=== PATIENT | female | born 1955 | race Caucasian/White ===

== ENCOUNTER 2017-10-06 15:57 | Emergency (ER) | payer OTHER, MEDICAID, SELFPAY ==
[2017-10-06 16:32] VITALS: BP 146/72; PULSE 83; RESP 18; TEMP 37.4; O2SAT 98; BMI 18.7
[2017-10-06 17:26] LABS: Bacteria Urine Moderate (10-30); Culture Indicated Urine Specimen Cultured; RBC Urine 1-5/HPF (0-5/HPF); Squamous Epithelial Cell Urine 0-1 /HPF; WBC Urine 10-30/HPF (0-5/HPF)
[2017-10-06 17:57] VITALS: BP 132/69; PULSE 64; RESP 18; TEMP 37.2; O2SAT 96
[2017-10-06 18:03] LABS: Add Manual Diff / Slide Review NO; Basophils Percent Auto 1.2 % (0-2); Eosinophils Percent Auto 0.8 % (2-4); Hematocrit 36.9 % (36-46); Hemoglobin 12.9 g/dL (12.0-16.0); Lymphocytes Percent Auto 27.5 % (25-40); Mean Corpuscular HGB Conc 34.9 % (30-36); Mean Corpuscular Hemoglobin 42.4 PG (26-34); Mean Corpuscular Volume 121.7 fL (80-100); Monocytes Percent Auto 6.3 % (3-14); Neutrophils Absolute Auto 4500 /uL (3000-5900); Neutrophils Percent Auto 64.2 % (50-75); Platelet Count 211 X10^3/uL (150-400); Red Blood Cell Count 3.03 X10^6/uL (4.0-5.2); Red Cell Distribution Width 13.5 % (11.6-14.8); White Blood Cell Count 7.1 X10^3/uL (4.5-11.0)
--- NOTE | 2017-10-06 18:12 | ED.FEMALEGU ---
HPI - Female Genitourinary General Chief complaint: Urogenital-Female Stated complaint: POSSIBLE KIDNEY STONE Time Seen by Provider: 10/06/17 18:11 Source: patient Mode of arrival: ambulatory Limitations: no limitations History of Present Illness HPI Narrative: The patient complains of fever, chills and sweats for 1 week. She is lower abdominal pain and bilateral flank pain. She has associated dysuria. About 3 days ago she had a period of hematuria. She has no prior history of kidney stones. She also notes passing membranous tissue about 3 days ago. Her last episode of vomiting was 3 days ago. Her appetite is poor, her oral intake is poor. Related Data Home Medications Medication Instructions Recorded Confirmed ASPIRIN (#ASPIRIN EC) 325 mg PO Q DAY #0 10/21/10 NITROGLYCERIN (#NITROTAB) PRN #0 10/21/10 ASPIRIN/ACETAMINOPHEN/CAFFEINE 1 tab PO PRN #0 01/07/11 (Excedrin Migraine Geltab) Previous Rx's Medication Instructions Recorded alendronate [Fosamax] 70 mg PO Q7DAYS #14 tab 04/28/17 estradiol [Estrace] 1 mg PO Q DAY #90 tab 04/28/17 gabapentin [Neurontin] 300 mg PO BID #180 cap 04/28/17 lorazepam [Ativan] 0.5 mg PO BID #75 tab 04/28/17 lovastatin 20 mg PO QDAYPM #90 tab 04/28/17 pregabalin [Lyrica] 150 mg PO BID #120 cap 04/28/17 hydrocodone 7.5 mg-acetaminophen 1 - 2 tab PO Q6HP PRN #120 tab 09/25/17 325 mg tablet amoxicillin-pot clavulanate 1 tab PO BID #14 tab 10/06/17 [Augmentin] ondansetron [Zofran ODT] 4 mg PO Q4H PRN #10 tab 10/06/17 Allergies Allergy/AdvReac Type Severity Reaction Status Date / Time Sulfa (Sulfonamide Allergy Severe RESPIRATORY Unverified 10/06/17 16:37 Antibiotics) DIFFICULTY [SULFA (SULFONAMIDE ANTIBIOTICS)] adhesive Allergy Mild TEARS Unverified 10/06/17 16:37 SKIN,USE COBAN Review of Systems Review of Systems All systems reviewed & are unremarkable except as noted in HPI and below Constitutional Reports chills, Reports fatigue, Reports fever(s) and Denies frequent falls ENT Ears, Nose, Mouth, and Throat: Denies dizziness and Denies sore throat Cardiovascular Denies chest pain, Denies lightheadedness and Denies dyspnea Respiratory Denies cough and Denies dyspnea Gastrointestinal Gastrointestinal: Reports as per HPI, Reports abdominal pain, Denies change in bowel habits, Denies diarrhea, Denies nausea and Reports vomiting Genitourinary Denies hematuria, Reports urinary frequency, Reports dysuria and Denies flank pain Musculoskeletal Reports back pain (Bilateral lower thoracic pain) and Denies numbness Integumentary/Breasts Denies pruritus, Denies erythema, Denies rash and Denies wounds Neurologic Denies behavioral changes, Denies confusion, Denies dizziness, Denies frequent falls and Denies numbness Psychiatric Denies behavioral changes and Denies confusion Endocrine Reports fatigue [facility] Social History Smoking Status: Current every day smoker Exam Initial Vital Signs Initial Vital Signs: Vital Signs Temperature 99.3 F 10/06/17 16:32 Pulse Rate 83 10/06/17 16:32 Respiratory Rate 18 10/06/17 16:32 Blood Pressure 146/72 H 10/06/17 16:32 Pulse Oximetry 98 10/06/17 16:32 Const General: cooperative and well developed Nutritional Appearance: well nourished Orientation: alert, awake, oriented x3 and not confused [facility] Head: normal to inspection, normocephalic and atraumatic Face and sinus: dry mucous membranes Throat: posterior oropharynx normal and tonsils normal Resp Effort & Inspection: normal respiratory effort, able to speak in complete sentences, no respiratory distress and no use of accessory muscles Auscultation: clear to auscultation bilaterally, no rales, no rhonchi and no wheezes Cardio Rate: regular rate Rhythm: regular rhythm Heart Sounds: no click, no gallops, no murmurs and no rubs Pulses: normal peripheral pulses GI Inspection: non-distended Palpation: soft, no hepatosplenomegaly, No pulsatile mass and tender (Suprapubic tenderness without guarding or rebound.) Auscultation: normal bowel sounds Back/Spine/Pelvis Back: CVA tenderness (Bilateral) Cervical Spine: cervical ROM normal Thoracic/Lumbar Spine: thoracic and lumbar spine normal to inspection Skin General: no rashes or lesions noted Neuro General: alert, oriented x3, gait normal and no focal motor deficits Speech: speech normal Course Orders Ordered: ED Orders 10/06/17 15:02 Urine Culture Stat Urine Microscopic Stat 10/06/17 17:57 Basic Metabolic Panel Stat Complete Blood Count AUTO DIFF Stat Discontinued Medications Ceftriaxone Sodium/Dextrose (Rocephin) 1 gm in 50 mls @ 100 mls/hr IV NOW ONE Stop: 10/06/17 18:55 Last Infusion: 10/06/17 19:26 Dose: 0 mls/hr Admin: 10/06/17 18:53 Dose: 100 mls/hr Sodium Chloride (Normal Saline 0.9%) 1,000 mls @ 1,000 mls/hr IV BOLUS ONE Stop: 10/06/17 19:22 Last Admin: 10/06/17 18:53 Dose: 1,000 mls/hr Ketorolac Tromethamine (Toradol) 30 mg IV NOW ONE Stop: 10/06/17 18:24 Last Admin: 10/06/17 18:52 Dose: 30 mg Ondansetron HCl (Zofran) 4 mg IV NOW ONE Stop: 10/06/17 18:24 Last Admin: 10/06/17 18:53 Dose: 4 mg Vital Signs - 8 hr 10/06/17 16:32 10/06/17 17:57 10/06/17 19:29 Temperature 99.3 F 98.9 F 97.9 F Pulse Rate 83 64 64 Respiratory Rate 18 18 16 Blood Pressure 146/72 H Blood Pressure [Left Arm] 132/69 H 124/57 H Pulse Oximetry 98 96 98 MDM - Female Genitourinary Medical Records Attestation: I reviewed the patient's medical records. Lab Data Attestation: I reviewed the patient's lab results. Result diagrams: 10/06/17 17:57 10/06/17 17:57 Lab Results 10/06/17 10/06/17 10/06/17 Range/Units 15:02 17:57 17:57 WBC 7.1 (4.5-11.0) X10^3/uL RBC 3.03 L (4.0-5.2) X10^6/uL Hgb 12.9 (12.0-16.0) g/dL Hct 36.9 (36-46) % MCV 121.7 H (80-100) fL MCH 42.4 H (26-34) PG MCHC 34.9 (30-36) % RDW 13.5 (11.6-14.8) % Plt Count 211 (150-400) X10^3/uL Neut % (Auto) 64.2 (50-75) % Lymph % (Auto) 27.5 (25-40) % [place] % (Auto) 6.3 (3-14) % Eos % (Auto) 0.8 L (2-4) % Baso % (Auto) 1.2 (0-2) % Neut # (Auto) 4500 (5113-6684) /uL RBC Morphology Not Reportable Macrocytosis 2+ H Sodium 135 L (137-145) mmol/L Potassium 3.8 (3.4-5.1) mmol/L Chloride 104 (98-107) mmol/L Carbon Dioxide 21 L (22-32) mmol/L BUN 8 (7-17) mg/dL Creatinine 0.50 L (0.52-1.04) mg/dL Estimated GFR > 60.0 (>60) mL/min BUN/Creatinine Ratio 16.0 (6-22) Glucose 92 (80-110) mg/dL Calcium 8.9 (8.4-10.2) mg/dL Urine RBC 1-5/hpf (0-5/HPF) Urine WBC 10-30/hpf H (0-5/HPF) Ur Squamous Epith Cells 0-1 /hpf Urine Bacteria Moderate (10-30) H (None) Ur Culture Indicated? Specimen cultured Micro UA Comment Not Reportable MDM Narrative Medical decision making narrative: The patient was treated here with Rocephin for a UTI. She will be discharged on Augmentin. She will receive Zofran for nausea. Discharge Plan Departure Patient Disposition: Home, Self-Care Clinical Impression: Urinary tract infection Instructions: DI for Urinary Tract Infection (UTI) Activity Restrictions/Additional Instructions: Augmentin 2 times daily for 1 week. Zofran every 4 hr as needed for nausea. Be sure you are drinking plenty of fluids. Return here for worsening of symptoms, recheck with her doctor in about 10 days. Prescriptions: New ondansetron [Zofran ODT] 4 mg tablet,disintegrating 4 mg PO Q4H PRN (Reason: nausea and vomiting) Qty: 10 RF: 0 amoxicillin-pot clavulanate [Augmentin] 875-125 mg tablet 1 tab PO BID Qty: 14 RF: 0 No Action ASPIRIN (#ASPIRIN EC) 325 mg PO Q DAY Qty: 0 RF: 0 NITROGLYCERIN (#NITROTAB) PRN Qty: 0 RF: 0 ASPIRIN/ACETAMINOPHEN/CAFFEINE (Excedrin Migraine Geltab) 1 tab PO PRN Qty: 0 RF: 0 alendronate [Fosamax] 70 MG tablet 70 mg PO Q7DAYS Qty: 14 RF: 3 lorazepam [Ativan] 0.5 MG tablet 0.5 mg PO BID Qty: 75 RF: 5 estradiol [Estrace] 1 MG tablet 1 mg PO Q DAY Qty: 90 RF: 3 gabapentin [Neurontin] 300 MG capsule 300 mg PO BID Qty: 180 RF: 3 lovastatin 20 MG tablet 20 mg PO QDAYPM Qty: 90 RF: 3 pregabalin [Lyrica] 75 MG capsule 150 mg PO BID Qty: 120 RF: 5 hydrocodone-acetaminophen 7.5-325 mg tablet 1 - 2 tab PO Q6HP PRN (Reason: pain) Qty: 120 RF: 0
[2017-10-06 18:14] LABS: Blood Urea Nitrogen 8 mg/dL (7-17); Calcium 8.9 mg/dL (8.4-10.2); Carbon Dioxide 21 mmol/L (22-32); Chloride 104 mmol/L (98-107); Estimated Glomerular Filt Rate > 60.0 mL/min (>60); Glucose 92 mg/dL (80-110); HEMOLYSIS 24 (0-50); Potassium 3.8 mmol/L (3.4-5.1); Sodium 135 mmol/L (137-145)
[2017-10-06] MEDS: KETOROLAC 60 MG/2 ML VIAL 30 MG IV (18:52)
[2017-10-06] MEDS: ONDANSETRON 4 MG/2 ML INJ IV (18:53)
[2017-10-06] MEDS: SODIUM CHLORIDE 0.9% 1,000 ML 1000 ML IV (18:53)
[2017-10-06] MEDS: CEFTRIAXONE 1 GM/50 ML FROZ.PIGGY IV (18:53)
[2017-10-06 19:22] LABS: Macrocytosis 2+
[2017-10-06 19:29] VITALS: BP 124/57; PULSE 64; RESP 16; TEMP 36.6; O2SAT 98
== END 2017-10-06 20:20 | disposition home or self-care (01) ==
PROVIDERS: Emergency Medicine; Emergency Provider Emergency Medicine; Family Provider Family Medicine; PCP Family Medicine
DX: N39.0 Urinary tract infection, site not specified (principal)
CPT/HCPCS: 36591; 80048; 81003; 81015; 85025; 87077; 87086; 87186; 96361; 96365; 96375; 99283; J1885; J2405

== ENCOUNTER → 2017-10-12 15:19 | Outpatient (CLI) | payer OTHER, MEDICAID, SELFPAY | PROVIDERS: Family Provider Family Medicine; PCP Family Medicine; Visit Provider Family Medicine | DX: Z87.440 Personal history of urinary (tract) infections (principal) | CPT/HCPCS: 87086 ==

== ENCOUNTER → 2017-10-20 16:01 | Outpatient (CLI) | payer SELFPAY | PROVIDERS: Family Provider Family Medicine; PCP Family Medicine; Visit Provider Internal Medicine | DX: Z53.9 Procedure and treatment not carried out, unspecified reason (principal) ==

== ENCOUNTER → 2017-10-20 16:05 | Outpatient (CLI) | payer OTHER, MEDICAID, SELFPAY ==
[2017-10-20 16:30] LABS: Add Manual Diff / Slide Review NO; Basophils Percent Auto 1.6 % (0-2); Eosinophils Percent Auto 2.5 % (2-4); Hematocrit 37.2 % (36-46); Hemoglobin 12.8 g/dL (12.0-16.0); Lymphocytes Percent Auto 33.7 % (25-40); Mean Corpuscular HGB Conc 34.4 % (30-36); Mean Corpuscular Hemoglobin 41.4 PG (26-34); Mean Corpuscular Volume 120.4 fL (80-100); Neutrophils Absolute Auto 2200 /uL (3000-5900); Neutrophils Percent Auto 53.2 % (50-75); Platelet Count 253 X10^3/uL (150-400); Red Blood Cell Count 3.09 X10^6/uL (4.0-5.2); Red Cell Distribution Width 13.3 % (11.6-14.8); White Blood Cell Count 4.1 X10^3/uL (4.5-11.0)
[2017-10-20 16:54] LABS: Alanine Aminotransferase 50 IU/L (9-52); Albumin 3.6 g/dL (3.5-5.0); Albumin Globulin Ratio 1.4 (1.0-2.8); Alkaline Phosphatase 164 U/L (38-126); Aspartate Aminotransferase 75 IU/L (14-36); Bilirubin Total 0.8 mg/dL (0.2-1.3); Calcium 8.9 mg/dL (8.4-10.2); Carbon Dioxide 25 mmol/L (22-32); Chloride 103 mmol/L (98-107); Estimated Glomerular Filt Rate > 60.0 mL/min (>60); Globulin 2.6 g/dL (1.7-4.1); Glucose 109 mg/dL (80-110); HEMOLYSIS < 15 (0-50); Sodium 137 mmol/L (137-145); Total Protein 6.2 g/dL (6.3-8.2)
[2017-10-20 17:04] LABS: BUN Creatinine Ratio 3.3 (6-22); Blood Urea Nitrogen < 2 mg/dL (7-17)
[2017-10-20 17:24] LABS: Macrocytosis 3+; Stomatocytes 2+
[2017-10-20 17:39] LABS: Potassium 2.7 mmol/L (3.4-5.1)
[2017-10-20 18:00] LABS: Folate 3.5 ng/mL (2.76-20.0)
[2017-10-20 18:16] LABS: Vitamin B12 752 pg/mL (239-931)
== END ==
PROVIDERS: Family Provider Family Medicine; PCP Family Medicine; Visit Provider Internal Medicine
DX: R19.7 Diarrhea, unspecified (principal)
CPT/HCPCS: 36415; 80053; 82607; 82746; 85025

== ENCOUNTER → 2017-10-21 11:40 | Outpatient (CLI) | payer OTHER, MEDICAID, SELFPAY ==
[2017-10-24 16:59] LABS: Adenovirus F 40/41 Not Detected (Not Detect); Astrovirus Not Detected (Not Detect); Campylobacter Not Detected (Not Detect); Clostridium difficile toxin AB Not Detected (Not Detect); Cryptosporidium Not Detected (Not Detect); Cyclospora cayetanensis Not Detected (Not Detect); Entamoeba histolytica Not Detected (Not Detect); Enteroaggregative E.coli Not Detected (Not Detect); Enteropathogenic E.coli Not Detected (Not Detect); Enterotoxigenic E.coli It/st Not Detected (Not Detect); Giardia lamblia Not Detected (Not Detect); Norovirus GI/GII Not Detected (Not Detect); Plesiomonsa shigelloides Not Detected (Not Detect); Rotavirus A Not Detected (Not Detect); Salmonella Not Detected (Not Detect); Sapovirus Not Detected; Shiga-like toxin-prod E.coli Not Detected (Not Detect); Shigella/Enteroinvasive E.coli Not Detected (Not Detect); Vibrio Not Detected (Not Detect); Vibrio cholerae Not Detected (Not Detect); Yersinia enterocolitica Not Detected (Not Detect)
== END ==
PROVIDERS: Family Provider Family Medicine; PCP Family Medicine; Visit Provider Internal Medicine
DX: R19.7 Diarrhea, unspecified (principal)
CPT/HCPCS: 87507

== ENCOUNTER → 2017-10-22 07:33 | Outpatient (CLI) | payer OTHER, MEDICAID, SELFPAY ==
[2017-10-22 09:22] LABS: Campylobacter Not Detected (Not Detect); Clostridium difficile toxin AB Not Detected (Not Detect); Enteroaggregative E.coli Not Detected (Not Detect); Enteropathogenic E.coli Not Detected (Not Detect); Enterotoxigenic E.coli It/st Not Detected (Not Detect); Plesiomonsa shigelloides Not Detected (Not Detect); Salmonella Not Detected (Not Detect); Vibrio Not Detected (Not Detect); Vibrio cholerae Not Detected (Not Detect); Yersinia enterocolitica Not Detected (Not Detect)
[2017-10-22 09:23] LABS: Adenovirus F 40/41 Not Detected (Not Detect); Astrovirus Not Detected (Not Detect); Cryptosporidium Not Detected (Not Detect); Cyclospora cayetanensis Not Detected (Not Detect); Entamoeba histolytica Not Detected (Not Detect); Giardia lamblia Not Detected (Not Detect); Norovirus GI/GII Not Detected (Not Detect); Rotavirus A Not Detected (Not Detect); Shiga-like toxin-prod E.coli Not Detected (Not Detect); Shigella/Enteroinvasive E.coli Not Detected (Not Detect)
[2017-10-23 08:52] LABS: Sapovirus N
== END ==
PROVIDERS: PCP Family Medicine; Visit Provider Internal Medicine
DX: R19.7 Diarrhea, unspecified (principal)
CPT/HCPCS: 87507

== ENCOUNTER → 2017-10-24 08:20 | Outpatient (CLI) | payer OTHER, MEDICAID, SELFPAY ==
[2017-10-24 09:48] LABS: Blood Urea Nitrogen 3 mg/dL (7-17); Calcium 8.2 mg/dL (8.4-10.2); Carbon Dioxide 30 mmol/L (22-32); Chloride 97 mmol/L (98-107); Estimated Glomerular Filt Rate > 60.0 mL/min (>60); Glucose 87 mg/dL (80-110); HEMOLYSIS < 15 (0-50); Potassium 3.4 mmol/L (3.4-5.1); Sodium 134 mmol/L (137-145)
[2017-10-24 10:26] LABS: Clostridium Difficile Tox PCR Negative for C. diff
== END ==
PROVIDERS: PCP Family Medicine; Referring Provider Family Medicine; Visit Provider Internal Medicine
DX: R19.7 Diarrhea, unspecified (principal); E87.6 Hypokalemia
CPT/HCPCS: 36415; 80048; 87493

== ENCOUNTER → 2017-11-03 15:05 | Outpatient (CLI) | payer OTHER, MEDICAID, SELFPAY ==
--- NOTE | 2017-11-03 15:07 | DI.US.S_ITS ---
PROCEDURE: US ABDOMEN COMPLETE INDICATIONS: Abdominal pain. TECHNIQUE: Real-time scanning was performed of the abdominal and retroperitoneal organs, with image documentation. COMPARISON: None. FINDINGS: Liver: Liver is normal in size and homogeneous in echotexture. Gallbladder: No cholelithiasis, gallbladder wall thickening, or pericholecystic fluid. Biliary ducts: Intrahepatic bile ducts are non-dilated. Extrahepatic bile duct caliber measures 8 mm. Pancreas: Visualized portions of the pancreas are sonographically normal. Pancreatic body and tail are obscured by overlying bowel gas. Spleen: Spleen is normal in size and homogeneous in echotexture. Kidneys: Kidneys are normal in size and echotexture. Right kidney measures 10.6 cm long; left kidney measures 9.5 cm long. No hydronephrosis or nephrolithiasis. No solid masses. Aorta: Visualized portions of the abdominal aorta are normal in caliber at less than 3 cm. Iliacs: Not well seen on this exam due to overlying bowel gas. IVC: Intrahepatic inferior vena cava is patent. Miscellaneous: No free abdominal fluid. IMPRESSION: Mild dilatation of the common bile duct. Findings discussed with the ordering provider Dr. Santino Mackenzie at 4:15 PM on 11/03/2017 by telephone. Dictated by: Jose Piña M.D. on 11/03/2017 at 16:16 Approved by: Jose Piña M.D. on 11/03/2017 at 16:20
[2017-11-03 17:21] LABS: Blood Urea Nitrogen 3 mg/dL (7-17); Estimated Glomerular Filt Rate > 60.0 mL/min (>60)
== END ==
PROVIDERS: Family Provider Family Medicine; PCP Family Medicine; Visit Provider Family Medicine
DX: K83.8 Other specified diseases of biliary tract (principal); R10.9 Unspecified abdominal pain
CPT/HCPCS: 36415; 76700; 82565; 84520

== ENCOUNTER → 2017-11-05 12:30 | Outpatient (CLI) | payer OTHER, MEDICAID, SELFPAY ==
--- NOTE | 2017-11-05 12:56 | DI.CT.S_ITS ---
PROCEDURE: CT ABDOMEN PELVIS W CON INDICATIONS: abdominal pain and diarreha TECHNIQUE: After the administration of oral and intravenous contrast, 5 mm thick sections acquired from the diaphragms to the symphysis. 5 mm thick coronal and sagittal reformats were performed. For radiation dose reduction, the following was used: automated exposure control, adjustment of mA and/or kV according to patient size. COMPARISON: None. FINDINGS: Image quality: Excellent. ABDOMEN: Lung bases: Lung bases are clear. Heart size is normal. Solid organs: Liver is enlarged with homogeneous decreased attenuation. Gallbladder is elongated to 11.4 cm in length. No visible stones or wall thickening. No pericholecystic free fluid. The bile ducts aren't enlarged, measuring 12.3 mm in the distal portion with moderate dilatation of the intrahepatic radicles. There is no visible calcified intraductal stone or evidence of pancreatitis/pancreatic mass. The pancreatic duct however is mildly dilated at 4.2 mm and there may be pancreatic divisum. Spleen is normal in size and enhancement. No adrenal nodules. Kidneys are normal in size and enhancement, without hydronephrosis. Peritoneum and bowel: Stomach, small bowel, and colon loops are normal in caliber and wall thickness. The appendix is not seen. No free fluid or air. Nodes and vessels: No retroperitoneal or mesenteric adenopathy. Aorta and inferior vena cava are normal in caliber. Miscellaneous: No ventral hernias. PELVIS: Genitourinary: Bladder wall thickness is normal. Uterus is surgically absent. Ovaries are nonvisualized. Miscellaneous: No inguinal hernias or adenopathy. Bones: No suspicious bony lesions. No vertebral body compression fractures. IMPRESSION: 1. Gallbladder hydrops. Biliary and pancreatic ductal dilatation. Findings are suspect for ductal obstruction but no pancreatic mass or stones seen. Correlation with liver function tests and pancreatic enzymes suggested. MRCP may be useful. 2. Hepatomegaly with steatosis. Normal size spleen. 3. Status post hysterectomy. Ovaries and appendix not seen. Dictated by: Lalo Montaño M.D. on 11/05/2017 at 16:41 Approved by: Lalo Montaño M.D. on 11/05/2017 at 16:51
== END ==
PROVIDERS: Family Provider Family Medicine; PCP Family Medicine; Visit Provider Family Medicine
DX: K82.1 Hydrops of gallbladder (principal); K86.89 Other specified diseases of pancreas; K82.8 Other specified diseases of gallbladder; K76.0 Fatty (change of) liver, not elsewhere classified; R16.0 Hepatomegaly, not elsewhere classified; R10.9 Unspecified abdominal pain; R19.7 Diarrhea, unspecified
CPT/HCPCS: 74177; Q9967

== ENCOUNTER → 2017-11-16 06:39 | Outpatient (CLI) | payer OTHER, MEDICAID, SELFPAY ==
--- NOTE | 2017-11-16 06:41 | DI.MRI.S_ITS ---
PROCEDURE: MR ABDOMEN WO CON INDICATIONS: mass on ct of abdomen TECHNIQUE: Coronal HASTE through the abdomen, axial 2-D FLASH in- and [id number], and breath-hold T2 FSE with fat saturation through the biliary system and pancreas. Oblique coronal and axial thin-slice HASTE, radial thick-slab HASTE centered on the extrahepatic bile ducts. Intravenous secretin: Not requested. COMPARISON: [facility], US, US ABDOMEN COMPLETE, 11/03/2017, 15:55. [facility], CT, CT ABDOMEN PELVIS W CON, 11/05/2017, 13:37. FINDINGS: Image quality: Motion artifact limits evaluation. Pancreas and biliary system: The intra-hepatic biliary tree is nondilated. An ill-defined filling defect is present within the common hepatic duct (series 18, images 26-29). The common bile duct without filling defects, and is patent and measures up to 1 cm in diameter. There is conventional pancreatic ductal anatomy. The pancreatic duct is normal caliber where visualized throughout the head and body. The gallbladder is mildly hydropic. No gallbladder wall thickening. No pericholecystic fluid. A 4 mm diameter filling defect is present at the superior aspect of the gallbladder suspicious for a small gallstone (series 18, image 37).. Other solid organs: Liver is normal in size. Spleen is normal in size. No adrenal nodules. Both kidneys are normal in size, without hydronephrosis. Nodes and vessels: No retroperitoneal or mesenteric adenopathy by size criteria. Aorta and inferior vena cava are normal in size. Bowel and peritoneum: Unenhanced bowel loops are normal in caliber. No free fluid. Lung bases: No basal pleural effusions. Heart size is normal. Bones and soft tissues: No ventral hernias. Bone marrow is of normal overall signal. IMPRESSION: 1. Small probable small gallstone as described above. 2. Filling defect within the common hepatic duct as described above. Differential considerations include choledocholithiasis and a soft tissue mass. No intrahepatic biliary ductal dilatation. Given the probable gallstone, choledocholithiasis is favored. Dictated by: Nilda Hardy M.D. on 11/16/2017 at 9:32 Approved by: Nilda Hardy M.D. on 11/16/2017 at 9:46
== END ==
PROVIDERS: Family Provider Family Medicine; PCP Family Medicine; Visit Provider Family Medicine
DX: R19.00 Intra-abdominal and pelvic swelling, mass and lump, unspecified site (principal)
CPT/HCPCS: 74181

== ENCOUNTER 2017-12-09 17:14 | Emergency (ER) | payer OTHER, MEDICAID, SELFPAY ==
[2017-12-09 17:26] VITALS: BP 125/51; PULSE 119; RESP 20; TEMP 36.2; O2SAT 96; BMI 18.1
--- NOTE | 2017-12-09 18:35 | ED.ABDPAIN ---
HPI - Abdominal Pain <Sangeetha Marx PA-C - Last Filed: 12/09/17 22:35> General Chief Complaint: Abdominal Pain Stated Complaint: STATES DEHYDRATED Time Seen by Provider: 12/09/17 18:35 Source: patient Mode of arrival: ambulatory Limitations: no limitations History of Present Illness HPI narrative: This 61-year-old female with a history of chronic diarrhea for about a year, worsening over the past 3-4 months, comes in today saying she is sent by PCP due to dehydration. She states that she has diarrhea up to every hour, maybe 10 times today. She states that diarrhea tends to be worse in the morning and a little bit better at night. It has been intermittent but for the past few days more consistent. She describes this as watery stool. She had blood in the stool previously but has not had any this week. She states she vomited once this morning. She states she does have some nausea. She has chronic abdominal pain that has not changed. She states that this is mainly in the left upper quadrant. She states the pain can radiate to the back at times. She has had stool studies, CT scan, multiple other tests and is waiting for a consultation with the GI specialist. She states that she also has some headache and pain in the back of her neck related to her spinal stenosis. She states that she did not take her routine dose of Vicodin today and thinks that is the source. She does have a history of angina and esophageal spasm, she denies any chest pain or dyspnea currently. She denies any new pain or swelling in her legs. She has not had no fevers but states she has felt chilled often on including today. She states that she has also had left foot pain and intermittent swelling along with this diarrhea, denies today. She states that she was taking Imodium previously which was helpful but stopped this some time ago when she saw blood in the stool. She states that she took Pepto-Bismol last week which also helped. She denies any other acute symptoms on systems review Related Data Home Medications Medication Instructions Recorded Confirmed ASPIRIN (#ASPIRIN EC) 325 mg PO Q DAY #0 10/21/10 11/02/17 NITROGLYCERIN (#NITROTAB) PRN #0 10/21/10 11/02/17 ASPIRIN/ACETAMINOPHEN/CAFFEINE 1 tab PO PRN #0 01/07/11 11/02/17 (Excedrin Migraine Geltab) Previous Rx's Medication Instructions Recorded alendronate [Fosamax] 70 mg PO Q7DAYS #14 tab 04/28/17 estradiol [Estrace] 1 mg PO Q DAY #90 tab 04/28/17 gabapentin [Neurontin] 300 mg PO BID #180 cap 04/28/17 lovastatin 20 mg PO QDAYPM #90 tab 04/28/17 ondansetron 4 mg disintegrating 4 mg PO Q4H PRN #10 tab 10/23/17 tablet pregabalin 75 mg capsule 150 mg PO BID #120 cap 10/26/17 lorazepam 0.5 mg tablet 0.5 mg PO BID #75 tab 10/27/17 carisoprodol 250 mg tablet 250 mg PO QID PRN #30 tab 11/26/17 hydrocodone 7.5 mg-acetaminophen 1 - 2 tab PO Q6HP PRN #120 tab 11/26/17 325 mg tablet Allergies Allergy/AdvReac Type Severity Reaction Status Date / Time Sulfa (Sulfonamide Allergy Severe RESPIRATORY Verified 10/20/17 15:37 Antibiotics) DIFFICULTY [SULFA (SULFONAMIDE ANTIBIOTICS)] adhesive Allergy Mild TEARS Verified 10/20/17 15:37 SKIN,USE COBAN Review of Systems <Sangeetha Marx PA-C - Last Filed: 12/09/17 22:35> Review of Systems All systems reviewed & are unremarkable except as noted in HPI and below PFSH <Sangeetha Marx PA-C - Last Filed: 12/09/17 22:35> Comment: Previous EtOH user, none currently Exam <Sangeetha Marx PA-C - Last Filed: 12/09/17 22:35> Narrative Exam Narrative: GENERAL APPEARANCE: Patient resting comfortably, wearing sunglasses. Appears thin and frail HEENT: PERRL, EOMI, no scleral icterus NECK: Supple LUNGS: Clear to auscultation bilaterally. HEART: Rate and rhythm regular, normal S1 and S2, no S3 or S4. ABDOMEN: Soft, nondistended, bowel sounds present x 4 quadrants, no masses palpable, no hepatosplenomegaly. Left upper quadrant tenderness to palpation without guarding or rebound, less tender over the epigastrium, no CVAT EXTREMITIES: No edema, no calf tenderness DERMATOLOGIC: No jaundice or exanthem NEUROLOGIC: Alert and oriented with normal speech and coordination, ambulates on her own Initial Vital Signs Initial Vital Signs: Vital Signs Temperature 97.1 F L 12/09/17 17:26 Pulse Rate 119 H 12/09/17 17:26 Respiratory Rate 20 12/09/17 17:26 Blood Pressure 125/51 H 12/09/17 17:26 Pulse Oximetry 96 12/09/17 17:26 <John Burnette DO - Last Filed: 12/10/17 02:55> Initial Vital Signs Initial Vital Signs: Vital Signs Temperature 97.1 F L 12/09/17 17:26 Pulse Rate 119 H 12/09/17 17:26 Respiratory Rate 20 12/09/17 17:26 Blood Pressure 125/51 H 12/09/17 17:26 Pulse Oximetry 96 12/09/17 17:26 Course <Sangeetha Marx PA-C - Last Filed: 12/09/17 22:35> Additional Information: Patient reported improvement in her nausea and her headache. She did drink water while in the department. She did have some continued intermittent diarrhea though less than earlier in the day. We reviewed her test findings today. She did agree to restart her potassium that she already has at home for previous hypokalemia. She also agreed to use Zofran if needed, which she does have at home and was effective for her tonight. She will resume her usual pain medications (she skipped her [place] today probably contributing to rebound headache). She will also resume Imodium for now if she finds it helpful. We discussed importance of potassium replacement and that this should be rechecked with her PCP in the next couple of days. She agrees to call 1st thing tomorrow morning for appointment. She does have a GI consultation in 2 weeks. We discussed return if acutely worsening symptoms in the interim. Exam, lab, EKG findings reviewed with Dr. Burnette who agrees that the symptoms are not acute and reasonable for patient to discharge home since she is feeling better after treatment Orders Ordered: ED Orders 12/09/17 18:28 Complete Blood Count AUTO DIFF Stat Comprehensive Metabolic Panel Stat Lipase Stat Magnesium Stat 12/09/17 18:54 EKG-12 Lead Stat 12/09/17 20:44 EKG-12 Lead Stat Discontinued Medications Hydrocodone Bitart/Acetaminophen ([place] 5/325) 2 tab PO NOW ONE Stop: 12/09/17 18:51 Last Admin: 12/09/17 19:41 Dose: 2 tab Al Hydrox/Mg Hydrox/Simethicone (Maalox Plus) 30 ml PO NOW ONE Stop: 12/09/17 18:51 Last Admin: 12/09/17 19:42 Dose: 30 ml Sodium Chloride (Normal Saline 0.9%) 1,000 mls @ 150 mls/hr IV CONT DALILA Last Admin: 12/09/17 19:18 Dose: Not Given Sodium Chloride (Normal Saline 0.9%) 1,000 mls @ 1,000 mls/hr IV BOLUS ONE Stop: 12/09/17 19:51 Last Infusion: 12/09/17 21:03 Dose: 0 mls/hr Admin: 12/09/17 19:42 Dose: 1,000 mls/hr Loperamide HCl (Imodium) 4 mg PO NOW ONE Stop: 12/09/17 18:51 Last Admin: 12/09/17 19:42 Dose: 4 mg Ondansetron HCl (Zofran) 4 mg IV NOW ONE Stop: 12/09/17 18:51 Last Admin: 12/09/17 19:42 Dose: 4 mg Potassium Chloride (Klor-Con M20) 20 meq PO NOW ONE Stop: 12/09/17 18:55 Last Admin: 12/09/17 19:45 Dose: 20 meq Potassium Chloride (Potassium Chloride) 40 meq PO NOW ONE Stop: 12/09/17 19:01 Last Admin: 12/09/17 19:42 Dose: 40 meq Vital Signs - 8 hr 12/09/17 19:28 12/09/17 20:00 12/09/17 21:15 Temperature 97.1 F L Pulse Rate 101 H 73 76 Respiratory Rate 18 19 Blood Pressure 125/51 H Blood Pressure [Left Arm] 120/61 121/61 H 130/59 H Pulse Oximetry 98 99 99 12/09/17 21:39 Temperature Pulse Rate 69 Respiratory Rate Blood Pressure Blood Pressure [Left Arm] 127/51 H Pulse Oximetry 100 <John Burnette DO - Last Filed: 12/10/17 02:55> Orders Ordered: ED Orders 12/09/17 18:28 Complete Blood Count AUTO DIFF Stat Comprehensive Metabolic Panel Stat Lipase Stat Magnesium Stat 12/09/17 18:54 EKG-12 Lead Stat 12/09/17 20:44 EKG-12 Lead Stat Discontinued Medications Hydrocodone Bitart/Acetaminophen ([place] 5/325) 2 tab PO NOW ONE Stop: 12/09/17 18:51 Last Admin: 12/09/17 19:41 Dose: 2 tab Al Hydrox/Mg Hydrox/Simethicone (Maalox Plus) 30 ml PO NOW ONE Stop: 12/09/17 18:51 Last Admin: 12/09/17 19:42 Dose: 30 ml Sodium Chloride (Normal Saline 0.9%) 1,000 mls @ 150 mls/hr IV CONT DALILA Last Admin: 12/09/17 19:18 Dose: Not Given Sodium Chloride (Normal Saline 0.9%) 1,000 mls @ 1,000 mls/hr IV BOLUS ONE Stop: 12/09/17 19:51 Last Infusion: 12/09/17 21:03 Dose: 0 mls/hr Admin: 12/09/17 19:42 Dose: 1,000 mls/hr Loperamide HCl (Imodium) 4 mg PO NOW ONE Stop: 12/09/17 18:51 Last Admin: 12/09/17 19:42 Dose: 4 mg Ondansetron HCl (Zofran) 4 mg IV NOW ONE Stop: 12/09/17 18:51 Last Admin: 12/09/17 19:42 Dose: 4 mg Potassium Chloride (Klor-Con M20) 20 meq PO NOW ONE Stop: 12/09/17 18:55 Last Admin: 12/09/17 19:45 Dose: 20 meq Potassium Chloride (Potassium Chloride) 40 meq PO NOW ONE Stop: 12/09/17 19:01 Last Admin: 12/09/17 19:42 Dose: 40 meq Vital Signs - 8 hr 12/09/17 19:28 12/09/17 20:00 12/09/17 21:15 Temperature 97.1 F L Pulse Rate 101 H 73 76 Respiratory Rate 18 19 Blood Pressure 125/51 H Blood Pressure [Left Arm] 120/61 121/61 H 130/59 H Pulse Oximetry 98 99 99 12/09/17 21:39 Temperature Pulse Rate 69 Respiratory Rate Blood Pressure Blood Pressure [Left Arm] 127/51 H Pulse Oximetry 100 MDM - Abdominal Pain <Sangeetha Marx PA-C - Last Filed: 12/09/17 22:35> Lab Data Attestation: I reviewed the patient's lab results. Result diagrams: 12/09/17 18:28 12/09/17 18:28 Lab Results 12/09/17 12/09/17 Range/Units 18:28 18:28 WBC 7.5 (4.5-11.0) X10^3/uL RBC 3.45 L (4.0-5.2) X10^6/uL Hgb 14.0 (12.0-16.0) g/dL Hct 40.9 (36-46) % MCV 118.8 H (80-100) fL MCH 40.6 H (26-34) PG MCHC 34.2 (30-36) % RDW 12.3 (11.6-14.8) % Plt Count 313 (150-400) X10^3/uL Neut % (Auto) 72.6 (50-75) % Lymph % (Auto) 18.2 L (25-40) % [place] % (Auto) 7.7 (3-14) % Eos % (Auto) 0.6 L (2-4) % Baso % (Auto) 0.9 (0-2) % Neut # (Auto) 5400 (8980-9616) /uL RBC Morphology Not Reportable Macrocytosis 2+ H Sodium 143 (137-145) mmol/L Potassium 2.8 L (3.4-5.1) mmol/L Chloride 106 (98-107) mmol/L Carbon Dioxide 19 L (22-32) mmol/L BUN 3 L (7-17) mg/dL Creatinine 0.50 L (0.52-1.04) mg/dL Estimated GFR > 60.0 (>60) mL/min BUN/Creatinine Ratio 6.0 (6-22) Glucose 94 (80-110) mg/dL Calcium 9.7 (8.4-10.2) mg/dL Magnesium 2.0 (1.6-2.3) mg/dL Total Bilirubin 0.6 (0.2-1.3) mg/dL AST 48 H (14-36) IU/L ALT 28 (9-52) IU/L Alkaline Phosphatase 127 H (38-126) U/L Total Protein 7.0 (6.3-8.2) g/dL Albumin 4.4 (3.5-5.0) g/dL Globulin 2.6 (1.7-4.1) g/dL Albumin/Globulin Ratio 1.7 (1.0-2.8) Lipase 189 (23-300) U/L ECG Data Attestation: I personally reviewed and interpreted this ECG as follows: (EKG 1 sinus rhythm, rate 87, extensive artifact, EKG 2 normal sinus rhythm with rate 68, nonspecific ST changes also with artifact) <John Burnette, DO - Last Filed: 12/10/17 02:55> Lab Data Lab Results 12/09/17 12/09/17 Range/Units 18:28 18:28 WBC 7.5 (4.5-11.0) X10^3/uL RBC 3.45 L (4.0-5.2) X10^6/uL Hgb 14.0 (12.0-16.0) g/dL Hct 40.9 (36-46) % MCV 118.8 H (80-100) fL MCH 40.6 H (26-34) PG MCHC 34.2 (30-36) % RDW 12.3 (11.6-14.8) % Plt Count 313 (150-400) X10^3/uL Neut % (Auto) 72.6 (50-75) % Lymph % (Auto) 18.2 L (25-40) % [place] % (Auto) 7.7 (3-14) % Eos % (Auto) 0.6 L (2-4) % Baso % (Auto) 0.9 (0-2) % Neut # (Auto) 5400 (8584-0215) /uL RBC Morphology Not Reportable Macrocytosis 2+ H Sodium 143 (137-145) mmol/L Potassium 2.8 L (3.4-5.1) mmol/L Chloride 106 (98-107) mmol/L Carbon Dioxide 19 L (22-32) mmol/L BUN 3 L (7-17) mg/dL Creatinine 0.50 L (0.52-1.04) mg/dL Estimated GFR > 60.0 (>60) mL/min BUN/Creatinine Ratio 6.0 (6-22) Glucose 94 (80-110) mg/dL Calcium 9.7 (8.4-10.2) mg/dL Magnesium 2.0 (1.6-2.3) mg/dL Total Bilirubin 0.6 (0.2-1.3) mg/dL AST 48 H (14-36) IU/L ALT 28 (9-52) IU/L Alkaline Phosphatase 127 H (38-126) U/L Total Protein 7.0 (6.3-8.2) g/dL Albumin 4.4 (3.5-5.0) g/dL Globulin 2.6 (1.7-4.1) g/dL Albumin/Globulin Ratio 1.7 (1.0-2.8) Lipase 189 (23-300) U/L Discharge Plan Departure Patient Disposition: Home Clinical Impression: Chronic diarrhea, Low blood potassium, Dehydration Discharge Date/Time: 12/09/17 22:02 Interventions: ED Discharge Assessment Last Done: 12/09/17 22:01 Instructions: [place] Diet, DI for Diarrhea and Traveler's Diarrhea -- Adult, Loperamide Activity Restrictions/Additional Instructions: Please continue to drink plenty of clear fluids at home to help with hydration. You can restart your Imodium as we talked about since it seems to help you. You can also use the Odansetron that you already have at home as needed for nausea. You also need to restart your potassium that you have at home at the same dose you had before. This is very important as your potassium was low today, but we did give you supplement here tonight. Potassium has a narrow range of normal, and can cause serious problems if it gets too high or too low. You do need further testing for this and I know that you are waiting for a gastroenterology specialist appointment. In the meantime, please try eating a very bland diet with foods such as white rice, white bread, bananas, broth, applesauce, and you can slowly add more foods as you tolerate. You need to call your PCP 1st thing in the morning and arrange for follow-up in the next couple of days. Your potassium should be rechecked by Thursday with you back on the supplement. Prescriptions: No Action ASPIRIN (#ASPIRIN EC) 325 mg PO Q DAY Qty: 0 RF: 0 NITROGLYCERIN (#NITROTAB) PRN Qty: 0 RF: 0 ASPIRIN/ACETAMINOPHEN/CAFFEINE (Excedrin Migraine Geltab) 1 tab PO PRN Qty: 0 RF: 0 alendronate [Fosamax] 70 MG tablet 70 mg PO Q7DAYS Qty: 14 RF: 3 estradiol [Estrace] 1 MG tablet 1 mg PO Q DAY Qty: 90 RF: 3 gabapentin [Neurontin] 300 MG capsule 300 mg PO BID Qty: 180 RF: 3 lovastatin 20 MG tablet 20 mg PO QDAYPM Qty: 90 RF: 3 ondansetron [Zofran ODT] 4 mg tablet,disintegrating 4 mg PO Q4H PRN (Reason: nausea and vomiting) Qty: 10 RF: 0 pregabalin [Lyrica] 75 mg capsule 150 mg PO BID Qty: 120 RF: 0 lorazepam [Ativan] 0.5 mg tablet 0.5 mg PO BID Qty: 75 RF: 2 hydrocodone-acetaminophen 7.5-325 mg tablet 1 - 2 tab PO Q6HP PRN (Reason: pain) Qty: 120 RF: 0 carisoprodol 250 mg tablet 250 mg PO QID PRN (Reason: muscle pain) Qty: 30 RF: 1 Referrals: Santino Mackenzie MD [Primary Care Provider] - <John Burnette DO - Last Filed: 12/10/17 02:55> Cosign ED Attending Raymundoature Attestation: I was immediately available in the department for consultation. Documentation has been reviewed. I agree with assessment and plan.
[2017-12-09 18:42] LABS: Add Manual Diff / Slide Review NO; Basophils Percent Auto 0.9 % (0-2); Eosinophils Percent Auto 0.6 % (2-4); Hematocrit 40.9 % (36-46); Lymphocytes Percent Auto 18.2 % (25-40); Mean Corpuscular HGB Conc 34.2 % (30-36); Mean Corpuscular Hemoglobin 40.6 PG (26-34); Mean Corpuscular Volume 118.8 fL (80-100); Monocytes Percent Auto 7.7 % (3-14); Neutrophils Absolute Auto 5400 /uL (3000-5900); Neutrophils Percent Auto 72.6 % (50-75); Platelet Count 313 X10^3/uL (150-400); Red Blood Cell Count 3.45 X10^6/uL (4.0-5.2); Red Cell Distribution Width 12.3 % (11.6-14.8); White Blood Cell Count 7.5 X10^3/uL (4.5-11.0)
[2017-12-09 18:50] LABS: Alanine Aminotransferase 28 IU/L (9-52); Albumin 4.4 g/dL (3.5-5.0); Albumin Globulin Ratio 1.7 (1.0-2.8); Alkaline Phosphatase 127 U/L (38-126); Aspartate Aminotransferase 48 IU/L (14-36); Bilirubin Total 0.6 mg/dL (0.2-1.3); Blood Urea Nitrogen 3 mg/dL (7-17); Calcium 9.7 mg/dL (8.4-10.2); Carbon Dioxide 19 mmol/L (22-32); Chloride 106 mmol/L (98-107); Estimated Glomerular Filt Rate > 60.0 mL/min (>60); Globulin 2.6 g/dL (1.7-4.1); Glucose 94 mg/dL (80-110); HEMOLYSIS < 15 (0-50); Lipase 189 U/L (23-300); Potassium 2.8 mmol/L (3.4-5.1); Sodium 143 mmol/L (137-145)
[2017-12-09 19:11] LABS: Macrocytosis 2+
[2017-12-09 19:28] VITALS: BP 120/61; PULSE 101; O2SAT 98
[2017-12-09] MEDS: HYDROCODONE/ACET 5/325 TABLET 2 TAB PO (19:41)
[2017-12-09] MEDS: POTASSIUM CHLORIDE 20 MEQ/15 ML UDC 40 MEQ PO (19:42)
[2017-12-09] MEDS: MAG HYDROX/ALUM/SIMETH 30 ML UDC PO (19:42)
[2017-12-09] MEDS: SODIUM CHLORIDE 0.9% 1,000 ML 1000 ML IV (19:42)
[2017-12-09] MEDS: ONDANSETRON 4 MG/2 ML INJ IV (19:42)
[2017-12-09] MEDS: LOPERAMIDE 2 MG CAPSULE 4 MG PO (19:42)
[2017-12-09] MEDS: POTASSIUM CHLORIDE 20 MEQ TAB PO (19:45)
[2017-12-09 20:00] VITALS: BP 121/61; BP 125/51; PULSE 73; RESP 18; TEMP 36.2; O2SAT 99; BMI 18.1
[2017-12-09 21:15] VITALS: BP 130/59; PULSE 76; RESP 19; O2SAT 99
[2017-12-09 21:39] VITALS: BP 127/51; PULSE 69; O2SAT 100
== END 2017-12-09 22:02 | disposition home or self-care (01) ==
PROVIDERS: Emergency Medicine; Emergency Provider Internal Medicine; Family Provider Family Medicine; PCP Family Medicine
DX: R19.7 Diarrhea, unspecified (principal); E87.6 Hypokalemia; E86.0 Dehydration
CPT/HCPCS: 36415; 80053; 83690; 83735; 85025; 93005; 93010; 96361; 96374; 99283; 99284; J2405

== ENCOUNTER → 2018-05-10 16:21 | Outpatient (CLI) | payer OTHER, MEDICAID, SELFPAY ==
[2018-05-10 17:25] LABS: Add Manual Diff / Slide Review NO; Basophils Absolute Auto 0 /uL (0-100); Basophils Percent Auto 0.9 % (0-2); Eosinophils Absolute Auto 200 /uL (0-450); Hematocrit 37.3 % (36-46); Hemoglobin 12.3 g/dL (12.0-16.0); Lymphocytes Absolute Auto 1600 /uL (1100-4500); Lymphocytes Percent Auto 31.1 % (25-40); Mean Corpuscular HGB Conc 32.9 % (30-36); Mean Corpuscular Hemoglobin 36.5 PG (26-34); Mean Corpuscular Volume 110.7 fL (80-100); Monocytes Absolute Auto 500 /uL (0-900); Monocytes Percent Auto 10.4 % (3-14); Neutrophils Absolute Auto 2800 /uL (1500-7000); Neutrophils Percent Auto 54.6 % (50-75); Platelet Count 205 X10^3/uL (150-400); Red Blood Cell Count 3.37 X10^6/uL (4.0-5.2); Red Cell Distribution Width 12.5 % (11.6-14.8); White Blood Cell Count 5.2 X10^3/uL (4.5-11.0)
[2018-05-10 18:10] LABS: Anisocytosis 1+
[2018-05-10 18:11] LABS: Macrocytosis 1+
[2018-05-10 18:25] LABS: Alanine Aminotransferase 35 IU/L (9-52); Albumin 4.2 g/dL (3.5-5.0); Albumin Globulin Ratio 1.6 (1.0-2.8); Alkaline Phosphatase 104 U/L (38-126); Aspartate Aminotransferase 43 IU/L (14-36); BUN Creatinine Ratio 21.7 (6-22); Bilirubin Total 0.8 mg/dL (0.2-1.3); Blood Urea Nitrogen 13 mg/dL (7-17); Calcium 9.7 mg/dL (8.4-10.2); Carbon Dioxide 24 mmol/L (22-32); Chloride 107 mmol/L (98-107); Cholesterol 164 mg/dL (140-199); Estimated Glomerular Filt Rate > 60.0 mL/min (>60); Globulin 2.6 g/dL (1.7-4.1); Glucose 93 mg/dL (80-110); HDL Cholesterol 101 mg/dL (40-60); HEMOLYSIS < 15 (0-50); LDL Cholesterol Calculated 33 mg/dL (<100); Potassium 4.8 mmol/L (3.4-5.1); Sodium 139 mmol/L (137-145); Total Protein 6.8 g/dL (6.3-8.2); Triglycerides 152 mg/dL (35-150)
[2018-05-10 18:57] LABS: Thyroid Stimulating Hormone 2.21 uIU/mL (0.47-4.68)
== END ==
PROVIDERS: Family Provider Family Medicine; PCP Family Medicine; Visit Provider Family Medicine
DX: E78.2 Mixed hyperlipidemia (principal)
CPT/HCPCS: 36415; 80053; 80061; 84443; 85025

== ENCOUNTER → 2018-06-10 14:57 | Outpatient (CLI) | payer OTHER, MEDICAID, SELFPAY | PROVIDERS: Family Provider Family Medicine; PCP Family Medicine; Visit Provider Family Medicine | DX: M81.0 Age-related osteoporosis without current pathological fracture (principal); Z78.0 Asymptomatic menopausal state; F17.200 Nicotine dependence, unspecified, uncomplicated; Z90.722 Acquired absence of ovaries, bilateral | CPT/HCPCS: 77080 ==

== ENCOUNTER → 2018-08-17 09:09 | Outpatient (CLI) | payer OTHER, MEDICAID, SELFPAY ==
--- NOTE | 2018-08-17 09:11 | DI.US.S_ITS ---
PROCEDURE: US ABDOMEN COMPLETE INDICATIONS: ABDOMINAL PAIN, POSSIBLE GB DISEASE TECHNIQUE: Real-time scanning was performed of the abdominal and retroperitoneal organs, with image documentation. COMPARISON: None. FINDINGS: Liver: Liver demonstrates diffuse increased echogenicity without focal intrahepatic abnormalities Gallbladder: Gallbladder contains layering sludge with gallbladder wall measuring at the upper limits of normal (3 mm). No pericholecystic fluid noted. There is a positive sonographic Cohen's. No focal gallstones identified. Biliary ducts: Intrahepatic bile ducts are non-dilated. Extrahepatic bile duct caliber measures 3 mm. Normal is 6-7 mm or less in diameter, or 10 mm or less post-cholecystectomy. Nonspecific echogenic foci noted within the biliary ducts possibly representing air versus tiny calcifications. Pancreas: The pancreas is not well seen. Spleen: Spleen is normal in size and homogeneous in echotexture. Kidneys: Kidneys are normal in size and echotexture. Right kidney measures 10.4 cm long; left kidney measures 9.2 cm long. No hydronephrosis or nephrolithiasis. No solid masses. Aorta: Visualized aorta is normal in caliber at less than 3 cm. Moderate scattered atherosclerotic plaques throughout the visualized abdominal aorta. Iliacs: Proximal common iliac arteries are normal in caliber at less than 2.5 cm. IVC: Intrahepatic inferior vena cava is patent. Miscellaneous: No free abdominal fluid. IMPRESSION: 1. Gallbladder contains moderate amount of layering material consistent with sludge with gallbladder wall thickness at the upper limits of normal. There is a positive sonographic Cohen's sign. Findings may be related to acute acalculous cholecystitis as there were no focal gallstones identified. 2. A few nonspecific tiny echogenic foci identified in the hepatic biliary ducts which may represent air versus tiny calcifications. 3. The liver demonstrates diffusely increased echotexture without focal abnormalities consistent with chronic hepatocellular disease/hepatic steatosis. Consider correlation with LFTs. 4. Moderate atherosclerotic vascular disease of the abdominal aorta without aneurysmal dilatation. Dictated by: Jasvir Fields M.D. on 08/17/2018 at 12:20 Approved by: Jasvir Fields M.D. on 08/17/2018 at 12:27
== END ==
PROVIDERS: Family Provider Family Medicine; PCP Family Medicine; Visit Provider Specialist
DX: R10.9 Unspecified abdominal pain (principal); R19.7 Diarrhea, unspecified; I70.0 Atherosclerosis of aorta; G89.29 Other chronic pain
CPT/HCPCS: 76700

== ENCOUNTER → 2018-09-09 09:40 | Outpatient (CLI) | payer OTHER, MEDICAID, SELFPAY | PROVIDERS: Family Provider Family Medicine; PCP Family Medicine; Visit Provider Specialist | DX: R19.7 Diarrhea, unspecified (principal); R93.2 Abnormal findings on diagnostic imaging of liver and biliary tract; Z53.9 Procedure and treatment not carried out, unspecified reason ==

== ENCOUNTER → 2018-09-20 12:07 | Outpatient (CLI) | payer OTHER, MEDICAID, SELFPAY ==
--- NOTE | 2018-09-20 | DI.NM.S_ITS ---
PROCEDURE: NM HIDA WITH CCK PHARMACEUTICAL: 4.7 mCi Tc-99m mebrofenin IV; 1.7 mg morphine administered at 72 minutes after initiation of the study to assist in filling of the gallbladder lumen. INDICATIONS: Diarrhea, unspecified TECHNIQUE: Following intravenous administration of Tc-99m mebrofenin, sequential anterior abdominal images were obtained. To evaluate the contractile response of the gallbladder in response to Cholecystokinin (CCK), sincalide (0.02 ?g/kg) was administered by slow intravenous infusion approximately 60 minutes after the administration of the radiopharmaceutical. Sequential imaging was continued for 30 minutes after the start of CCK infusion. Gallbladder ejection fraction was calculated. COMPARISON: [facility], CT, CT ABDOMEN PELVIS W CON, 11/05/2017, 13:37. FINDINGS: Biliary scan: There is normal tracer uptake and excretion by the liver. There is normal visualization of the intrahepatic ducts, and common bile duct. The common duct traverses diagonally across the kecia hepatis area and then turns inferiorly in its normal course through the pancreatic head towards the duodenal lumen. The anatomy of the common duct and gallbladder is cross referrable to the CT scan from 11/05/17. On early isotope imaging there is a vertically oriented structure that is directed inferiorly below the diagonally oriented common hepatic duct, and this represents the gallbladder. Relatively low reflux of isotope into the gallbladder lumen was noted over the course of the study, with the large majority of the isotope traversing through the common bile duct into the small bowel lumen. Adequate filling of the gallbladder was not obtained and at 72 minutes after injection morphine was administered to contract the sphincter of Tre, which mildly improved the reflux of isotope into the gallbladder lumen. There is normal tracer transit into the duodenum. IMPRESSION: The radioisotope visualization of the liver parenchyma is normal. The bile ducts are patent and there is normal tracer transit into the duodenal lumen and thereafter through the small bowel. The radiotracer filling of the gallbladder was very limited through the examination and at 72 minutes after initiation of the study morphine was administered to contract the sphincter of bone which only mildly improved reflux of isotope into the gallbladder lumen. The gallbladder filling is insufficient for accurate calculation of gallbladder ejection fraction for this reason cholecystokinin was not administered. The cystic duct clearly is patent but filling of the gallbladder was limited. Dictated by: Kalia Diaz M.D. on 09/20/2018 at 14:54 Approved by: Kalia Diaz M.D. on 09/20/2018 at 15:03
[2018-09-20] MEDS: MORPHINE 4 MG/ML INJ IV (14:57)
== END ==
PROVIDERS: PCP Family Medicine; Visit Provider Specialist
DX: R19.7 Diarrhea, unspecified (principal)
CPT/HCPCS: 78226; A9537; J2270

== ENCOUNTER → 2018-10-15 15:33 | Outpatient (CLI) | payer OTHER, MEDICAID, SELFPAY ==
--- NOTE | 2018-10-15 | DI.RAD.S_ITS ---
PROCEDURE: XR THORACIC SPINE 3V INDICATIONS: OSTEOPOROSIS TECHNIQUE: 3 views of the thoracic spine were acquired. COMPARISON: None. FINDINGS: Bones: Diffuse osteopenia. No acute compression fractures or dislocations. Mild multilevel thoracic spondylitic changes. No suspicious bony lesions. 12 pairs of ribs are noted, and appear intact where visualized. Soft tissues: No paravertebral stripe thickening. IMPRESSION: 1. Diffuse osteopenia. No acute compression fractures of the thoracic spine. 2. Mild multilevel thoracic spondylosis. Dictated by: Jasvir Fields M.D. on 10/15/2018 at 17:04 Approved by: Jasvir Fields M.D. on 10/15/2018 at 17:06
== END ==
PROVIDERS: PCP Family Medicine; Visit Provider Nurse Practitioner
DX: M85.88 Other specified disorders of bone density and structure, other site (principal); M47.814 Spondylosis without myelopathy or radiculopathy, thoracic region
CPT/HCPCS: 72072

== ENCOUNTER → 2018-10-25 17:04 | Outpatient (CLI) | payer OTHER, MEDICAID, SELFPAY | PROVIDERS: PCP Family Medicine; Visit Provider Nurse Practitioner | DX: E55.9 Vitamin D deficiency, unspecified (principal) | CPT/HCPCS: 36415; 82306 ==

== ENCOUNTER → 2019-05-11 13:25 | Outpatient (CLI) | payer OTHER, MEDICAID, SELFPAY ==
[2019-05-11 13:45] LABS: Add Manual Diff / Slide Review NO; Basophils Absolute Auto 0 /uL (0-100); Basophils Percent Auto 0.7 % (0-2); Eosinophils Absolute Auto 0 /uL (0-450); Eosinophils Percent Auto 0.9 % (2-4); Hematocrit 39.2 % (36-46); Hemoglobin 13.3 g/dL (12.0-16.0); Lymphocytes Absolute Auto 1000 /uL (1100-4500); Lymphocytes Percent Auto 24.7 % (25-40); Mean Corpuscular Hemoglobin 37.4 PG (26-34); Monocytes Absolute Auto 400 /uL (0-900); Monocytes Percent Auto 10.3 % (3-14); Neutrophils Absolute Auto 2600 /uL (1500-7000); Neutrophils Percent Auto 63.4 % (50-75); Platelet Count 329 X10^3/uL (150-400); Red Blood Cell Count 3.56 X10^6/uL (4.0-5.2); White Blood Cell Count 4.1 X10^3/uL (4.5-11.0)
[2019-05-11 13:58] LABS: Alanine Aminotransferase 44 IU/L (<35); Albumin 3.8 g/dL (3.5-5.0); Albumin Globulin Ratio 1.2 (1.0-2.8); Alkaline Phosphatase 171 U/L (38-126); Amylase 74 U/L (30-110); Aspartate Aminotransferase 114 IU/L (14-36); BUN Creatinine Ratio 6.7 (6-22); Bilirubin Total 0.8 mg/dL (0.2-1.3); Blood Urea Nitrogen 4 mg/dL (7-17); Calcium 9.5 mg/dL (8.4-10.2); Carbon Dioxide 20 mmol/L (22-32); Chloride 106 mmol/L (98-107); Estimated Glomerular Filt Rate > 60.0 mL/min (>60); Globulin 3.3 g/dL (1.7-4.1); Glucose 110 mg/dL (80-110); HEMOLYSIS < 15 (0-50); Lipase 62 U/L (23-300); Potassium 3.6 mmol/L (3.4-5.1); Sodium 138 mmol/L (137-145); Total Protein 7.1 g/dL (6.3-8.2)
[2019-05-11 14:00] LABS: C-Reactive Protein Quant < 0.5 mg/dL (<1.0)
[2019-05-11 14:12] LABS: Erythrocyte Sedimentation Rate 4 MM/HR (0-20)
== END ==
PROVIDERS: PCP Family Medicine; Visit Provider Family Medicine
DX: R10.9 Unspecified abdominal pain (principal)
CPT/HCPCS: 36415; 80053; 82150; 83690; 85025; 85651; 86140

== ENCOUNTER → 2019-05-12 13:47 | Outpatient (CLI) | payer OTHER, MEDICAID, SELFPAY ==
[2019-05-12 15:47] LABS: Campylobacter Not Detected (Not Detect); Clostridium difficile toxin AB Detected (Not Detect); Plesiomonsa shigelloides Not Detected (Not Detect); Salmonella Not Detected (Not Detect); Vibrio Not Detected (Not Detect); Vibrio cholerae Not Detected (Not Detect); Yersinia enterocolitica Not Detected (Not Detect)
[2019-05-12 15:48] LABS: Adenovirus F 40/41 Not Detected (Not Detect); Astrovirus Not Detected (Not Detect); Cryptosporidium Not Detected (Not Detect); Cyclospora cayetanensis Not Detected (Not Detect); Entamoeba histolytica Not Detected (Not Detect); Enteroaggregative E.coli Not Detected (Not Detect); Enteropathogenic E.coli Not Detected (Not Detect); Enterotoxigenic E.coli It/st Not Detected (Not Detect); Giardia lamblia Not Detected (Not Detect); Norovirus GI/GII Not Detected (Not Detect); Rotavirus A Not Detected (Not Detect); Sapovirus Not Detected (Not Detect); Shiga-like toxin-prod E.coli Not Detected (Not Detect); Shigella/Enteroinvasive E.coli Not Detected (Not Detect)
== END ==
PROVIDERS: PCP Family Medicine; Visit Provider Family Medicine
DX: R10.9 Unspecified abdominal pain (principal)
CPT/HCPCS: 87507

== ENCOUNTER → 2019-05-13 14:36 | Outpatient (CLI) | payer OTHER, MEDICAID, SELFPAY ==
--- NOTE | 2019-05-13 14:38 | DI.CT.S_ITS ---
PROCEDURE: CT ABDOMEN PELVIS W CON INDICATIONS: Abdominal pain TECHNIQUE: After the administration of oral and intravenous contrast, 5 mm thick sections acquired from the diaphragms to the symphysis. 5 mm thick coronal and sagittal reformats were performed. For radiation dose reduction, the following was used: automated exposure control, adjustment of mA and/or kV according to patient size. COMPARISON: [facility], CT, CT ABDOMEN PELVIS W CON, 11/05/2017, 13:37. FINDINGS: Image quality: Excellent. ABDOMEN: Lung bases: Lung bases are clear. Heart size is normal. Solid organs: Liver is normal in size and enhancement. Gallbladder is not seen. Biliary system is non-dilated. There is mild pneumobilia. Pancreas enhances normally. Spleen is normal in size and enhancement. No adrenal nodules. Kidneys are normal in size and enhancement, without hydronephrosis. Peritoneum and bowel: Stomach, small bowel, and colon loops are normal in caliber and wall thickness. No free fluid or air. Nodes and vessels: No retroperitoneal or mesenteric adenopathy. Aorta and inferior vena cava are normal in caliber. Miscellaneous: No ventral hernias. PELVIS: Genitourinary: Bladder wall thickness is normal. Miscellaneous: No inguinal hernias or adenopathy. Bones: No suspicious bony lesions. No vertebral body compression fractures. IMPRESSION: Source of pain is not known. Apparent interval cholecystectomy. Mild pneumobilia noted at the central liver parenchyma. Large lung volumes, COPD is suspected. Dictated by: Kalia Diaz M.D. on 05/13/2019 at 17:03 Approved by: Kalia Diaz M.D. on 05/13/2019 at 17:05
== END ==
PROVIDERS: PCP Family Medicine; Visit Provider Family Medicine
DX: R10.9 Unspecified abdominal pain (principal); K83.1 Obstruction of bile duct
CPT/HCPCS: 74177; Q9967

== ENCOUNTER 2019-05-22 13:42 | Emergency (ER) | payer OTHER, MEDICAID, SELFPAY ==
[2019-05-22 13:50] VITALS: BP 134/66; PULSE 112; RESP 24; TEMP 36.6; O2SAT 99
--- NOTE | 2019-05-22 14:05 | PC.NURSE ---
pt reports diarrhea for three years. Does not know if she has ever been diagnosed with CDIFF but reports recent start of abx for bowel issues.
--- NOTE | 2019-05-22 14:07 | ED_ITS ---
HPI - Weakness General Chief complaint: Weakness Stated complaint: legs collapsed fell/can't stand Time Seen by Provider: 05/22/19 13:44 Source: patient Mode of arrival: Ambulatory History of Present Illness HPI Narrative: 63-year-old female daily smoker with chronic medical problems including pain, osteoporosis, depression, and recent diagnosis of C diff. Patient presents due to weakness in her lower extremities which caused her to collapse last night. She denies any dizziness or lightheadedness but states she has had a terrible appetite has not been eating or drinking. She is having upwards of 3 episodes of loose stools daily. She denies any chest pain or shortness of breath nor any fever or shaking chills. She complains of ongoing back and abdominal pain which is apparently chronic for her. Her significant other is at the bedside and apparently has had to carry her to the bathroom and from the bed. MD Complaint: generalized weakness and difficulty walking Onset (ago): hour(s) Duration: constant Location: LLE and RLE Migration: none Severity: moderate Relieving factors: none Exacerbating factors: none Associated symptoms: loss of appetite Related Data Home Medications Medication Instructions Recorded Confirmed ASPIRIN/ACETAMINOPHEN/CAFFEINE 1 tab PO PRN #0 01/07/11 05/11/19 (Excedrin Migraine Geltab) Previous Rx's Medication Instructions Recorded estradiol 1 mg tablet 1 mg PO Q DAY #90 tab 05/10/18 gabapentin 300 mg capsule 600 mg PO BID #120 cap 10/13/[address] #1 ea 11/11/18 carisoprodol 250 mg tablet 250 mg PO QID PRN #56 tab 05/11/19 diphenoxylate-atropine 2.5 2 tab PO Q6-8H PRN #100 tab MDD 6 05/11/19 mg-0.025 mg tablet lorazepam 0.5 mg tablet 0.5 mg PO BID #60 tab 05/11/19 lovastatin 20 mg tablet 20 mg PO QDAYPM #90 tab 05/11/19 ondansetron 4 mg disintegrating 4 mg PO Q4H PRN #60 tab 05/11/19 tablet oxycodone 10 mg tablet 15 mg PO Q6H PRN #84 tab 05/11/19 escitalopram oxalate 10 mg tablet 10 mg PO DAILY #30 tab 05/12/19 metronidazole 500 mg tablet 500 mg PO TID #30 tab 05/12/19 Allergies Allergy/AdvReac Type Severity Reaction Status Date / Time Sulfa (Sulfonamide Allergy Severe RESPIRATORY Verified 05/11/19 12:18 Antibiotics) DIFFICULTY [SULFA (SULFONAMIDE ANTIBIOTICS)] adhesive Allergy Mild TEARS Verified 05/11/19 12:18 SKIN,USE COBAN Review of Systems Constitutional Constitutional: Denies chills, Denies fatigue, Denies fever(s), Denies frequent falls, Denies lethargy and Denies weakness Eyes Eyes: Denies change in vision, Denies eye discharge, Denies irritation and Denies loss of vision ENT Ears, Nose, Mouth, and Throat: Denies change in voice, Denies dizziness, Denies neck pain, Denies sore throat and Denies throat swelling Cardiovascular Cardiovascular: Denies chest pain, Denies irregular heart rhythm, Denies lightheadedness, Denies palpitations, Denies dyspnea, Denies dyspnea on exertion and Denies orthopnea Respiratory Respiratory: Denies cough, Denies dyspnea, Denies dyspnea on exertion and Denies wheezing Gastrointestinal Gastrointestinal: Denies abdominal pain, Denies change in bowel habits, Reports diarrhea, Denies nausea and Denies vomiting Genitourinary Genitourinary: Denies hematuria, Denies flank pain, Denies urinary incontinence and Denies urinary urgency Musculoskeletal Musculoskeletal: Reports back pain, Reports muscle weakness, Denies neck pain, Denies numbness and Denies tingling Integumentary/Breasts Skin/Breast: Denies pruritus, Denies erythema, Denies rash and Denies wounds Neurologic Neurologic: Denies behavioral changes, Denies confusion, Denies dizziness, Denies frequent falls, Denies loss of vision, Denies numbness, Denies tingling and Denies weakness Psychiatric Psychiatric: Denies anxiety, Denies behavioral changes, Denies confusion, Denies depression, Denies homicidal ideation and Denies suicidal ideation Endocrine Endocrine: Denies fatigue, Denies flushing and Denies palpitations Hematologic/Lymphatic Hematologic/Lymphatic: Denies easy bruising Allergic/Immunologic Allergic/Immunologic: Denies urticaria, Denies throat swelling and Denies wheezing Patient History Medical History Abdominal pain (Chronic) Anxiety (Chronic 04/28/17) Chronic pain (Chronic) Diarrhea (Chronic) Low back pain without sciatica (Chronic 08/05/16) Mixed hyperlipidemia (Chronic 04/28/17) Osteoarthritis (Chronic 12/15/13) Osteoporosis (Chronic 12/15/13) Social History marital status: household members: spouse Smoking Status: Current every day smoker alcohol intake: never substance use type: does not use Smoking Status: Current every day smoker alcohol intake frequency: a few times a week Substance Use Type: does not use Exam Narrative Exam Narrative: GENERAL: [63] year old patient appears stated age. Quite thin, obviously uncomfortable and anxious HEAD: Atraumatic. Normocephalic. EYES: Pupils equal round and reactive. Extraocular motions intact. No scleral icterus. No injection or drainage. ENT: Dry mucous member Nose without bleeding, purulent drainage. Throat without erythema, tonsillar hypertrophy or exudate. Airway patent. NECK: Trachea midline. Non tender CARDIOVASCULAR: Regular rate and rhythm without murmurs, gallops, or rubs. RESPIRATORY: Clear to auscultation. Breath sounds equal bilaterally. No wheezes, rales, or rhonchi. GASTROINTESTINAL: Abdomen soft, generalized tenderness EXTREMITIES: Mild bruising to anterior knees, no obvious deformity or crepitance BACK: Tenderness in thoracic and lumbar spine NEURO: AOx3. SKIN: Dry mucous membranes No rash or erythema of visible areas Initial Vital Signs Initial Vital Signs: Vital Signs Temperature 97.9 F 05/22/19 13:50 Pulse Rate 112 H 05/22/19 13:50 Respiratory Rate 24 05/22/19 13:50 Blood Pressure 134/66 05/22/19 13:50 Pulse Oximetry 99 05/22/19 13:50 Course Course Course Narrative: patient with elevated troponin, rising after 2 hours presents with chief complaint of weakness, diarrhea, and chronic back pain. She denies any injury. She has no numbness, tingling, lost of bowel or bladder. She denies chest pain, SOB, dizziness, N/V. Patient has no classic cardiac findings and only cardiac equivalents are weakness. Her EKG is nonischemic. Hospitalist at [facility] is happy to accept. Orders Ordered: ED Orders 05/22/19 14:22 Basic Metabolic Panel Stat Complete Blood Count AUTO DIFF Stat Lactate (Lactic Acid) Stat Partial Thromboplastin Time Stat Procalcitonin Stat Troponin I Stat 05/22/19 15:17 XR lumbar spine 2-3V Stat XR thoracic spine 3V Stat 05/22/19 15:34 EKG-12 Lead Stat 05/22/19 16:30 Lactate (Lactic Acid) Stat Troponin I Stat 05/23/19 05:00 Hemoglobin and Hematocrit DAILY Heparin Sodium/Dextrose (Heparin Drip) 25,000 unit in 500 mls @ 9.798 mls/hr IV CONT DALILA; Protocol Last Admin: 05/22/19 18:04 Dose: 12 units/kg/hr, 9.798 mls/hr Documented by: DIANDRA Discontinued Medications Aspirin (Aspirin Chew) 324 mg PO NOW ONE Stop: 05/22/19 16:47 Last Admin: 05/22/19 16:51 Dose: 324 mg Documented by: MISHA Heparin Sodium (Porcine) (Heparin) 4,000 unit IV NOW ONE Stop: 05/22/19 17:34 Last Admin: 05/22/19 18:06 Dose: 4,000 unit Documented by: DIANDRA Sodium Chloride (Normal Saline 0.9%) 1,000 mls @ 1,000 mls/hr IV BOLUS ONE Stop: 05/22/19 15:06 Last Infusion: 05/22/19 15:34 Dose: 0 mls/hr Documented by: Admin: 05/22/19 14:30 Dose: 1,000 mls/hr Documented by: DIANDRA Sodium Chloride (Normal Saline 0.9%) 500 mls @ 1,000 mls/hr IV BOLUS ONE Stop: 05/22/19 15:55 Last Infusion: 05/22/19 16:50 Dose: 0 mls/hr Documented by: Admin: 05/22/19 15:38 Dose: 1,000 mls/hr Documented by: DIANDRA Oxycodone HCl (Percolone) 15 mg PO NOW ONE Stop: 05/22/19 16:45 Last Admin: 05/22/19 16:51 Dose: 15 mg Documented by: MISHA Vital Signs Vital signs: Vital Signs - 8 hr 05/22/19 13:50 05/22/19 18:12 05/22/19 19:37 Temperature 97.9 F Pulse Rate 112 H 100 H 92 H Respiratory Rate 24 12 12 Blood Pressure 134/66 Blood Pressure [Left Arm] 95/50 L 107/59 L Pulse Oximetry 99 98 99 MDM - Weakness Lab Data Result diagrams: 05/22/19 14:22 05/22/19 14:22 Labs: Lab Results 05/22/19 05/22/19 05/22/19 Range/Units 14:22 14:22 14:22 WBC 10.8 (4.5-11.0) X10^3/uL RBC 3.24 L (4.0-5.2) X10^6/uL Hgb 12.2 (12.0-16.0) g/dL Hct 35.0 L (36-46) % MCV 108.1 H (80-100) fL MCH 37.8 H (26-34) PG MCHC 35.0 (30-36) % RDW 12.9 (11.6-14.8) % Plt Count 274 (150-400) X10^3/uL Neut % (Auto) 77.0 H (50-75) % Lymph % (Auto) 12.0 L (25-40) % [place] % (Auto) 10.0 (3-14) % Eos % (Auto) 0.3 L (2-4) % Baso % (Auto) 0.7 (0-2) % Neut # (Auto) 8300 H (9299-0146) /uL Lymph # (Auto) 1300 (9206-1883) /uL [place] # (Auto) 1100 H (0-900) /uL Eos # (Auto) 0 (0-450) /uL Baso # (Auto) 100 (0-100) /uL APTT (26.4-36.2) SECONDS Sodium 138 (137-145) mmol/L Potassium 2.9 L (3.4-5.1) mmol/L Chloride 105 (98-107) mmol/L Carbon Dioxide 26 (22-32) mmol/L BUN 3 L (7-17) mg/dL Creatinine 0.50 L (0.52-1.04) mg/dL Estimated GFR > 60.0 (>60) mL/min BUN/Creatinine Ratio 6.0 (6-22) Glucose 93 (80-110) mg/dL Lactate (0.7-2.1) mmol/L Calcium 8.2 L (8.4-10.2) mg/dL Troponin I 2.420 H* (0.01-0.034) ng/mL Procalcitonin < 0.05 (<0.5) ng/mL 05/22/19 05/22/19 05/22/19 Range/Units 14:22 14:22 16:30 WBC (4.5-11.0) X10^3/uL RBC (4.0-5.2) X10^6/uL Hgb (12.0-16.0) g/dL Hct (36-46) % MCV (80-100) fL MCH (26-34) PG MCHC (30-36) % RDW (11.6-14.8) % Plt Count (150-400) X10^3/uL Neut % (Auto) (50-75) % Lymph % (Auto) (25-40) % [place] % (Auto) (3-14) % Eos % (Auto) (2-4) % Baso % (Auto) (0-2) % Neut # (Auto) (9129-6387) /uL Lymph # (Auto) (5648-4499) /uL [place] # (Auto) (0-900) /uL Eos # (Auto) (0-450) /uL Baso # (Auto) (0-100) /uL APTT 27 (26.4-36.2) SECONDS Sodium (137-145) mmol/L Potassium (3.4-5.1) mmol/L Chloride (98-107) mmol/L Carbon Dioxide (22-32) mmol/L BUN (7-17) mg/dL Creatinine (0.52-1.04) mg/dL Estimated GFR (>60) mL/min BUN/Creatinine Ratio (6-22) Glucose (80-110) mg/dL Lactate 3.7 H (0.7-2.1) mmol/L Calcium (8.4-10.2) mg/dL Troponin I 2.590 H* (0.01-0.034) ng/mL Procalcitonin (<0.5) ng/mL 05/22/19 Range/Units 16:30 WBC (4.5-11.0) X10^3/uL RBC (4.0-5.2) X10^6/uL Hgb (12.0-16.0) g/dL Hct (36-46) % MCV (80-100) fL MCH (26-34) PG MCHC (30-36) % RDW (11.6-14.8) % Plt Count (150-400) X10^3/uL Neut % (Auto) (50-75) % Lymph % (Auto) (25-40) % [place] % (Auto) (3-14) % Eos % (Auto) (2-4) % Baso % (Auto) (0-2) % Neut # (Auto) (5398-7761) /uL Lymph # (Auto) (9151-7635) /uL [place] # (Auto) (0-900) /uL Eos # (Auto) (0-450) /uL Baso # (Auto) (0-100) /uL APTT (26.4-36.2) SECONDS Sodium (137-145) mmol/L Potassium (3.4-5.1) mmol/L Chloride (98-107) mmol/L Carbon Dioxide (22-32) mmol/L BUN (7-17) mg/dL Creatinine (0.52-1.04) mg/dL Estimated GFR (>60) mL/min BUN/Creatinine Ratio (6-22) Glucose (80-110) mg/dL Lactate 2.1 (0.7-2.1) mmol/L Calcium (8.4-10.2) mg/dL Troponin I (0.01-0.034) ng/mL Procalcitonin (<0.5) ng/mL Critical Care Time Critical Care Time Critical Care Time: Yes Total Critical Care Time: 30 Attestation: The high probability of a clinically significant, sudden or life threatening deterioration of the [CV] system(s) required my full and direct attention, intervention and personal management. The aggregate critical care time was [30] minutes. This time is in addition to time spent performing reported procedures but includes the following: [x] Data Review and interpretation [x] Patient assessment and monitoring of vital signs [x] Documentation [x] Medication orders and management Discharge Plan [facility] Impression: Acute non-ST elevation myocardial infarction (NSTEMI), Acute hypokalemia Prescriptions: No Action ASPIRIN/ACETAMINOPHEN/CAFFEINE (Excedrin Migraine Geltab) 1 tab PO PRN Qty: 0 RF: 0 gabapentin [Neurontin] 300 mg capsule 600 mg PO BID Qty: 120 RF: 3 (DME) permanent disabled parking permit Qty: 1 RF: 0 escitalopram oxalate 10 mg tablet 10 mg PO DAILY Qty: 30 RF: 0 metronidazole [Flagyl] 500 mg tablet 500 mg PO TID Qty: 30 RF: 0 estradiol [Estrace] 1 mg tablet 1 mg PO Q DAY Qty: 90 RF: 3 carisoprodol 250 mg tablet 250 mg PO QID PRN (Reason: muscle pain) Qty: 56 RF: 5 diphenoxylate-atropine [Lomotil] 2.5-0.025 mg tablet 2 tab PO Q6-8H MDD 6 PRN (Reason: diarrhea) Qty: 100 RF: 3 lorazepam [Ativan] 0.5 mg tablet 0.5 mg PO BID Qty: 60 RF: 5 lovastatin 20 mg tablet 20 mg PO QDAYPM Qty: 90 RF: 3 ondansetron 4 mg tablet,disintegrating 4 mg PO Q4H PRN (Reason: nausea and vomiting) Qty: 60 RF: 5 oxycodone 10 mg tablet 15 mg PO Q6H PRN (Reason: pain) Qty: 84 RF: 0 Referrals: Santino Mackenzie MD [Primary Care Provider] -
[2019-05-22] MEDS: SODIUM CHLORIDE 0.9% 1,000 ML 1000 ML IV (14:30)
[2019-05-22 14:34] LABS: Add Manual Diff / Slide Review NO; Basophils Absolute Auto 100 /uL (0-100); Basophils Percent Auto 0.7 % (0-2); Eosinophils Absolute Auto 0 /uL (0-450); Eosinophils Percent Auto 0.3 % (2-4); Hemoglobin 12.2 g/dL (12.0-16.0); Lymphocytes Absolute Auto 1300 /uL (1100-4500); Mean Corpuscular Hemoglobin 37.8 PG (26-34); Mean Corpuscular Volume 108.1 fL (80-100); Monocytes Absolute Auto 1100 /uL (0-900); Neutrophils Absolute Auto 8300 /uL (1500-7000); Platelet Count 274 X10^3/uL (150-400); Red Blood Cell Count 3.24 X10^6/uL (4.0-5.2); Red Cell Distribution Width 12.9 % (11.6-14.8); White Blood Cell Count 10.8 X10^3/uL (4.5-11.0)
[2019-05-22 14:47] LABS: Blood Urea Nitrogen 3 mg/dL (7-17); Calcium 8.2 mg/dL (8.4-10.2); Carbon Dioxide 26 mmol/L (22-32); Chloride 105 mmol/L (98-107); Estimated Glomerular Filt Rate > 60.0 mL/min (>60); Glucose 93 mg/dL (80-110); HEMOLYSIS < 15 (0-50); Potassium 2.9 mmol/L (3.4-5.1); Sodium 138 mmol/L (137-145)
[2019-05-22 14:51] LABS: Lactate (Lactic Acid) 3.7 mmol/L (0.7-2.1)
[2019-05-22 15:07] LABS: Procalcitonin < 0.05 ng/mL (<0.5)
--- NOTE | 2019-05-22 15:17 | DI.RAD.S_ITS ---
PROCEDURE: XR THORACIC SPINE 3V INDICATIONS: pain TECHNIQUE: 3 views of the thoracic spine were acquired. COMPARISON: [facility], CR, XR THORACIC SPINE 3V, 10/15/2018, 15:52. FINDINGS: Bones: On the lateral views, the cervicothoracic junction is adequately visualized and the alignment through this region is within normal limits. The vertebral body heights are within normal limits throughout the thoracic spine without evidence to suggest acute compression fracture. The bone mineralization is within normal limits. Mild degenerative changes of the thoracic spine are evident. Soft tissues: Aortic atherosclerosis is present. The imaged overlying soft tissues of the chest are within normal limits. IMPRESSION: Mild degenerative changes of the thoracic spine without an acute compression fracture evident. Dictated by: Jamie Lovett M.D. on 05/22/2019 at 15:42 Approved by: Jamie Lovett M.D. on 05/22/2019 at 15:43
--- NOTE | 2019-05-22 15:17 | DI.RAD.S_ITS ---
PROCEDURE: XR LUMBAR SPINE 2-3V INDICATIONS: severe pain TECHNIQUE: 2 views of the lumbar spine were acquired. COMPARISON: None. FINDINGS: Bones: There are 5 lumbar-type vertebral bodies. The lowest intervertebral disk space is designated as L5-S1. The vertebral body heights are well-maintained without evidence to suggest an acute compression fracture. The bone mineralization is within normal limits. Mild to moderate degenerative changes of the lumbar spine are identified. Soft tissues: There is aortic atherosclerosis. Clips within the right upper quadrant are suggestive of a previous cholecystectomy. Otherwise, the soft tissues of the imaged abdomen and pelvis are within normal limits. IMPRESSION: Mild to moderate degenerative changes of the lumbar spine. No compression fractures. Dictated by: Jamie Lovett M.D. on 05/22/2019 at 15:41 Approved by: Jamie Lovett M.D. on 05/22/2019 at 15:42
[2019-05-22] MEDS: SODIUM CHLORIDE 0.9% 500 ML 1000 ML IV (15:38)
[2019-05-22 16:28] LABS: Reflexed Lactate in 2 Hours Y
[2019-05-22 16:47] LABS: Lactate (Lactic Acid) 2.1 mmol/L (0.7-2.1)
[2019-05-22] MEDS: ASPIRIN 81 MG CHEW TAB 324 MG PO (16:51)
[2019-05-22] MEDS: OXYCODONE IR 5 MG TABLET 15 MG PO (16:51)
[2019-05-22 17:45] LABS: PTT Partial Thromboplastin Tim 27 SECONDS (26.4-36.2)
[2019-05-22] MEDS: HEPARIN DRIP 25,000 UNIT/500 ML IV.SOLN 9.798 UNIT IV (18:04)
[2019-05-22] MEDS: HEPARIN 5,000 UNIT/ML VIAL 4000 UNIT IV (18:06)
[2019-05-22 18:12] VITALS: BP 95/50; PULSE 100; RESP 12; O2SAT 98
[2019-05-22 19:37] VITALS: BP 107/59; PULSE 92; RESP 12; O2SAT 99
--- NOTE | 2019-05-22 20:23 | PC.NURSE ---
report to leno BEDOLLA for [facility]
--- NOTE | 2019-06-04 17:42 | PC.NURSE ---
IV stop time for Heparin Drip 2048.
== END 2019-05-22 20:49 | disposition short-term general hospital (02) ==
PROVIDERS: Emergency Provider Emergency Medicine; PCP Family Medicine
DX: I21.4 Non-ST elevation (NSTEMI) myocardial infarction (principal); E87.6 Hypokalemia; F32.9 Major depressive disorder, single episode, unspecified; M54.5 Low back pain; M54.6 Pain in thoracic spine
CPT/HCPCS: 36415; 72072; 72100; 80048; 83605; 84145; 84484; 85025; 85730; 93005; 96361; 96365; 96366; 96375; 99285; 99291; J1644

== ENCOUNTER → 2020-01-24 11:58 | Outpatient (CLI) | payer OTHER, MEDICAID, SELFPAY ==
[2020-01-24 12:59] LABS: Add Manual Diff / Slide Review NO; Basophils Absolute Auto 0 /uL (0-100); Basophils Percent Auto 0.8 % (0-2); Eosinophils Absolute Auto 100 /uL (0-450); Eosinophils Percent Auto 2.1 % (2-4); Hematocrit 36.2 % (36-46); Hemoglobin 12.3 g/dL (12.0-16.0); Lymphocytes Absolute Auto 1600 /uL (1100-4500); Lymphocytes Percent Auto 31.4 % (25-40); Mean Corpuscular HGB Conc 34.1 % (30-36); Mean Corpuscular Hemoglobin 38.5 PG (26-34); Mean Corpuscular Volume 113.1 fL (80-100); Monocytes Absolute Auto 500 /uL (0-900); Monocytes Percent Auto 9.1 % (3-14); Neutrophils Absolute Auto 2800 /uL (1500-7000); Neutrophils Percent Auto 56.6 % (50-75); Platelet Count 214 X10^3/uL (150-400); Red Cell Distribution Width 12.5 % (11.6-14.8)
[2020-01-24 13:13] LABS: Alanine Aminotransferase 65 IU/L (<35); Albumin 3.2 g/dL (3.5-5.0); Albumin Globulin Ratio 1.2 (1.0-2.8); Alkaline Phosphatase 158 U/L (38-126); Aspartate Aminotransferase 193 IU/L (14-36); Bilirubin Total 0.4 mg/dL (0.2-1.3); Blood Urea Nitrogen 6 mg/dL (7-17); Calcium 8.6 mg/dL (8.4-10.2); Carbon Dioxide 27 mmol/L (22-32); Chloride 108 mmol/L (98-107); Estimated Glomerular Filt Rate > 60.0 mL/min (>60); Globulin 2.7 g/dL (1.7-4.1); Glucose 98 mg/dL (80-110); HEMOLYSIS 15 (0-50); Sodium 137 mmol/L (137-145); Total Protein 5.9 g/dL (6.3-8.2)
[2020-01-24 13:30] LABS: Macrocytosis 2+
[2020-01-24 13:33] LABS: Stomatocytes 1+
[2020-01-24 13:53] LABS: Thyroid Stimulating Hormone 2.92 uIU/mL (0.47-4.68)
== END ==
PROVIDERS: PCP Family Medicine; Referring Provider Family Medicine; Visit Provider Family Medicine
DX: I21.A1 Myocardial infarction type 2 (principal); R19.7 Diarrhea, unspecified
CPT/HCPCS: 36415; 80053; 84443; 85025

== ENCOUNTER → 2020-02-01 12:33 | Outpatient (CLI) | payer OTHER, MEDICAID, SELFPAY ==
[2020-02-01 12:51] LABS: Bacteria Urine None Seen; RBC Urine None Seen (0-5/HPF)
[2020-02-01 14:41] LABS: Appearance Urine UA CLEAR; Bilirubin Urine UA NEGATIVE (NEGATIVE); Color Urine UA YELLOW; Glucose Urine UA NEGATIVE (Negative); Ketones Urine UA NEGATIVE (NEGATIVE); Leukocyte Esterase Urine UA 2+ (NEGATIVE); Nitrite Urine UA NEGATIVE (Negative); Occult Blood Urine UA TRACE-INTACT (Negative); Protein Urine UA NEGATIVE (Negative); Urobilinogen Urine UA 0.2 E.U./dL (0.2)
[2020-02-01 14:43] LABS: pH Urine UA 5.5 (4.5-8.0)
[2020-02-01 14:45] LABS: Culture Indicated Urine Specimen Cultured; Squamous Epithelial Cell Urine 0-1 /HPF (0-5/HPF); WBC Urine 10-30/HPF (0-5/HPF)
== END ==
PROVIDERS: PCP Family Medicine; Referring Provider Family Medicine; Visit Provider Family Medicine
DX: R10.9 Unspecified abdominal pain (principal)
CPT/HCPCS: 81001; 87077; 87086; 87186

== ENCOUNTER → 2020-02-07 10:32 | Outpatient (CLI) | payer OTHER, MEDICAID, SELFPAY ==
[2020-02-07 12:44] LABS: Clostridium Difficile Tox PCR Positive for C. diff
[2020-02-09 13:32] LABS: C difficie Toxins A and B, EIA Negative (Negative)
== END ==
PROVIDERS: PCP Family Medicine; Referring Provider Family Medicine; Visit Provider Family Medicine
DX: R19.7 Diarrhea, unspecified (principal); Z86.19 Personal history of other infectious and parasitic diseases
CPT/HCPCS: 87493

== ENCOUNTER → 2020-03-03 12:38 | Outpatient (CLI) | payer OTHER, MEDICAID, SELFPAY ==
[2020-03-03 12:44] LABS: RBC Urine None Seen (0-5/HPF)
[2020-03-03 13:09] LABS: Appearance Urine UA CLOUDY; Bilirubin Urine UA NEGATIVE (NEGATIVE); Color Urine UA YELLOW; Glucose Urine UA NEGATIVE (Negative); Ketones Urine UA NEGATIVE (NEGATIVE); Leukocyte Esterase Urine UA 2+ (NEGATIVE); Nitrite Urine UA POSITIVE (Negative); Occult Blood Urine UA TRACE-LYSED (Negative); Protein Urine UA TRACE (Negative); Specific Gravity Urine UA 1.015 (1.000-1.035); Urobilinogen Urine UA 0.2 E.U./dL (0.2)
[2020-03-03 13:17] LABS: Bacteria Urine Many (>30); Culture Indicated Urine Specimen Cultured; Squamous Epithelial Cell Urine 0-1 /HPF (0-5/HPF); Transitional Epi Cells Urine 5-10/HPF (0-5/HPF); WBC Urine 30-100/HPF (0-5/HPF)
== END ==
PROVIDERS: PCP Family Medicine; Referring Provider Family Medicine; Visit Provider Family Medicine
DX: R30.0 Dysuria (principal)
CPT/HCPCS: 81001; 87077; 87086; 87186

== ENCOUNTER → 2020-04-03 12:56 | Outpatient (CLI) | payer OTHER, MEDICAID, SELFPAY | PROVIDERS: PCP Family Medicine; Referring Provider Family Medicine; Visit Provider Family Medicine | DX: R10.9 Unspecified abdominal pain (principal); Z87.440 Personal history of urinary (tract) infections | CPT/HCPCS: 87077; 87086; 87186 ==

== ENCOUNTER → 2020-05-09 17:19 | Outpatient (CLI) | payer OTHER, MEDICAID, SELFPAY ==
--- NOTE | 2020-05-09 17:32 | DI.RAD.S_ITS ---
PROCEDURE: XR HIP W PEL IF DONE RT 2V INDICATIONS: PAIN right hip TECHNIQUE: AP pelvis with lateral view(s) of the right hip(s). COMPARISON: None. FINDINGS: Bones: No fracture. Mild bilateral hip joint degeneration. Soft tissues: Scattered vascular calcifications are noted. IMPRESSION: Mild bilateral hip joint degeneration. If the patient's pain or other symptoms persist, consider further evaluation with MRI Dictated by: Abdifatah Pan M.D. on 05/10/2020 at 9:41 Approved by: Abdifatah Pan M.D. on 05/10/2020 at 9:44
--- NOTE | 2020-05-09 17:32 | DI.RAD.S_ITS ---
PROCEDURE: XR LUMBAR SPINE 2-3V INDICATIONS: lumbar pain TECHNIQUE: 3 views of the lumbar spine were acquired. COMPARISON: [facility], CR, XR LUMBAR SPINE 2-3V, 05/22/2019, 15:55. FINDINGS: Bones: No fracture. Mild dextrocurvature. Multilevel degenerative endplate sclerosis and spurring. Diffuse facet arthropathy. No definite disc space narrowing. Soft tissues: Scattered vascular calcifications in the aorta IMPRESSION: Mild lumbar spondylosis and facet arthropathy. No interval change. Mild levocurvature Dictated by: Abdifatah Pan M.D. on 05/10/2020 at 9:44 Approved by: Abdifatah Pan M.D. on 05/10/2020 at 9:48
[2020-05-14 19:09] LABS: H.pylori IgG 0.37 (0.00-0.79)
== END ==
PROVIDERS: PCP Family Medicine; Referring Provider Family Medicine; Visit Provider Family Medicine
DX: R10.9 Unspecified abdominal pain (principal); R19.7 Diarrhea, unspecified
CPT/HCPCS: 36415; 72100; 73502; 86677

== ENCOUNTER 2020-07-09 14:06 | Observation (INO) | payer OTHER, MEDICAID, SELFPAY ==
[2020-07-09] VITALS (19 sets, daily range): BP systolic 111–138; BP diastolic 54–76; PULSE 82–117; RESP 14–38; TEMP 36.1–37; O2SAT 93–98; BMI 20.7
--- NOTE | 2020-07-09 14:11 | DI.RAD.S_ITS ---
PROCEDURE: XR HIP W PEL IF DONE RT 2V INDICATIONS: fall w/ pain, unable to bear weight. *pt on trauma stretcher TECHNIQUE: AP pelvis with lateral view(s) of the right hip(s). COMPARISON: [facility], , XR HIP W PEL IF DONE RT 2V, 05/09/2020, 17:40. FINDINGS: Bones: No dislocations. Pelvic ring appears intact. No suspicious bony lesions. There is a lateral right-sided superior obturator ring fracture, possibly subacute. There is a vague lucency along the inter trochanteric line, but a definite fracture in that area is not seen. Soft tissues: The visualized bowel gas pattern is normal. No suspicious soft tissue calcifications. IMPRESSION: Superior obturator ring fracture located laterally, mildly displaced. Vague lucency along the inter trochanteric line at the right hip, but this does not necessarily represent fracture plane. Depending on the clinical symptoms follow-up by dedicated CT or, preferably, MR scanning for screening for hidden fracture may be warranted. Dictated by: Kalia Diaz M.D. on 07/09/2020 at 15:28 Approved by: Kalia Diaz M.D. on 07/09/2020 at 15:32
--- NOTE | 2020-07-09 14:11 | DI.RAD.S_ITS ---
PROCEDURE: XR CHEST 1V INDICATIONS: chest pain TECHNIQUE: One view of the chest was acquired. COMPARISON: [facility], CR, XR CHEST 1 VIEW, 05/24/2019, 11:08. [facility], CR, CHEST 2 VIEW, 04/02/2010, 16:19. FINDINGS: Surgical changes and devices: None. Lungs and pleura: Increased pulmonary vascularity is present, asymmetric within the right lung. Mediastinum: Mediastinal contours appear normal. Heart size is normal. Bones and chest wall: No suspicious bony lesions. Overlying soft tissues appear unremarkable. IMPRESSION: Asymmetric appearance of hazy opacity within the right lung. This could represent asymmetric pulmonary vascularity or developing airspace disease. Dictated by: Ofelia Chan M.D. on 07/09/2020 at 15:25 Approved by: Ofelia Chan M.D. on 07/09/2020 at 15:27
--- NOTE | 2020-07-09 14:36 | DI.RAD.S_ITS ---
PROCEDURE: XR FEMUR RT MIN 2V INDICATIONS: pain in R>L bila hip/pelvis, femur, s/p fall 1 wk ago, hx of TECHNIQUE: 2 views of the femur were acquired. COMPARISON: [facility], CR, XR HIP W PEL IF DONE RT 2V, 07/09/2020, 14:39. FINDINGS: Bones: There is a mildly displaced superior lateral right pubic ramus fracture. No suspicious bony lesions. Soft tissues: No suspicious soft tissue calcifications or masses. IMPRESSION: Mildly displaced right, superior lateral pubic ramus fracture. Dictated by: Ofelia Chan M.D. on 07/09/2020 at 15:27 Approved by: Ofelia Chan M.D. on 07/09/2020 at 15:40
--- NOTE | 2020-07-09 14:37 | DI.CT.S_ITS ---
PROCEDURE: CT CERVICAL SPINE WO CON INDICATIONS: midcervical tenderness, s/p fall TECHNIQUE: Noncontrast 3 mm thick sections acquired from the skull base to the T4 level. Sagittal and coronal reformats were then constructed. For radiation dose reduction, the following was used: automated exposure control, adjustment of mA and/or kV according to patient size. COMPARISON: None. FINDINGS: Image quality: Excellent. Bones: No fractures or dislocations. Mild degenerative endplate changes and bilateral facet hypertrophic changes are noted throughout cervical spine more prominent at C5-6 and C6-7 levels. No significant central canal stenosis or neural foraminal narrowing is seen. Visualized superior ribs are intact. Soft tissues: Prevertebral soft tissues are normal in thickness. No paravertebral hematomas. No apical pneumothoraces. Emphysematous changes are noted in bilateral lung apices. IMPRESSION: 1. No acute cervical spine fracture or dislocation. 2. Mild degenerative disc disease throughout cervical spine as above. Dictated by: Cuauhtemoc Tamez M.D. on 07/09/2020 at 15:14 Approved by: Cuauhtemoc Tamez M.D. on 07/09/2020 at 15:20
[2020-07-09] MEDS: SODIUM CHLORIDE 0.9% 1,000 ML 125 ML IV (14:52)
[2020-07-09] MEDS: HYDROMORPHONE 0.5 MG INJ IV ×2 (14:52→17:23)
[2020-07-09] MEDS: ONDANSETRON 4 MG/2 ML INJ IV (14:53)
[2020-07-09 14:54] LABS: Add Manual Diff / Slide Review NO; Basophils Absolute Auto 100 /uL (0-100); Basophils Percent Auto 0.7 % (0-2); Eosinophils Absolute Auto 0 /uL (0-450); Eosinophils Percent Auto 0.4 % (2-4); Hematocrit 34.4 % (36-46); Hemoglobin 11.4 g/dL (12.0-16.0); Lymphocytes Absolute Auto 1700 /uL (1100-4500); Lymphocytes Percent Auto 14.8 % (25-40); Mean Corpuscular HGB Conc 33.2 % (30-36); Mean Corpuscular Hemoglobin 38.8 PG (26-34); Mean Corpuscular Volume 116.9 fL (80-100); Monocytes Absolute Auto 1800 /uL (0-900); Monocytes Percent Auto 15.2 % (3-14); Neutrophils Absolute Auto 7900 /uL (1500-7000); Neutrophils Percent Auto 68.9 % (50-75); Platelet Count 297 X10^3/uL (150-400); Red Blood Cell Count 2.94 X10^6/uL (4.0-5.2); Red Cell Distribution Width 13.9 % (11.6-14.8); White Blood Cell Count 11.5 X10^3/uL (4.5-11.0)
[2020-07-09 14:56] LABS: INR 1.1 (0.9-1.3); Prothrombin Time 12.1 SECONDS (10.1-12.7)
[2020-07-09 14:59] LABS: PTT Partial Thromboplastin Tim 28 SECONDS (26.4-36.2)
[2020-07-09 15:00] LABS: Lactate (Lactic Acid) 2.6 mmol/L (0.7-2.1)
[2020-07-09 15:01] LABS: Alanine Aminotransferase 22 IU/L (<35); Albumin 3.3 g/dL (3.5-5.0); Alkaline Phosphatase 189 U/L (38-126); Aspartate Aminotransferase 45 IU/L (14-36); BUN Creatinine Ratio 10.3 (6-22); Bilirubin Total 0.8 mg/dL (0.2-1.3); Blood Urea Nitrogen 3 mg/dL (7-17); Carbon Dioxide 33 mmol/L (22-32); Chloride 97 mmol/L (98-107); Creatine Kinase 45 U/L (30-135); Estimated Glomerular Filt Rate > 60.0 mL/min (>60); Globulin 3.4 g/dL (1.7-4.1); Glucose 88 mg/dL (80-110); HEMOLYSIS 45 (0-50); Lipase 294 U/L (23-300); Sodium 134 mmol/L (137-145); Total Protein 6.7 g/dL (6.3-8.2)
[2020-07-09 15:03] LABS: Potassium 2.7 mmol/L (3.4-5.1)
[2020-07-09 15:13] LABS: Troponin I < 0.012 ng/mL (0.01-0.034)
[2020-07-09 15:18] LABS: Procalcitonin 6.51 ng/mL (<0.5)
--- NOTE | 2020-07-09 15:19 | ED_ITS ---
HPI - Extremity Injury (Lower) <KATLIN Gutierrez - Last Filed: 07/09/20 19:36> General Chief Complaint: Extremity Injury, Lower Stated Complaint: suspects broken right hip after fall last week Time Seen by Provider: 07/09/20 14:09 Source: patient and family Mode of arrival: Wheelchair Limitations: no limitations History of Present Illness HPI Narrative: This is a 64-year-old female, smoker, who has past medical history significant for osteoporosis, multi degenerative joint disease and chronic pain, depression, osteoarthritis, hyperlipidemia, anxiety presents to ED with significant and reports she had fall 1 week ago. Patient was eating in her bed using a TV tray and when she stood up and pushed on the tray, it accidentally collapsed on fell on right side of body including her face. She reports severe bilateral hip and pelvis pain which is worse in right-sided, right side facial pain, swelling and bruise, mid cervical tenderness, abdominal pain with nausea but no vomiting, new onset of urinary incontinence, constipation, difficulty catching my breath and contributes to pain and skin injury to right elbow/arm. She denies chest pain, dyspnea, dizziness prior to the fall. Patient denies loss of consciousness. She denies currently on blood thinners. Patient denies fever, chills, nausea or vomiting but has hot flashes. Patient has been taking Percocet 2 tabs Q 6 hours without good pain management. Patient reports she is not able to walk and has been in bed most of the time due to discomfort. Related Data Home Medications Medication Instructions Recorded Confirmed ASPIRIN/ACETAMINOPHEN/CAFFEINE 1 tab PO PRN #0 01/07/11 07/09/20 (Excedrin Migraine Geltab) aspirin 81 mg tablet,delayed 81 mg PO DAILY 06/09/19 07/09/20 release gabapentin [Neurontin] 300 mg PO BID 07/09/20 07/09/20 lorazepam [Ativan] 0.5 mg PO BID PRN 07/09/20 07/09/20 Previous Rx's Medication Instructions Recorded permanent disabled parking permit #1 ea 11/11/18 atorvastatin 40 mg tablet 40 mg PO BEDTIME #90 tab 01/24/20 duloxetine 20 mg capsule,delayed 20 mg PO BID #180 cap 01/24/20 release escitalopram oxalate 10 mg tablet 10 mg PO DAILY #90 tab 01/24/20 estradiol 1 mg tablet 1 mg PO Q DAY #90 tab 01/24/20 metoprolol succinate 25 mg 25 mg PO BID #180 tab 01/24/20 tablet,extended release 24 hr ondansetron 4 mg disintegrating 4 mg PO Q4H PRN #60 tab 01/24/20 tablet oxycodone-acetaminophen 5 mg-325 2 tab PO Q6H PRN #112 tab 07/04/20 mg tablet diphenoxylate-atropine 2.5 2 tab PO Q6-8H PRN #100 tab MDD 6 07/05/20 mg-0.025 mg tablet Allergies Allergy/AdvReac Type Severity Reaction Status Date / Time adhesive Allergy Mild TEARS Verified 07/09/20 14:20 SKIN,USE COBAN Sulfa (Sulfonamide Allergy Verified 07/09/20 14:20 Antibiotics) Review of Systems <Roverto Lees [facility] Last Filed: 07/09/20 19:36> Review of Systems Narrative: General: See HPI HEENT: Denies sinus pain, ear pain, sore throat, difficulty swallowing, dizziness. Respiratory: See HPI Cardiovascular: Denies chest pain, palpitations, orthopnea, edema. Gastrointestinal: See HPI : See HPI Musculoskeletal: See HPI Skin: The atria Neurologic: Denies weakness, headache, numbness, change in speech, confusion, seizures, incoordination. Psychiatric: No concerning psychosocial issues. 12-point review of systems is negative except for those stated above. Patient History <Roverto Lees [facility] - Last Filed: 07/09/20 19:36> Medical History Abdominal pain Anxiety (04/28/17) C. difficile colitis Chronic diarrhea Chronic pain Diarrhea Low back pain without sciatica (08/05/16) Mixed hyperlipidemia (04/28/17) Osteoarthritis (12/15/13) Osteoporosis (12/15/13) Surgical History (Updated 07/10/20 @ 01:46 by HESHAM Guzmán) History of arthroplasty of right shoulder History of cholecystectomy Family History Father No problems noted. Mother PE (pulmonary thromboembolism) Social History marital status: household members: spouse Smoking Status: Current every day smoker Tobacco: How many years used: 25 alcohol intake: never substance use type: does not use Smoking Status: Current every day smoker alcohol intake frequency: a few times a week Substance Use Type: does not use Exam <KATLIN Gutierrez - Last Filed: 07/09/20 19:36> Narrative Exam Narrative: GEN: Alert, oriented x 3, frail and thin appearing, and in moderate distress from pain. Head: Normal cephalic, atraumatic. No scalp or temporal tenderness, palpable mass or rash. EYES: Pupils are equal, round, and reactive to light and accommodation. Extraocular muscles are intact bilaterally. There is no subconjunctival hemorrhage, exudate and sclera non-icteric. ENT: Hearing grossly intact. Nose without bleeding, purulent discharge or deviation. Facial right side tenderness to palpate, edema and ecchymosis. Mucous membrane moist, no mucosal lesion. Throat without erythema, tonsillar hypertrophy or exudate. Uvula in midline, airway patent. Neck: Trachea in midline. No JVD, non-tender without lymphadenopathy. No ma sses or thyroid megaly. Supple, non-tender and no meningeal signs. CARDIAC: Normal regular rate and rhythm without murmurs, gallops, or rubs. No chest wall tenderness. No peripheral edema, cyanosis or pallor. Capillary refill is less than 2 seconds. RESPIRATORY: Lungs are clear to auscultate bilaterally. No cough, wheezes, rales, or rhonchi. No stridor, respiratory distress, increase work of breathing, or accessary muscle used. ABD: Abdomen soft, tender to palpate in generalized abdomen and non-distended. No guarding or rebound tenderness to palpate. Bowel sounds are normal in all 4 quadrants. There is no palpable masses or organomegaly. EXT: Exquisite tenderness to palpate in right pelvis and groin. Tenderness to palpate in right upper extremity. Limited passive ROM of in right lower extremity without loss of sensation, strength, effusion or edema. SKIN: Multiple ecchymosis in extremities. Right elbow with dried scab without signs of infection. Warm, dry, pale color for patient. BACK: Nontender without deformity or crepitance. No flank tenderness. NEUROLOGICAL: Alert and oriented to place, time and person. Sensation and motor function intact bilaterally. No facial droops, dysphasia. PSYCHIATRIC: Good judgement and reason, without hallucinations, abnormal affect or abnormal behaviors during the examination. Patient is not suicidal. Initial Vital Signs Initial Vital Signs: Vital Signs Blood Pressure 138/63 07/09/20 14:17 <Little Rodriguez DO - Last Filed: 07/10/20 07:54> Initial Vital Signs Initial Vital Signs: Vital Signs Blood Pressure 138/63 07/09/20 14:17 Scores <Roverto LangfordRimma [facility] - Last Filed: 07/09/20 19:36> GCS [place] coma scale eye opening: Spontaneous Adam coma scale verbal response: Orientated Adam coma scale motor response: Obey commands Adam coma scale total score: 15 PERC Score Age greater than or equal to 50 years: Yes Heart rate greater than or equal to 100 bpm: Yes Room Air O2 Sat less than 95%: No Unilateral leg swelling: No Recent trauma or surgery: No Hemoptysis: No Prior PE or DVT: No Hormone Use: Yes Total PERC Score: 3 qSOFA Altered Mental Status (GCS <15): No Respiratory rate greater than/equal to 22: Yes Systolic blood pressure less than or equal to 100: No qSOFA Total: 1 0-1 Not High Risk 1-3 High risk Wells' Criteria for PE Clinical signs and symptoms of DVT: No PE is #1 Dx or equally likely: No Heart rate > 100: Yes Immobilization at least 3 days or surg in previous 4 weeks: Yes History of PE or DVT: No Hemoptysis: No Malignancy w/Treatment within 6 months or palliative: No Wells' PE Score total: 3.0 Course <Rovetro Lees [facility] - Last Filed: 07/09/20 19:36> Orders Ordered: Atorvastatin Calcium (Atorvastatin 20 Mg Tablet) 40 mg PO BEDTIME [facility] Last Admin: 07/09/20 22:21 Dose: 40 mg Documented by: JAVIER Docusate Sodium (Docusate 100 Mg Capsule) 100 mg PO BID [facility] Last Admin: 07/09/20 21:00 Dose: 100 mg Documented by: JAVIER Duloxetine HCl (Duloxetine 20 Mg Capsule) 20 mg PO BID [facility] Last Admin: 07/09/20 22:21 Dose: 20 mg Documented by: JAVIER Escitalopram Oxalate (Escitalopram 10 Mg Tablet) 10 mg PO DAILY [facility] Gabapentin (Gabapentin 300 Mg Capsule) 300 mg PO BID [facility] Last Admin: 07/09/20 22:22 Dose: 300 mg Documented by: JAVIER Hydromorphone HCl (Hydromorphone 1 Mg Inj) 1 mg IV Q4H PRN PRN Reason: Pain, Moderate (4-6) Last Admin: 07/10/20 06:20 Dose: 1 mg Documented by: Admin: 07/10/20 02:43 Dose: 1 mg Documented by: QUINCY Lactated Ringer's (Lactated Ringers) 1,000 mls @ 60 mls/hr IV CONT [facility] Last Admin: 07/09/20 20:29 Dose: 60 mls/hr Documented by: JAVIER Lorazepam (Lorazepam 0.5 Mg Tablet) 0.5 mg PO BID PRN PRN Reason: Anxiety Last Admin: 07/09/20 22:22 Dose: 0.5 mg Documented by: JAVIER Metoprolol Succinate (Metoprolol Er 25 Mg Tablet) 25 mg PO BID [facility] Last Admin: 07/09/20 22:21 Dose: 25 mg Documented by: JAVIER Naloxone HCl (Naloxone 0.4 Mg/Ml Vial) 0.2 mg IV Q2MIN PRN PRN Reason: Opiate Reversal Ondansetron HCl (Ondansetron 4 Mg/2 Ml Inj) 4 mg IV Q8HR PRN PRN Reason: Nausea And Vomiting Pantoprazole Sodium (Pantoprazole 20 Mg Tablet) 20 mg PO 0600 [facility] Last Admin: 07/10/20 06:21 Dose: 20 mg Documented by: QUINCY Sennosides (Sennosides 8.6 Mg Tablet) 17.2 mg PO BEDTIME [facility] Last Admin: 07/09/20 21:00 Dose: 17.2 mg Documented by: JAVIER Discontinued Medications Hydromorphone HCl (Hydromorphone 0.5 Mg Inj) 0.5 mg IV NOW ONE Stop: 07/09/20 14:38 Last Admin: 07/09/20 14:52 Dose: 0.5 mg Documented by: DIAMOND Hydromorphone HCl (Hydromorphone 0.5 Mg Inj) 0.5 mg IV NOW ONE Stop: 07/09/20 17:15 Last Admin: 07/09/20 17:23 Dose: 0.5 mg Documented by: CLAUDIO Hydromorphone HCl (Hydromorphone 1 Mg Inj) 1 mg IV NOW ONE Stop: 07/09/20 20:51 Last Admin: 07/09/20 20:56 Dose: 1 mg Documented by: JAVIER Sodium Chloride (Normal Saline 0.9%) 1,000 mls @ 125 mls/hr IV CONT [facility] Last Admin: 07/09/20 14:52 Dose: 125 mls/hr Documented by: DIAMOND Potassium Chloride 40 meq/ (Sodium Chloride) 520 mls @ 130 mls/hr IV NOW ONE Stop: 07/09/20 19:06 Last Admin: 07/09/20 15:27 Dose: 130 mls/hr Documented by: CLAUDIO Cosigned by: ADWOA Sodium Chloride (Normal Saline 0.9%) 500 mls @ 1,000 mls/hr IV BOLUS ONE Stop: 07/09/20 16:29 Last Infusion: 07/09/20 17:05 Dose: 0 mls/hr Documented by: Admin: 07/09/20 16:35 Dose: 1,000 mls/hr Documented by: CLAUDIO Sodium Chloride (Normal Saline 0.9%) 500 mls @ 1,000 mls/hr IV BOLUS ONE Stop: 07/09/20 16:29 Last Admin: 07/09/20 16:42 Dose: Not Given Documented by: CLAUDIO Influenza Virus Vaccine (Influenza Vaccine 0.5 Ml Syringe) 0.5 ml IM .ONCE ONE Stop: 07/09/20 18:52 Last Admin: 07/09/20 22:22 Dose: Not Given Documented by: JAVIER Ondansetron HCl (Ondansetron 4 Mg/2 Ml Inj) 4 mg IV NOW ONE Stop: 07/09/20 14:38 Last Admin: 07/09/20 14:53 Dose: 4 mg Documented by: DIAMOND Oxycodone/Acetaminophen (Oxycodone/Acetaminophen 5/325 Tablet) 2 tab PO Q4HR PRN PRN Reason: Pain, Severe (7-10) Last Admin: 07/10/20 00:14 Dose: 2 tab Documented by: Admin: 03/29/21 20:17 Dose: 2 tab Documented by: JOSELUIS Potassium Chloride (Potassium Chloride 20 Meq Tab) 40 meq PO NOW ONE Stop: 07/09/20 16:53 Last Admin: 07/09/20 17:05 Dose: 40 meq Documented by: CLAUDIO Reevaluation(s) Reevaluation #1: C spine removed after CT Cspine with negative findings. Patient is able to flex and rotate her neck without acute discomfort. Patient does not have neurological deficit in upper extremities. Blood culture added with elevated lactate and procalcitonin. Potassium drip ordered due to hypokalemia of 2.4. Rodriguez catheter insertion ordered and waiting for urine test to rule out UTI. Time: 15:30 Reevaluation #2: Elevated D dimer with some dyspnea hard to catch breath, abdominal pain, positive pelvis fracture, CT of abdoen/pelvis and CT chest PE test ordered. According to nursing staff, patient had very little urine out in rodriguez catheter, added NS bolus 500 mL. Patient informed of pending admission for pain management, physical therapy evaluation, hypokalemia, further evaluation and testing for elevated lactate and procal. Time: 16:02 Consultations Consultation #1: Dr. Alfaro consulted with RAD and CT findings and physical findings. He recommended MRI test for stress/nondisplaced fracture. I had ordered this as requested. Time: 17:10 Consultation #2: Dr. Jefferson consulted for admission and she kindly accepted the patient's care for pain management, PT evaluation, treatment for hypokalemia, abdominal pain with pancreatic cyst to follow up with MRI test to rule out neoplasm. Time: 17:15 Vital Signs Vital signs: Vital Signs - 8 hr 07/09/20 14:17 07/09/20 14:18 07/09/20 14:30 Temperature 97.0 F L Pulse Rate 110 H 103 H Respiratory Rate 16 Blood Pressure 138/63 138/63 136/64 Pulse Oximetry 98 96 07/09/20 14:45 07/09/20 15:00 07/09/20 15:48 Temperature Pulse Rate 101 H 101 H 107 H Respiratory Rate 24 28 H Blood Pressure Pulse Oximetry 97 97 07/09/20 16:00 07/09/20 16:20 07/09/20 16:21 Temperature Pulse Rate 109 H 114 H 113 H Respiratory Rate 31 H 35 H 33 H Blood Pressure 123/58 L Pulse Oximetry 97 97 07/09/20 16:30 07/09/20 16:45 07/09/20 17:00 Temperature Pulse Rate 113 H 109 H 114 H Respiratory Rate 22 14 38 H Blood Pressure 117/57 L 113/56 L Pulse Oximetry 96 98 96 07/09/20 17:15 Temperature Pulse Rate 112 H Respiratory Rate 27 H Blood Pressure Pulse Oximetry 98 <Little Rodriguez, DO - Last Filed: 07/10/20 07:54> Orders Ordered: Atorvastatin Calcium (Atorvastatin 20 Mg Tablet) 40 mg PO BEDTIME [facility] Last Admin: 07/09/20 22:21 Dose: 40 mg Documented by: JAVIER Docusate Sodium (Docusate 100 Mg Capsule) 100 mg PO BID [facility] Last Admin: 07/09/20 21:00 Dose: 100 mg Documented by: JAVIER Duloxetine HCl (Duloxetine 20 Mg Capsule) 20 mg PO BID [facility] Last Admin: 07/09/20 22:21 Dose: 20 mg Documented by: JAVIER Escitalopram Oxalate (Escitalopram 10 Mg Tablet) 10 mg PO DAILY [facility] Gabapentin (Gabapentin 300 Mg Capsule) 300 mg PO BID [facility] Last Admin: 07/09/20 22:22 Dose: 300 mg Documented by: JAVIER Hydromorphone HCl (Hydromorphone 1 Mg Inj) 1 mg IV Q4H PRN PRN Reason: Pain, Moderate (4-6) Last Admin: 07/10/20 06:20 Dose: 1 mg Documented by: Admin: 07/10/20 02:43 Dose: 1 mg Documented by: QUINCY Lactated Ringer's (Lactated Ringers) 1,000 mls @ 60 mls/hr IV CONT [facility] Last Admin: 07/09/20 20:29 Dose: 60 mls/hr Documented by: JAVIER Lorazepam (Lorazepam 0.5 Mg Tablet) 0.5 mg PO BID PRN PRN Reason: Anxiety Last Admin: 07/09/20 22:22 Dose: 0.5 mg Documented by: JAVIER Metoprolol Succinate (Metoprolol Er 25 Mg Tablet) 25 mg PO BID [facility] Last Admin: 07/09/20 22:21 Dose: 25 mg Documented by: JAVIER Naloxone HCl (Naloxone 0.4 Mg/Ml Vial) 0.2 mg IV Q2MIN PRN PRN Reason: Opiate Reversal Ondansetron HCl (Ondansetron 4 Mg/2 Ml Inj) 4 mg IV Q8HR PRN PRN Reason: Nausea And Vomiting Pantoprazole Sodium (Pantoprazole 20 Mg Tablet) 20 mg PO 0600 [facility] Last Admin: 07/10/20 06:21 Dose: 20 mg Documented by: QUINCY Sennosides (Sennosides 8.6 Mg Tablet) 17.2 mg PO BEDTIME [facility] Last Admin: 07/09/20 21:00 Dose: 17.2 mg Documented by: JAVIER Discontinued Medications Hydromorphone HCl (Hydromorphone 0.5 Mg Inj) 0.5 mg IV NOW ONE Stop: 07/09/20 14:38 Last Admin: 07/09/20 14:52 Dose: 0.5 mg Documented by: DIAMOND Hydromorphone HCl (Hydromorphone 0.5 Mg Inj) 0.5 mg IV NOW ONE Stop: 07/09/20 17:15 Last Admin: 07/09/20 17:23 Dose: 0.5 mg Documented by: CLAUDIO Hydromorphone HCl (Hydromorphone 1 Mg Inj) 1 mg IV NOW ONE Stop: 07/09/20 20:51 Last Admin: 07/09/20 20:56 Dose: 1 mg Documented by: JAVIER Sodium Chloride (Normal Saline 0.9%) 1,000 mls @ 125 mls/hr IV CONT [facility] Last Admin: 07/09/20 14:52 Dose: 125 mls/hr Documented by: DIAMOND Potassium Chloride 40 meq/ (Sodium Chloride) 520 mls @ 130 mls/hr IV NOW ONE Stop: 07/09/20 19:06 Last Admin: 07/09/20 15:27 Dose: 130 mls/hr Documented by: CLAUDIO Cosigned by: ADWOA Sodium Chloride (Normal Saline 0.9%) 500 mls @ 1,000 mls/hr IV BOLUS ONE Stop: 07/09/20 16:29 Last Infusion: 07/09/20 17:05 Dose: 0 mls/hr Documented by: Admin: 07/09/20 16:35 Dose: 1,000 mls/hr Documented by: CLAUDIO Sodium Chloride (Normal Saline 0.9%) 500 mls @ 1,000 mls/hr IV BOLUS ONE Stop: 07/09/20 16:29 Last Admin: 07/09/20 16:42 Dose: Not Given Documented by: CLAUDIO Influenza Virus Vaccine (Influenza Vaccine 0.5 Ml Syringe) 0.5 ml IM .ONCE ONE Stop: 07/09/20 18:52 Last Admin: 07/09/20 22:22 Dose: Not Given Documented by: JAVIER Ondansetron HCl (Ondansetron 4 Mg/2 Ml Inj) 4 mg IV NOW ONE Stop: 07/09/20 14:38 Last Admin: 07/09/20 14:53 Dose: 4 mg Documented by: DIAMOND Oxycodone/Acetaminophen (Oxycodone/Acetaminophen 5/325 Tablet) 2 tab PO Q4HR PRN PRN Reason: Pain, Severe (7-10) Last Admin: 07/10/20 00:14 Dose: 2 tab Documented by: Admin: 07/09/20 20:17 Dose: 2 tab Documented by: JOSELUIS Potassium Chloride (Potassium Chloride 20 Meq Tab) 40 meq PO NOW ONE Stop: 07/09/20 16:53 Last Admin: 07/09/20 17:05 Dose: 40 meq Documented by: CLAUDIO Vital Signs Vital signs: Vital Signs - 8 hr 07/09/20 14:17 07/09/20 14:18 07/09/20 14:30 Temperature 97.0 F L Pulse Rate 110 H 103 H Respiratory Rate 16 Blood Pressure 138/63 138/63 136/64 Pulse Oximetry 98 96 07/09/20 14:45 07/09/20 15:00 07/09/20 15:48 Temperature Pulse Rate 101 H 101 H 107 H Respiratory Rate 24 28 H Blood Pressure Pulse Oximetry 97 97 07/09/20 16:00 07/09/20 16:20 07/09/20 16:21 Temperature Pulse Rate 109 H 114 H 113 H Respiratory Rate 31 H 35 H 33 H Blood Pressure 123/58 L Pulse Oximetry 97 97 07/09/20 16:30 07/09/20 16:45 07/09/20 17:00 Temperature Pulse Rate 113 H 109 H 114 H Respiratory Rate 22 14 38 H Blood Pressure 117/57 L 113/56 L Pulse Oximetry 96 98 96 07/09/20 17:15 Temperature Pulse Rate 112 H Respiratory Rate 27 H Blood Pressure Pulse Oximetry 98 MDM - Extremity Injury (Lower) <KATLIN Gutierrez - Last Filed: 07/09/20 19:36> Differential Diagnosis Differential diagnosis: Likely other (hip/pelvis fracture, femur fracture, PE, dehydration, anemia, UTI, electolyte imbalance, ) Medical Records Attestation: I reviewed the patient's medical records. Lab Data Attestation: I reviewed the patient's lab results. Result diagrams: 07/10/20 05:10 07/10/20 05:10 Labs: Lab Results 07/09/20 07/09/20 07/09/20 Range/Units 14:43 14:43 14:43 WBC 11.5 H (4.5-11.0) X10^3/uL RBC 2.94 L (4.0-5.2) X10^6/uL Hgb 11.4 L (12.0-16.0) g/dL Hct 34.4 L (36-46) % MCV 116.9 H (80-100) fL MCH 38.8 H (26-34) PG MCHC 33.2 (30-36) % RDW 13.9 (11.6-14.8) % Plt Count 297 (150-400) X10^3/uL Neut % (Auto) 68.9 (50-75) % Lymph % (Auto) 14.8 L (25-40) % [place] % (Auto) 15.2 H (3-14) % Eos % (Auto) 0.4 L (2-4) % Baso % (Auto) 0.7 (0-2) % Neut # (Auto) 7900 H (2772-5382) /uL Lymph # (Auto) 1700 (1563-3175) /uL [place] # (Auto) 1800 H (0-900) /uL Eos # (Auto) 0 (0-450) /uL Baso # (Auto) 100 (0-100) /uL Platelet Estimate Adequate on smear RBC Morphology See below Macrocytosis 3+ H PT 12.1 (10.1-12.7) SECONDS INR 1.1 (0.9-1.3) APTT 28 (26.4-36.2) SECONDS D-Dimer (<230) ng/mL Sodium 134 L (137-145) mmol/L Potassium 2.7 L* (3.4-5.1) mmol/L Chloride 97 L (98-107) mmol/L Carbon Dioxide 33 H (22-32) mmol/L BUN 3 L (7-17) mg/dL Creatinine 0.29 L (0.52-1.04) mg/dL Estimated GFR > 60.0 (>60) mL/min BUN/Creatinine Ratio 10.3 (6-22) Glucose 88 (80-110) mg/dL Lactate (0.7-2.1) mmol/L Calcium 9.0 (8.4-10.2) mg/dL Magnesium 2.0 (1.6-2.3) mg/dL Total Bilirubin 0.8 (0.2-1.3) mg/dL AST 45 H (14-36) IU/L ALT 22 (<35) IU/L Alkaline Phosphatase 189 H (38-126) U/L Total Creatine Kinase 45 (30-135) U/L CK-MB (CK-2) TNP CK-MB (CK-2) Rel Index TNP Troponin I < 0.012 (0.01-0.034) ng/mL Total Protein 6.7 (6.3-8.2) g/dL Albumin 3.3 L (3.5-5.0) g/dL Globulin 3.4 (1.7-4.1) g/dL Albumin/Globulin Ratio 1.0 (1.0-2.8) Lipase 294 (23-300) U/L Procalcitonin (<0.5) ng/mL Urine Color Urine Appearance Urine pH (4.5-8.0) Ur Specific [place] (1.000-1.035) Urine Protein (Negative) Urine Glucose (UA) (Negative) g/dL Urine Ketones (NEGATIVE) Urine Occult Blood (Negative) Urine Nitrate (Negative) Urine Bilirubin (NEGATIVE) Urine Urobilinogen (0.2) E.U./dL Ur Leukocyte Esterase (NEGATIVE) Urine RBC (0-5/HPF) Urine WBC (0-5/HPF) Ur Squamous Epith Cells (0-5/HPF) Urine Bacteria (None) Ur Culture Indicated? SARS-CoV-2 (PCR) (Negative) 07/09/20 07/09/20 07/09/20 Range/Units 14:43 14:43 14:43 WBC (4.5-11.0) X10^3/uL RBC (4.0-5.2) X10^6/uL Hgb (12.0-16.0) g/dL Hct (36-46) % MCV (80-100) fL MCH (26-34) PG MCHC (30-36) % RDW (11.6-14.8) % Plt Count (150-400) X10^3/uL Neut % (Auto) (50-75) % Lymph % (Auto) (25-40) % [place] % (Auto) (3-14) % Eos % (Auto) (2-4) % Baso % (Auto) (0-2) % Neut # (Auto) (3270-1688) /uL Lymph # (Auto) (2793-1778) /uL [place] # (Auto) (0-900) /uL Eos # (Auto) (0-450) /uL Baso # (Auto) (0-100) /uL Platelet Estimate RBC Morphology Macrocytosis PT (10.1-12.7) SECONDS INR (0.9-1.3) APTT (26.4-36.2) SECONDS D-Dimer 927 H (<230) ng/mL Sodium (137-145) mmol/L Potassium (3.4-5.1) mmol/L Chloride (98-107) mmol/L Carbon Dioxide (22-32) mmol/L BUN (7-17) mg/dL Creatinine (0.52-1.04) mg/dL Estimated GFR (>60) mL/min BUN/Creatinine Ratio (6-22) Glucose (80-110) mg/dL Lactate 2.6 H (0.7-2.1) mmol/L Calcium (8.4-10.2) mg/dL Magnesium (1.6-2.3) mg/dL Total Bilirubin (0.2-1.3) mg/dL AST (14-36) IU/L ALT (<35) IU/L Alkaline Phosphatase (38-126) U/L Total Creatine Kinase (30-135) U/L CK-MB (CK-2) CK-MB (CK-2) Rel Index Troponin I (0.01-0.034) ng/mL Total Protein (6.3-8.2) g/dL Albumin (3.5-5.0) g/dL Globulin (1.7-4.1) g/dL Albumin/Globulin Ratio (1.0-2.8) Lipase (23-300) U/L Procalcitonin 6.51 H (<0.5) ng/mL Urine Color Urine Appearance Urine pH (4.5-8.0) Ur Specific [place] (1.000-1.035) Urine Protein (Negative) Urine Glucose (UA) (Negative) g/dL Urine Ketones (NEGATIVE) Urine Occult Blood (Negative) Urine Nitrate (Negative) Urine Bilirubin (NEGATIVE) Urine Urobilinogen (0.2) E.U./dL Ur Leukocyte Esterase (NEGATIVE) Urine RBC (0-5/HPF) Urine WBC (0-5/HPF) Ur Squamous Epith Cells (0-5/HPF) Urine Bacteria (None) Ur Culture Indicated? SARS-CoV-2 (PCR) (Negative) 07/09/20 07/09/20 07/09/20 Range/Units 15:40 16:30 17:19 WBC (4.5-11.0) X10^3/uL RBC (4.0-5.2) X10^6/uL Hgb (12.0-16.0) g/dL Hct (36-46) % MCV (80-100) fL MCH (26-34) PG MCHC (30-36) % RDW (11.6-14.8) % Plt Count (150-400) X10^3/uL Neut % (Auto) (50-75) % Lymph % (Auto) (25-40) % [place] % (Auto) (3-14) % Eos % (Auto) (2-4) % Baso % (Auto) (0-2) % Neut # (Auto) (4311-9044) /uL Lymph # (Auto) (7589-2043) /uL [place] # (Auto) (0-900) /uL Eos # (Auto) (0-450) /uL Baso # (Auto) (0-100) /uL Platelet Estimate RBC Morphology Macrocytosis PT (10.1-12.7) SECONDS INR (0.9-1.3) APTT (26.4-36.2) SECONDS D-Dimer (<230) ng/mL Sodium (137-145) mmol/L Potassium (3.4-5.1) mmol/L Chloride (98-107) mmol/L Carbon Dioxide (22-32) mmol/L BUN (7-17) mg/dL Creatinine (0.52-1.04) mg/dL Estimated GFR (>60) mL/min BUN/Creatinine Ratio (6-22) Glucose (80-110) mg/dL Lactate 0.8 (0.7-2.1) mmol/L Calcium (8.4-10.2) mg/dL Magnesium (1.6-2.3) mg/dL Total Bilirubin (0.2-1.3) mg/dL AST (14-36) IU/L ALT (<35) IU/L Alkaline Phosphatase (38-126) U/L Total Creatine Kinase (30-135) U/L CK-MB (CK-2) CK-MB (CK-2) Rel Index Troponin I (0.01-0.034) ng/mL Total Protein (6.3-8.2) g/dL Albumin (3.5-5.0) g/dL Globulin (1.7-4.1) g/dL Albumin/Globulin Ratio (1.0-2.8) Lipase (23-300) U/L Procalcitonin (<0.5) ng/mL Urine Color Yellow Urine Appearance Clear Urine pH 6.0 (4.5-8.0) Ur Specific [place] <=1.005 (1.000-1.035) Urine Protein Negative (Negative) Urine Glucose (UA) Negative (Negative) g/dL Urine Ketones Negative (NEGATIVE) Urine Occult Blood Negative (Negative) Urine Nitrate Negative (Negative) Urine Bilirubin Negative (NEGATIVE) Urine Urobilinogen 0.2 (0.2) E.U./dL Ur Leukocyte Esterase Negative (NEGATIVE) Urine RBC None seen (0-5/HPF) Urine WBC 0-1/hpf (0-5/HPF) Ur Squamous Epith Cells 0-1 /hpf (0-5/HPF) Urine Bacteria None seen (None) Ur Culture Indicated? Cult not indicated SARS-CoV-2 (PCR) Negative (Negative) Imaging Data CT- C spine: Radiologist's Impression: [place] [id number] Scan ReportSigned Patient: Elvia Toscano [facility]#: [id number]: 1955cct:[id number]/Sex: 64 / FDate of Service: 07/09/20Loc: EDAccession Number: [id number] Procedure: CT cervical spine wo con Ordering Provider: Roverto Lees PROCEDURE: CT CERVICAL SPINE WO CON INDICATIONS: midcervical tenderness, s/p fall TECHNIQUE: Noncontrast 3 mm thick sections acquired from the skull base to the T4 level. Sagittal and coronal reformats were then constructed. For radiation dose reduction, the following was used: automated exposure control, adjustment of mA and/or kV according to patient size. COMPARISON: None. FINDINGS: Image quality: Excellent. Bones: No fractures or dislocations. Mild degenerative endplate changes and bilateral facet hypertrophic changes are noted throughout cervical spine more prominent at C5-6 and C6-7 levels. No significant central canal stenosis or neural foraminal narrowing is seen. Visualized superior ribs are intact. Soft tissues: Prevertebral soft tissues are normal in thickness. No paravertebral hematomas. No apical pneumothoraces. Emphysematous changes are noted in bilateral lung apices. IMPRESSION: 1. No acute cervical spine fracture or dislocation. 2. Mild degenerative disc disease throughout cervical spine as above. Dictated by: Cuauhtemoc Tamez M.D. on 07/09/2020 at 15:14 Approved by: Cuauhtemoc Tamez M.D. on 07/09/2020 at 15:20 CT-Facial bones: Radiologist's Impression: [address] [id number] Scan ReportSigned Patient: Elvia Toscano [facility]#: [id number]: 1955cct:[id number]/Sex: 64 / FDate of Service: 07/09/20Loc: EDAccession Number: [id number] Procedure: CT facial bones wo con Ordering Provider: Roverto Lees PROCEDURE: CT FACIAL BONES WO CON INDICATIONS: s/p fall 1 week ago, R side face pain, swelling, bruise TECHNIQUE: Noncontrast 2.5 mm thick axial images acquired from the mandible through the frontal sinuses, with coronal and sagittal reformatting. For radiation dose reduction, the following was used: automated exposure control, adjustment of mA and/or kV according to patient size. COMPARISON: [facility], CT, HEAD WITHOUT CONTRAST, 08/23/2007, 15:50. [facility], CT, CT CERVICAL SPINE WO CON, 07/09/2020, 14:50. FINDINGS: Image quality: Excellent. Bones and teeth: Orbital lopez are intact. Sinus lopez show no fracture or deformity. Nasal bones and septum are intact. Visualized portions of the mandible demonstrate no fractures or subluxation. Zygomatic arches are intact. Pterygoid plates are intact. Visualized portions of the skull base and auditory canals are intact. Sinuses: A dense mucocele can be seen within the inferior right maxillary sin us. The right maxillary sinus is improved in aeration compared to 2007. The paranasal sinuses otherwise appear clear. S shaped nasal septal deviation is incidentally noted. Mastoid air cells are aerated. Soft tissues: No edema, masses, or fluid collections. No enlarged lymph nodes. No soft tissue lacerations or debris. Vascular: Visualized vascular structures appear normal in the absence of contrast. Bony vascular foramina and canals are intact. IMPRESSION: No displaced fractures are seen. Improved aeration of the right maxillary sinus compared to 2007. Dictated by: Boogie Cash M.D. on 07/09/2020 at 14:33 Approved by: Boogie Cash M.D. on 07/09/2020 at 14:36 XR-Hip/pelvis: Radiologist's Impression: [address] [id number] ReportSigned Patient: Elvia Toscano [facility]#: [id number]: 1955cct:[id number]/Sex: 64 / FDate of Service: 07/09/20Loc: EDAccession Number: [id number] Procedure: XR hip w pel if done RT 2V Ordering Provider: Roverto Lees PROCEDURE: XR HIP W PEL IF DONE RT 2V INDICATIONS: fall w/ pain, unable to bear weight. *pt on trauma stretcher TECHNIQUE: AP pelvis with lateral view(s) of the right hip(s). COMPARISON: [facility], CR, XR HIP W PEL IF DONE RT 2V, 05/09/2020, 17:40. FINDINGS: Bones: No dislocations. Pelvic ring appears intact. No suspicious bony lesions. There is a lateral right-sided superior obturator ring fracture, possibly subacute. There is a vague lucency along the inter trochanteric line, but a definite fracture in that area is not seen. Soft tissues: The visualized bowel gas pattern is normal. No suspicious soft tissue calcifications. IMPRESSION: Superior obturator ring fracture located laterally, mildly displaced. Vague lucency along the inter trochanteric line at the right hip, but this does not necessarily represent fracture plane. Depending on the clinical symptoms follow-up by dedicated CT or, preferably, MR scanning for screening for hidden fracture may be warranted. XR-Femur RT: Radiologist's Impression: [address] [id number] ReportSigned Patient: Elvia Toscano [facility]#: [id number]: 1955cct:[id number]/Sex: 64 / FDate of Service: 07/09/20Loc: EDAccession Number: [id number] Procedure: XR femur RT min 2V Ordering Provider: Roverto Lees PROCEDURE: XR FEMUR RT MIN 2V INDICATIONS: pain in R>L bila hip/pelvis, femur, s/p fall 1 wk ago, hx of TECHNIQUE: 2 views of the femur were acquired. [facility] 2V, 07/09/2020, 14:39. FINDINGS: Bones: There is a mildly displaced superior lateral right pubic ramus fracture. No suspicious bony lesions. Soft tissues: No suspicious soft tissue calcifications or masses. IMPRESSION: Mildly displaced right, superior lateral pubic ramus fracture. Dictated by: Ofelia Chan M.D. on 07/09/2020 at 15:27 Approved by: Ofelia Chan M.D. on 07/09/2020 at 15:40 Chest x-ray: Radiologist's Impression: [address] [id number] ReportSigned Patient: Elvia Toscano [facility]#: [id number]: 1955cct:[id number]/Sex: 64 / FDate of Service: 07/09/20Loc: EDAccession Number: [id number] Procedure: XR chest 1V Ordering Provider: Roverto Lees [facility] PROCEDURE: XR CHEST 1V INDICATIONS: chest pain TECHNIQUE: One view of the chest was acquired. COMPARISON: [facility], CR, XR CHEST 1 VIEW, 05/24/2019, 11:08. [facility], CR, CHEST 2 VIEW, 04/02/2010, 16:19. FINDINGS: Surgical changes and devices: None. Lungs and pleura: Increased pulmonary vascularity is present, asymmetric within the right lung. Mediastinum: Mediastinal contours appear normal. Heart size is normal. Bones and chest wall: No suspicious bony lesions. Overlying soft tissues appear unremarkable. IMPRESSION: Asymmetric appearance of hazy opacity within the right lung. This could represent asymmetric pulmonary vascularity or developing airspace disease. Dictated by: Ofelia Chan M.D. on 07/09/2020 at 15:25 Approved by: Ofelia Chan M.D. on 07/09/2020 at 15:27 CT-Chest PE : Radiologist's Impression: [address] Scan ReportSigned Patient: Elvia Toscano DMR#: [id number]: 7Acct:[id number]/Sex: 64 / FDate of Service: 07/09/20Loc: EDAccession Number: [id number] Procedure: CT angio chest PE protocol Ordering Provider: Roverto Lees [facility] PROCEDURE: CT ANGIO CHEST PE PROTOCOL INDICATIONS: dyspnea, elevated d dimer, fall 1 wk ago fx of pelvis TECHNIQUE: After the administration of intravenous contrast, 2 mm thick sections acquired from the pulmonary apices to the posterior costophrenic angles. 3-dimensional maximum intensity projection (MIP) coronal and sagittal reformats were then acquired through the thorax. For radiation dose reduction, the following was used: automated exposure control, adjustment of mA and/or kV according to patient size. COMPARISON: None. FINDINGS: Image quality: Excellent. Lungs and pleura: The lungs have centrilobular emphysematous changes. No acute air space opacities. No pleural effusions or pneumothorax. Central and peripheral airways are patent and normal in caliber. Mediastinum: Heart size is normal. No pericardial effusion. No mediastinal adenopathy by size criteria. Thoracic aorta and central pulmonary arteries are normal in size. Esophagus is normal in caliber. No hiatal hernia. Bones and chest wall: No suspicious bony lesions. No vertebral body compression fractures. No axillary or supraclavicular adenopathy by size criteria. Thyroid gland is normal . Abdomen: See separately dictated CT of the abdomen. IMPRESSION: 1. No acute abnormality of the chest. 2. No pulmonary embolism. 3. No acute traumatic abnormality of the chest. Dictated by: Ifeanyi Fu M.D. on 07/09/2020 at 16:27 Approved by: Ifeanyi Fu M.D. on 07/09/2020 at 16:34 CT scan - abdomen/pelvis: Radiologist's Impression: [address] [id number] Scan ReportSigned Patient: Elvia Toscano [facility]#: [id number]: 7Acct:[id number]/Sex: 64 / FDate of Service: 07/09/20Loc: EDAccession Number: [id number] Procedure: CT abdomen pelvis w con Ordering Provider: Roverto Lees PROCEDURE: CT ABDOMEN PELVIS W CON INDICATIONS: abd pain, elevated lactate/procalcitonin, pelvis fx on xray TECHNIQUE: After the administration of intravenous contrast, 5 mm thick sections acquired from the diaphragm to the symphysis. 5 mm coronal and sagittal reformats were acquired. For radiation dose reduction, the following was used: automated exposure control, adjustment of mA and/or kV according to patient size. COMPARISON: [facility], CT, CT ABDOMEN PELVIS W CON, 05/13/2019, 15:24. FINDINGS: Image quality: Excellent. Lung bases: Lung bases are clear. Heart size is normal. Solid organs: Liver: The liver has no mass or intrahepatic biliary ductal dilatation. The portal vein and hepatic veins are patent. The pneumobilia is seen, unchanged compared to the remote CT and consistent with prior cholecystectomy. Biliary: The gallbladder has no gallstones, pericholecystic fluid, gallbladder wall thickening, or surrounding inflammatory change. Status post cholecystectomy. Pancreas: Pancreatic tail cysts, the largest measuring 3.8 x 6.3 x 5.1 cm are noted. The wall of the cysts is not significantly thickened. This cysts is contiguous with a smaller cyst measuring approximately 1.5 cm. There is no surrounding inflammation. Spleen: Normal size. There are no masses. Adrenals: No hypertrophy or nodules. Kidneys: No obstructive calculus or hydronephrosis. No solid mass. No cystic mass. Peritoneum and bowel: The distal esophagus is normal. The stomach abuts the pancreatic tail mass. The small bowel has a normal caliber and appearance. The terminal ileum is normal. The large bowel has a normal caliber and appearance. The appendix is normal. No free fluid or air. Nodes and vessels: No retroperitoneal or mesenteric adenopathy by size criteria. The IVC is patent. The aorta has atherosclerotic calcifications with no aneurysmal dilatation. Miscellaneous: No abdominal wall mass or hernia. PELVIS: Genitourinary: The bladder has no wall thickening or mass. The bladder contains a Rodriguez. Miscellaneous: No inguinal hernias or adenopathy. Bones: There is a nondisplaced superior and inferior ramus fracture. There is a fracture of the right sacral with a surrounding lytic sclerotic appearance consistent with a remote compression fracture. IMPRESSION: 1. Pancreatic tail cysts. Differential diagnosis includes cystic neoplasm or pseudocyst from pancreatitis. Recommend MRI pancreas protocol with contrast. Findings were discussed with Roverto DALAL. 2. Right superior and inferior ramus fractures. 3. Right sacral ala fracture likely chronic. Dictated by: Ifeanyi Fu M.D. on 07/09/2020 at 16:34 Approved by: Ifeanyi Fu M.D. on 07/09/2020 at 16:50 MDM Narrative Medical decision making narrative: This is a 64-year-old female with history of C diff colitis, osteoporosis, severe osteoarthritis with degenerative joint disease who is on chronic narcotic medication use presents to ED with chief complain of severe right hip/pelvis pain and inability to ambulate since the fall about one week ago. Patient denies cardiac related symptoms prior to the fall. She was leaning on a bed tray which gave out and she had landed on right side of body and face. Patient also complain of mid cervical tenderness in cervical spine, abdominal pain, new onset of urinary incontinence and constipa tion. Patient had exquisite pain in right hip and pelvis and adequate evaluation was difficult to obtain. Initially xray tests on bilateral pelvis/hip, femur, chest, CT of facial bones and c spine study ordered and obtained. Xray test shows midly displaced superior and lateral right pubis ramus fracture. Femur x-ray was negative. Chest x-ray was negative for acute findings a symmetric appearance of hazy opacity within the right lung. C spine CT was negative and rigid c collar removed that was applied during initial assessment. She was able to flex and rotate her neck without difficulty with intact sensation and bilateral equal strength. Findings noted in facial CT. D dimer ordered due to she reports sob/dyspnea with prolonged bedrest and pubis ramus fracture which was elevated as 927. Wells Criteria for PE and PERC score 3. CT of chest for PE and abdominal/pelvis CT ordered for chronic abdominal pain and study further pelvis fracture. Dr. Fu (RAD) called to inform a bout non-displaced superior and inferior ramus fracture and also of the right sacral ala fracture which is likely chronic compression fracture. Also, pancreatic tail cysts the largest measuring 3.8 x 6.3 x 5.1 cm and concerns for neoplams vs. Pseudocyst without surrounding inflammation and recommended further evaluation with MRI test with contrast. Dr. Alfaro consulted and he recommended MRI test to study further on nondisplaced/compression fracture of right pelvis ramus. MRI of non contrast pelvis result shows acute compression fracture at the left pubic symphysis in addition and post traumatic changes to the adjacent msculature with possible partial tendon avulsion of abductor musculature. Labs shows mild anemia with H/H of 11.4/34.4. WBC us 11.5 with mild elevation of neutrophils of 7900. Normal coag. Chemistry test came back with acute hypokalemia with potassium level 2.7 with mildly decreased sodium of 134, chloride of 97, BUN of 3, creatinine of 0.29. Co2 mildly elevated to 33. Initial lactate 2.6 with procal of 6.51. Cardiac enzymes were negative. Patient had mildly elevated liver function test with alk phosphatase 189, AST of 45, normal ALT of 22. Urine is negative for infection via rodriguez catheter. It is not clear the etiology of elevation of procal and lactate. Patient treated with 500 ml of NS bolus, infusion at 125 ml/hr, K rider 40 meQ total followed by PO 40 meQ of KCL. Patient was medicated with 2 doses of 0.5mg Dilaudid for pain magement which she found to be helpful. Repeat lactate drawn with normal finding as 0.8. Patient was admitted to hospitalist Dr. Jefferson with Dr. Alfaro's consult for further evaluation for possible infection, to treat hypokalemia, pain mamagement, PT evaluation unless the patient require surgical repair for the pelvis fracture and possible further work up for abdominal pain and pancreatic cyst and Dr. Jefferson kindly accepted patient's care. <Little Michael, DO - Last Filed: 07/10/20 07:54> Lab Data Labs: Lab Results 07/09/20 07/09/20 07/09/20 Range/Units 14:43 14:43 14:43 WBC 11.5 H (4.5-11.0) X10^3/uL RBC 2.94 L (4.0-5.2) X10^6/uL Hgb 11.4 L (12.0-16.0) g/dL Hct 34.4 L (36-46) % MCV 116.9 H (80-100) fL MCH 38.8 H (26-34) PG MCHC 33.2 (30-36) % RDW 13.9 (11.6-14.8) % Plt Count 297 (150-400) X10^3/uL Neut % (Auto) 68.9 (50-75) % Lymph % (Auto) 14.8 L (25-40) % [place] % (Auto) 15.2 H (3-14) % Eos % (Auto) 0.4 L (2-4) % Baso % (Auto) 0.7 (0-2) % Neut # (Auto) 7900 H (0123-3069) /uL Lymph # (Auto) 1700 (4022-0230) /uL [place] # (Auto) 1800 H (0-900) /uL Eos # (Auto) 0 (0-450) /uL Baso # (Auto) 100 (0-100) /uL Platelet Estimate Adequate on smear RBC Morphology See below Macrocytosis 3+ H PT 12.1 (10.1-12.7) SECONDS INR 1.1 (0.9-1.3) APTT 28 (26.4-36.2) SECONDS D-Dimer (<230) ng/mL Sodium 134 L (137-145) mmol/L Potassium 2.7 L* (3.4-5.1) mmol/L Chloride 97 L (98-107) mmol/L Carbon Dioxide 33 H (22-32) mmol/L BUN 3 L (7-17) mg/dL Creatinine 0.29 L (0.52-1.04) mg/dL Estimated GFR > 60.0 (>60) mL/min BUN/Creatinine Ratio 10.3 (6-22) Glucose 88 (80-110) mg/dL Lactate (0.7-2.1) mmol/L Calcium 9.0 (8.4-10.2) mg/dL Magnesium 2.0 (1.6-2.3) mg/dL Total Bilirubin 0.8 (0.2-1.3) mg/dL AST 45 H (14-36) IU/L ALT 22 (<35) IU/L Alkaline Phosphatase 189 H (38-126) U/L Total Creatine Kinase 45 (30-135) U/L CK-MB (CK-2) TNP CK-MB (CK-2) Rel Index TNP Troponin I < 0.012 (0.01-0.034) ng/mL Total Protein 6.7 (6.3-8.2) g/dL Albumin 3.3 L (3.5-5.0) g/dL Globulin 3.4 (1.7-4.1) g/dL Albumin/Globulin Ratio 1.0 (1.0-2.8) Lipase 294 (23-300) U/L Procalcitonin (<0.5) ng/mL Urine Color Urine Appearance Urine pH (4.5-8.0) Ur Specific [place] (1.000-1.035) Urine Protein (Negative) Urine Glucose (UA) (Negative) g/dL Urine Ketones (NEGATIVE) Urine Occult Blood (Negative) Urine Nitrate (Negative) Urine Bilirubin (NEGATIVE) Urine Urobilinogen (0.2) E.U./dL Ur Leukocyte Esterase (NEGATIVE) Urine RBC (0-5/HPF) Urine WBC (0-5/HPF) Ur Squamous Epith Cells (0-5/HPF) Urine Bacteria (None) Ur Culture Indicated? SARS-CoV-2 (PCR) (Negative) 07/09/20 07/09/20 07/09/20 Range/Units 14:43 14:43 14:43 WBC (4.5-11.0) X10^3/uL RBC (4.0-5.2) X10^6/uL Hgb (12.0-16.0) g/dL Hct (36-46) % MCV (80-100) fL MCH (26-34) PG MCHC (30-36) % RDW (11.6-14.8) % Plt Count (150-400) X10^3/uL Neut % (Auto) (50-75) % Lymph % (Auto) (25-40) % [place] % (Auto) (3-14) % Eos % (Auto) (2-4) % Baso % (Auto) (0-2) % Neut # (Auto) (0888-0618) /uL Lymph # (Auto) (3660-3094) /uL [place] # (Auto) (0-900) /uL Eos # (Auto) (0-450) /uL Baso # (Auto) (0-100) /uL Platelet Estimate RBC Morphology Macrocytosis PT (10.1-12.7) SECONDS INR (0.9-1.3) APTT (26.4-36.2) SECONDS D-Dimer 927 H (<230) ng/mL Sodium (137-145) mmol/L Potassium (3.4-5.1) mmol/L Chloride (98-107) mmol/L Carbon Dioxide (22-32) mmol/L BUN (7-17) mg/dL Creatinine (0.52-1.04) mg/dL Estimated GFR (>60) mL/min BUN/Creatinine Ratio (6-22) Glucose (80-110) mg/dL Lactate 2.6 H (0.7-2.1) mmol/L Calcium (8.4-10.2) mg/dL Magnesium (1.6-2.3) mg/dL Total Bilirubin (0.2-1.3) mg/dL AST (14-36) IU/L ALT (<35) IU/L Alkaline Phosphatase (38-126) U/L Total Creatine Kinase (30-135) U/L CK-MB (CK-2) CK-MB (CK-2) Rel Index Troponin I (0.01-0.034) ng/mL Total Protein (6.3-8.2) g/dL Albumin (3.5-5.0) g/dL Globulin (1.7-4.1) g/dL Albumin/Globulin Ratio (1.0-2.8) Lipase (23-300) U/L Procalcitonin 6.51 H (<0.5) ng/mL Urine Color Urine Appearance Urine pH (4.5-8.0) Ur Specific [place] (1.000-1.035) Urine Protein (Negative) Urine Glucose (UA) (Negative) g/dL Urine Ketones (NEGATIVE) Urine Occult Blood (Negative) Urine Nitrate (Negative) Urine Bilirubin (NEGATIVE) Urine Urobilinogen (0.2) E.U./dL Ur Leukocyte Esterase (NEGATIVE) Urine RBC (0-5/HPF) Urine WBC (0-5/HPF) Ur Squamous Epith Cells (0-5/HPF) Urine Bacteria (None) Ur Culture Indicated? SARS-CoV-2 (PCR) (Negative) 07/09/20 07/09/20 07/09/20 Range/Units 15:40 16:30 17:19 WBC (4.5-11.0) X10^3/uL RBC (4.0-5.2) X10^6/uL Hgb (12.0-16.0) g/dL Hct (36-46) % MCV (80-100) fL MCH (26-34) PG MCHC (30-36) % RDW (11.6-14.8) % Plt Count (150-400) X10^3/uL Neut % (Auto) (50-75) % Lymph % (Auto) (25-40) % [place] % (Auto) (3-14) % Eos % (Auto) (2-4) % Baso % (Auto) (0-2) % Neut # (Auto) (8224-9701) /uL Lymph # (Auto) (8270-1938) /uL [place] # (Auto) (0-900) /uL Eos # (Auto) (0-450) /uL Baso # (Auto) (0-100) /uL Platelet Estimate RBC Morphology Macrocytosis PT (10.1-12.7) SECONDS INR (0.9-1.3) APTT (26.4-36.2) SECONDS D-Dimer (<230) ng/mL Sodium (137-145) mmol/L Potassium (3.4-5.1) mmol/L Chloride (98-107) mmol/L Carbon Dioxide (22-32) mmol/L BUN (7-17) mg/dL Creatinine (0.52-1.04) mg/dL Estimated GFR (>60) mL/min BUN/Creatinine Ratio (6-22) Glucose (80-110) mg/dL Lactate 0.8 (0.7-2.1) mmol/L Calcium (8.4-10.2) mg/dL Magnesium (1.6-2.3) mg/dL Total Bilirubin (0.2-1.3) mg/dL AST (14-36) IU/L ALT (<35) IU/L Alkaline Phosphatase (38-126) U/L Total Creatine Kinase (30-135) U/L CK-MB (CK-2) CK-MB (CK-2) Rel Index Troponin I (0.01-0.034) ng/mL Total Protein (6.3-8.2) g/dL Albumin (3.5-5.0) g/dL Globulin (1.7-4.1) g/dL Albumin/Globulin Ratio (1.0-2.8) Lipase (23-300) U/L Procalcitonin (<0.5) ng/mL Urine Color Yellow Urine Appearance Clear Urine pH 6.0 (4.5-8.0) Ur Specific [place] <=1.005 (1.000-1.035) Urine Protein Negative (Negative) Urine Glucose (UA) Negative (Negative) g/dL Urine Ketones Negative (NEGATIVE) Urine Occult Blood Negative (Negative) Urine Nitrate Negative (Negative) Urine Bilirubin Negative (NEGATIVE) Urine Urobilinogen 0.2 (0.2) E.U./dL Ur Leukocyte Esterase Negative (NEGATIVE) Urine RBC None seen (0-5/HPF) Urine WBC 0-1/hpf (0-5/HPF) Ur Squamous Epith Cells 0-1 /hpf (0-5/HPF) Urine Bacteria None seen (None) Ur Culture Indicated? Cult not indicated SARS-CoV-2 (PCR) Negative (Negative) Discharge Plan Departure Patient Disposition: Admitted As Inpatient Clinical Impression: Acute hypokalemia, Cyst of pancreas, Elevated procalcitonin Fracture, pelvis closed Qualifiers: Encounter type: initial encounter Pelvic bone location: other part of pelvis Qualified Code(s): S32.89XA - Fracture of other parts of pelvis, initial encounter for closed fracture Fall Qualifiers: Encounter type: initial encounter Qualified Code(s): W19.XXXA - Unspecified fall, initial encounter Admit Date/Time: 07/09/20 18:03 Admit Provider: Yas Arthur <Little Rodriguez DO - Last Filed: 07/10/20 07:54> Cosign ED Attending Cosignature Attestation: I was immediately available in the depa rtment for consultation. Documentation has been reviewed. I agree with assessment and plan.
[2020-07-09] MEDS: POTASSIUM CHLORIDE 40 MEQ in SODIUM CHLORIDE 0.9% 500 ML 130 ML IV (15:27)
[2020-07-09 15:33] LABS: D Dimer 927 ng/mL (<230)
--- NOTE | 2020-07-09 15:55 | DI.CT.S_ITS ---
PROCEDURE: CT ANGIO CHEST PE PROTOCOL INDICATIONS: dyspnea, elevated d dimer, fall 1 wk ago fx of pelvis TECHNIQUE: After the administration of intravenous contrast, 2 mm thick sections acquired from the pulmonary apices to the posterior costophrenic angles. 3-dimensional maximum intensity projection (MIP) coronal and sagittal reformats were then acquired through the thorax. For radiation dose reduction, the following was used: automated exposure control, adjustment of mA and/or kV according to patient size. COMPARISON: None. FINDINGS: Image quality: Excellent. Lungs and pleura: The lungs have centrilobular emphysematous changes. No acute air space opacities. No pleural effusions or pneumothorax. Central and peripheral airways are patent and normal in caliber. Mediastinum: Heart size is normal. No pericardial effusion. No mediastinal adenopathy by size criteria. Thoracic aorta and central pulmonary arteries are normal in size. Esophagus is normal in caliber. No hiatal hernia. Bones and chest wall: No suspicious bony lesions. No vertebral body compression fractures. No axillary or supraclavicular adenopathy by size criteria. Thyroid gland is normal . Abdomen: See separately dictated CT of the abdomen. IMPRESSION: 1. No acute abnormality of the chest. 2. No pulmonary embolism. 3. No acute traumatic abnormality of the chest. Dictated by: Ifeanyi Fu M.D. on 07/09/2020 at 16:27 Approved by: Ifeanyi Fu M.D. on 07/09/2020 at 16:34
--- NOTE | 2020-07-09 15:55 | DI.CT.S_ITS ---
PROCEDURE: CT ABDOMEN PELVIS W CON INDICATIONS: abd pain, elevated lactate/procalcitonin, pelvis fx on xray TECHNIQUE: After the administration of intravenous contrast, 5 mm thick sections acquired from the diaphragm to the symphysis. 5 mm coronal and sagittal reformats were acquired. For radiation dose reduction, the following was used: automated exposure control, adjustment of mA and/or kV according to patient size. COMPARISON: [facility], CT, CT ABDOMEN PELVIS W CON, 05/13/2019, 15:24. FINDINGS: Image quality: Excellent. Lung bases: Lung bases are clear. Heart size is normal. Solid organs: Liver: The liver has no mass or intrahepatic biliary ductal dilatation. The portal vein and hepatic veins are patent. The pneumobilia is seen, unchanged compared to the remote CT and consistent with prior cholecystectomy. Biliary: The gallbladder has no gallstones, pericholecystic fluid, gallbladder wall thickening, or surrounding inflammatory change. Status post cholecystectomy. Pancreas: Pancreatic tail cysts, the largest measuring 3.8 x 6.3 x 5.1 cm are noted. The wall of the cysts is not significantly thickened. This cysts is contiguous with a smaller cyst measuring approximately 1.5 cm. There is no surrounding inflammation. Spleen: Normal size. There are no masses. Adrenals: No hypertrophy or nodules. Kidneys: No obstructive calculus or hydronephrosis. No solid mass. No cystic mass. Peritoneum and bowel: The distal esophagus is normal. The stomach abuts the pancreatic tail mass. The small bowel has a normal caliber and appearance. The terminal ileum is normal. The large bowel has a normal caliber and appearance. The appendix is normal. No free fluid or air. Nodes and vessels: No retroperitoneal or mesenteric adenopathy by size criteria. The IVC is patent. The aorta has atherosclerotic calcifications with no aneurysmal dilatation. Miscellaneous: No abdominal wall mass or hernia. PELVIS: Genitourinary: The bladder has no wall thickening or mass. The bladder contains a Head. Miscellaneous: No inguinal hernias or adenopathy. Bones: There is a nondisplaced superior and inferior ramus fracture. There is a fracture of the right sacral with a surrounding lytic sclerotic appearance consistent with a remote compression fracture. IMPRESSION: 1. Pancreatic tail cysts. Differential diagnosis includes cystic neoplasm or pseudocyst from pancreatitis. Recommend MRI pancreas protocol with contrast. Findings were discussed with Roverto DALAL. 2. Right superior and inferior ramus fractures. 3. Right sacral ala fracture likely chronic. Dictated by: Ifeanyi Fu M.D. on 07/09/2020 at 16:34 Approved by: Ifeanyi Fu M.D. on 07/09/2020 at 16:50
[2020-07-09 16:27] LABS: Macrocytosis 3+; Platelet Estimate Adequate on smear
[2020-07-09] MEDS: SODIUM CHLORIDE 0.9% 500 ML 1000 ML IV (16:35)
[2020-07-09 16:37] LABS: Bacteria Urine None Seen; RBC Urine None Seen (0-5/HPF)
[2020-07-09 16:38] LABS: Appearance Urine UA CLEAR; Bilirubin Urine UA NEGATIVE (NEGATIVE); Color Urine UA YELLOW; Glucose Urine UA NEGATIVE (Negative); Ketones Urine UA NEGATIVE (NEGATIVE); Leukocyte Esterase Urine UA NEGATIVE (NEGATIVE); Nitrite Urine UA NEGATIVE (Negative); Occult Blood Urine UA NEGATIVE (Negative); Protein Urine UA NEGATIVE (Negative); Specific Gravity Urine UA <=1.005 (1.000-1.035); Urobilinogen Urine UA 0.2 E.U./dL (0.2)
[2020-07-09 16:42] LABS: COVID19 - ADMIT (NP swab/PCR) Negative (Negative)
[2020-07-09 16:44] LABS: Culture Indicated Urine Cult Not Indicated; Squamous Epithelial Cell Urine 0-1 /HPF (0-5/HPF); WBC Urine 0-1/HPF (0-5/HPF)
[2020-07-09 16:48] LABS: Reflexed Lactate in 2 Hours Y
--- NOTE | 2020-07-09 17:00 | DI.MRI.S_ITS ---
PROCEDURE: MR HIP RT WO CON INDICATIONS: r/o R hip stress/non displace fracture per Dr. Alfaro TECHNIQUE: Noncontrast coronal T1 spin echo and STIR through the bony pelvis. Coronal and axial T2 fast spin echo with fat saturation, sagittal T1 spin echo, and oblique axial T2 fast spin echo with fat saturation through the hip. COMPARISON: [facility], CT, CT ABDOMEN PELVIS W CON, 07/09/2020, 16:05. FINDINGS: Image quality: Excellent. Bones and joints: Diffuse nonlinear amorphous high T2 signal throughout the right sacral ala is present with corresponding diffuse low T1 signal. A discrete fracture line is not well seen, however this corresponds to compressive sclerotic change in the right sacral ala seen on CT scan. There is edema throughout the right superior pubic ramus and morphology of an impaction fracture along the more proximal aspect. There is edema of of the inferior pubic ramus and a minimally displaced and mildly impacted fracture of the mid inferior pubic ramus. Proximal femur demonstrates normal marrow signal and normal position within the intact acetabulum. There is a nondisplaced impacted fracture along the left superior pubic ramus at the pubic symphysis corresponding to an area of sclerosis seen on CT scan. Soft tissues: Thickening and heterogeneous increased T2 signal within the adductor musculature is present. There are small areas of hypointensity within the obturator adductor muscles to suggest possible partial tendon retraction or hemorrhage. Within the pelvis, a Head catheter is decompressing the urinary bladder. Trace amount of free pelvic fluid is seen dependently. Neurovascular bundles posteriorly and anteriorly appear grossly intact. IMPRESSION: 1. Acute right sacral ala compression fracture. 2. Acute right inferior and superior pubic rami fractures. 3. Acute compression fracture at the left pubic symphysis. 4. No evidence of hip fracture. 5. Posttraumatic changes to the adjacent musculature with possible partial tendon avulsions of abductor musculature Dictated by: Bruna Woody M.D. on 07/09/2020 at 18:31 Approved by: Bruna Woody M.D. on 07/09/2020 at 18:43
[2020-07-09] MEDS: POTASSIUM CHLORIDE 20 MEQ TAB 40 MEQ PO (17:05)
[2020-07-09 17:43] LABS: Lactate 2HR (Lactic Acid Rflx) 0.8 mmol/L (0.7-2.1)
--- NOTE | 2020-07-09 18:46 | PM.CN ---
History of Present Illness Consult details Date Patient Seen: 07/09/20 Time Patient Seen: 18:46 Chief complaint: suspects broken right hip after fall last week Reason for consult: sacrum fracture, right superior rami fracture Narrative: Patient is a 64-year-old female who had a ground level fall this past Thursday. Since that time she has been unable to ambulate due to pain. She has been wheelchair-bound since that time. Her family is helping to take care of her. Patient has a history of repeated falls. She had a fall about a month ago at which time she says she has had low back pain and sacral pain since that time. Upon questioning patient states that she has been told that she has very poor bone quality but she has not followed up with her primary care physician to start any bisphosphonates. Prior to her fall she was a household ambulator outside the house she has poor balance and was not independently ambulating. Patient denies any previous history of groin pain. Patient states that currently she does have right groin and right thigh pain. She also states she has low back pain. Pain with range of motion of the hip. Meds Home Medications and Allergies Home Medications Medication Instructions Recorded Confirmed Type ASPIRIN/ACETAMINOPHEN/CAFFEINE 1 tab PO PRN #0 01/07/11 05/09/20 History (Excedrin Migraine Geltab) permanent disabled parking permit #1 ea 11/11/18 05/09/20 Rx aspirin 81 mg tablet,delayed 81 mg PO DAILY 06/09/19 05/09/20 History release atorvastatin 40 mg tablet 40 mg PO BEDTIME #90 tab 01/24/20 05/09/20 Rx duloxetine 20 mg capsule,delayed 20 mg PO BID #180 cap 01/24/20 05/09/20 Rx release escitalopram oxalate 10 mg tablet 10 mg PO DAILY #90 tab 01/24/20 05/09/20 Rx estradiol 1 mg tablet 1 mg PO Q DAY #90 tab 01/24/20 05/09/20 Rx gabapentin 300 mg capsule 300 mg PO DAILY #90 cap 01/24/20 05/09/20 Rx lorazepam 0.5 mg tablet 0.5 mg PO BID #60 tab 01/24/20 05/09/20 Rx metoprolol succinate 25 mg 25 mg PO BID #180 tab 01/24/20 05/09/20 Rx tablet,extended release 24 hr ondansetron 4 mg disintegrating 4 mg PO Q4H PRN #60 tab 01/24/20 05/09/20 Rx tablet oxycodone-acetaminophen 5 mg-325 2 tab PO Q6H PRN #112 tab 07/04/20 Rx mg tablet diphenoxylate-atropine 2.5 2 tab PO Q6-8H PRN #100 tab MDD 6 07/05/20 Rx mg-0.025 mg tablet Allergies Allergy/AdvReac Type Severity Reaction Status Date / Time adhesive Allergy Mild TEARS Verified 07/09/20 14:20 SKIN,USE COBAN Sulfa (Sulfonamide Allergy Verified 07/09/20 14:20 Antibiotics) Exam Vital Signs (past 8 hours): - 07/09/20 14:17 07/09/20 14:18 07/09/20 14:30 Temperature 97.0 F L Pulse Rate 110 H 103 H Respiratory Rate 16 Blood Pressure 138/63 138/63 136/64 Pulse Oximetry 98 96 07/09/20 14:45 07/09/20 15:00 07/09/20 15:48 Temperature Pulse Rate 101 H 101 H 107 H Respiratory Rate 24 28 H Blood Pressure Pulse Oximetry 97 97 07/09/20 16:00 07/09/20 16:20 07/09/20 16:21 Temperature Pulse Rate 109 H 114 H 113 H Respiratory Rate 31 H 35 H 33 H Blood Pressure 123/58 L Pulse Oximetry 97 97 07/09/20 16:30 07/09/20 16:45 07/09/20 17:00 Temperature Pulse Rate 113 H 109 H 114 H Respiratory Rate 22 14 38 H Blood Pressure 117/57 L 113/56 L Pulse Oximetry 96 98 96 07/09/20 17:15 07/09/20 18:41 Temperature 97.9 F Pulse Rate 112 H 117 H Respiratory Rate 27 H 19 Blood Pressure 115/76 Pulse Oximetry 98 93 Oxygen Delivery Method Room Air Oxygen Flow Rate 0 Narrative Exam Narrative: Neurovascular intact in the right lower extremity. No skin breaks about the hip. Pain with log roll of the leg. Pain with any flexion extension of the hip. Pain with pelvic compression. Objective Labs Result Diagrams: 07/09/20 14:43 07/09/20 14:43 Labs: Laboratory Results - last 24 hr 07/09/20 07/09/20 07/09/20 14:43 14:43 14:43 WBC 11.5 H RBC 2.94 L Hgb 11.4 L Hct 34.4 L MCV 116.9 H MCH 38.8 H MCHC 33.2 RDW 13.9 Plt Count 297 Neut % (Auto) 68.9 Lymph % (Auto) 14.8 L [place] % (Auto) 15.2 H Eos % (Auto) 0.4 L Baso % (Auto) 0.7 Neut # (Auto) 7900 H Lymph # (Auto) 1700 [place] # (Auto) 1800 H Eos # (Auto) 0 Baso # (Auto) 100 Platelet Estimate Adequate on smear RBC Morphology See below Macrocytosis 3+ H PT 12.1 INR 1.1 APTT 28 D-Dimer Sodium 134 L Potassium 2.7 L* Chloride 97 L Carbon Dioxide 33 H BUN 3 L Creatinine 0.29 L Estimated GFR > 60.0 BUN/Creatinine Ratio 10.3 Glucose 88 Lactate Calcium 9.0 Magnesium 2.0 Total Bilirubin 0.8 AST 45 H ALT 22 Alkaline Phosphatase 189 H Total Creatine Kinase 45 CK-MB (CK-2) TNP CK-MB (CK-2) Rel Index TNP Troponin I < 0.012 Total Protein 6.7 Albumin 3.3 L Globulin 3.4 Albumin/Globulin Ratio 1.0 Lipase 294 Procalcitonin Urine Color Urine Appearance Urine pH Ur Specific [place] Urine Protein Urine Glucose (UA) Urine Ketones Urine Occult Blood Urine Nitrate Urine Bilirubin Urine Urobilinogen Ur Leukocyte Esterase Urine RBC Urine WBC Ur Squamous Epith Cells Urine Bacteria Ur Culture Indicated? SARS-CoV-2 (PCR) 07/09/20 07/09/20 07/09/20 14:43 14:43 14:43 WBC RBC Hgb Hct MCV MCH MCHC RDW Plt Count Neut % (Auto) Lymph % (Auto) [place] % (Auto) Eos % (Auto) Baso % (Auto) Neut # (Auto) Lymph # (Auto) [place] # (Auto) Eos # (Auto) Baso # (Auto) Platelet Estimate RBC Morphology Macrocytosis PT INR APTT D-Dimer 927 H Sodium Potassium Chloride Carbon Dioxide BUN Creatinine Estimated GFR BUN/Creatinine Ratio Glucose Lactate 2.6 H Calcium Magnesium Total Bilirubin AST ALT Alkaline Phosphatase Total Creatine Kinase CK-MB (CK-2) CK-MB (CK-2) Rel Index Troponin I Total Protein Albumin Globulin Albumin/Globulin Ratio Lipase Procalcitonin 6.51 H Urine Color Urine Appearance Urine pH Ur Specific [place] Urine Protein Urine Glucose (UA) Urine Ketones Urine Occult Blood Urine Nitrate Urine Bilirubin Urine Urobilinogen Ur Leukocyte Esterase Urine RBC Urine WBC Ur Squamous Epith Cells Urine Bacteria Ur Culture Indicated? SARS-CoV-2 (PCR) 07/09/20 07/09/20 07/09/20 15:40 16:30 17:19 WBC RBC Hgb Hct MCV MCH MCHC RDW Plt Count Neut % (Auto) Lymph % (Auto) [place] % (Auto) Eos % (Auto) Baso % (Auto) Neut # (Auto) Lymph # (Auto) [place] # (Auto) Eos # (Auto) Baso # (Auto) Platelet Estimate RBC Morphology Macrocytosis PT INR APTT D-Dimer Sodium Potassium Chloride Carbon Dioxide BUN Creatinine Estimated GFR BUN/Creatinine Ratio Glucose Lactate 0.8 Calcium Magnesium Total Bilirubin AST ALT Alkaline Phosphatase Total Creatine Kinase CK-MB (CK-2) CK-MB (CK-2) Rel Index Troponin I Total Protein Albumin Globulin Albumin/Globulin Ratio Lipase Procalcitonin Urine Color Yellow Urine Appearance Clear Urine pH 6.0 Ur Specific [place] <=1.005 Urine Protein Negative Urine Glucose (UA) Negative Urine Ketones Negative Urine Occult Blood Negative Urine Nitrate Negative Urine Bilirubin Negative Urine Urobilinogen 0.2 Ur Leukocyte Esterase Negative Urine RBC None seen Urine WBC 0-1/hpf Ur Squamous Epith Cells 0-1 /hpf Urine Bacteria None seen Ur Culture Indicated? Cult not indicated SARS-CoV-2 (PCR) Negative Assessment & Plan Assessment & Plan narrative: Patient is a 64-year-old female with history of multiple falls. She had a fall about a month ago and has had low back pain and sacral pain since that time. She also had a repeat fall this past Thursday. she has been unable to ambulate since then. Patient presents to the ER with significant pelvis groin and right thigh pain. Imaging was obtained which demonstrated a sacral ala fracture as well as a superior rami fracture on the right side. Plain films obtained in the ER were concerning for possible nondisplaced intertrochanteric femur fracture. An MRI was obtained which does not demonstrate any bony edema within the right hip. Regarding the sacral ala fracture appears like a acute on chronic fracture. There is some bony healing on the CT scan however also still lights up on the MRI today. The rami fracture is age indeterminate. No acute fractures of the right hip. -weightbearing as tolerated -mobilize with physical therapy -follow-up with Dr. Alfaro 2 weeks after discharge Time Spent With Patient Time with patient: 15-24 minutes
[2020-07-09] MEDS: OXYCODONE/ACETAMINOPHEN 5/325 TABLET 2 TAB PO (20:17)
[2020-07-09] MEDS: LACTATED RINGERS 1,000 ML 60 ML IV (20:29)
[2020-07-09] MEDS: HYDROMORPHONE 1 MG INJ IV (20:56)
[2020-07-09] MEDS: SENNOSIDES 8.6 MG TABLET 17.2 MG PO (21:00)
[2020-07-09] MEDS: DOCUSATE 100 MG CAPSULE PO (21:00)
[2020-07-09] MEDS: METOPROLOL ER 25 MG TABLET PO (22:21)
[2020-07-09] MEDS: DULOXETINE 20 MG CAPSULE PO (22:21)
[2020-07-09] MEDS: ATORVASTATIN 20 MG TABLET 40 MG PO (22:21)
[2020-07-09] MEDS: LORazepam 0.5 MG TABLET PO (22:22)
[2020-07-09] MEDS: GABAPENTIN 300 MG CAPSULE PO (22:22)
--- NOTE | 2020-07-09 23:03 | PC.NURSE ---
Evening Shift Note- Patient arrived to room via stretcher from ER. Patient alert and oriented and able to make needs known to staff. Patient reports pain at 9-10/10. Admit questions done, medications reviewed, and physical assessment/sklin check done. Oriented patient to bed and bed controls, room, lights, phone, menu, bathroom, and call taylor/tv remote. Safety measures in place. bed alarm activated. Call taylor and phone within reach. will continue to monitor.
[2020-07-10] VITALS (10 sets, daily range): BP systolic 91–127; BP diastolic 34–62; PULSE 75–82; RESP 14–18; TEMP 36.3–37.1; O2SAT 95–97
[2020-07-10] MEDS: OXYCODONE/ACETAMINOPHEN 5/325 TABLET 2 TAB PO (00:14)
--- NOTE | 2020-07-10 01:18 | P.HP_ITS ---
History of Present Illness History of Present Illness Date Patient Seen: 07/09/20 Time Patient Seen: 20:10 Chief complaint: suspects broken right hip after fall last week Narrative: Patient is a 64-year-old female Elvia Toscano presented to the ED for a fall 1 week ago., Patient was eating in her bed using a TV tray and when she stood up and pushed on the tray, it accidentally collapsed on fell on right side of body including her face. She reports severe bilateral hip and pelvis pain which is worse in right-sided, right side facial pain, swelling and bruise, mid cervical tenderness, abdominal pain with nausea but no vomiting, new onset of urinary incontinence, constipation, difficulty catching my breath and contributes to pain and skin injury to right elbow/arm. Patient has past medical history of significant osteoporosis, multi degenerative joint disease, tobacco abuse, mixed hyperlipidemia, depression, anxiety and chronic pain, and osteoarthritis. Patient denies chest pain, dyspnea, dizziness prior to the fall. Patient denies loss of consciousness. She denies currently on blood thinners. Patient denies fever, chills, nausea or vomiting but has hot flashes. Patient has been taking Percocet 2 tabs Q 6 hours without good pain management. Patient reports she is not able to walk and has been in bed most of the time due to discomfort. Patient notes that she has a history of back injury and decreased mobility but did ambulate independently prior to this fall 1 week ago. During admit interview patient states that she was treated here at [facility] and then was transferred to [facility] for her heart I am unable to locate any records to that affect. Patient notes she had her last bone density 3 years ago and has not been on any medications for osteoporosis. Her PCP is Dr. Mackenzie but she has been seeing Dr. Doty. Patient states that her pain is 5 to 6/10 following a dosage of Dilaudid, patient's pain is diffuse thro ughout pelvic and lower extremities, she notes that she has been constipated for the past 3 days but has a history of chronic diarrhea for the past 2 years. Patient denies chest pain, shortness breath, fever, body aches, chills, changes in vision, weakness to 1 side or the other, or difficulty with swallowing. Patient's vitals upon admit temp 97.9?, BP 115/76, HR 117, RR 19, O2 saturation 93% on room air. Patient's labs WBC 11.5, HGB 11.4, HCT 34.4, Na 134, Cl 97, BUN 3, K 2.7, HC03 33, CR 0.29, D-dimer 927, lactate normal, magnesium normal, albumin 3.3, lipase normal, procalcitonin 6.5, AST 45, alk-phos 189, urinalysis negative. CTA:No acute abnormality of the chest. No pulmonary embolism. No acute traumatic abnormality of the chest. Facial CT:No displaced fractures are seen. C-Spine:No acute cervical spine fracture or dislocation. Mild degenerative disc disease throughout cervical spine as above. Xray Right Femur: Mildly displaced right, superior lateral pubic ramus fracture. Right Hip Xray:Superior obturator ring fracture located laterally, mildly displaced. Vague lucency along the inter trochanteric line at the right hip, but this does not necessarily represent fracture plane. CXR:Asymmetric appearance of hazy opacity within the right lung. This could represent asymmetric pulmonary vascularity or developing airspace disease. Right HIP MR:Acute right sacral ala compression fracture. 2. Acute right inferior and superior pubic rami fractures. 3. Acute compression fracture at the left pubic symphysis. 4. No evidence of hip fracture. 5. Posttraumatic changes to the adjacent musculature with possible partial tendon avulsions of abductor musculature ABD/Pelvic CT :Pancreatic tail cysts. Differential diagnosis includes cystic neoplasm or pseudocyst from pancreatitis. Recommend MRI pancreas protocol with contrast. Findings were discussed with Roverto DALAL. 2. Right superior and inferior ramus fractures. 3. Right sacral ala fracture likely chronic. ED consult Dr. Alfaro: Patient is a 64-year-old female with history of multiple falls. She had a fall about a month ago and has had low back pain and sacral pain since that time. She also had a repeat fall this past Thursday. she has been unable to ambulate since then. Patient presents to the ER with significant pelvis groin and right thigh pain. Imaging was obtained which demonstrated a sacral ala fracture as well as a superior rami fracture on the right side. Plain films obtained in the ER were concerning for possible nondisplaced intertrochanteric femur fracture. An MRI was obtained which does not demonstrate any bony edema within the right hip. Regarding the sacral ala fracture appears like a acute on chronic fracture. There is some bony healing on the CT scan however also still lights up on the MRI today. The rami fracture is age indeterminate. No acute fractures of the right hip. Patient History Medical History Abdominal pain Anxiety (04/28/17) C. difficile colitis Chronic diarrhea Chronic pain Diarrhea Low back pain without sciatica (08/05/16) Mixed hyperlipidemia (04/28/17) Osteoarthritis (12/15/13) Osteoporosis (12/15/13) Surgical History (Updated 07/10/20 @ 01:46 by HESHAM Guzmán) History of arthroplasty of right shoulder History of cholecystectomy Family & Social History Family History Father No problems noted. Mother PE (pulmonary thromboembolism) Social History: household members spouse, home, permanently disabled as of 1999 Safety & Behavioral: Feels Safe in Current Yes Environment Been Physically Hurt or No Threatened By a Person Suicidal Ideation Description None Suicide Plan Description No Plan Tobacco & Substance use: Smoking Status Current every day smoker alcohol intake occasional alcohol intake frequency a few times a week Substance Use Type history of smoking marijuana Meds Home Medications and Allergies Home Medications Medication Instructions Recorded Confirmed Type ASPIRIN/ACETAMINOPHEN/CAFFEINE 1 tab PO PRN #0 01/07/11 07/09/20 History (Excedrin Migraine Geltab) permanent disabled parking permit #1 ea 11/11/18 07/10/20 Rx aspirin 81 mg tablet,delayed 81 mg PO DAILY 06/09/19 07/09/20 History release atorvastatin 40 mg tablet 40 mg PO BEDTIME #90 tab 01/24/20 07/09/20 Rx duloxetine 20 mg capsule,delayed 20 mg PO BID #180 cap 01/24/20 07/09/20 Rx release escitalopram oxalate 10 mg tablet 10 mg PO DAILY #90 tab 01/24/20 07/09/20 Rx estradiol 1 mg tablet 1 mg PO Q DAY #90 tab 01/24/20 07/09/20 Rx metoprolol succinate 25 mg 25 mg PO BID #180 tab 01/24/20 07/09/20 Rx tablet,extended release 24 hr ondansetron 4 mg disintegrating 4 mg PO Q4H PRN #60 tab 01/24/20 07/09/20 Rx tablet oxycodone-acetaminophen 5 mg-325 2 tab PO Q6H PRN #112 tab 07/04/20 07/09/20 Rx mg tablet diphenoxylate-atropine 2.5 2 tab PO Q6-8H PRN #100 tab MDD 6 07/05/20 07/09/20 Rx mg-0.025 mg tablet gabapentin [Neurontin] 300 mg PO BID 07/09/20 07/09/20 History lorazepam [Ativan] 0.5 mg PO BID PRN 07/09/20 07/09/20 History Allergies Allergy/AdvReac Type Severity Reaction Status Date / Time adhesive Allergy Mild TEARS Verified 07/09/20 14:20 SKIN,USE COBAN Sulfa (Sulfonamide Allergy Verified 07/09/20 14:20 Antibiotics) Review of Systems Review of Systems ROS: Yes All systems reviewed with the patient and are negative except as otherwise documented ENT Ears, Nose, Mouth, and Throat: Yes neck pain Musculoskeletal Musculoskeletal: Reports abnormal gait, Reports back pain, Reports myalgias, Reports arthralgias, Reports joint swelling, Reports limited range of motion, Reports neck pain and Reports stiffness Neurologic Neurologic: Reports abnormal gait Exam Vital Signs (past 8 hours): - 07/09/20 18:41 07/09/20 19:57 07/09/20 21:50 Temperature 97.9 F 98.3 F Pulse Rate 117 H 100 H Respiratory Rate 19 17 Blood Pressure 115/76 125/63 Pulse Oximetry 93 93 93 07/09/20 22:21 07/09/20 23:40 07/09/20 23:57 Temperature 98.6 F Pulse Rate 100 H 82 Respiratory Rate 18 Blood Pressure 125/63 111/54 L Pulse Oximetry 96 96 07/10/20 00:29 Temperature Pulse Rate 82 Respiratory Rate Blood Pressure 111/54 L Pulse Oximetry Oxygen Delivery Method Room Air Oxygen Flow Rate 0 Narrative Exam Narrative: General: Patient is a well-developed, well-nourished female in mild distress at this time due to pelvic pain. HEENT: Normocephalic, patient has healing abrasions to face, extraocular muscles intact, oral pharynx is clear and mucous membranes are moist. Neck is supple and symmetric, trachea is midline, no adenopathy, no thyroid enlargement, nontender, no masses palpated. Negative for JVD Chest: Normal AP diameter and contour without kyphoscoliosis, no nasal flaring, retractions, or tachypneic labored Lungs: Auscultation of all lung becker are clear without adventitious sounds, wheezes, rhonchi, or rales. Cardio: S1 & S2 with regular rate and rhythm without murmur, rubs, or gallops, no carotid bruit, no cardiac pulsations present. Abdomen: Soft distended diffuse tenderness, negative for organomegaly, or masses. Bowel sounds are hyperactive present in all 4 quadrants with mild guarding, no rebound, no CVA tenderness. Musculoskeletal: Pt has diffuse significant pelvic and lower extremity pain, decreased range of motion, unable to assess strength and range of motion, intact radial and pedal pulses are normal. Skin: Warm dry and intact, patient has a large bruise on the inside of the right thigh, facial healing abrasions and also multiple healing abrasions to the left upper arm all without signs of infection. Neuro: Alert and orientated x3, sensation to touch intact, no gross deficits noted of cranial nerves. Psych: Patient has a well-kept appearance, appropriate affect, mental status attitude thought context and judgment are appropriate for age. Objective Labs Result Diagrams: 07/09/20 14:43 07/09/20 14:43 Labs: Laboratory Results - last 24 hr 07/09/20 07/09/20 07/09/20 14:43 14:43 14:43 WBC 11.5 H RBC 2.94 L Hgb 11.4 L Hct 34.4 L MCV 116.9 H MCH 38.8 H MCHC 33.2 RDW 13.9 Plt Count 297 Neut % (Auto) 68.9 Lymph % (Auto) 14.8 L [place] % (Auto) 15.2 H Eos % (Auto) 0.4 L Baso % (Auto) 0.7 Neut # (Auto) 7900 H Lymph # (Auto) 1700 [place] # (Auto) 1800 H Eos # (Auto) 0 Baso # (Auto) 100 Platelet Estimate Adequate on smear RBC Morphology See below Macrocytosis 3+ H PT 12.1 INR 1.1 APTT 28 D-Dimer Sodium 134 L Potassium 2.7 L* Chloride 97 L Carbon Dioxide 33 H BUN 3 L Creatinine 0.29 L Estimated GFR > 60.0 BUN/Creatinine Ratio 10.3 Glucose 88 Lactate Calcium 9.0 Magnesium 2.0 Total Bilirubin 0.8 AST 45 H ALT 22 Alkaline Phosphatase 189 H Total Creatine Kinase 45 CK-MB (CK-2) TNP CK-MB (CK-2) Rel Index TNP Troponin I < 0.012 Total Protein 6.7 Albumin 3.3 L Globulin 3.4 Albumin/Globulin Ratio 1.0 Lipase 294 Procalcitonin Urine Color Urine Appearance Urine pH Ur Specific [place] Urine Protein Urine Glucose (UA) Urine Ketones Urine Occult Blood Urine Nitrate Urine Bilirubin Urine Urobilinogen Ur Leukocyte Esterase Urine RBC Urine WBC Ur Squamous Epith Cells Urine Bacteria Ur Culture Indicated? SARS-CoV-2 (PCR) 07/09/20 07/09/20 07/09/20 14:43 14:43 14:43 WBC RBC Hgb Hct MCV MCH MCHC RDW Plt Count Neut % (Auto) Lymph % (Auto) [place] % (Auto) Eos % (Auto) Baso % (Auto) Neut # (Auto) Lymph # (Auto) [place] # (Auto) Eos # (Auto) Baso # (Auto) Platelet Estimate RBC Morphology Macrocytosis PT INR APTT D-Dimer 927 H Sodium Potassium Chloride Carbon Dioxide BUN Creatinine Estimated GFR BUN/Creatinine Ratio Glucose Lactate 2.6 H Calcium Magnesium Total Bilirubin AST ALT Alkaline Phosphatase Total Creatine Kinase CK-MB (CK-2) CK-MB (CK-2) Rel Index Troponin I Total Protein Albumin Globulin Albumin/Globulin Ratio Lipase Procalcitonin 6.51 H Urine Color Urine Appearance Urine pH Ur Specific [place] Urine Protein Urine Glucose (UA) Urine Ketones Urine Occult Blood Urine Nitrate Urine Bilirubin Urine Urobilinogen Ur Leukocyte Esterase Urine RBC Urine WBC Ur Squamous Epith Cells Urine Bacteria Ur Culture Indicated? SARS-CoV-2 (PCR) 07/09/20 07/09/20 07/09/20 15:40 16:30 17:19 WBC RBC Hgb Hct MCV MCH MCHC RDW Plt Count Neut % (Auto) Lymph % (Auto) [place] % (Auto) Eos % (Auto) Baso % (Auto) Neut # (Auto) Lymph # (Auto) [place] # (Auto) Eos # (Auto) Baso # (Auto) Platelet Estimate RBC Morphology Macrocytosis PT INR APTT D-Dimer Sodium Potassium Chloride Carbon Dioxide BUN Creatinine Estimated GFR BUN/Creatinine Ratio Glucose Lactate 0.8 Calcium Magnesium Total Bilirubin AST ALT Alkaline Phosphatase Total Creatine Kinase CK-MB (CK-2) CK-MB (CK-2) Rel Index Troponin I Total Protein Albumin Globulin Albumin/Globulin Ratio Lipase Procalcitonin Urine Color Yellow Urine Appearance Clear Urine pH 6.0 Ur Specific [place] <=1.005 Urine Protein Negative Urine Glucose (UA) Negative Urine Ketones Negative Urine Occult Blood Negative Urine Nitrate Negative Urine Bilirubin Negative Urine Urobilinogen 0.2 Ur Leukocyte Esterase Negative Urine RBC None seen Urine WBC 0-1/hpf Ur Squamous Epith Cells 0-1 /hpf Urine Bacteria None seen Ur Culture Indicated? Cult not indicated SARS-CoV-2 (PCR) Negative Assessment & Plan Assessment & Plan narrative: This patient requires acute care inpatient hospital management for multiple pelvic fractures, after failing outpatient management. The patient is at much higher risk for medical and surgical complications because of her medical history of significant osteoporosis, multi degenerative joint disease, tobacco abuse, mixed hyperlipidemia, depression, anxiety, chronic pain, and osteoarthritis. These factors increase the difficulty and complexity of medical and surgical interventions and increases the chances of poor outcomes such as morbidity and mortality, as well as complications such as patient's presenting hypokalemia. The patient's tobacco abuse and chronic pain medication will impact her oxygenation, which will likely contribute to impaired wound healing and recovery. 1. Multiple pelvic fractures: Mildly displaced right, superior lateral pubic ramus fracture. Superior obturator ring fracture located laterally, mildly displaced.Acute right sacral ala compression fracture, Acute right inferior and superior pubic rami fractures, Acute compression fracture at the left pubic symphysis. Right superior and inferior ramus fractures, Right sacral ala fracture likely chronic, acute on chronic, present on admission contributing factor patient's chronic pain and secondary to osteoporosis and osteoarthritis. -patient to be monitored on tele medicine, vital signs q.4 hours, intake and output monitored Q shift, weight measure daily, diet: Heart healthy, keep patient comfortable and manage pain. -continue patient's gabapentin, holding patient's Percocet and providing dilaudid, after 24 hours will begin to stephan down pain medication. -recommend patient be referred to pain management. And physical therapy following discharge Right HIP MR:Acute right sacral ala compression fracture. 2. Acute right inferior and superior pubic rami fractures. 3. Acute compression fracture at the left pubic symphysis. 4. No evidence of hip fracture. 5. Posttraumatic changes to the adjacent musculature with possible partial tendo n avulsions of abductor musculature ABD/Pelvic CT :Pancreatic tail cysts. Differential diagnosis includes cystic neoplasm or pseudocyst from pancreatitis. Recommend MRI pancreas protocol with contrast. 2. Right superior and inferior ramus fractures. 3. Right sacral ala fracture likely chronic. ED consult Dr. Alfaro: Patient is a 64-year-old female with history of multiple falls. She had a fall about a month ago and has had low back pain and sacral pain since that time. She also had a repeat fall this past Thursday. she has been unable to ambulate since then. Patient presents to the ER with significant pelvis groin and right thigh pain. Imaging was obtained which demonstrated a sacral ala fracture as well as a superior rami fracture on the right side. Plain films obtained in the ER were concerning for possible nondisplaced intertrochanteric femur fracture. An MRI was obtained which does not demonstrate any bony edema within the right hip. Regarding the sacral ala fracture appears like a acute on chronic fracture. There is some bony healing on the CT scan however also still lights up on the MRI today. The rami fracture is age indeterminate. No acute fractures of the right hip. -weightbearing as tolerated -mobilize with physical therapy -follow-up with Dr. Alfaro 2 weeks after discharge 2. Hypokalemia, acute, present on admission vitals upon admit temp 97.9?, BP 115/76, HR 117, RR 19, O2 saturation 93% on room air. Patient's labs WBC 11.5, HGB 11.4, HCT 34.4, Na 134, Cl 97, BUN 3, K 2.7, HC03 33, CR 0.29, D-dimer 927, lactate normal, magnesium normal, albumin 3.3, lipase normal, procalcitonin 6.5, AST 45, alk-phos 189, urinalysis negative. CTA:No acute abnormality of the chest. No pulmonary embolism. No acute traumatic abnormality of the chest. Facial CT:No displaced fractures are seen. C-Spine:No acute cervical spine fracture or dislocation. -patient was given 80 mEq of potassium in the ED, will monitor daily Chem panel, CBC, blood cultures pending. IV Fluids:LR 60cc/hr 3. Hypertension, essential, chronic, well controlled, not present on admission -continue patient's metoprolol 4. Mixed hyperlipidemia, chronic, not present on admission, control unknown -continue patient's atorvastatin 5. Anxiety, acute on chronic, present on admission -continue patient's Lexapro, duloxetine, and lorazepam 6. Constipation, acute, present on admission -patient provided with docusate sodium and senna Code: Full Surrogate decisionmaker: Spouse Hi STEWART PCR: Negative VTE/DVT prophylaxis enoxaparin 30 and SCD Scores GCS [place] coma scale eye opening: Spontaneous Adam coma scale verbal response: Orientated Adam coma scale motor response: Obey commands [place] coma scale total score: 15 Wells' Criteria for PE Clinical signs and symptoms of DVT: No PE is #1 Dx or equally likely: No Heart rate > 100: Yes Immobilization at least 3 days or surg in previous 4 weeks: Yes History of PE or DVT: No Hemoptysis: No Malignancy w/Treatment within 6 months or palliative: No Wells' PE Score total: 3.0 Quality VTE Deep Vein Thrombosis/Pulmonary Embolism Present on Admission: No
[2020-07-10] MEDS: HYDROMORPHONE 1 MG INJ IV ×4 (02:43→14:18)
[2020-07-10 06:00] LABS: Hematocrit 29.9 % (36-46); Hemoglobin 10.1 g/dL (12.0-16.0); Mean Corpuscular HGB Conc 33.7 % (30-36); Mean Corpuscular Hemoglobin 39.7 PG (26-34); Mean Corpuscular Volume 118.1 fL (80-100); Platelet Count 253 X10^3/uL (150-400); Red Blood Cell Count 2.53 X10^6/uL (4.0-5.2); Red Cell Distribution Width 14.2 % (11.6-14.8); White Blood Cell Count 9.8 X10^3/uL (4.5-11.0)
[2020-07-10 06:03] LABS: Add Manual Diff / Slide Review YES
[2020-07-10 06:09] LABS: Alanine Aminotransferase 15 IU/L (<35); Albumin 2.3 g/dL (3.5-5.0); Albumin Globulin Ratio 0.9 (1.0-2.8); Alkaline Phosphatase 153 U/L (38-126); Aspartate Aminotransferase 28 IU/L (14-36); BUN Creatinine Ratio 11.4 (6-22); Bilirubin Total 0.7 mg/dL (0.2-1.3); Blood Urea Nitrogen 4 mg/dL (7-17); Calcium 8.3 mg/dL (8.4-10.2); Carbon Dioxide 31 mmol/L (22-32); Chloride 103 mmol/L (98-107); Estimated Glomerular Filt Rate > 60.0 mL/min (>60); Globulin 2.6 g/dL (1.7-4.1); Glucose 89 mg/dL (80-110); HEMOLYSIS < 15 (0-50); Potassium 4.3 mmol/L (3.4-5.1); Sodium 134 mmol/L (137-145); Total Protein 4.9 g/dL (6.3-8.2)
[2020-07-10] MEDS: PANTOPRAZOLE 20 MG TABLET PO (06:21)
[2020-07-10 06:57] LABS: Neutrophils Absolute Manual 7546 /uL (3000-5900); Total Cells Counted 100
[2020-07-10 06:58] LABS: Anisocytosis 1+; Macrocytosis 3+
[2020-07-10] MEDS: DULOXETINE 20 MG CAPSULE PO (09:00)
[2020-07-10] MEDS: ESCITALOPRAM 10 MG TABLET PO (09:00)
[2020-07-10] MEDS: METOPROLOL ER 25 MG TABLET PO (09:01)
--- NOTE | 2020-07-10 12:28 | OT.IP.TRT ---
Occupational Therapy Treatment Note M2 OT-IP Current Condition Start: 07/10/20 12:37 Freq: Status: Active Protocol: Document 07/10/20 12:38 [facility] (Rec: 07/10/20 12:45 [facility] [id number]) Occupational Therapy Current Condition Current Condition Evaluation Date 07/10/20 Treatment Diagnosis Multiple pelvic fx, decreased mobility Diagnosis Onset Date 07/09/20 M3 OT- IP Subjective and Pain Start: 07/10/20 12:37 Freq: Status: Active Protocol: Document 07/10/20 12:38 [facility] (Rec: 07/10/20 12:45 [facility] [id number]) OT- Subjective Occupational Therapy Visit Type Type Treatment Note Visit Start Time 12:20 Visit Stop Time 12:28 Total Visit Minutes 8 Occupational Therapy Visit Comments Patient Comments Pt's in the room during attempt for OT eval. PT also present as pt limited in movements due to her pain level. Patient/Caregiver Goals To go home. OT Pain Assessment Pain Present Pain Present Pain Reported M4 OT- IP ADL's Start: 07/10/20 12:37 Freq: Status: Active Protocol: Document 07/10/20 12:38 [facility] (Rec: 07/10/20 12:45 [facility] [id number]) OT ADL-Dressing Comments OT Dressing Comments Pt's assist her with LB dressing needs. OT ADL-Toileting Comments OT Toileting Comments At this time pt transfers to a wc and then to the toilet. Suggested would be easier to get a BSC to place next to the bed so that she can do her toileting needs with increased independence and safety. OT ADL-Bathing Comments OT Bathing Comments At this time pt just does sponge bath. Suggested when pt doing better would benefit from possible a tub bench for showering needs. Pt able to get up from the bed with heavy use of her arms and with HOB up to assist. Pt mainly just shuffles her left foot to move when up on her feet. Pt able to get back in bed with increased time. M9 OT- IP Assessment and Plan Start: 07/10/20 12:37 Freq: Status: Active Protocol: Document 07/10/20 12:38 [facility] (Rec: 07/10/20 12:45 [facility] [id number]) OT Summary Assessment and Plan Potential Rehabilitation Potential Fair Analytic Complexity at Evaluation Low Summary Assessment Summary Pt just seen for OT treatment as just able to see pt get up from the bed and able to make suggestions for OT needs of BSC and tub bench. Pt in lots of pain and not wanting to do anymore OT and feels that they can handle things at home . Therefore discharge pt for OT services. Discharge Recommendations OT Discharge Recommendations Home with / Assist Available Transportation Needs at Discharge Private Vehicle
--- NOTE | 2020-07-10 12:30 | PT.IIE ---
Surgical History (Last Updated 07/10/20 @ 01:46 by HESHAM Guzmán) History of arthroplasty of right shoulder History of cholecystectomy Medical History (Last Reviewed 07/10/20 @ 01:45 by HESHAM Guzmán) Abdominal pain Anxiety (04/28/17) C. difficile colitis Chronic diarrhea Chronic pain Diarrhea Low back pain without sciatica (08/05/16) Mixed hyperlipidemia (04/28/17) Osteoarthritis (12/15/13) Osteoporosis (12/15/13) Physical Therapy Inpatient Evaluation/Re-Eval M1 PT/OT-IP Prior Functional Status Start: 07/10/20 08:32 Freq: NEEDED Status: Active Protocol: Document 07/10/20 12:30 AW (Rec: 07/10/20 12:50 AW [id number]) Medical Review Prior Functional Status Medical History Reviewed Yes Communication Pt is able to make needs known . Mobility and Gait Pt has osteoporosis with history of falls and limited mobility due to chronic back pain. Prior to latest fall and pelvic fractures, pt was able to ambulate at home without AD but stayed close to lopez and furniture for support. She states she is unable to use an assistive device due to pain and weakness in her upper extremities. She uses a wheelchair for all community mobility. Activities of Daily Living and IADL's Pt requires assist for lower body dressing. She has limited her showers due to inability to access her bathtub; she relies on sponge baths with her providing assist. Pt states she is typically independent with toileting tasks. Pt's provides assist with ADL's, meals, driving to appointments. Social History Household Members spouse Living Arrangements Apartment/Condo Number of Floors (Floors) 3 or More Floors Number of Stairs To Enter/Railing? Pt has a ramped entry and stays on the main level. Home Environment Standard Height Toilet,Tub/ Shower,Ramp Home Equipment Front Wheel Walker,Manual Wheelchair,Hand Held Shower, Computer Systems Technician,Grab Bars Near Toilet, Grab Bars In Shower Additional Social History Comment Pt lives with her spouse, Hi , who works softlines supervisor as a gasoline finisher. Pt states he comes home every few hours while working to check on her and assist as needed. In addition, two grown children ( 33 and 38) live on the same block and check in on her regularly. M1 PT/OT-IP Prior Functional Status Start: 07/10/20 12:37 Freq: NEEDED Status: Active Protocol: Document 07/10/20 12:38 [facility] (Rec: 07/10/20 12:45 [facility] [id number]) Medical Review Prior Functional Status Medical History Reviewed Yes Communication Pt is able to make needs known . Mobility and Gait Pt has osteoporosis with history of falls and limited mobility due to chronic back pain. Prior to latest fall and pelvic fractures, pt was able to ambulate at home without AD but stayed close to lopez and furniture for support. She states she is unable to use an assistive device due to pain and weakness in her upper extremities. She uses a wheelchair for all community mobility. Activities of Daily Living and IADL's Pt requires assist for lower body dressing. She has limited her showers due to inability to access her bathtub; she relies on sponge baths with her providing assist. Pt states she is typically independent with toileting tasks. Pt's provides assist with ADL's, meals, driving to appointments. Social History Household Members spouse Living Arrangements Apartment/Condo Number of Floors (Floors) 3 or More Floors Number of Stairs To Enter/Railing? Pt has a ramped entry and stays on the main level. Home Environment Standard Height Toilet,Tub/ Shower,Ramp Home Equipment Manual Wheelchair,Hand Held Shower,Computer Systems Technician,Grab Bars Near Toilet,Grab Bars In Shower Additional Social History Comment Pt lives with her spouse, Hi , who works softlines supervisor as a gasoline finisher. Pt states he comes home every few hours while working to check on her and assist as needed. In addition, two grown children ( 33 and 38) live on the same block and check in on her regularly. M2 PT-IP Current Condition Start: 07/10/20 08:32 Freq: NEEDED Status: Active Protocol: Document 07/10/20 12:30 AW (Rec: 07/10/20 12:50 AW [id number]) Physical Therapy Current Condition Current Condition Evaluation Date 07/10/20 Treatment Diagnosis multiple pelvic fractures s/p GLF; difficulty in walking Onset Date 07/02/20 Weight Bearing Status Weight Bearing Status Weight Bear as Tolerated M3 PT-IP Subjective Start: 07/10/20 08:32 Freq: NEEDED Status: Active Protocol: Document 07/10/20 12:30 AW (Rec: 07/10/20 12:50 AW [id number]) Subjective Physical Therapy Visit Type Type Initial Evaluation Visit Start Time 09:52 Visit Stop Time 12:30 Total Visit Minutes 21 Notes Split visits due to pt refusal on first attempt. Returned with OT for mobility assessment. Number of CHIEF LOCK TENDER OPERATOR Visits 0 Physical Therapy Visit Comments Patient Comments I'm in too much pain. What do you want me to do? Patient Goals Return home Therapy Pain Assessment Pain When Pain Assessed During Mobility Pain Present Pain Present Pain Reported Location right hip Scale Used not quantified Pain Management Techniques Modification of Treatment,Re- positioning,Timing of Activity with Medications M4 PT-IP Mobility and Gait Start: 07/10/20 08:32 Freq: NEEDED Status: Active Protocol: Document 07/10/20 12:30 AW (Rec: 07/10/20 12:50 AW [id number]) PT-Bed Mobility Assessment Supine to Sit Supine to Sit Standby Assistance Sit to Supine Sit to Supine Standby Assistance Scooting Scooting to Edge of Bed Standby Assistance PT-Transfer Assessment Sit to and From Stand Sit to and from Stand Contact Guard Assistance Equipment Transfer Assistive Device None Orthotic/Prosthetic Devices or Brace: No Comments Mobility Comments Pt was lying in bed, refusing mobility initially. PT and OT offered to assist pt with repositioning. She then sat up on left side EOB SBA with extra time and increased pain. She stood and pivoted on her left foot 90 degrees to her left and then back to the bed. She was able to complete sit to SL SBA and to reposition herself, refusing assist. Pt was left with her in the room, call light at hand, and bed alarm armed for safety . Gait Assessment Comments Gait Comments Not assessed. Stair Climbing Assessment Comments Stair Climbing Comments Pt has ramped entry PT-Balance Assessment Sitting Balance and Reactions Static Sitting Balance Ability Good Dynamic Sitting Balance Ability Good Standing Balance and Reactions Static Standing Balance Ability Poor Dynamic Standing Balance Ability Poor Device Used no AD Balance Tests Single Limb Standing able to stand and pivot on LLE ; unable RLE M5 PT-IP Objective Assessments Start: 07/10/20 08:32 Freq: NEEDED Status: Active Protocol: Document 07/10/20 12:30 AW (Rec: 07/10/20 12:50 AW [id number]) Orientation Orientation/Cognition Level of Alertness Lethargic Orientation Name,Month,Place,Situation Language Function Ability No Deficits Noted Safety Awareness Decreased Safety Awareness Memory Description No Deficits Noted Strength Comments Strength Comments Pt refused assessment but was able to demonstrate anti- gravity strength in all extremities functionally. Sensation Assessment Comments Sensation Comments Pt refused assessment. M6 PT-IP Treatment Start: 07/10/20 08:32 Freq: NEEDED Status: Active Protocol: Document 07/10/20 12:30 AW (Rec: 07/10/20 12:50 AW [id number]) Physical Therapy Treatment Education Education Provided Weight Bearing Status,Safety Other Treatments Other Treatment Performed Provided education on current level of assist required and suggested BSC for home to improve pt's independence. M7 PT-IP Assessment and Plan Start: 07/10/20 08:32 Freq: NEEDED Status: Active Protocol: Document 07/10/20 12:30 AW (Rec: 07/10/20 12:50 AW [id number]) PT Summary Assessment and Plan Potential Rehabilitation Potential Fair Status of Condition at Evaluation Evolving Summary Impairments Pain,ROM,Strength,Balance,Bed Mobility,Transfers,Gait, Activity Tolerance Assessment Summary Elvia is a 64 yo woman with history of osteoporosis and multiple falls, fractures. She has chronic low back pain limiting her mobility. She fell a week ago and has multiple acute vs subacute pelvic fractures. Orthopedic doctor cleared her for WBAT and nonoperative treatment due to poor bone quality. Pt has assist of her at home and grown children nearby. Pt is denying physical therapy needs and states she will be able to transfer with her assisting at home. She demonstrated bed mobility and pivoting on LLE during evaluation with SBA to CGA. PT will discharge orders as pt is denying needs at this time but will remain available for re-consult if needed. PT recommends BSC for home and discharge home with family assist. Frequency of Treatment Frequency Of Treatment Discharge Precautions Other Precautions osteoporosis, falls Recommendations To Nursing Amount of Assist Needed 1 Person Assist Discharge Recommendations PT Discharge Recommendations Home with 24/ Assist Available Equipment Needed for Home Before BSC Discharge Transportation Needs at Discharge Private Vehicle
--- NOTE | 2020-07-10 14:16 | CM.DANOTE ---
DCP Brief Assessment Note Patient is a 64 year old female who was admitted on 07/09/20 for Hip Fx. Pt has [facility] and [facility] for insurance and her PCP is Dr. Tyler Doty. EMR was reviewed. Per MD, Ortho Consult determined multiple pubis fxs but all non-operable. Pt medically stable for discharge home today as per MD pt declining any further medical intervention and stating she just needed pain management as her home pain meds had not been refilled. Pt requesting home and stating she does not need any additional services or resources and declines HH or SNF. Per PT/OT, pt was refusing therapy but finally was willing to attempt transfers and pt was able to safely manage bed mobility and transfer and basically back to baseline and declining any outpt services. Pt states she lives at home with her spouse and has local adult children who check in with her regularly and neighbor checks on her daily and denies any PAYAL caregivers or other supportive services in place. works but pt states he has the ability and does come home every 2 hours to check on her. Due to triage needs, no bedside assessment for dcp as pt back to baseline and declining any offered services. Plan: Patient to d/c home later today with pain management better controlled and back to almost baseline of mostly remaining in bed and transferring to commode with assist from family and neighbor and refusing any other services at this time. TESHA Miller
--- NOTE | 2020-07-10 14:46 | PM.DS.1 ---
History of Present Illness History of Present Illness Date Patient Seen: 07/10/20 Chief complaint: suspects broken right hip after fall last week Narrative: Patient is a 64-year-old female Elvia Toscano presented to the ED for a fall 1 week ago., Patient was eating in her bed using a TV tray and when she stood up and pushed on the tray, it accidentally collapsed on fell on right side of body including her face. She reports severe bilateral hip and pelvis pain which is worse in right-sided, right side facial pain, swelling and bruise, mid cervical tenderness, abdominal pain with nausea but no vomiting, new onset of urinary incontinence, constipation, difficulty catching my breath and contributes to pain and skin injury to right elbow/arm. Patient has past medical history of significant osteoporosis, multi degenerative joint disease, tobacco abuse, mixed hyperlipidemia, depression, anxiety and chronic pain, and osteoarthritis. Patient denies chest pain, dyspnea, dizziness prior to the fall. Patient denies loss of consciousness. She denies currently on blood thinners. Patient denies fever, chills, nausea or vomiting but has hot flashes. Patient has been taking Percocet 2 tabs Q 6 hours without good pain management. Patient reports she is not able to walk and has been in bed most of the time due to discomfort. Patient notes that she has a history of back injury and decreased mobility but did ambulate independently prior to this fall 1 week ago. During admit interview patient states that she was treated here at [facility] and then was transferred to [facility] for her heart I am unable to locate any records to that affect. Patient notes she had her last bone density 3 years ago and has not been on any medications for osteoporosis. Her PCP is Dr. Mackenzie but she has been seeing Dr. Doty. Patient states that her pain is 5 to 6/10 following a dosage of Dilaudid, patient's pain is diffuse throughout pelvic and lower extremities, she notes that she has been constipated for the past 3 days but has a history of chronic diarrhea for the past 2 years. Patient denies chest pain, shortness breath, fever, body aches, chills, changes in vision, weakness to 1 side or the other, or difficulty with swallowing. Patient's vitals upon admit temp 97.9?, BP 115/76, HR 117, RR 19, O2 saturation 93% on room air. Patient's labs WBC 11.5, HGB 11.4, HCT 34.4, Na 134, Cl 97, BUN 3, K 2.7, HC03 33, CR 0.29, D-dimer 927, lactate normal, magnesium normal, albumin 3.3, lipase normal, procalcitonin 6.5, AST 45, alk-phos 189, urinalysis negative. CTA:No acute abnormality of the chest. No pulmonary embolism. No acute traumatic abnormality of the chest. Facial CT:No displaced fractures are seen. C-Spine:No acute cervical spine fracture or dislocation. Mild degenerative disc disease throughout cervical spine as above. Xray Right Femur: Mildly displaced right, superior lateral pubic ramus fracture. Right Hip Xray:Superior obturator ring fracture located laterally, mildly displaced. Vague lucency along the inter trochanteric line at the right hip, but this does not necessarily represent fracture plane. CXR:Asymmetric appearance of hazy opacity within the right lung. This could represent asymmetric pulmonary vascularity or developing airspace disease. Discharge Providers Provider Date of admission: 07/09/20 18:03 Discharge Date: 07/10/20 Primary care physician: Tyler Doty DO Consults: 07/09/20 20:08 Consult to Occupational Therapy Evaluate & Treat Comment: Pelvic fractures Physician Instructions: Evaluate and treat Consult to Physical Therapy Evaluate & Treat Comment: Pelvic fractures Physician Instructions: Evaluate and Treat 07/09/20 20:09 Consult to Discharge Planning Routine Comment: Discharge provider: Amina Jefferson MD Summary Hospital Course Discharge Diagnosis: 1. Acute right sacral ala a compression fracture 2. Acute right inferior and superior pubic ramus fracture 3. Acute compression fracture of the left pubic symphysis 4. No hip fracture 5. Osteoporosis 6. Hyperlipidemia 7. Depression 8. Pancreatic cyst in the tail of the pancreas, question cystic neoplasm or pseudocyst from the pancreas 9. Hyponatremia 10. Anemia Hospital Course: Patient was admitted to the hospital for severe pelvic pain. She had fallen about a week ago. Patient has a pain contract with her primary care provider Dr. Doty. Unfortunately she was unable to get additional pain medications following her fall. The patient states she was in agony at home and presented to the emergency room for evaluation. After admission to the hospital her pain was better controlled. The patient did have Head catheter placed. She was seen by physical therapy and occupational therapy. The patient initially was reluctant and unwilling to work with physical therapy. But after several episodes of encouragement she was able to demonstrate her ability to give up out of the bed pivot and get to the bedside commode. Patient does continue to have significant pain. However she is able to ambulate somewhat and get to a bedside commode. I discussed with the patient further options at discharge. She was unwilling to consider retirement. Patient was adamant that she wanted to return home. She will consider home health to assist with physical therapy at home. While she continues to have pain she is back to her baseline. Patient is deemed appropriate for discharge and will be discharged with home health and plans to follow-up with her primary care physician in 1-2 weeks. Of note pancreatic cyst was found at the tail of the pancreas. She will need to follow-up with Dr. Doty for a dedicated MRI of the pancreas protocol to rule out the possibility of a cystic neoplasm versus a pseudocyst. Status at Discharge Cognitive/behavioral status at discharge: oriented Functional status at discharge: uses cane/walker Overall status at discharge: patient is not back to baseline Time Spent with Patient Time spent: Less than 30 minutes Exam Vital Signs (past 8 hours): - 07/10/20 08:00 07/10/20 08:30 07/10/20 09:01 Temperature 97.4 F L Pulse Rate 75 75 Respiratory Rate 14 Blood Pressure 112/62 112/62 Pulse Oximetry 95 95 07/10/20 12:00 07/10/20 12:24 Temperature 97.4 F L Pulse Rate 76 Respiratory Rate 14 Blood Pressure 108/60 Pulse Oximetry 97 97 Oxygen Delivery Method Room Air Oxygen Flow Rate 0 Narrative Exam Narrative: Pleasant female lying in bed somewhat uncomfortable with pain HEENT: Bruising on the right face that appears to be old Lungs: Clear to auscultation Cardiac exam: Regular rate and rhythm normal S1-S2 Abdomen: Soft and nontender : Head in Extremities: Right inner thigh with bruising Lower extremities: No edema Objective Labs Result Diagrams: 07/10/20 05:10 07/10/20 05:10 Labs: Laboratory Results - last 24 hr 07/09/20 07/09/20 07/09/20 14:43 14:43 14:43 WBC 11.5 H RBC 2.94 L Hgb 11.4 L Hct 34.4 L MCV 116.9 H MCH 38.8 H MCHC 33.2 RDW 13.9 Plt Count 297 Neut % (Auto) 68.9 Lymph % (Auto) 14.8 L [place] % (Auto) 15.2 H Eos % (Auto) 0.4 L Baso % (Auto) 0.7 Neut # (Auto) 7900 H Lymph # (Auto) 1700 [place] # (Auto) 1800 H Eos # (Auto) 0 Baso # (Auto) 100 Total Counted Seg Neutrophils % Band Neutrophils % Lymphocytes % (Manual) Monocytes % (Manual) Eosinophils % (Manual) Neutrophils # (Manual) Platelet Estimate Adequate on smear RBC Morphology See below Anisocytosis Macrocytosis 3+ H PT 12.1 INR 1.1 APTT 28 D-Dimer Sodium 134 L Potassium 2.7 L* Chloride 97 L Carbon Dioxide 33 H BUN 3 L Creatinine 0.29 L Estimated GFR > 60.0 BUN/Creatinine Ratio 10.3 Glucose 88 Lactate Calcium 9.0 Magnesium 2.0 Total Bilirubin 0.8 AST 45 H ALT 22 Alkaline Phosphatase 189 H Total Creatine Kinase 45 CK-MB (CK-2) TNP CK-MB (CK-2) Rel Index TNP Troponin I < 0.012 Total Protein 6.7 Albumin 3.3 L Globulin 3.4 Albumin/Globulin Ratio 1.0 Lipase 294 Procalcitonin Urine Color Urine Appearance Urine pH Ur Specific [place] Urine Protein Urine Glucose (UA) Urine Ketones Urine Occult Blood Urine Nitrate Urine Bilirubin Urine Urobilinogen Ur Leukocyte Esterase Urine RBC Urine WBC Ur Squamous Epith Cells Urine Bacteria Ur Culture Indicated? SARS-CoV-2 (PCR) 07/09/20 07/09/20 07/09/20 14:43 14:43 14:43 WBC RBC Hgb Hct MCV MCH MCHC RDW Plt Count Neut % (Auto) Lymph % (Auto) [place] % (Auto) Eos % (Auto) Baso % (Auto) Neut # (Auto) Lymph # (Auto) [place] # (Auto) Eos # (Auto) Baso # (Auto) Total Counted Seg Neutrophils % Band Neutrophils % Lymphocytes % (Manual) Monocytes % (Manual) Eosinophils % (Manual) Neutrophils # (Manual) Platelet Estimate RBC Morphology Anisocytosis Macrocytosis PT INR APTT D-Dimer 927 H Sodium Potassium Chloride Carbon Dioxide BUN Creatinine Estimated GFR BUN/Creatinine Ratio Glucose Lactate 2.6 H Calcium Magnesium Total Bilirubin AST ALT Alkaline Phosphatase Total Creatine Kinase CK-MB (CK-2) CK-MB (CK-2) Rel Index Troponin I Total Protein Albumin Globulin Albumin/Globulin Ratio Lipase Procalcitonin 6.51 H Urine Color Urine Appearance Urine pH Ur Specific [place] Urine Protein Urine Glucose (UA) Urine Ketones Urine Occult Blood Urine Nitrate Urine Bilirubin Urine Urobilinogen Ur Leukocyte Esterase Urine RBC Urine WBC Ur Squamous Epith Cells Urine Bacteria Ur Culture Indicated? SARS-CoV-2 (PCR) 07/09/20 07/09/20 07/09/20 15:40 16:30 17:19 WBC RBC Hgb Hct MCV MCH MCHC RDW Plt Count Neut % (Auto) Lymph % (Auto) [place] % (Auto) Eos % (Auto) Baso % (Auto) Neut # (Auto) Lymph # (Auto) [place] # (Auto) Eos # (Auto) Baso # (Auto) Total Counted Seg Neutrophils % Band Neutrophils % Lymphocytes % (Manual) Monocytes % (Manual) Eosinophils % (Manual) Neutrophils # (Manual) Platelet Estimate RBC Morphology Anisocytosis Macrocytosis PT INR APTT D-Dimer Sodium Potassium Chloride Carbon Dioxide BUN Creatinine Estimated GFR BUN/Creatinine Ratio Glucose Lactate 0.8 Calcium Magnesium Total Bilirubin AST ALT Alkaline Phosphatase Total Creatine Kinase CK-MB (CK-2) CK-MB (CK-2) Rel Index Troponin I Total Protein Albumin Globulin Albumin/Globulin Ratio Lipase Procalcitonin Urine Color Yellow Urine Appearance Clear Urine pH 6.0 Ur Specific [place] <=1.005 Urine Protein Negative Urine Glucose (UA) Negative Urine Ketones Negative Urine Occult Blood Negative Urine Nitrate Negative Urine Bilirubin Negative Urine Urobilinogen 0.2 Ur Leukocyte Esterase Negative Urine RBC None seen Urine WBC 0-1/hpf Ur Squamous Epith Cells 0-1 /hpf Urine Bacteria None seen Ur Culture Indicated? Cult not indicated SARS-CoV-2 (PCR) Negative 07/10/20 07/10/20 05:10 05:10 WBC 9.8 RBC 2.53 L Hgb 10.1 L Hct 29.9 L MCV 118.1 H MCH 39.7 H MCHC 33.7 RDW 14.2 Plt Count 253 Neut % (Auto) Not Reportable Lymph % (Auto) Not Reportable [place] % (Auto) Not Reportable Eos % (Auto) Not Reportable Baso % (Auto) Not Reportable Neut # (Auto) Lymph # (Auto) Not Reportable [place] # (Auto) Not Reportable Eos # (Auto) Baso # (Auto) Not Reportable Total Counted 100 Seg Neutrophils % 74.0 H Band Neutrophils % 3.0 Lymphocytes % (Manual) 8.0 L Monocytes % (Manual) 14.0 H Eosinophils % (Manual) 1.0 L Neutrophils # (Manual) 7546 H Platelet Estimate RBC Morphology See below Anisocytosis 1+ H Macrocytosis 3+ H PT INR APTT D-Dimer Sodium 134 L Potassium 4.3 D Chloride 103 Carbon Dioxide 31 BUN 4 L Creatinine 0.35 L Estimated GFR > 60.0 BUN/Creatinine Ratio 11.4 Glucose 89 Lactate Calcium 8.3 L Magnesium Total Bilirubin 0.7 AST 28 ALT 15 Alkaline Phosphatase 153 H Total Creatine Kinase CK-MB (CK-2) CK-MB (CK-2) Rel Index Troponin I Total Protein 4.9 L Albumin 2.3 L Globulin 2.6 Albumin/Globulin Ratio 0.9 L Lipase Procalcitonin Urine Color Urine Appearance Urine pH Ur Specific [place] Urine Protein Urine Glucose (UA) Urine Ketones Urine Occult Blood Urine Nitrate Urine Bilirubin Urine Urobilinogen Ur Leukocyte Esterase Urine RBC Urine WBC Ur Squamous Epith Cells Urine Bacteria Ur Culture Indicated? SARS-CoV-2 (PCR) [facility] Medical History Abdominal pain Anxiety (04/28/17) C. difficile colitis Chronic diarrhea Chronic pain Diarrhea Low back pain without sciatica (08/05/16) Mixed hyperlipidemia (04/28/17) Osteoarthritis (12/15/13) Osteoporosis (12/15/13) Surgical History (Updated 07/10/20 @ 01:46 by HESHAM Guzmán) History of arthroplasty of right shoulder History of cholecystectomy Family History Father No problems noted. Mother PE (pulmonary thromboembolism) Social History marital status: household members: spouse Smoking Status: Current every day smoker Tobacco: How many years used: 25 alcohol intake: never substance use type: does not use Discharge Assessment & Plan Assessment and Plan Assessment: 1. Acute Right Ala sacral fracture 2. right superior and inferior pubic ramus fractures 3. Pancreatic tail cysts 4. Chronic opioid use 5. hypertension 6. hyperlipidemia 7. osteoporosis 8. depression Plan of Treatment: discharge home Home Health PT/OT if the patient will consider Pain medications as prescribed follow up with PCP in 1-2 weeks, patient will need follow up of pancreatic tail cysts Discharge Plan Discharge Plan Patient Disposition: Home Discharge orders & Medications Prescriptions: New oxycodone 10 mg tablet 10 mg PO Q6H PRN (Reason: pain) Qty: 30 RF: 0 alendronate [Fosamax] 70 mg tablet 70 mg PO QWEEK Qty: 14 RF: 0 calcium carbonate [Calcium 500] 500 mg calcium (1,250 mg) tablet 1,000 mg PO DAILY Qty: 60 RF: 0 cholecalciferol (vitamin D3) [Vitamin D3] 50 mcg (2,000 unit) tablet 50 mcg PO DAILY Qty: 30 RF: 0 Continued ASPIRIN/ACETAMINOPHEN/CAFFEINE (Excedrin Migraine Geltab) 1 tab PO PRN Qty: 0 RF: 0 oxycodone-acetaminophen 5-325 mg tablet 2 tab PO Q6H PRN (Reason: pain) Qty: 112 RF: 0 diphenoxylate-atropine [Lomotil] 2.5-0.025 mg tablet 2 tab PO Q6-8H MDD 6 PRN (Reason: diarrhea) Qty: 100 RF: 3 aspirin 81 mg tablet,delayed release (DR/EC) 81 mg PO DAILY RF: 0 atorvastatin 40 mg tablet 40 mg PO BEDTIME Qty: 90 RF: 3 duloxetine 20 mg capsule,delayed release(DR/EC) 20 mg PO BID Qty: 180 RF: 3 escitalopram oxalate 10 mg tablet 10 mg PO DAILY Qty: 90 RF: 3 estradiol [Estrace] 1 mg tablet 1 mg PO Q DAY Qty: 90 RF: 3 metoprolol succinate 25 mg tablet extended release 24 hr 25 mg PO BID Qty: 180 RF: 3 ondansetron 4 mg tablet,disintegrating 4 mg PO Q4H PRN (Reason: nausea and vomiting) Qty: 60 RF: 5 lorazepam [Ativan] 0.5 mg tablet 0.5 mg PO BID PRN (Reason: Anxiety) RF: 0 gabapentin [Neurontin] 300 mg capsule 300 mg PO BID RF: 0 No Action (DME) permanent disabled parking permit Qty: 1 RF: 0 Follow up/Referrals: Tyler Doty, DO [Primary Care Provider] - Discharge Health Status Multidrug resistant organism: No MDRO Diet/Activity/Treatments Diet: Diet as Tolerated Discharge Data Primary Care Provider: Tyler Doty Attending Provider: Yas Arthur VTE Deep Vein Thrombosis/Pulmonary Embolism Present on Admission: No
--- NOTE | 2020-07-10 14:54 | P.PN_ITS ---
Subjective Subjective Date Patient Seen: 07/10/20 Time Patient Seen: 14:55 Interval history: 64-year-old female seen resting comfortably in bed denying any distal right lower extremity pain, weakness, numbness and/or tingling. She verbalized understanding that surgery is not recommended for her non acute right pelvic fractures I would like to go home as soon as possible. Exam Vital Signs (past 8 hours): - 07/10/20 08:00 07/10/20 08:30 07/10/20 09:01 Temperature 97.4 F L Pulse Rate 75 75 Respiratory Rate 14 Blood Pressure 112/62 112/62 Pulse Oximetry 95 95 07/10/20 12:00 07/10/20 12:24 Temperature 97.4 F L Pulse Rate 76 Respiratory Rate 14 Blood Pressure 108/60 Pulse Oximetry 97 97 Oxygen Delivery Method Room Air Oxygen Flow Rate 0 Narrative Exam Narrative: Female 64 years-old seen resting comfortably in no apparent distress, alert and oriented x3. Regular heart rate and inspiratory effort. Her right hip and gluteal region is tender to palpation. Distal affected extremities are neurovascularly intact with no signs or symptoms of DVT. Objective Labs Result Diagrams: 07/10/20 05:10 07/10/20 05:10 Labs: Laboratory Results - last 24 hr 07/09/20 07/09/20 07/09/20 14:43 14:43 14:43 WBC 11.5 H RBC 2.94 L Hgb 11.4 L Hct 34.4 L MCV 116.9 H MCH 38.8 H MCHC 33.2 RDW 13.9 Plt Count 297 Neut % (Auto) 68.9 Lymph % (Auto) 14.8 L [place] % (Auto) 15.2 H Eos % (Auto) 0.4 L Baso % (Auto) 0.7 Neut # (Auto) 7900 H Lymph # (Auto) 1700 [place] # (Auto) 1800 H Eos # (Auto) 0 Baso # (Auto) 100 Total Counted Seg Neutrophils % Band Neutrophils % Lymphocytes % (Manual) Monocytes % (Manual) Eosinophils % (Manual) Neutrophils # (Manual) Platelet Estimate Adequate on smear RBC Morphology See below Anisocytosis Macrocytosis 3+ H PT 12.1 INR 1.1 APTT 28 D-Dimer Sodium 134 L Potassium 2.7 L* Chloride 97 L Carbon Dioxide 33 H BUN 3 L Creatinine 0.29 L Estimated GFR > 60.0 BUN/Creatinine Ratio 10.3 Glucose 88 Lactate Calcium 9.0 Magnesium 2.0 Total Bilirubin 0.8 AST 45 H ALT 22 Alkaline Phosphatase 189 H Total Creatine Kinase 45 CK-MB (CK-2) TNP CK-MB (CK-2) Rel Index TNP Troponin I < 0.012 Total Protein 6.7 Albumin 3.3 L Globulin 3.4 Albumin/Globulin Ratio 1.0 Lipase 294 Procalcitonin Urine Color Urine Appearance Urine pH Ur Specific [place] Urine Protein Urine Glucose (UA) Urine Ketones Urine Occult Blood Urine Nitrate Urine Bilirubin Urine Urobilinogen Ur Leukocyte Esterase Urine RBC Urine WBC Ur Squamous Epith Cells Urine Bacteria Ur Culture Indicated? SARS-CoV-2 (PCR) 07/09/20 07/09/20 07/09/20 14:43 14:43 14:43 WBC RBC Hgb Hct MCV MCH MCHC RDW Plt Count Neut % (Auto) Lymph % (Auto) [place] % (Auto) Eos % (Auto) Baso % (Auto) Neut # (Auto) Lymph # (Auto) [place] # (Auto) Eos # (Auto) Baso # (Auto) Total Counted Seg Neutrophils % Band Neutrophils % Lymphocytes % (Manual) Monocytes % (Manual) Eosinophils % (Manual) Neutrophils # (Manual) Platelet Estimate RBC Morphology Anisocytosis Macrocytosis PT INR APTT D-Dimer 927 H Sodium Potassium Chloride Carbon Dioxide BUN Creatinine Estimated GFR BUN/Creatinine Ratio Glucose Lactate 2.6 H Calcium Magnesium Total Bilirubin AST ALT Alkaline Phosphatase Total Creatine Kinase CK-MB (CK-2) CK-MB (CK-2) Rel Index Troponin I Total Protein Albumin Globulin Albumin/Globulin Ratio Lipase Procalcitonin 6.51 H Urine Color Urine Appearance Urine pH Ur Specific [place] Urine Protein Urine Glucose (UA) Urine Ketones Urine Occult Blood Urine Nitrate Urine Bilirubin Urine Urobilinogen Ur Leukocyte Esterase Urine RBC Urine WBC Ur Squamous Epith Cells Urine Bacteria Ur Culture Indicated? SARS-CoV-2 (PCR) 07/09/20 07/09/20 07/09/20 15:40 16:30 17:19 WBC RBC Hgb Hct MCV MCH MCHC RDW Plt Count Neut % (Auto) Lymph % (Auto) [place] % (Auto) Eos % (Auto) Baso % (Auto) Neut # (Auto) Lymph # (Auto) [place] # (Auto) Eos # (Auto) Baso # (Auto) Total Counted Seg Neutrophils % Band Neutrophils % Lymphocytes % (Manual) Monocytes % (Manual) Eosinophils % (Manual) Neutrophils # (Manual) Platelet Estimate RBC Morphology Anisocytosis Macrocytosis PT INR APTT D-Dimer Sodium Potassium Chloride Carbon Dioxide BUN Creatinine Estimated GFR BUN/Creatinine Ratio Glucose Lactate 0.8 Calcium Magnesium Total Bilirubin AST ALT Alkaline Phosphatase Total Creatine Kinase CK-MB (CK-2) CK-MB (CK-2) Rel Index Troponin I Total Protein Albumin Globulin Albumin/Globulin Ratio Lipase Procalcitonin Urine Color Yellow Urine Appearance Clear Urine pH 6.0 Ur Specific [place] <=1.005 Urine Protein Negative Urine Glucose (UA) Negative Urine Ketones Negative Urine Occult Blood Negative Urine Nitrate Negative Urine Bilirubin Negative Urine Urobilinogen 0.2 Ur Leukocyte Esterase Negative Urine RBC None seen Urine WBC 0-1/hpf Ur Squamous Epith Cells 0-1 /hpf Urine Bacteria None seen Ur Culture Indicated? Cult not indicated SARS-CoV-2 (PCR) Negative 07/10/20 07/10/20 05:10 05:10 WBC 9.8 RBC 2.53 L Hgb 10.1 L Hct 29.9 L MCV 118.1 H MCH 39.7 H MCHC 33.7 RDW 14.2 Plt Count 253 Neut % (Auto) Not Reportable Lymph % (Auto) Not Reportable [place] % (Auto) Not Reportable Eos % (Auto) Not Reportable Baso % (Auto) Not Reportable Neut # (Auto) Lymph # (Auto) Not Reportable [place] # (Auto) Not Reportable Eos # (Auto) Baso # (Auto) Not Reportable Total Counted 100 Seg Neutrophils % 74.0 H Band Neutrophils % 3.0 Lymphocytes % (Manual) 8.0 L Monocytes % (Manual) 14.0 H Eosinophils % (Manual) 1.0 L Neutrophils # (Manual) 7546 H Platelet Estimate RBC Morphology See below Anisocytosis 1+ H Macrocytosis 3+ H PT INR APTT D-Dimer Sodium 134 L Potassium 4.3 D Chloride 103 Carbon Dioxide 31 BUN 4 L Creatinine 0.35 L Estimated GFR > 60.0 BUN/Creatinine Ratio 11.4 Glucose 89 Lactate Calcium 8.3 L Magnesium Total Bilirubin 0.7 AST 28 ALT 15 Alkaline Phosphatase 153 H Total Creatine Kinase CK-MB (CK-2) CK-MB (CK-2) Rel Index Troponin I Total Protein 4.9 L Albumin 2.3 L Globulin 2.6 Albumin/Globulin Ratio 0.9 L Lipase Procalcitonin Urine Color Urine Appearance Urine pH Ur Specific [place] Urine Protein Urine Glucose (UA) Urine Ketones Urine Occult Blood Urine Nitrate Urine Bilirubin Urine Urobilinogen Ur Leukocyte Esterase Urine RBC Urine WBC Ur Squamous Epith Cells Urine Bacteria Ur Culture Indicated? SARS-CoV-2 (PCR) [facility] Medical History Abdominal pain Anxiety (04/28/17) C. difficile colitis Chronic diarrhea Chronic pain Diarrhea Low back pain without sciatica (08/05/16) Mixed hyperlipidemia (04/28/17) Osteoarthritis (12/15/13) Osteoporosis (12/15/13) Surgical History (Updated 07/10/20 @ 01:46 by HESHAM Guzmán) History of arthroplasty of right shoulder History of cholecystectomy Family History Father No problems noted. Mother PE (pulmonary thromboembolism) Social History marital status: household members: spouse Smoking Status: Current every day smoker Tobacco: How many years used: 25 alcohol intake: never substance use type: does not use Assessment & Plan Assessment & Plan narrative: Non-acute sacrum fracture & right superior rami fracture -recommending conservative nonsurgical management -weightbearing as tolerated -mobilize with physical therapy -follow-up with Dr. Alfaro 2 weeks after discharge -Orthopedics will sign off at this time. Quality VTE Deep Vein Thrombosis/Pulmonary Embolism Present on Admission: No
--- NOTE | 2020-07-10 16:04 | PC.NURSE ---
Pt recieved discharge orders. HL discontinued intact. D/C instructions given w/ apparent understanding Pt escorted by staff via W/C to waiting vehicle. .
--- NOTE | 2020-07-13 14:51 | PC.NURSE ---
Late Entry; LR infusion initiated 07/09 at 20:29, complete at 1310, pending discharge.
== END 2020-07-10 16:05 | disposition home or self-care (01) ==
LOC: ED 17:18 → AC 19:50
PROVIDERS: Admitting Provider Nurse Practitioner Family; Emergency Provider Nurse Practitioner Family; PCP Family Medicine; Visit Provider Nurse Practitioner Family
DX: S32.10XA Unspecified fracture of sacrum, initial encounter for closed fracture (principal); F17.210 Nicotine dependence, cigarettes, uncomplicated; E78.5 Hyperlipidemia, unspecified; F41.9 Anxiety disorder, unspecified; F32.9 Major depressive disorder, single episode, unspecified; I10 Essential (primary) hypertension; W06.XXXA Fall from bed, initial encounter; S32.511A Fracture of superior rim of right pubis, initial encounter for closed fracture; S32.592A Other specified fracture of left pubis, initial encounter for closed fracture; M81.0 Age-related osteoporosis without current pathological fracture; K86.2 Cyst of pancreas; E87.1 Hypo-osmolality and hyponatremia; D64.9 Anemia, unspecified; Z20.822 Contact with and (suspected) exposure to COVID-19
CPT/HCPCS: 36415; 51701; 70486; 71045; 71275; 72125; 73502; 73552; 73721; 74177; 80053; 81001; 82550; 83605; 83690; 83735; 84145; 84484; 85007; 85025; 85379; 85610; 85730; 87040; 87635; 93005; 96361; 96375; 96376; 97161; 97530; 99285; G0378; J1170; J2405; J3480; Q9967

== ENCOUNTER → 2020-11-06 13:51 | Outpatient (CLI) | payer OTHER, MEDICAID, SELFPAY ==
[2020-07-09 18:34] VITALS: BMI 20.7
--- NOTE | 2020-11-06 13:53 | DI.RAD.S_ITS ---
PROCEDURE: XR LUMBAR SPINE 2-3V INDICATIONS: back pain/hip pain from fall TECHNIQUE: 3 views of the lumbar spine were acquired. COMPARISON: [facility], [place], XR LUMBAR SPINE 2-3V, 05/09/2020, 17:40. FINDINGS: Bones: 5 [id number] vertebrae are present. There is mild rightward curvature of lumbar spine centered at L3 level. Mild degenerative endplate changes are noted at L3-4 through L5-S1 levels.. No vertebral body compression fractures. No suspicious bony lesions. Soft tissues: Overlying bowel gas pattern is normal. No suspicious soft tissue calcifications. IMPRESSION: No acute lumbar spine compression fracture or spondylolisthesis. Mild degenerative disc disease in mid to lower lumbar spine as above. Dictated by: Cuauhtemoc Tamez M.D. on 11/06/2020 at 16:24 Approved by: Cuauhtemoc Tamez M.D. on 11/06/2020 at 16:24
--- NOTE | 2020-11-06 13:53 | DI.RAD.S_ITS ---
PROCEDURE: XR HIP W PEL IF DONE RT 2V INDICATIONS: back pain/hip pain from fall TECHNIQUE: AP pelvis with lateral view(s) of the right hip(s). COMPARISON: Merged With [facility], MR, MR HIP RT WO CON, 07/09/2020, 17:57. Merged With [facility], CR, XR HIP W PEL IF DONE RT 2V, 07/09/2020, 14:39. FINDINGS: Bones: Right superior and inferior pubic rami fractures are stable compared to prior exams. Known right sacral fracture is not identified by plain film radiograph. Soft tissues: The visualized bowel gas pattern is normal. No suspicious soft tissue calcifications. IMPRESSION: Displaced right superior and inferior pubic rami fracture unchanged compared to prior exams. Dictated by: Darlene Campbell MD, PhD on 11/06/2020 at 16:08 Approved by: Darlene Campbell MD, PhD on 11/06/2020 at 16:11
[2020-11-06 14:58] LABS: Add Manual Diff / Slide Review NO; Basophils Absolute Auto 0 /uL (0-100); Basophils Percent Auto 0.6 % (0-2); Eosinophils Absolute Auto 0 /uL (0-450); Eosinophils Percent Auto 0.6 % (2-4); Hematocrit 39.8 % (36-46); Hemoglobin 13.1 g/dL (12.0-16.0); Lymphocytes Absolute Auto 2000 /uL (1100-4500); Lymphocytes Percent Auto 27.1 % (25-40); Mean Corpuscular HGB Conc 32.9 % (30-36); Mean Corpuscular Hemoglobin 38.7 PG (26-34); Mean Corpuscular Volume 117.8 fL (80-100); Monocytes Absolute Auto 600 /uL (0-900); Monocytes Percent Auto 8.8 % (3-14); Neutrophils Absolute Auto 4600 /uL (1500-7000); Neutrophils Percent Auto 62.9 % (50-75); Platelet Count 245 X10^3/uL (150-400); Red Blood Cell Count 3.38 X10^6/uL (4.0-5.2); Red Cell Distribution Width 14.6 % (11.6-14.8); White Blood Cell Count 7.3 X10^3/uL (4.5-11.0)
[2020-11-06 15:24] LABS: Macrocytosis 2+; Stomatocytes 1+
[2020-11-06 15:39] LABS: Alanine Aminotransferase 33 IU/L (<35); Albumin 3.4 g/dL (3.5-5.0); Albumin Globulin Ratio 1.1 (1.0-2.8); Alkaline Phosphatase 182 U/L (38-126); Aspartate Aminotransferase 72 IU/L (14-36); Bilirubin Total 0.4 mg/dL (0.2-1.3); Blood Urea Nitrogen 3 mg/dL (7-17); Calcium 9.5 mg/dL (8.4-10.2); Carbon Dioxide 21 mmol/L (22-32); Chloride 108 mmol/L (98-107); Cholesterol 166 mg/dL (140-199); Estimated Glomerular Filt Rate > 60.0 mL/min (>60); Glucose 96 mg/dL (80-110); HDL Cholesterol 77 mg/dL (40-60); HEMOLYSIS < 15 (0-50); LDL Cholesterol Calculated 51 mg/dL (<100); Potassium 3.4 mmol/L (3.4-5.1); Sodium 138 mmol/L (137-145); Total Protein 6.4 g/dL (6.3-8.2); Triglycerides 188 mg/dL (35-150)
[2020-11-06 16:08] LABS: TSH w/ Reflex to FT4 1.38 uIU/mL (0.47-4.68)
== END ==
PROVIDERS: PCP Family Medicine; Referring Provider Family Medicine; Visit Provider Family Medicine
DX: S32.511A Fracture of superior rim of right pubis, initial encounter for closed fracture (principal); S32.591A Other specified fracture of right pubis, initial encounter for closed fracture; M25.551 Pain in right hip; M51.36 Other intervertebral disc degeneration, lumbar region; M54.9 Dorsalgia, unspecified; E78.2 Mixed hyperlipidemia; I25.10 Atherosclerotic heart disease of native coronary artery without angina pectoris; R19.7 Diarrhea, unspecified; W19.XXXA Unspecified fall, initial encounter; Z13.29 Encounter for screening for other suspected endocrine disorder
CPT/HCPCS: 36415; 72100; 73502; 80053; 80061; 84443; 85025

== ENCOUNTER → 2020-11-07 08:26 | Outpatient (CLI) | payer OTHER, MEDICAID, SELFPAY ==
[2020-07-09 18:34] VITALS: BMI 20.7
== END ==
PROVIDERS: PCP Family Medicine; Referring Provider Family Medicine; Visit Provider Family Medicine
DX: K52.9 Noninfective gastroenteritis and colitis, unspecified (principal)
CPT/HCPCS: 87045; 87046; 87899

== ENCOUNTER 2020-11-20 06:24 | Emergency (ER) | payer OTHER, MEDICAID, SELFPAY ==
[2020-11-09 16:34] VITALS: BMI 20.7
[2020-11-20 06:35] VITALS: BP 162/82; PULSE 133; RESP 21; TEMP 37.2; O2SAT 96; BMI 18.1
--- NOTE | 2020-11-20 06:36 | ED_ITS ---
HPI - Nausea/Vomiting/Diarrhea <John Stonean, DO - Last Filed: 11/21/20 01:54> General Chief complaint: Nausea/Vomiting/Diarrhea Stated complaint: diarrhea stomach issues cyst on pancreas Time Seen by Provider: 11/20/20 06:26 History of Present Illness HPI Narrative: 64-year-old female daily smoker with history of chronic diarrhea, coronary artery disease, pancreatic cyst presents with family in the chief complaint of ongoing diarrhea for the past 3 years. She states she frequently has up to 10 loose stools daily which are been green in color and foul smelling. She denies recent travel or obvious exposure to bad food. She is fatigued, nauseated and lightheaded. She has generalized abdominal discomfort. She had recently been seen by her primary care provider and reports that she had a stool sample obtained which noted some kind of bacterial infection. She was placed on and a Zithromax and prescription and this made little change. She denies chest pain or shortness of breath. She has had no fever or chills Related Data Home Medications Medication Instructions Recorded Confirmed ASPIRIN/ACETAMINOPHEN/CAFFEINE 1 tab PO PRN #0 01/07/11 09/11/20 (Excedrin Migraine Geltab) aspirin 81 mg tablet,delayed 81 mg PO DAILY 06/09/19 09/11/20 release Previous Rx's Medication Instructions Recorded permanent disabled parking permit #1 ea 11/11/18 atorvastatin 40 mg tablet 40 mg PO BEDTIME #90 tab 01/24/20 duloxetine 20 mg capsule,delayed 20 mg PO BID #180 cap 01/24/20 release escitalopram oxalate 10 mg tablet 10 mg PO DAILY #90 tab 01/24/20 estradiol 1 mg tablet (Estrace) 1 mg PO Q DAY #90 tab 01/24/20 metoprolol succinate 25 mg 25 mg PO BID #180 tab 01/24/20 tablet,extended release 24 hr ondansetron 4 mg disintegrating 4 mg PO Q4H PRN #60 tab 01/24/20 tablet diphenoxylate-atropine 2.5 2 tab PO Q6-8H PRN #100 tab MDD 6 07/05/20 mg-0.025 mg tablet (Lomotil) alendronate 70 mg tablet (Fosamax) 70 mg PO QWEEK #14 tab 07/10/20 calcium carbonate 500 mg calcium 1,000 mg PO DAILY #60 tab 07/10/20 (1,250 mg) tablet (Calcium 500) cholecalciferol (vitamin D3) 50 50 mcg PO DAILY #30 tab 07/10/20 mcg (2,000 unit) tablet (Vitamin D3) gabapentin 300 mg capsule 300 mg PO BID #180 cap 09/27/20 (Neurontin) azithromycin 500 mg tablet See Rx Instructions PO .COMPLEX #3 11/07/20 tab lorazepam 0.5 mg tablet See Rx Instructions .ROUTE 11/08/20 .COMPLEX #60 tab oxycodone-acetaminophen 5 mg-325 2 tab PO Q6H PRN #56 tab 11/20/20 mg tablet Allergies Allergy/AdvReac Type Severity Reaction Status Date / Time adhesive Allergy Mild TEARS Verified 07/31/20 12:03 SKIN,USE COBAN Sulfa (Sulfonamide Allergy Verified 07/31/20 12:03 Antibiotics) Review of Systems <John Burnette DO - Last Filed: 11/21/20 01:54> Review of Systems Narrative: GENERAL: See HPI HEENT: Denies sinus pain, ear pain, sore throat, difficulty swallowing, dizziness. RESPIRATORY: Denies dyspnea, cough, wheezing, hemoptysis, sputum. CARDIOVASCULAR: Denies chest pain, palpitations, orthopnea, edema, GASTROINTESTINAL: See HPI : Denies dysuria, frequency, incontinence, hematuria, urinary retention. MUSCULOSKELETAL: denies weakness, joint pain, or bony pain SKIN: Denies rash, skin lesions, or other NEUROLOGIC: Denies weakness, headache, numbness, change in speech, confusion, seizures, incoordination. PSYCHIATRIC: No concerning psychosocial issues. 12 point review of systems is negative except for those stated above Patient History <John Burnette DO - Last Filed: 11/21/20 01:54> Medical History Abdominal pain Anxiety (04/28/17) C. difficile colitis Chronic diarrhea Chronic pain Diarrhea Left breast lump Low back pain without sciatica (08/05/16) Mixed hyperlipidemia (04/28/17) Osteoarthritis (12/15/13) Osteoporosis (12/15/13) Pain of both breasts Pancreatic cyst Surgical History History of arthroplasty of right shoulder History of cholecystectomy Family History Father No problems noted. Mother PE (pulmonary thromboembolism) Social History marital status: household members: spouse Smoking Status: Current every day smoker Tobacco: How many years used: 25 alcohol intake: never substance use type: does not use Smoking Status: Current every day smoker alcohol intake frequency: a few times a week Substance Use Type: does not use Exam <John Burnette DO - Last Filed: 11/21/20 01:54> Narrative Exam Narrative: GENERAL: [64] year old patient appears stated age. Well- developed patient, in mild distress. Anxious, in wheelchair HEAD: Atraumatic. Normocephalic. EYES: Pupils equal round and reactive. Extraocular motions intact. No scleral icterus. No injection or drainage. ENT: Dry mucous membranes Nose without bleeding, purulent drainage. Throat without erythema, tonsillar hypertrophy or exudate. Airway patent. NECK: Trachea midline. Non tender CARDIOVASCULAR: Tachycardic and regular rhythm without murmurs, gallops, or rubs. RESPIRATORY: Clear to auscultation. Breath sounds equal bilaterally. No wheezes, rales, or rhonchi. GASTROINTESTINAL: Abdomen soft, non-tender, nondistended. EXTREMITIES: No edema or joint tenderness. BACK: Nontender without deformity or crepitance. No flank tenderness. NEURO: AOx3. SKIN: No rash or erythema of visible areas Initial Vital Signs Initial Vital Signs: Vital Signs Temperature 98.9 F 11/20/20 06:35 Pulse Rate 133 H 11/20/20 06:35 Respiratory Rate 11/20/20 06:35 Blood Pressure 162/82 H 11/20/20 06:35 Pulse Oximetry 96 11/20/20 06:35 <Vladimir Valverde DO - Last Filed: 11/20/20 09:20> Initial Vital Signs Initial Vital Signs: Vital Signs Temperature 98.9 F 11/20/20 06:35 Pulse Rate 133 H 11/20/20 06:35 Respiratory Rate 11/20/20 06:35 Blood Pressure 162/82 H 11/20/20 06:35 Pulse Oximetry 96 11/20/20 06:35 Course <John Burnette DO - Last Filed: 11/21/20 01:54> Course Course Narrative: signout to Dr. Valverde at 0700 for final disposition. Orders Ordered: Discontinued Medications Sodium Chloride (Normal Saline 0.9%) 1,000 mls @ 1,000 mls/hr IV BOLUS ONE Stop: 11/20/20 07:33 Last Infusion: 11/20/20 09:25 Dose: 0 mls/hr Documented by: Admin: 11/20/20 07:14 Dose: 1,000 mls/hr Documented by: LISA Ondansetron HCl (Ondansetron 4 Mg/2 Ml Inj) 4 mg IV NOW ONE Stop: 11/20/20 06:35 Last Admin: 11/20/20 07:14 Dose: 4 mg Documented by: LISA Vital Signs Vital signs: Vital Signs - 8 hr 11/20/20 06:35 11/20/20 07:28 Temperature 98.9 F Pulse Rate 133 H 107 H Respiratory Rate 21 20 Blood Pressure 162/82 H 162/82 H Pulse Oximetry 96 95 <Vladimir Valverde DO - Last Filed: 11/20/20 09:20> Orders Ordered: Discontinued Medications Sodium Chloride (Normal Saline 0.9%) 1,000 mls @ 1,000 mls/hr IV BOLUS ONE Stop: 11/20/20 07:33 Last Infusion: 11/20/20 09:25 Dose: 0 mls/hr Documented by: Admin: 11/20/20 07:14 Dose: 1,000 mls/hr Documented by: LISA Ondansetron HCl (Ondansetron 4 Mg/2 Ml Inj) 4 mg IV NOW ONE Stop: 11/20/20 06:35 Last Admin: 11/20/20 07:14 Dose: 4 mg Documented by: LISA Vital Signs Vital signs: Vital Signs - 8 hr 11/20/20 06:35 11/20/20 07:28 Temperature 98.9 F Pulse Rate 133 H 107 H Respiratory Rate 21 20 Blood Pressure 162/82 H 162/82 H Pulse Oximetry 96 95 MDM - Nausea/Vomiting/Diarrhea <DO Aquiles Laureano Last Filed: 11/21/20 01:54> Lab Data Result diagrams: 11/20/20 06:40 11/20/20 06:40 Labs: Lab Results 11/20/20 11/20/20 11/20/20 Range/Units 06:40 06:40 07:40 WBC 10.3 (4.5-11.0) X10^3/uL RBC 3.35 L (4.0-5.2) X10^6/uL Hgb 13.3 (12.0-16.0) g/dL Hct 39.3 (36-46) % MCV 117.4 H (80-100) fL MCH 39.9 H (26-34) PG MCHC 34.0 (30-36) % RDW 14.9 H (11.6-14.8) % Plt Count 214 (150-400) X10^3/uL Neut % (Auto) 72.8 (50-75) % Lymph % (Auto) 17.7 L (25-40) % [place] % (Auto) 8.1 (3-14) % Eos % (Auto) 0.9 L (2-4) % Baso % (Auto) 0.5 (0-2) % Neut # (Auto) 7500 H (8138-9012) /uL Lymph # (Auto) 1800 (0445-1694) /uL [place] # (Auto) 800 (0-900) /uL Eos # (Auto) 100 (0-450) /uL Baso # (Auto) 100 (0-100) /uL RBC Morphology Not Reportable Anisocytosis 2+ H Sodium 138 (137-145) mmol/L Potassium 3.1 L (3.4-5.1) mmol/L Chloride 103 (98-107) mmol/L Carbon Dioxide 26 (22-32) mmol/L BUN < 2 L (7-17) mg/dL Creatinine 0.47 L (0.52-1.04) mg/dL Estimated GFR > 60.0 (>60) mL/min BUN/Creatinine Ratio 4.3 L (6-22) Glucose 111 H (80-110) mg/dL Calcium 9.3 (8.4-10.2) mg/dL Total Bilirubin 1.2 (0.2-1.3) mg/dL AST 169 H (14-36) IU/L ALT 47 H (<35) IU/L Alkaline Phosphatase 209 H (38-126) U/L Total Protein 6.8 (6.3-8.2) g/dL Albumin 3.5 (3.5-5.0) g/dL Globulin 3.3 (1.7-4.1) g/dL Albumin/Globulin Ratio 1.1 (1.0-2.8) Stl C. cayetanensis PCR Not detected (Not Detect) Stool Rotavirus (PCR) Not detected (Not Detect) Stool Adenovirus (PCR) Not detected (Not Detect) Stool Astrovirus (PCR) Not detected (Not Detect) Stool Cryptosporidium PCR Not detected (Not Detect) Stl E.coli Shiga Tox PCR Not detected (Not Detect) St Sh/Enteroin Ecoli PCR Not detected (Not Detect) Stool E coli O157 PCR Not Reportable Stl Enterotoxigenic E PCR Not detected (Not Detect) Stool EPEC (PCR) Not detected (Not Detect) Stl E. histolytica PCR Not detected (Not Detect) Stool Giardia Lamblia PCR Not detected (Not Detect) Stool Sapovirus (PCR) Not detected (Not Detect) Stl P. shigelloides PCR Not detected (Not Detect) St Y.enterocolitica PCR Not detected (Not Detect) Stool Vibrio (PCR) Not detected (Not Detect) Stl Vibrio cholerae PCR Not detected (Not Detect) Stl Enteroaggr Ecoli PCR Not detected (Not Detect) Stl Norovirus GI/GII PCR Not detected (Not Detect) Campylobacter (PCR) Not detected (Not Detect) C. difficile Tox (PCR) Not detected (Not Detect) Salmonella (PCR) Not detected (Not Detect) Point of Care Testing Glucose POC 104 <Vladimir Valverde, DO - Last Filed: 11/20/20 09:20> Lab Data Labs: Lab Results 11/20/20 11/20/20 11/20/20 Range/Units 06:40 06:40 07:40 WBC 10.3 (4.5-11.0) X10^3/uL RBC 3.35 L (4.0-5.2) X10^6/uL Hgb 13.3 (12.0-16.0) g/dL Hct 39.3 (36-46) % MCV 117.4 H (80-100) fL MCH 39.9 H (26-34) PG MCHC 34.0 (30-36) % RDW 14.9 H (11.6-14.8) % Plt Count 214 (150-400) X10^3/uL Neut % (Auto) 72.8 (50-75) % Lymph % (Auto) 17.7 L (25-40) % [place] % (Auto) 8.1 (3-14) % Eos % (Auto) 0.9 L (2-4) % Baso % (Auto) 0.5 (0-2) % Neut # (Auto) 7500 H (0154-0895) /uL Lymph # (Auto) 1800 (5292-2097) /uL [place] # (Auto) 800 (0-900) /uL Eos # (Auto) 100 (0-450) /uL Baso # (Auto) 100 (0-100) /uL RBC Morphology Not Reportable Anisocytosis 2+ H Sodium 138 (137-145) mmol/L Potassium 3.1 L (3.4-5.1) mmol/L Chloride 103 (98-107) mmol/L Carbon Dioxide 26 (22-32) mmol/L BUN < 2 L (7-17) mg/dL Creatinine 0.47 L (0.52-1.04) mg/dL Estimated GFR > 60.0 (>60) mL/min BUN/Creatinine Ratio 4.3 L (6-22) Glucose 111 H (80-110) mg/dL Calcium 9.3 (8.4-10.2) mg/dL Total Bilirubin 1.2 (0.2-1.3) mg/dL AST 169 H (14-36) IU/L ALT 47 H (<35) IU/L Alkaline Phosphatase 209 H (38-126) U/L Total Protein 6.8 (6.3-8.2) g/dL Albumin 3.5 (3.5-5.0) g/dL Globulin 3.3 (1.7-4.1) g/dL Albumin/Globulin Ratio 1.1 (1.0-2.8) Stl C. cayetanensis PCR Not detected (Not Detect) Stool Rotavirus (PCR) Not detected (Not Detect) Stool Adenovirus (PCR) Not detected (Not Detect) Stool Astrovirus (PCR) Not detected (Not Detect) Stool Cryptosporidium PCR Not detected (Not Detect) Stl E.coli Shiga Tox PCR Not detected (Not Detect) St Sh/Enteroin Ecoli PCR Not detected (Not Detect) Stool E coli O157 PCR Not Reportable Stl Enterotoxigenic E PCR Not detected (Not Detect) Stool EPEC (PCR) Not detected (Not Detect) Stl E. histolytica PCR Not detected (Not Detect) Stool Giardia Lamblia PCR Not detected (Not Detect) Stool Sapovirus (PCR) Not detected (Not Detect) Stl P. shigelloides PCR Not detected (Not Detect) St Y.enterocolitica PCR Not detected (Not Detect) Stool Vibrio (PCR) Not detected (Not Detect) Stl Vibrio cholerae PCR Not detected (Not Detect) Stl Enteroaggr Ecoli PCR Not detected (Not Detect) Stl Norovirus GI/GII PCR Not detected (Not Detect) Campylobacter (PCR) Not detected (Not Detect) C. difficile Tox (PCR) Not detected (Not Detect) Salmonella (PCR) Not detected (Not Detect) Point of Care Testing Glucose POC 104 ECG Data Interpretation: Sinus tachycardia Ventricular rate 120 Normal axis Normal QRS Normal QTC Nonspecific ST T wave changes MDM Narrative Medical decision making narrative: Dr valverde: Received turned over. Reviewed patient's history and physical exam. Performed my own independent evaluation. Stool samples today shows no signs of infection or C diff. She was previously diagnosed with Campylobacter and completed a course of azithromycin. No further workup needed in the emergency department. Informed her that she should talk with her primary doctor about following through with the referral to see Gastroenterology. Patient was given return precautions. She expressed understanding Discharge Plan Departure Patient Disposition: Home Clinical Impression: Diarrhea Instructions: Diarrhea Activity Restrictions/Additional Instructions: According to your primary doctor's last note there was discussion about sending you back to see Gastroenterology. I recommend that you may contact with her primary doctor to see the status of this referral. Continue all of your medications as directed. Prescriptions: No Action ASPIRIN/ACETAMINOPHEN/CAFFEINE (Excedrin Migraine Geltab) 1 tab PO PRN Qty: 0 RF: 0 (DME) permanent disabled parking permit Qty: 1 RF: 0 diphenoxylate-atropine [Lomotil] 2.5-0.025 mg tablet 2 tab PO Q6-8H MDD 6 PRN (Reason: diarrhea) Qty: 100 RF: 3 gabapentin [Neurontin] 300 mg capsule 300 mg PO BID Qty: 180 RF: 1 azithromycin 500 mg tablet See Rx Instructions PO .COMPLEX Qty: 3 RF: 0 lorazepam 0.5 mg tablet See Rx Instructions .ROUTE .COMPLEX Qty: 60 RF: 0 oxycodone-acetaminophen 5-325 mg tablet 2 tab PO Q6H PRN (Reason: pain) Qty: 56 RF: 0 aspirin 81 mg tablet,delayed release (DR/EC) 81 mg PO DAILY RF: 0 atorvastatin 40 mg tablet 40 mg PO BEDTIME Qty: 90 RF: 3 duloxetine 20 mg capsule,delayed release(DR/EC) 20 mg PO BID Qty: 180 RF: 3 escitalopram oxalate 10 mg tablet 10 mg PO DAILY Qty: 90 RF: 3 estradiol [Estrace] 1 mg tablet 1 mg PO Q DAY Qty: 90 RF: 3 metoprolol succinate 25 mg tablet extended release 24 hr 25 mg PO BID Qty: 180 RF: 3 ondansetron 4 mg tablet,disintegrating 4 mg PO Q4H PRN (Reason: nausea and vomiting) Qty: 60 RF: 5 calcium carbonate [Calcium 500] 500 mg calcium (1,250 mg) tablet 1,000 mg PO DAILY Qty: 60 RF: 0 cholecalciferol (vitamin D3) [Vitamin D3] 50 mcg (2,000 unit) tablet 50 mcg PO DAILY Qty: 30 RF: 0 alendronate [Fosamax] 70 mg tablet 70 mg PO QWEEK Qty: 14 RF: 0 Referrals: Tyler Doty DO [Primary Care Provider] -
[2020-11-20 06:51] LABS: Add Manual Diff / Slide Review NO; Basophils Absolute Auto 100 /uL (0-100); Basophils Percent Auto 0.5 % (0-2); Eosinophils Absolute Auto 100 /uL (0-450); Eosinophils Percent Auto 0.9 % (2-4); Hematocrit 39.3 % (36-46); Hemoglobin 13.3 g/dL (12.0-16.0); Lymphocytes Absolute Auto 1800 /uL (1100-4500); Lymphocytes Percent Auto 17.7 % (25-40); Mean Corpuscular Hemoglobin 39.9 PG (26-34); Mean Corpuscular Volume 117.4 fL (80-100); Monocytes Absolute Auto 800 /uL (0-900); Monocytes Percent Auto 8.1 % (3-14); Neutrophils Absolute Auto 7500 /uL (1500-7000); Neutrophils Percent Auto 72.8 % (50-75); Platelet Count 214 X10^3/uL (150-400); Red Blood Cell Count 3.35 X10^6/uL (4.0-5.2); Red Cell Distribution Width 14.9 % (11.6-14.8); White Blood Cell Count 10.3 X10^3/uL (4.5-11.0)
[2020-11-20 07:03] LABS: Alanine Aminotransferase 47 IU/L (<35); Albumin 3.5 g/dL (3.5-5.0); Albumin Globulin Ratio 1.1 (1.0-2.8); Alkaline Phosphatase 209 U/L (38-126); Aspartate Aminotransferase 169 IU/L (14-36); BUN Creatinine Ratio 4.3 (6-22); Bilirubin Total 1.2 mg/dL (0.2-1.3); Blood Urea Nitrogen < 2 mg/dL (7-17); Calcium 9.3 mg/dL (8.4-10.2); Carbon Dioxide 26 mmol/L (22-32); Chloride 103 mmol/L (98-107); Estimated Glomerular Filt Rate > 60.0 mL/min (>60); Globulin 3.3 g/dL (1.7-4.1); Glucose 111 mg/dL (80-110); HEMOLYSIS < 15 (0-50); Potassium 3.1 mmol/L (3.4-5.1); Sodium 138 mmol/L (137-145); Total Protein 6.8 g/dL (6.3-8.2)
[2020-11-20 07:12] LABS: Anisocytosis 2+
[2020-11-20] MEDS: SODIUM CHLORIDE 0.9% 1,000 ML 1000 ML IV (07:14)
[2020-11-20] MEDS: ONDANSETRON 4 MG/2 ML INJ IV (07:14)
[2020-11-20 07:28] VITALS: BP 162/82; PULSE 107; RESP 20; O2SAT 95
[2020-11-20 07:32] VITALS: BP 174/79; PULSE 120; RESP 20; O2SAT 96
[2020-11-20 08:00] VITALS: BP 172/78; PULSE 105; RESP 23; O2SAT 98
--- NOTE | 2020-11-20 08:16 | PC.NURSE ---
Pt refused tylenol and ibuprofen offered by . States that she has opioid medication at home and she wishes she could just go home and lay down and take her own meds. Informed we are just waiting on her stool cx to come back
[2020-11-20 08:30] VITALS: BP 144/67; PULSE 98; O2SAT 98
[2020-11-20 09:00] VITALS: BP 153/71; PULSE 96; RESP 22; O2SAT 98
[2020-11-20 09:00] LABS: Adenovirus F 40/41 Not Detected (Not Detect); Astrovirus Not Detected (Not Detect); Campylobacter Not Detected (Not Detect); Clostridium difficile toxin AB Not Detected (Not Detect); Cryptosporidium Not Detected (Not Detect); Cyclospora cayetanensis Not Detected (Not Detect); Entamoeba histolytica Not Detected (Not Detect); Enteroaggregative E.coli Not Detected (Not Detect); Enteropathogenic E.coli Not Detected (Not Detect); Enterotoxigenic E.coli It/st Not Detected (Not Detect); Giardia lamblia Not Detected (Not Detect); Norovirus GI/GII Not Detected (Not Detect); Plesiomonsa shigelloides Not Detected (Not Detect); Rotavirus A Not Detected (Not Detect); Salmonella Not Detected (Not Detect); Sapovirus Not Detected (Not Detect); Shiga-like toxin-prod E.coli Not Detected (Not Detect); Shigella/Enteroinvasive E.coli Not Detected (Not Detect); Vibrio Not Detected (Not Detect); Vibrio cholerae Not Detected (Not Detect); Yersinia enterocolitica Not Detected (Not Detect)
== END 2020-11-20 09:27 | disposition home or self-care (01) ==
PROVIDERS: Emergency Provider Emergency Medicine; PCP Family Medicine
DX: R19.7 Diarrhea, unspecified (principal); R42 Dizziness and giddiness; R11.0 Nausea; R10.84 Generalized abdominal pain
CPT/HCPCS: 36415; 80053; 82962; 85025; 87507; 93005; 96361; 96374; 99284; J2405

== ENCOUNTER → 2020-12-07 12:21 | Outpatient (CLI) | payer OTHER, MEDICAID, SELFPAY ==
[2020-11-09 16:34] VITALS: BMI 20.7
--- NOTE | 2020-12-07 12:24 | DI.CT.S_ITS ---
PROCEDURE: CT ABDOMEN PELVIS W CON INDICATIONS: Chronic diarrhea and history of pancreatic cyst TECHNIQUE: After the administration of oral and IV contrast, axial sections were acquired from the lung bases to the pubic symphysis. Coronal and sagittal reformats were performed. For radiation dose reduction, the following was used: automated exposure control, adjustment of mA and/or kV according to patient size. COMPARISON: [facility], CT, CT ABDOMEN PELVIS W CON, 07/09/2020, 16:05. [facility], CT, CT ABDOMEN PELVIS W CON, 05/13/2019, 15:24. FINDINGS: Image quality: Excellent. Lung bases: Unremarkable. Heart: No significant findings. ABDOMEN: Liver: Unremarkable. Gallbladder: Status post cholecystectomy. Biliary ducts: Pneumobilia again noted in the anterior liver. Pancreas: The previously seen cysts in the tail the pancreas have significantly decreased in size. For example, a 1.2 x 0.8 cm cyst previously measured 6.3 x 3.8 cm. A more anterior cyst in the pancreatic tail measures 1.1 x 1.1 cm, not definitely seen on the prior exam. The pancreatic duct is stable in size. Spleen: Unremarkable. Adrenal Glands: Unremarkable. Kidneys and Ureters: Unremarkable. Stomach and Bowel: Mild bowel wall thickening in the distal descending and sigmoid colon may be related to underdistention or a mild colitis. A few diverticula are seen without signs of acute diverticulitis. Peritoneum: No abnormal intraperitoneal fluid. No free air. Ventral Wall: No hernia. Abdominal Nodes: No retroperitoneal or mesenteric adenopathy by size criteria. Vessels: Aorta and inferior vena cava are normal in size. PELVIS: Pelvic Organs: Status post hysterectomy. Bladder: Unremarkable. Pelvic Nodes: No enlarged lymph nodes. Miscellaneous: No inguinal hernias are seen. Bones: The previously seen fractures of the right superior and inferior pubic ramus do not demonstrate significant osseous bridging. The right sacral fracture appears nearly completely healed. IMPRESSION: 1. Mild bowel wall thickening in the distal descending and sigmoid colon may be due to underdistension or a nonspecific colitis. 2. Significant interval decrease in size of the previously seen large pancreatic tail cysts. A new pancreatic tail cyst measures 1.1 cm in diameter. Given the waxing and waning nature of these collections, pseudocysts are favored. 3. 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 4. Healed right sacral alar fracture. Dictated by: Sarbjit Vallecillo M.D. on 12/07/2020 at 14:46 Approved by: Sarbjit Vallecillo M.D. on 12/07/2020 at 15:05
== END ==
PROVIDERS: PCP Family Medicine; Referring Provider Family Medicine; Visit Provider Family Medicine
DX: K86.2 Cyst of pancreas (principal); K52.9 Noninfective gastroenteritis and colitis, unspecified; S32.511 Fracture of superior rim of right pubis; S32.591K Other specified fracture of right pubis, subsequent encounter for fracture with nonunion; S32.19XD Other fracture of sacrum, subsequent encounter for fracture with routine healing
CPT/HCPCS: 74177; Q9967

== ENCOUNTER → 2021-03-11 16:27 | Outpatient (CLI) | payer OTHER, MEDICAID, SELFPAY ==
[2020-11-09 16:34] VITALS: BMI 20.7
[2021-03-11 17:49] LABS: Alanine Aminotransferase 31 IU/L (<35); Albumin 3.8 g/dL (3.5-5.0); Albumin Globulin Ratio 1.2 (1.0-2.8); Alkaline Phosphatase 114 U/L (38-126); Aspartate Aminotransferase 75 IU/L (14-36); BUN Creatinine Ratio 9.5 (6-22); Bilirubin Total 0.6 mg/dL (0.2-1.3); Blood Urea Nitrogen 4 mg/dL (7-17); Calcium 9.3 mg/dL (8.4-10.2); Carbon Dioxide 20 mmol/L (22-32); Chloride 103 mmol/L (98-107); Estimated Glomerular Filt Rate > 60.0 mL/min (>60); Globulin 3.1 g/dL (1.7-4.1); Glucose 94 mg/dL (80-110); Sodium 135 mmol/L (137-145); Total Protein 6.9 g/dL (6.3-8.2)
[2021-03-11 18:06] LABS: HEMOLYSIS 90 (0-50); Potassium 4.6 mmol/L (3.4-5.1)
[2021-03-11 18:12] LABS: Add Manual Diff / Slide Review NO; Basophils Absolute Auto 0 /uL (0-100); Basophils Percent Auto 0.6 % (0-2); Eosinophils Absolute Auto 0 /uL (0-450); Eosinophils Percent Auto 0.4 % (2-4); Hematocrit 38.2 % (36-46); Hemoglobin 13.1 g/dL (12.0-16.0); Lymphocytes Absolute Auto 1600 /uL (1100-4500); Lymphocytes Percent Auto 31.2 % (25-40); Mean Corpuscular HGB Conc 34.2 % (30-36); Mean Corpuscular Hemoglobin 42.7 PG (26-34); Mean Corpuscular Volume 124.9 fL (80-100); Monocytes Absolute Auto 500 /uL (0-900); Monocytes Percent Auto 9.7 % (3-14); Neutrophils Absolute Auto 3100 /uL (1500-7000); Neutrophils Percent Auto 58.1 % (50-75); Platelet Count 201 X10^3/uL (150-400); Red Blood Cell Count 3.06 X10^6/uL (4.0-5.2); Red Cell Distribution Width 14.7 % (11.6-14.8); White Blood Cell Count 5.3 X10^3/uL (4.5-11.0)
[2021-03-11 18:15] LABS: Anisocytosis 1+; Macrocytosis 2+
== END ==
PROVIDERS: PCP Family Medicine; Referring Provider Family Medicine; Visit Provider Family Medicine
DX: K86.2 Cyst of pancreas (principal); E87.6 Hypokalemia; E78.2 Mixed hyperlipidemia
CPT/HCPCS: 36415; 80053; 80305; 80307; 85025

== ENCOUNTER → 2021-04-03 10:45 | Outpatient (CLI) | payer OTHER, MEDICAID, SELFPAY ==
[2020-11-09 16:34] VITALS: BMI 20.7
--- NOTE | 2021-04-03 10:46 | DI.RAD.S_ITS ---
PROCEDURE: XR DEXA AXIAL SKELETON INDICATIONS: osteoporosis COMPARISON: [facility], CR, XR DEXA AXIAL SKELETON, 06/10/2018, 15:22. FINDINGS: This blank DEXA report has been sent in error by the PACS system. The correct and complete report will be forthcoming in 1-2 days. Thank you for your patience and understanding. Dictated by: Darlene Campbell MD, PhD on 04/03/2021 at 14:33 Approved by: Darlene Campbell MD, PhD on 04/03/2021 at 14:33
== END ==
PROVIDERS: PCP Family Medicine; Referring Provider Family Medicine; Visit Provider Family Medicine
DX: M81.0 Age-related osteoporosis without current pathological fracture (principal); Z78.0 Asymptomatic menopausal state; M19.90 Unspecified osteoarthritis, unspecified site; S32.89XA Fracture of other parts of pelvis, initial encounter for closed fracture; Z90.722 Acquired absence of ovaries, bilateral; Z72.0 Tobacco use
CPT/HCPCS: 77080

== ENCOUNTER → 2021-05-10 13:48 | Outpatient (CLI) | payer OTHER, MEDICAID, SELFPAY ==
[2021-04-18 10:53] VITALS: BMI 20.7
[2021-05-10 16:00] LABS: COVID19 -Nasal RAPID Negative (Negative)
== END ==
PROVIDERS: PCP Family Medicine; Visit Provider Family Medicine Sleep Medicine
DX: Z20.822 Contact with and (suspected) exposure to COVID-19 (principal)
CPT/HCPCS: 87635; C9803

== ENCOUNTER 2021-05-13 11:44 | Day surgery (SDC) | payer OTHER, MEDICAID, SELFPAY ==
[2021-04-18 10:53] VITALS: BMI 20.7
--- NOTE | 2021-05-13 | PATH_ITS ---
[facility] Accession Number: [id number] . 01 Material submitted: . colon - RANDOM COLON BIOPSY . 02 Diagnosis: Random Colon, Biopsies: Colonic mucosa with no diagnostic abnormality. Negative for active, chronic, and microscopic colitis. Negative for dysplasia and malignancy. . MRV 05/16/2021 1146 Local . 02 Electronically signed: . Maureen Graves MD, Pathologist NPI- [id number] . 01 Gross description: . RANDOM COLON BIOPSY: Received in formalin are 2 fragment(s) of hernandez, soft tissue measuring 0.1 x 0.1 x 0.1 cm to 0.3 x 0.2 x 0.2 cm submitted entirely in 1 cassette(s) /ESTEBAN 05/14/2021 1950 Local . 02 Pathologist provided ICD-10: R19.7, R10.84 . 02 CPT . 156463 Performed at: 01 [facility] [address] [facility], [place], [place] [id number] MD Martir Gibson MD Phone: [phone] Performed at: 02 [facility] [address] [place], [place] [id number] MD Maureen Graves MD Phone: [phone]
[2021-05-13 12:08] VITALS: BP 138/70; PULSE 115; RESP 24; TEMP 36.9; O2SAT 97; BMI 18.5
--- NOTE | 2021-05-13 12:21 | PM.HP.1 ---
History of Present Illness History of Present Illness Date Patient Seen: 05/13/21 Time Patient Seen: 12:21 Chief complaint: DX COLONOSCOPY W/POSS BX Narrative: I reviewed Dr. Martinez's note. The patient indicates that she has had 2 prior perforations. She had a perforation at ERCP required surgical intervention. She reports that after her last colonoscopy which was done about 6 months after the ERCP she also had a perforation and spent 4 days in the hospital but does not recall any surgical intervention for that. Patient History Medical History Abdominal pain Anxiety (04/28/17) C. difficile colitis Chronic diarrhea Chronic pain Diarrhea Left breast lump Low back pain without sciatica (08/05/16) Mixed hyperlipidemia (04/28/17) Osteoarthritis (12/15/13) Osteoporosis (12/15/13) Pain of both breasts Pancreatic cyst Surgical History History of arthroplasty of right shoulder History of cholecystectomy Family & Social History Family History Father No problems noted. Mother PE (pulmonary thromboembolism) Social History: household members spouse Tobacco & Substance use: Smoking Status Current every day smoker alcohol intake never alcohol intake frequency a few times a week Substance Use Type does not use Meds Home Medications and Allergies Home Medications Medication Instructions Recorded Confirmed Type ASPIRIN/ACETAMINOPHEN/CAFFEINE 1 tab PO PRN #0 01/07/11 09/11/20 History (Excedrin Migraine Geltab) permanent disabled parking permit #1 ea 11/11/18 09/11/20 Rx cholecalciferol (vitamin D3) 50 50 mcg PO DAILY #30 tab 07/10/20 09/11/20 Rx mcg (2,000 unit) tablet (Vitamin D3) gabapentin 300 mg capsule 300 mg PO Q8H #180 cap 03/11/21 03/11/21 Rx (Neurontin) ondansetron 4 mg disintegrating 4 mg PO Q4H PRN #60 tab 03/22/21 Rx tablet atorvastatin 40 mg tablet 40 mg PO BEDTIME #90 tab 04/16/21 Rx duloxetine 20 mg capsule,delayed 20 mg PO BID #180 cap 04/16/21 Rx release lorazepam 0.5 mg tablet See Rx Instructions .ROUTE 04/18/21 Rx .COMPLEX #60 tab oxycodone-acetaminophen 5 mg-325 2 tab PO Q6H PRN #112 tab 05/09/21 Rx mg tablet Allergies Allergy/AdvReac Type Severity Reaction Status Date / Time adhesive Allergy Mild TEARS Verified 05/13/21 12:03 SKIN,USE COBAN Review of Systems Review of Systems ROS: Yes All systems reviewed with the patient and are negative except as otherwise documented Psychiatric Psychiatric: Reports anxiety Exam Const General: cooperative and comfortable Orientation: alert HENMT Head: normocephalic Ears: external ears normal Nose: external nose normal Face and sinus: normal facial exam Mouth: oral mucosae normal Eyes General: appearance normal, both eyes and all related structures Neck Neck: normal visual inspection Chest Chest: normal inspection of the chest Resp Effort & Inspection: normal respiratory effort Auscultation: clear to auscultation bilaterally Cardio Rate: regular rate GI Inspection: normal to inspection Skin General: no rashes or lesions noted, No jaundice and other Other: Thin skin Neuro General: patient alert and moves all extremities Cognition: normal cognition Speech: speech normal Extrem General: no pedal edema Psych Appearance: grossly normal Assessment & Plan Assessment & Plan narrative: 65-year-old female with a personal history of colon polyps, chronic diarrhea x4 years, and abnormal imaging with possible thickening involving the left colon. She has a history of prior colon perforation at colonoscopy. Gentle colonoscopy is therefore pursued today. I explained to Elvia that she remains at risk for perforation but in light of her history if there is any significant impediment to our navigation today, I would be inclined to abort with an incomplete exam rather than risk another perforation. Time Spent With Patient Critical Care time: I spent a total of [] minutes of critical care time on this patient's care today; this time is exclusive of procedural time.
--- NOTE | 2021-05-13 12:26 | PM.PREOP ---
Pre-operative Note COVID-19 COVID-19 status: Negative Result date/Date tested (Pos, Neg/Pending): 05/10/21 Criteria for continued procedure: Possibility delay results in more complex future surgery or treatment Interval Note History & Physical reviewed/Exam performed by Physician: Yes Changes to H&P: Yes ASA Class (for procedural sedation): III
[2021-05-13] MEDS: SODIUM CHLORIDE 0.9% 1,000 ML 84 ML IV (12:44)
--- NOTE | 2021-05-13 13:18 | PM.OP.COLON ---
Operative Date/Time/Diagnoses Date of procedure: 05/13/21 Time of procedure: 13:18 Pre-op diagnosis: Diarrhea abnormal CT imaging history of polyps Post-op diagnosis: same Procedure & Clinicians Study performed: Colonoscopy with biopsies Same procedure as scheduled: Yes Indications: Diarrhea abnormal CT imaging history of unknown histology polyps Surgeon: Lino Heck Procedure Notes SCOAP/Timeout: Done Procedure in detail: After the risks and benefits were explained, written and verbal informed consent was obtained. The patient was brought into the procedure room and placed into the left lateral decubitus position. Conscious sedation medication was applied as per nursing documentation. Digital rectal examination was accomplished. The scope was introduced into the patient and advanced under direct visualization to the cecum as identified by the appendiceal orifice and ileocecal valve. The scope was slowly withdrawn to carefully examine the mucosa for any defects or lesions. Comprehensive imaging was accomplished throughout the rectum including the dentate line. The colon was decompressed, the scope was then removed from the patient who tolerated the procedure well. Pediatric colonoscope Bowel prep adequate Scope withdrawal time: 12 minutes Sedation minutes: 22 Complications: none Impression: There was some mild diverticulosis noted in the sigmoid. This was moderately tortuous. To navigate this area of her colon I performed essentially a water emersion colonoscopy with minimal to no CO2 insufflation. There was no evidence of colitis throughout. Random colon biopsies were taken for exclusion of microscopic disease. At the level of the ileocecal valve I had a glimpse into the very terminal aspect of TI which appeared normal but in order to fully navigate the tip of the scope up into the TI considerable torquing would not been required to do so and with her history of intolerance to colonoscopy I did not pursue this aggressively. I did not see any mucosal abnormality in the region described at CT imaging. Grade 1 hemorrhoids were noted on direct views. Endoscopic diagnosis 1. Diverticulosis 2. Tortuous sigmoid 3. Grade 1 hemorrhoids Post-procedure Plan for aftercare: 1. Await histopathology 2. Consider repeat colonoscopy 5 years 3. Follow-up with Dr. Martinez. Disposition: PACU
[2021-05-13 13:25] VITALS: BP 117/56; PULSE 87; RESP 20; TEMP 36.3; O2SAT 99
[2021-05-13 13:32] VITALS: BP 117/58; PULSE 74; RESP 16; O2SAT 98
[2021-05-13 13:38] VITALS: BP 137/55; PULSE 74; PULSE 75; RESP 16; RESP 18; TEMP 36.7; O2SAT 95; O2SAT 98
[2021-05-13 14:04] VITALS: BP 143/72; PULSE 70; RESP 16; O2SAT 99
--- NOTE | 2021-05-13 14:28 | SUR.PHASEII ---
Pt. insisted upon putting back on own damp depend panty. offered pad and disp. dry panty but pt. refused.
== END 2021-05-13 13:50 | disposition home or self-care (01) ==
PROVIDERS: PCP Family Medicine; Referring Provider Internal Medicine Gastroenterology; Visit Provider Internal Medicine Gastroenterology
PROC: 0DJD8ZZ Inspection of Lower Intestinal Tract, Via Natural or Artificial Opening Endoscopic (ICD-10-PCS; CPT 45378; principal; 2021-05-13 13:00)
DX: R19.7 Diarrhea, unspecified (principal); Z86.010 Personal history of colon polyps; F17.210 Nicotine dependence, cigarettes, uncomplicated; F41.9 Anxiety disorder, unspecified; K64.0 First degree hemorrhoids; K57.30 Diverticulosis of large intestine without perforation or abscess without bleeding
CPT/HCPCS: 45380; J2704

== ENCOUNTER → 2021-06-05 13:34 | Outpatient (CLI) | payer OTHER, MEDICAID, SELFPAY ==
[2021-05-31 13:07] VITALS: BMI 20.7
[2021-06-05 14:47] LABS: COVID-19 CEPHEID PCR (VTM/NP) Negative (Negative)
== END ==
PROVIDERS: PCP Family Medicine; Visit Provider Family Medicine Sleep Medicine
DX: Z20.822 Contact with and (suspected) exposure to COVID-19 (principal)
CPT/HCPCS: C9803; U0003; U0005

== ENCOUNTER → 2021-07-31 11:51 | Outpatient (CLI) | payer OTHER, MEDICAID, SELFPAY ==
[2021-05-31 13:07] VITALS: BMI 20.7
[2021-07-31 12:44] LABS: Appearance Urine UA SL CLOUDY; Bilirubin Urine UA 1+ (NEGATIVE); Color Urine UA YELLOW; Glucose Urine UA NEGATIVE (Negative); Ketones Urine UA TRACE (NEGATIVE); Leukocyte Esterase Urine UA TRACE (NEGATIVE); Nitrite Urine UA NEGATIVE (Negative); Occult Blood Urine UA NEGATIVE (Negative); Protein Urine UA 1+ (Negative); Specific Gravity Urine UA 1.025 (1.000-1.035); Urobilinogen Urine UA 0.2 E.U./dL (0.2)
[2021-07-31 12:48] LABS: Add Manual Diff / Slide Review NO; Basophils Absolute Auto 0 /uL (0-100); Basophils Percent Auto 0.6 % (0-2); Eosinophils Absolute Auto 0 /uL (0-450); Eosinophils Percent Auto 0.8 % (2-4); Hematocrit 36.6 % (36-46); Hemoglobin 12.9 g/dL (12.0-16.0); Lymphocytes Absolute Auto 1200 /uL (1100-4500); Mean Corpuscular HGB Conc 35.3 % (30-36); Mean Corpuscular Hemoglobin 41.3 PG (26-34); Mean Corpuscular Volume 117.1 fL (80-100); Monocytes Absolute Auto 400 /uL (0-900); Monocytes Percent Auto 9.2 % (3-14); Neutrophils Absolute Auto 3100 /uL (1500-7000); Neutrophils Percent Auto 64.4 % (50-75); Platelet Count 264 X10^3/uL (150-400); Red Blood Cell Count 3.12 X10^6/uL (4.0-5.2); Red Cell Distribution Width 15.3 % (11.6-14.8); White Blood Cell Count 4.7 X10^3/uL (4.5-11.0)
[2021-07-31 12:59] LABS: Ictotest Urine Negative (Negative)
[2021-07-31 13:00] LABS: Amorphous Sediment Urine 1+; Bacteria Urine Moderate (10-30); Culture Indicated Urine Specimen Cultured; Mucus Urine 1+ (Negative); RBC Urine None Seen (0-5/HPF); Squamous Epithelial Cell Urine 1-5 /HPF (0-5/HPF); WBC Urine 10-30/HPF (0-5/HPF)
[2021-07-31 13:02] LABS: UR Morphine/Opiate cutoff 300 Positive (Negative); Ur Creatinine Normal (Normal); Ur Specific Gravity Normal (Normal); Urine Amphetamines Negative (Negative); Urine Barbiturates Negative (Negative); Urine Benzodiazepines Positive (Negative); Urine Cocaine Negative (Negative); Urine MDMA Negative (Negative); Urine Methadone Negative (Negative); Urine Methamphetamines Negative (Negative); Urine Oxycodone Positive (Negative); Urine Phencyclidine Negative (Negative); Urine Tetrahydrocannabinol Negative (Negative); Urine Tricyclic Antidepressant Negative (Negative); Urine pH Normal (Normal)
[2021-07-31 13:17] LABS: Alanine Aminotransferase 26 IU/L (<35); Albumin 3.4 g/dL (3.5-5.0); Albumin Globulin Ratio 1.3 (1.0-2.8); Alkaline Phosphatase 139 U/L (38-126); Anisocytosis 1+; Aspartate Aminotransferase 54 IU/L (14-36); BUN Creatinine Ratio 11.6 (6-22); Bilirubin Total 0.5 mg/dL (0.2-1.3); Blood Urea Nitrogen 5 mg/dL (7-17); Calcium 8.7 mg/dL (8.4-10.2); Carbon Dioxide 27 mmol/L (22-32); Chloride 102 mmol/L (98-107); Estimated Glomerular Filt Rate > 60 mL/min (>60); Globulin 2.6 g/dL (1.7-4.1); Glucose 107 mg/dL (80-110); HEMOLYSIS 19 (0-50); Macrocytosis 1+; Sodium 135 mmol/L (137-145)
[2021-07-31 13:47] LABS: TSH w/ Reflex to FT4 5.16 uIU/mL (0.47-4.68)
[2021-07-31 14:05] LABS: Vitamin B12 948 pg/mL (239-931)
[2021-07-31 14:11] LABS: Free T4, Direct Thyroxine 1.19 ng/dL (0.78-2.19)
== END ==
PROVIDERS: PCP Family Medicine; Referring Provider Family Medicine; Visit Provider Family Medicine
DX: K52.9 Noninfective gastroenteritis and colitis, unspecified (principal); M54.50 Low back pain, unspecified
CPT/HCPCS: 36415; 80053; 80305; 81001; 82607; 84439; 84443; 85025; 87077; 87086; 87186

== ENCOUNTER → 2022-02-14 16:56 | Outpatient (CLI) | payer MEDICARE, MEDICAID, SELFPAY ==
[2021-05-31 13:07] VITALS: BMI 20.7
[2022-02-14 18:07] LABS: Add Manual Diff / Slide Review NO; Basophils Absolute Auto 0 /uL (0-100); Basophils Percent Auto 0.4 % (0-2); Eosinophils Absolute Auto 0 /uL (0-450); Eosinophils Percent Auto 0.5 % (2-4); Hematocrit 37.4 % (36-46); Hemoglobin 12.9 g/dL (12.0-16.0); Lymphocytes Absolute Auto 1700 /uL (1100-4500); Lymphocytes Percent Auto 27.8 % (25-40); Mean Corpuscular HGB Conc 34.5 % (30-36); Mean Corpuscular Hemoglobin 42.3 PG (26-34); Monocytes Absolute Auto 500 /uL (0-900); Monocytes Percent Auto 7.7 % (3-14); Neutrophils Absolute Auto 3900 /uL (1500-7000); Neutrophils Percent Auto 63.6 % (50-75); Platelet Count 237 X10^3/uL (150-400); Red Blood Cell Count 3.05 X10^6/uL (4.0-5.2); Red Cell Distribution Width 15.9 % (11.6-14.8); White Blood Cell Count 6.2 X10^3/uL (4.5-11.0)
[2022-02-14 18:09] LABS: Mean Corpuscular Volume 122.8 fL (80-100)
[2022-02-14 18:27] LABS: Alanine Aminotransferase 41 IU/L (<35); Albumin 3.2 g/dL (3.5-5.0); Albumin Globulin Ratio 1.2 (1.0-2.8); Alkaline Phosphatase 155 U/L (38-126); Aspartate Aminotransferase 126 IU/L (14-36); Bilirubin Total 0.4 mg/dL (0.2-1.3); Calcium 8.2 mg/dL (8.4-10.2); Carbon Dioxide 25 mmol/L (22-32); Chloride 100 mmol/L (98-107); Cholesterol 159 mg/dL (140-199); Estimated Glomerular Filt Rate > 60 mL/min (>60); Globulin 2.7 g/dL (1.7-4.1); Glucose 91 mg/dL (80-110); HDL Cholesterol 82 mg/dL (40-60); HEMOLYSIS < 15 (0-50); LDL Cholesterol Calculated 56 mg/dL (<100); Potassium 2.9 mmol/L (3.4-5.1); Sodium 137 mmol/L (137-145); Total Protein 5.9 g/dL (6.3-8.2); Triglycerides 105 mg/dL (35-150)
[2022-02-14 18:35] LABS: BUN Creatinine Ratio 5.1 (6-22); Blood Urea Nitrogen < 2 mg/dL (7-17)
[2022-02-14 18:40] LABS: Free T4, Direct Thyroxine 0.81 ng/dL (0.78-2.19)
[2022-02-14 18:54] LABS: Thyroid Stimulating Hormone 1.77 uIU/mL (0.47-4.68)
[2022-02-15 17:22] LABS: UR Morphine/Opiate cutoff 300 Negative (Negative); Ur Creatinine Normal (Normal); Ur Specific Gravity Normal (Normal); Urine Amphetamines Negative (Negative); Urine Barbiturates Negative (Negative); Urine Benzodiazepines Positive (Negative); Urine Cocaine Negative (Negative); Urine MDMA Negative (Negative); Urine Methamphetamines Negative (Negative); Urine Phencyclidine Negative (Negative); Urine Tetrahydrocannabinol Negative (Negative); Urine pH Normal (Normal)
[2022-02-15 17:23] LABS: Urine Methadone Negative (Negative); Urine Oxycodone Positive (Negative); Urine Tricyclic Antidepressant Negative (Negative)
== END ==
PROVIDERS: PCP Family Medicine; Referring Provider Family Medicine; Visit Provider Family Medicine
DX: E78.2 Mixed hyperlipidemia (principal); E87.6 Hypokalemia; F41.9 Anxiety disorder, unspecified; M80.00XG Age-related osteoporosis with current pathological fracture, unspecified site, subsequent encounter for fracture with delayed healing; S32.89XA Fracture of other parts of pelvis, initial encounter for closed fracture; F11.90 Opioid use, unspecified, uncomplicated; G89.29 Other chronic pain
CPT/HCPCS: 36415; 80053; 80061; 80305; 84439; 84443; 85025

== ENCOUNTER 2022-03-08 15:33 | Emergency (ER) | payer MEDICARE, MEDICAID, SELFPAY ==
[2021-05-31 13:07] VITALS: BMI 20.7
[2022-03-08 15:45] VITALS: BP 130/58; PULSE 117; RESP 18; TEMP 36.3; O2SAT 98; BMI 18.8
[2022-03-08] MEDS: ONDANSETRON 4 MG/2 ML INJ IV (16:07)
[2022-03-08 16:15] LABS: Add Manual Diff / Slide Review SLIDE REVIEW; Basophils Absolute Auto 0 /uL (0-100); Basophils Percent Auto 0.6 % (0-2); Eosinophils Absolute Auto 0 /uL (0-450); Eosinophils Percent Auto 0.2 % (2-4); Hematocrit 40.8 % (36-46); Hemoglobin 14.1 g/dL (12.0-16.0); Lymphocytes Absolute Auto 1100 /uL (1100-4500); Lymphocytes Percent Auto 16.4 % (25-40); Mean Corpuscular HGB Conc 34.7 % (30-36); Mean Corpuscular Hemoglobin 43.2 PG (26-34); Mean Corpuscular Volume 124.6 fL (80-100); Monocytes Absolute Auto 500 /uL (0-900); Monocytes Percent Auto 7.8 % (3-14); Neutrophils Absolute Auto 5000 /uL (1500-7000); Platelet Count 241 X10^3/uL (150-400); Red Blood Cell Count 3.27 X10^6/uL (4.0-5.2); Red Cell Distribution Width 15.9 % (11.6-14.8); White Blood Cell Count 6.6 X10^3/uL (4.5-11.0)
[2022-03-08 16:25] LABS: Alanine Aminotransferase 62 IU/L (<35); Albumin 3.3 g/dL (3.5-5.0); Alkaline Phosphatase 194 U/L (38-126); Aspartate Aminotransferase 162 IU/L (14-36); BUN Creatinine Ratio 7.9 (6-22); Bilirubin Total 0.9 mg/dL (0.2-1.3); Blood Urea Nitrogen 3 mg/dL (7-17); Calcium 8.5 mg/dL (8.4-10.2); Carbon Dioxide 23 mmol/L (22-32); Chloride 100 mmol/L (98-107); Estimated Glomerular Filt Rate > 60 mL/min (>60); Globulin 3.2 g/dL (1.7-4.1); Glucose 106 mg/dL (80-110); HEMOLYSIS 32 (0-50); Lipase 55 U/L (23-300); Sodium 136 mmol/L (137-145); Total Protein 6.5 g/dL (6.3-8.2)
[2022-03-08 16:34] LABS: Macrocytosis 3+
--- NOTE | 2022-03-08 16:37 | DI.CT.S_ITS ---
PROCEDURE: CT ABDOMEN PELVIS W CON INDICATIONS: IV contrast only/abdominal pain TECHNIQUE: After the administration of intravenous contrast, axial sections acquired from the lung bases to the pubic symphysis. Coronal and sagittal reformats were performed. For radiation dose reduction, the following was used: automated exposure control, adjustment of mA and/or kV according to patient size. COMPARISON: [facility], CT, CT ABDOMEN PELVIS W CON, 12/07/2020, 13:56. FINDINGS: Image quality: Good Lower chest: Unremarkable Solid organs: Suspected heterogeneous steatosis as before. Cholecystectomy. Prominence of the biliary tree post cholecystectomy is similar to prior. There is some pancreatic atrophy. Possible small cystic lesions at the pancreatic tail, better seen on prior imaging. No pathologic dilation of the pancreatic duct. No splenomegaly. Adrenal thickening as before. No hydronephrosis. Vessels and lymph nodes: No abdominal aortic aneurysm or pathologic adenopathy by size criteria. There are atherosclerotic calcifications the main portal vein appears patent. Bowel and peritoneum: Kcwv-jm-rbpzrksl ascites. No small bowel obstruction. Mild diffuse inflammatory changes of the jejunum in the left upper quadrant, with perienteric edema and mesenteric congestion. There is also some involvement of the distal duodenum. Ogip-ug-sbbxmhkk inflammation is also seen in the distal colon and proximal colon. Body wall: No drainable abscess or hematoma. Pelvis: Bladder is unremarkable. Hysterectomy. Bones: Chronic pelvic ring fractures. No definitely acute abnormality. IMPRESSION: Suspected multifocal infectious/inflammatory enterocolitis. Consider also correlation with age-appropriate colonoscopy. Pdao-nc-ebcgxndc ascites. Other findings as above. Dictated by: Doug Ma M.D. on 03/08/2022 at 19:50 Approved by: Doug Ma M.D. on 03/08/2022 at 20:00
--- NOTE | 2022-03-08 16:38 | ED_ITS ---
HPI - Abdominal Pain <Deepak Katz MD - Last Filed: 03/09/22 18:44> General Chief Complaint: Abdominal Pain Stated Complaint: Abd Pain/Can't Eat Time Seen by Provider: 03/08/22 16:21 History of Present Illness HPI narrative: Patient here with . Complains off and on abdominal pain for the past 2 years. Has seen Gastroenterology with workup in the past with she states unknown cause. Symptoms have been persistent and worse for the past 2 weeks. Upper half of the abdominal quadrants hurt and radiates downward. No back pain no chest pain. Has had nausea. Has decreased oral intake. No urinary complaints. No fever or chills. No diarrhea. Related Data Home Medications Medication Instructions Recorded Confirmed ASPIRIN/ACETAMINOPHEN/CAFFEINE 1 tab PO PRN ##0 01/07/11 02/14/22 (Excedrin Migraine Geltab) Previous Rx's Medication Instructions Recorded permanent disabled parking permit #1 ea 11/11/18 cholecalciferol (vitamin D3) 50 50 mcg PO DAILY #30 tabs 07/10/20 mcg (2,000 unit) tablet (Vitamin D3) ondansetron 4 mg disintegrating 4 mg PO Q4H PRN nausea and 03/22/21 tablet vomiting #60 tabs atorvastatin 40 mg tablet 40 mg PO BEDTIME #90 tabs 04/16/21 duloxetine 20 mg capsule,delayed 20 mg PO BID #180 caps 04/16/21 release sulfamethoxazole 800 1 tab PO BID #14 tabs 07/31/21 mg-trimethoprim 160 mg tablet (Bactrim DS) potassium chloride 10 mEq 10 meq PO DAILY #90 caps 01/21/22 capsule,extended release gabapentin 300 mg capsule See Rx Instructions .Route 01/31/22 .COMPLEX #180 caps sucralfate 1 gram tablet (Carafate) 1 g PO BID #60 tabs 02/14/22 potassium chloride 10 mEq 10 meq PO DAILY #90 tabs 02/17/22 tablet,extended release lorazepam 0.5 mg tablet See Rx Instructions .Route 02/26/22 .COMPLEX #60 tabs methocarbamol 500 mg tablet See Rx Instructions .Route 02/26/22 .COMPLEX #30 tabs oxycodone-acetaminophen 5 mg-325 2 tab PO Q6H PRN pain #112 tabs 02/26/22 mg tablet ciprofloxacin HCl 500 mg tablet 500 mg PO BID #14 tabs 03/08/22 (Cipro) metronidazole 500 mg tablet 500 mg PO Q8H 7 days #21 tabs 03/08/22 Allergies Allergy/AdvReac Type Severity Reaction Status Date / Time adhesive Allergy Mild TEARS Verified 03/08/22 15:52 SKIN,USE COBAN Review of Systems <Deepak Katz MD - Last Filed: 03/09/22 18:44> Review of Systems Narrative: GENERAL: negative chills, fatigue, malaise, fever, sweats. HEENT: negative sinus pain, ear pain, sore throat RESPIRATORY: negative dyspnea, cough CARDIOVASCULAR: negative chest pain, palpitations GASTROINTESTINAL: Positive nausea, vomiting, abdominal pain : negative dysuria, frequency, hematuria MUSCULOSKELETAL: negative muscle or bony pain SKIN: negative rash, skin lesions NEUROLOGIC: negative weakness, numbness ROS Unobtainable: All systems reviewed & are unremarkable except as noted in HPI and below Patient History <Deepak Katz MD - Last Filed: 03/09/22 18:44> Medical History Abdominal pain Anxiety (04/28/17) C. difficile colitis Chronic diarrhea Chronic pain Diarrhea Dyspepsia Elevated liver function tests Left breast lump Low back pain without sciatica (08/05/16) Mixed hyperlipidemia (04/28/17) Osteoarthritis (12/15/13) Osteoporosis (12/15/13) Osteoporosis Pain of both breasts Pancreatic cyst Surgical History History of arthroplasty of right shoulder History of cholecystectomy Family History Father No problems noted. Mother PE (pulmonary thromboembolism) Social History marital status: household members: spouse Smoking Status: Current every day smoker Tobacco: How many years used: 25 alcohol intake: never substance use type: does not use Smoking Status: Current every day smoker alcohol intake frequency: a few times a week Substance Use Type: does not use Exam <Deepak Katz MD - Last Filed: 03/09/22 18:44> Narrative Exam Narrative: GENERAL: in no distress, not toxic not dyspneic HEAD: Normocephalic. EYES: Pupils equal round No scleral icterus. ENT: Mucous membranes moist. NECK: Trachea midline. CARDIOVASCULAR: Regular rate and rhythm without murmurs RESPIRATORY: Clear to auscultation. Breath sounds equal bilaterally. No wheezes, rales, or rhonchi. GASTROINTESTINAL: Abdomen soft, diffuse moderate tenderness, no peritoneal signs, bowel sounds are present, no CVA tenderness EXTREMITIES: No gross deformities. BACK: No flank tenderness. NEURO: AOx4. SKIN: Warm and dry PSYCH: Not anxious, is cooperative Initial Vital Signs Initial Vital Signs: Vital Signs Temperature 97.3 F L 03/08/22 15:45 Pulse Rate 117 H 03/08/22 15:45 Respiratory Rate 18 03/08/22 15:45 Blood Pressure 130/58 L 03/08/22 15:45 Pulse Oximetry 98 03/08/22 15:45 Oxygen Delivery Method 03/08/22 15:45 <Little Rodriguez DO - Last Filed: 03/09/22 04:47> Initial Vital Signs Initial Vital Signs: Vital Signs Temperature 97.3 F L 03/08/22 15:45 Pulse Rate 117 H 03/08/22 15:45 Respiratory Rate 18 03/08/22 15:45 Blood Pressure 130/58 L 03/08/22 15:45 Pulse Oximetry 98 03/08/22 15:45 Oxygen Delivery Method 03/08/22 15:45 Course <Deepak Katz MD - Last Filed: 03/09/22 18:44> Course Course Narrative: 6:[address] Rodriguez, CT imaging pending. Reassess for pain improvement. Orders Ordered: Discontinued Medications Hydromorphone HCl (Hydromorphone 1 Mg Inj) 1 mg IV NOW ONE Stop: 03/08/22 20:15 Last Admin: 03/08/22 20:24 Dose: 1 mg Documented By: MLPhyllis Sodium Chloride (Normal Saline 0.9%) 1,000 mls @ 1,000 mls/hr IV BOLUS ONE Stop: 03/08/22 17:36 Last Infusion: 03/08/22 18:13 Dose: 0 mls/hr Documented By: Admin: 03/08/22 17:20 Dose: 1,000 mls/hr Documented By: OLGA Sodium Chloride (Normal Saline 0.9%) 1,000 mls @ 1,000 mls/hr IV BOLUS ONE Stop: 03/08/22 21:03 Last Admin: 03/08/22 20:29 Dose: Not Given Documented By: KRISTOFER Ketorolac Tromethamine (Ketorolac 30 Mg/Ml Vial) 15 mg IV NOW ONE Stop: 03/08/22 20:05 Last Admin: 03/08/22 20:24 Dose: 15 mg Documented By: KRISTOFER Levofloxacin (Levofloxacin 250 Mg Tablet) 750 mg PO NOW ONE Stop: 03/08/22 20:15 Last Admin: 03/08/22 20:24 Dose: 750 mg Documented By: KRISTOFER Metronidazole (Metronidazole 500 Mg Tablet) 500 mg PO NOW ONE Stop: 03/08/22 20:15 Last Admin: 03/08/22 20:23 Dose: 500 mg Documented By: KRISTOFER Morphine Sulfate (Morphine 4 Mg/Ml Inj) 4 mg IV NOW ONE Stop: 03/08/22 16:37 Last Admin: 03/08/22 17:20 Dose: 4 mg Documented By: OLGA Ondansetron HCl (Ondansetron 4 Mg Odt) 4 mg PO NOW ONE Stop: 03/08/22 15:53 Last Admin: 03/08/22 16:11 Dose: Not Given Documented By: OLGA Ondansetron HCl (Ondansetron 4 Mg/2 Ml Inj) 4 mg IV NOW ONE Stop: 03/08/22 15:53 Last Admin: 03/08/22 16:07 Dose: 4 mg Documented By: OLGA Vital Signs Vital signs: Vital Signs - 8 hr 03/08/22 21:02 Pulse Rate 115 H Respiratory Rate 16 Blood Pressure 118/56 L Pulse Oximetry 97 Oxygen Delivery Method Room Air <Little Rodriguez DO - Last Filed: 03/09/22 04:47> Orders Ordered: Discontinued Medications Hydromorphone HCl (Hydromorphone 1 Mg Inj) 1 mg IV NOW ONE Stop: 03/08/22 20:15 Last Admin: 03/08/22 20:24 Dose: 1 mg Documented By: KRISTOFER Sodium Chloride (Normal Saline 0.9%) 1,000 mls @ 1,000 mls/hr IV BOLUS ONE Stop: 03/08/22 17:36 Last Infusion: 03/08/22 18:13 Dose: 0 mls/hr Documented By: Admin: 03/08/22 17:20 Dose: 1,000 mls/hr Documented By: OLGA Sodium Chloride (Normal Saline 0.9%) 1,000 mls @ 1,000 mls/hr IV BOLUS ONE Stop: 03/08/22 21:03 Last Admin: 03/08/22 20:29 Dose: Not Given Documented By: KRISTOFER Ketorolac Tromethamine (Ketorolac 30 Mg/Ml Vial) 15 mg IV NOW ONE Stop: 03/08/22 20:05 Last Admin: 03/08/22 20:24 Dose: 15 mg Documented By: KRISTOFER Levofloxacin (Levofloxacin 250 Mg Tablet) 750 mg PO NOW ONE Stop: 03/08/22 20:15 Last Admin: 03/08/22 20:24 Dose: 750 mg Documented By: KRISTOFER Metronidazole (Metronidazole 500 Mg Tablet) 500 mg PO NOW ONE Stop: 03/08/22 20:15 Last Admin: 03/08/22 20:23 Dose: 500 mg Documented By: KRISTOFER Morphine Sulfate (Morphine 4 Mg/Ml Inj) 4 mg IV NOW ONE Stop: 03/08/22 16:37 Last Admin: 03/08/22 17:20 Dose: 4 mg Documented By: OLGA Ondansetron HCl (Ondansetron 4 Mg Odt) 4 mg PO NOW ONE Stop: 03/08/22 15:53 Last Admin: 03/08/22 16:11 Dose: Not Given Documented By: OLGA Ondansetron HCl (Ondansetron 4 Mg/2 Ml Inj) 4 mg IV NOW ONE Stop: 03/08/22 15:53 Last Admin: 03/08/22 16:07 Dose: 4 mg Documented By: OLGA Vital Signs Vital signs: Vital Signs - 8 hr 03/08/22 21:02 Pulse Rate 115 H Respiratory Rate 16 Blood Pressure 118/56 L Pulse Oximetry 97 Oxygen Delivery Method Room Air MDM - Abdominal Pain <Deepak Katz MD - Last Filed: 03/09/22 18:44> Differential Diagnosis Differential diagnosis: Likely abdominal pain, acute appendicitis, constipation, diverticulitis, pancreatitis and small bowel obstruction Lab Data Result diagrams: 03/08/22 16:01 03/08/22 16:01 Labs: Lab Results 03/08/22 03/08/22 Range/Units 16:01 16:01 WBC 6.6 (4.5-11.0) X10^3/uL RBC 3.27 L (4.0-5.2) X10^6/uL Hgb 14.1 (12.0-16.0) g/dL Hct 40.8 (36-46) % MCV 124.6 H (80-100) fL MCH 43.2 H (26-34) PG MCHC 34.7 (30-36) % RDW 15.9 H (11.6-14.8) % Plt Count 241 (150-400) X10^3/uL Neut % (Auto) 75.0 (50-75) % Lymph % (Auto) 16.4 L (25-40) % [place] % (Auto) 7.8 (3-14) % Eos % (Auto) 0.2 L (2-4) % Baso % (Auto) 0.6 (0-2) % Neut # (Auto) 5000 (8927-9626) /uL Lymph # (Auto) 1100 (5721-5669) /uL [place] # (Auto) 500 (0-900) /uL Eos # (Auto) 0 (0-450) /uL Baso # (Auto) 0 (0-100) /uL RBC Morphology See below Macrocytosis 3+ H Sodium 136 L (137-145) mmol/L Potassium 3.0 L (3.4-5.1) mmol/L Chloride 100 (98-107) mmol/L Carbon Dioxide 23 (22-32) mmol/L BUN 3 L (7-17) mg/dL Creatinine 0.38 L (0.52-1.04) mg/dL Estimated GFR > 60 (>60) mL/min BUN/Creatinine Ratio 7.9 (6-22) Glucose 106 (80-110) mg/dL Calcium 8.5 (8.4-10.2) mg/dL Total Bilirubin 0.9 (0.2-1.3) mg/dL AST 162 H (14-36) IU/L ALT 62 H (<35) IU/L Alkaline Phosphatase 194 H (38-126) U/L Total Protein 6.5 (6.3-8.2) g/dL Albumin 3.3 L (3.5-5.0) g/dL Globulin 3.2 (1.7-4.1) g/dL Albumin/Globulin Ratio 1.0 (1.0-2.8) Lipase 55 (23-300) U/L <Little Michael, DO - Last Filed: 03/09/22 04:47> Lab Data Labs: Lab Results 03/08/22 03/08/22 Range/Units 16:01 16:01 WBC 6.6 (4.5-11.0) X10^3/uL RBC 3.27 L (4.0-5.2) X10^6/uL Hgb 14.1 (12.0-16.0) g/dL Hct 40.8 (36-46) % MCV 124.6 H (80-100) fL MCH 43.2 H (26-34) PG MCHC 34.7 (30-36) % RDW 15.9 H (11.6-14.8) % Plt Count 241 (150-400) X10^3/uL Neut % (Auto) 75.0 (50-75) % Lymph % (Auto) 16.4 L (25-40) % [place] % (Auto) 7.8 (3-14) % Eos % (Auto) 0.2 L (2-4) % Baso % (Auto) 0.6 (0-2) % Neut # (Auto) 5000 (8139-1842) /uL Lymph # (Auto) 1100 (5324-1837) /uL [place] # (Auto) 500 (0-900) /uL Eos # (Auto) 0 (0-450) /uL Baso # (Auto) 0 (0-100) /uL RBC Morphology See below Macrocytosis 3+ H Sodium 136 L (137-145) mmol/L Potassium 3.0 L (3.4-5.1) mmol/L Chloride 100 (98-107) mmol/L Carbon Dioxide 23 (22-32) mmol/L BUN 3 L (7-17) mg/dL Creatinine 0.38 L (0.52-1.04) mg/dL Estimated GFR > 60 (>60) mL/min BUN/Creatinine Ratio 7.9 (6-22) Glucose 106 (80-110) mg/dL Calcium 8.5 (8.4-10.2) mg/dL Total Bilirubin 0.9 (0.2-1.3) mg/dL AST 162 H (14-36) IU/L ALT 62 H (<35) IU/L Alkaline Phosphatase 194 H (38-126) U/L Total Protein 6.5 (6.3-8.2) g/dL Albumin 3.3 L (3.5-5.0) g/dL Globulin 3.2 (1.7-4.1) g/dL Albumin/Globulin Ratio 1.0 (1.0-2.8) Lipase 55 (23-300) U/L Imaging Data CT scan - abdomen/pelvis: Radiologist's Impression: CT Scan Report Signed Patient: Elvia Toscano MR#: [id number] : 1955 Acct:[id number] Age/Sex: 66 / F Date of Service: 03/08/22 Loc: ED Accession Number: [id number] ?? Procedure: CT abdomen pelvis w con Ordering Provider: Deepak Katz MD PROCEDURE:? CT ABDOMEN PELVIS W CON ? INDICATIONS:? IV contrast only/abdominal pain ? TECHNIQUE:? After the administration of intravenous contrast, axial sections acquired from the lung bases to the pubic symphysis.? Coronal and sagittal reformats were performed.? For radiation dose reduction, the following was used:? automated exposure control, adjustment of mA and/or kV according to patient size.? ? COMPARISON:? [facility], CT, CT ABDOMEN PELVIS W CON, 12/07/2020, 13:56. ? FINDINGS:? Image quality:? Good ? Lower chest:? Unremarkable ? Solid organs:? Suspected heterogeneous steatosis as before.? Cholecystectomy.? Prominence of the biliary tree post cholecystectomy is similar to prior.? There is some pancreatic atrophy.? Possible small cystic lesions at the pancreatic tail, better seen on prior imaging. No pathologic dilation of the pancreatic duct.? No splenomegaly.? Adrenal thickening as before.? No hydronephrosis. ? Vessels and lymph nodes:? No abdominal aortic aneurysm or pathologic adenopathy by size criteria.? There are atherosclerotic calcifications the main portal vein appears patent. ? Bowel and peritoneum:? Knkq-pj-eusvhhrh ascites.? No small bowel obstruction.? Mild diffuse inflammatory changes of the jejunum in the left upper quadrant, with perienteric edema and mesenteric congestion.? There is also some involvement of the distal duodenum.? Xlgj-nx-tzdzxqar inflammation is also seen in the distal colon and proximal colon. ? Body wall:? No drainable abscess or hematoma. ? Pelvis:? Bladder is unremarkable.? Hysterectomy. ? Bones:? Chronic pelvic ring fractures.? No definitely acute abnormality. ? IMPRESSION:? Suspected multifocal infectious/inflammatory enterocolitis.? Consider also correlation with age-appropriate colonoscopy.? Iopm-hz-leooayzl ascites.? Other findings as above.? ? ? Dictated by: Doug Ma M.D. on 03/08/2022 at 19:50 ? ? Approved by: Doug Ma M.D. on 03/08/2022 at 20:00 ? MDM Narrative Medical decision making narrative: Patient signed out to me by Dr. Good neck is seen evaluated patient myself. She is quite tender in her abdomen CT showed enterocolitis. She has no leukocytosis she has mild hypokalemia which is basically stable from previous blood work. Kidney function is stable liver function is stable. At this time since her pain is so intense will start her on some antibiotics. She is noted be tachycardic here in the ED she is given IV fluids and pain medications low-grade fever. Previous heart rate on 07/31/2021 he had heart rate of 118 on February 14 she again had a heart rate of 118 does not appear the tachycardia is abnormal for her. She has had chronic ongoing abdominal pain worse over the last couple of days starting her on a course of antibiotics for her e nterocolitis seems reasonable and may help pain. She has multiple pain medications at home at this time no need for further pain medication. She did receive meds here in the ED and it seemed to help. Differential diagnosis included ischemic colitis bowel obstruction diverticulitis, volvulus peptic ulcer Discharge Plan Departure Patient Disposition: Home Clinical Impression: Colitis Instructions: DI for Colitis Activity Restrictions/Additional Instructions: *You have been diagnosed with colitis *What to do: At this time I think her pain is related to an infection. Her blood work looks good. Please take her pain medications as prescribed. *Continue to take medications as directed Flagyl 500 mg 3 times a day for 7 days Cipro 500 mg twice a day for 7 days *Follow up with your primary care provider in 2-3 days or call [phone] *Return to ER if you should have increasing pain persistent vomiting fever or any new, worsening or concerning symptoms Prescriptions: New ciprofloxacin HCl [Cipro] 500 mg tablet 500 mg PO BID Qty: 14 0RF metronidazole 500 mg tablet 500 mg PO Q8H 7 Days Qty: 21 0RF No Action ASPIRIN/ACETAMINOPHEN/CAFFEINE (Excedrin Migraine Geltab) 1 tab PO PRN Qty: 0 (DME) permanent disabled parking permit Qty: 1 0RF Dose Instruction: As directed Rx Instructions: My patient qualifies for permanent disabled parking access. ondansetron 4 mg tablet,disintegrating 4 mg PO Q4H PRN (Reason: nausea and vomiting) Qty: 60 5RF atorvastatin 40 mg tablet 40 mg PO BEDTIME Qty: 90 3RF duloxetine 20 mg capsule,delayed release(DR/EC) 20 mg PO BID Qty: 180 3RF sulfamethoxazole-trimethoprim [Bactrim DS] 800-160 mg tablet 1 tab PO BID Qty: 14 0RF potassium chloride 10 mEq capsule, extended release 10 meq PO DAILY Qty: 90 1RF gabapentin 300 mg capsule See Rx Instructions .ROUTE .COMPLEX Qty: 180 0RF Dose Instruction: TAKE 1 CAPSULE BY MOUTH EVERY 8 HOURS Rx Instructions: TAKE 1 CAPSULE BY MOUTH EVERY 8 HOURS potassium chloride 10 mEq tablet extended release 10 meq PO DAILY Qty: 90 1RF methocarbamol 500 mg tablet See Rx Instructions .ROUTE .COMPLEX Qty: 30 1RF Dose Instruction: TAKE 1 TABLET(500 MG) BY MOUTH TWICE DAILY NEEDED FOR MUSCLE SPASMS OR PAIN Rx Instructions: TAKE 1 TABLET(500 MG) BY MOUTH TWICE DAILY NEEDED FOR MUSCLE SPASMS OR PAIN lorazepam 0.5 mg tablet See Rx Instructions .ROUTE .COMPLEX Qty: 60 1RF Dose Instruction: TAKE ONE TABLET BY MOUTH TWICE DAILY NEEDED FOR ANXIETY Rx Instructions: TAKE ONE TABLET BY MOUTH TWICE DAILY NEEDED FOR ANXIETY oxycodone-acetaminophen 5-325 mg tablet 2 tab PO Q6H PRN (Reason: pain) Qty: 112 0RF Rx Instructions: Must last two weeks. sucralfate [Carafate] 1 gram tablet 1 g PO BID Qty: 60 1RF cholecalciferol (vitamin D3) [Vitamin D3] 50 mcg (2,000 unit) tablet 50 mcg PO DAILY Qty: 30 0RF Referrals: Tyler Doty, [Primary Care Provider] - Visit Report Forms: Patient Portal/API
[2022-03-08] MEDS: SODIUM CHLORIDE 0.9% 1,000 ML 1000 ML IV (17:20)
[2022-03-08] MEDS: MORPHINE 4 MG/ML INJ IV (17:20)
[2022-03-08 19:42] VITALS: BP 95/55; PULSE 113; RESP 18; TEMP 37.7; O2SAT 97
[2022-03-08 20:09] VITALS: BP 121/56; PULSE 112; RESP 18; O2SAT 94
[2022-03-08] MEDS: metroNIDAZOLE 500 MG TABLET PO (20:23)
[2022-03-08] MEDS: HYDROMORPHONE 1 MG INJ IV (20:24)
[2022-03-08] MEDS: levoFLOXacin 250 MG TABLET 750 MG PO (20:24)
[2022-03-08] MEDS: KETOROLAC 30 MG/ML VIAL 15 MG IV (20:24)
[2022-03-08 21:02] VITALS: BP 118/56; PULSE 115; RESP 16; O2SAT 97
== END 2022-03-08 21:04 | disposition home or self-care (01) ==
PROVIDERS: Emergency Medicine; Emergency Provider Emergency Medicine; PCP Family Medicine
DX: K52.9 Noninfective gastroenteritis and colitis, unspecified (principal); R11.2 Nausea with vomiting, unspecified
CPT/HCPCS: 36415; 74177; 80053; 83690; 85025; 96361; 96374; 96375; 99284; J1170; J1885; J2270; J2405; Q9967

== ENCOUNTER → 2022-03-14 12:11 | Outpatient (CLI) | payer MEDICARE, MEDICAID, SELFPAY ==
[2021-05-31 13:07] VITALS: BMI 20.7
[2022-03-14 12:50] LABS: Hematocrit 37.3 % (36-46); Hemoglobin 12.4 g/dL (12.0-16.0); Mean Corpuscular HGB Conc 33.2 % (30-36); Platelet Count 228 X10^3/uL (150-400); Red Blood Cell Count 2.95 X10^6/uL (4.0-5.2); Red Cell Distribution Width 16.2 % (11.6-14.8)
[2022-03-14 12:56] LABS: Reticulocyte Count, Percent 2.2 % (1.1-2.6)
[2022-03-14 13:06] LABS: Mean Corpuscular Volume 126.6 fL (80-100)
[2022-03-14 13:12] LABS: Neutrophils Absolute Manual 5670 /uL (3000-5900); Total Cells Counted 100
[2022-03-14 13:13] LABS: Anisocytosis 1+; Macrocytosis 3+
[2022-03-14 13:23] LABS: HEMOLYSIS < 15 (0-50); Iron 109 ug/dL (37-170)
[2022-03-14 13:26] LABS: Alanine Aminotransferase 39 IU/L (<35); Albumin 2.8 g/dL (3.5-5.0); Albumin Globulin Ratio 1.2 (1.0-2.8); Alkaline Phosphatase 134 U/L (38-126); Aspartate Aminotransferase 61 IU/L (14-36); BUN Creatinine Ratio 8.9 (6-22); Bilirubin Total 0.6 mg/dL (0.2-1.3); Blood Urea Nitrogen 4 mg/dL (7-17); Calcium 8.2 mg/dL (8.4-10.2); Carbon Dioxide 23 mmol/L (22-32); Chloride 95 mmol/L (98-107); Estimated Glomerular Filt Rate > 60 mL/min (>60); Globulin 2.4 g/dL (1.7-4.1); Glucose 81 mg/dL (80-110); HEMOLYSIS < 15 (0-50); Lipase 62 U/L (23-300); Potassium 3.4 mmol/L (3.4-5.1); Sodium 131 mmol/L (137-145); Total Protein 5.2 g/dL (6.3-8.2)
[2022-03-14 13:29] LABS: Amylase < 30 U/L (30-110)
[2022-03-14 13:34] LABS: Percent Iron Saturation 52 % (15-50); Total Iron Binding Capacity 210 ug/dL (265-497); Transferrin 166 mg/dL (206-381)
[2022-03-14 14:28] LABS: Folate 2.7 ng/mL (2.76-20.0); Vitamin B12 994 pg/mL (239-931)
[2022-03-14 15:00] LABS: Hep C Virus Ab w/Reflex Quant NEGATIVE s/c (NEGATIVE)
== END ==
PROVIDERS: PCP Family Medicine; Referring Provider Family Medicine; Visit Provider Family Medicine
DX: K86.2 Cyst of pancreas (principal); R10.13 Epigastric pain; R79.89 Other specified abnormal findings of blood chemistry
CPT/HCPCS: 36415; 80053; 82150; 82607; 82746; 83540; 83550; 83690; 85025; 85045; 86803

== ENCOUNTER 2022-03-18 13:19 | Emergency (ER) | payer MEDICARE, MEDICAID, SELFPAY ==
[2021-05-31 13:07] VITALS: BMI 20.7
[2022-03-18] VITALS (27 sets, daily range): BP systolic 104–132; BP diastolic 51–73; PULSE 65–120; RESP 14–36; TEMP 37.3; O2SAT 94–99
--- NOTE | 2022-03-18 13:36 | ED_ITS ---
HPI - Fever <Cristina Le PA-C - Last Filed: 03/18/22 19:28> General Chief Complaint: Fever Stated Complaint: Getting Worse, Sick Time Seen by Provider: 03/18/22 13:25 Source: patient Mode of arrival: Wheelchair History of Present Illness HPI Narrative: 66-year-old female with past medical history osteoporosis, chronic diarrhea, CAD, chronic pain, hyperlipidemia, anxiety, depression presents to the ED with several days of abdominal pain, nausea, vomiting, fever, chills. Patient was seen in the ED on 03/08/2022, diagnosed with infectious/inflammatory colitis, was prescribed Cipro and metronidazole. Patient states that she was not able to take the metronidazole due to nausea and vomiting. Patient states that her symptoms have not improved since her last ED visit. Patient denies sore throat, rhinorrhea, cough, chest pain, shortness of breath, dysuria, lightheadedness, dizziness, syncope. Patient states that she is not able to eat solid foods. Related Data Home Medications Medication Instructions Recorded Confirmed ASPIRIN/ACETAMINOPHEN/CAFFEINE 1 tab PO PRN ##0 01/07/11 03/14/22 (Excedrin Migraine Geltab) Previous Rx's Medication Instructions Recorded permanent disabled parking permit #1 ea 11/11/18 cholecalciferol (vitamin D3) 50 50 mcg PO DAILY #30 tabs 07/10/20 mcg (2,000 unit) tablet (Vitamin D3) ondansetron 4 mg disintegrating 4 mg PO Q4H PRN nausea and 03/22/21 tablet vomiting #60 tabs atorvastatin 40 mg tablet 40 mg PO BEDTIME #90 tabs 04/16/21 duloxetine 20 mg capsule,delayed 20 mg PO BID #180 caps 04/16/21 release sulfamethoxazole 800 1 tab PO BID #14 tabs 07/31/21 mg-trimethoprim 160 mg tablet (Bactrim DS) potassium chloride 10 mEq 10 meq PO DAILY #90 caps 01/21/22 capsule,extended release gabapentin 300 mg capsule See Rx Instructions .Route 01/31/22 .COMPLEX #180 caps sucralfate 1 gram tablet (Carafate) 1 g PO BID #60 tabs 02/14/22 potassium chloride 10 mEq 10 meq PO DAILY #90 tabs 02/17/22 tablet,extended release lorazepam 0.5 mg tablet See Rx Instructions .Route 02/26/22 .COMPLEX #60 tabs methocarbamol 500 mg tablet See Rx Instructions .Route 02/26/22 .COMPLEX #30 tabs ciprofloxacin HCl 500 mg tablet 500 mg PO BID #14 tabs 03/08/22 (Cipro) oxycodone-acetaminophen 5 mg-325 2 tab PO Q6H PRN pain #112 tabs 03/10/22 mg tablet dicyclomine 10 mg capsule 10 mg PO TID PRN Stomach spasms 03/14/22 #30 caps ferrous gluconate 324 mg (37.5 mg 324 mg PO BID #180 tabs 03/17/22 iron) tablet ferrous gluconate 324 mg (37.5 mg 324 mg PO DAILY #14 tabs 03/17/22 iron) tablet Allergies Allergy/AdvReac Type Severity Reaction Status Date / Time adhesive Allergy Mild TEARS Verified 03/18/22 14:13 SKIN,USE COBAN Review of Systems <Cristina Le PA-C - Last Filed: 03/18/22 19:28> Review of Systems ROS Unobtainable: All systems reviewed & are unremarkable except as noted in HPI and below Constitutional Constitutional: Denies chills, Denies fatigue, Denies fever(s), Denies frequent falls, Denies lethargy and Denies weakness Eyes Eyes: Denies change in vision, Denies eye discharge, Denies irritation and Denies loss of vision ENT Ears, Nose, Mouth, and Throat: Denies change in voice, Denies dizziness, Denies neck pain, Denies sore throat and Denies throat swelling Cardiovascular Cardiovascular: Denies chest pain, Denies irregular heart rhythm, Denies lightheadedness, Denies palpitations, Denies dyspnea, Denies dyspnea on exertion and Denies orthopnea Respiratory Respiratory: Denies cough, Denies dyspnea, Denies dyspnea on exertion and Denies wheezing Gastrointestinal Gastrointestinal: Reports abdominal pain, Denies change in bowel habits, Denies diarrhea, Reports nausea and Reports vomiting Genitourinary Genitourinary: Denies hematuria, Denies flank pain, Denies urinary incontinence and Denies urinary urgency Musculoskeletal Musculoskeletal: Denies back pain, Denies muscle weakness, Denies neck pain, Denies numbness and Denies tingling Integumentary/Breasts Skin/Breast: Denies pruritus, Denies erythema, Denies rash and Denies wounds Neurologic Neurologic: Denies behavioral changes, Denies confusion, Denies dizziness, Denies frequent falls, Denies loss of vision, Denies numbness, Denies tingling and Denies weakness Psychiatric Psychiatric: Denies anxiety, Denies behavioral changes, Denies confusion, Denies depression, Denies homicidal ideation and Denies suicidal ideation Endocrine Endocrine: Denies fatigue, Denies flushing and Denies palpitations Hematologic/Lymphatic Hematologic/Lymphatic: Denies easy bruising Allergic/Immunologic Allergic/Immunologic: Denies urticaria, Denies throat swelling and Denies wheezing Patient History <Cristina Le PA-C - Last Filed: 03/18/22 19:28> Medical History Abdominal pain Anxiety (04/28/17) C. difficile colitis Chronic diarrhea Chronic pain Diarrhea Dyspepsia Elevated liver function tests Left breast lump Low back pain without sciatica (08/05/16) Mixed hyperlipidemia (04/28/17) Osteoarthritis (12/15/13) Osteoporosis (12/15/13) Osteoporosis Pain of both breasts Pancreatic cyst Surgical History History of arthroplasty of right shoulder History of cholecystectomy Family History Father No problems noted. Mother PE (pulmonary thromboembolism) Social History marital status: household members: spouse Smoking Status: Current every day smoker Tobacco: How many years used: 25 alcohol intake: never substance use type: does not use Smoking Status: Current every day smoker alcohol intake frequency: a few times a week Substance Use Type: does not use Exam <Cristina Le PA-C - Last Filed: 03/18/22 19:28> Narrative Exam Narrative: Const General:?cooperative, healthy appearing and comfortable [facility] Head:?normal to inspection Ears:?hearing grossly normal bilaterally Nose:?external nose normal Face and sinus:?normal facial exam and sinuses nontender Mouth:?oral mucosae normal Throat:?posterior oropharynx normal Eyes General:?appearance normal, both eyes and all related structures Neck Neck:?normal visual inspection and no lymphadenopathy noted Resp Effort & Inspection:?normal respiratory effort Auscultation:?clear to auscultation bilaterally Cardio Rate:?regular rate Rhythm:?regular rhythm GI Abdomen is soft, mildly distended, tender to palpation diffusely. Neuro General:?patient alert, patient awake and patient oriented x3 Initial Vital Signs Initial Vital Signs: Vital Signs Temperature 99.1 F 03/18/22 13:27 Pulse Rate 120 H 03/18/22 13:27 Respiratory Rate 24 03/18/22 13:27 Blood Pressure 120/66 03/18/22 13:27 Pulse Oximetry 98 03/18/22 13:27 Oxygen Delivery Method 03/18/22 13:27 <Vladimir Valverde DO - Last Filed: 03/21/22 07:12> Initial Vital Signs Initial Vital Signs: Vital Signs Temperature 99.1 F 03/18/22 13:27 Pulse Rate 120 H 03/18/22 13:27 Respiratory Rate 24 03/18/22 13:27 Blood Pressure 120/66 03/18/22 13:27 Pulse Oximetry 98 03/18/22 13:27 Oxygen Delivery Method 03/18/22 13:27 Course <Cristina Le PA-C - Last Filed: 03/18/22 19:28> Orders Ordered: Discontinued Medications Sodium Chloride (Normal Saline 0.9%) 1,000 mls @ 1,000 mls/hr IV BOLUS ONE Stop: 03/18/22 14:34 Last Infusion: 03/18/22 15:48 Dose: 0 mls/hr Documented By: Admin: 03/18/22 14:16 Dose: 1,000 mls/hr Documented By: MARCOS POTASSIUM CHLORIDE IN WATER (Potassium Cl 10 Meq/100 Ml Sanjana) 10 meq in 100 mls @ 100 mls/hr IV Q1H DALILA Stop: 03/18/22 20:59 Last Admin: 03/18/22 17:33 Dose: Not Given Documented By: LAMIN Morphine Sulfate (Morphine 4 Mg/Ml Inj) 4 mg IV NOW ONE Stop: 03/18/22 14:01 Last Admin: 03/18/22 14:16 Dose: 4 mg Documented By: MARCOS Ondansetron HCl (Ondansetron 4 Mg/2 Ml Inj) 4 mg IV NOW PRN PRN Reason: Nausea And Vomiting Last Admin: 03/18/22 14:16 Dose: 4 mg Documented By: KLS Potassium Chloride (Potassium Chloride 20 Meq/15 Ml Udc) 40 meq PO NOW ONE Stop: 03/18/22 17:07 Last Admin: 03/18/22 17:37 Dose: 40 meq Documented By: RB Vital Signs Vital signs: Vital Signs - 8 hr 03/18/22 13:27 03/18/22 13:29 03/18/22 13:29 Temperature 99.1 F Pulse Rate 120 H 118 H Respiratory Rate 24 Blood Pressure 120/66 122/73 Pulse Oximetry 98 Oxygen Delivery Method Room Air 03/18/22 13:30 03/18/22 13:30 03/18/22 14:00 Temperature Pulse Rate 92 H Respiratory Rate Blood Pressure 120/66 116/65 Pulse Oximetry Oxygen Delivery Method 03/18/22 14:00 03/18/22 14:15 03/18/22 14:15 Temperature Pulse Rate 103 H 97 H Respiratory Rate 27 H 25 H Blood Pressure 112/56 L Pulse Oximetry 94 99 Oxygen Delivery Method 03/18/22 14:40 03/18/22 14:42 03/18/22 14:42 Temperature Pulse Rate 95 H 93 H Respiratory Rate 14 Blood Pressure 112/51 L Pulse Oximetry 94 99 Oxygen Delivery Method 03/18/22 14:45 03/18/22 14:45 03/18/22 15:00 Temperature Pulse Rate 89 Respiratory Rate 14 Blood Pressure 132/60 117/56 L Pulse Oximetry 99 Oxygen Delivery Method 03/18/22 15:00 03/18/22 15:15 03/18/22 15:15 Temperature Pulse Rate 90 86 Respiratory Rate 36 H 35 H Blood Pressure 115/55 L Pulse Oximetry 96 99 Oxygen Delivery Method 03/18/22 15:30 03/18/22 15:30 03/18/22 15:45 Temperature Pulse Rate 82 89 Respiratory Rate 19 Blood Pressure 116/57 L Pulse Oximetry 98 98 Oxygen Delivery Method 03/18/22 15:45 03/18/22 16:00 03/18/22 16:00 Temperature Pulse Rate 82 Respiratory Rate 19 Blood Pressure 116/55 L 104/52 L Pulse Oximetry 98 Oxygen Delivery Method 03/18/22 16:15 03/18/22 16:15 03/18/22 16:30 Temperature Pulse Rate 82 Respiratory Rate 18 Blood Pressure 116/59 L 124/60 Pulse Oximetry 96 Oxygen Delivery Method 03/18/22 16:30 03/18/22 16:45 03/18/22 16:45 Temperature Pulse Rate 65 80 Respiratory Rate 28 H 19 Blood Pressure 115/57 L Pulse Oximetry 97 97 Oxygen Delivery Method 03/18/22 17:00 03/18/22 17:00 03/18/22 17:15 Temperature Pulse Rate 69 72 Respiratory Rate 23 24 Blood Pressure 110/52 L Pulse Oximetry 97 96 Oxygen Delivery Method 03/18/22 17:15 03/18/22 17:30 03/18/22 17:30 Temperature Pulse Rate 83 Respiratory Rate 23 Blood Pressure 118/58 L 111/56 L Pulse Oximetry 97 Oxygen Delivery Method 03/18/22 17:45 03/18/22 17:45 03/18/22 18:00 Temperature Pulse Rate Respiratory Rate 18 Blood Pressure 120/59 L 111/58 L Pulse Oximetry 96 Oxygen Delivery Method 03/18/22 18:00 03/18/22 18:15 03/18/22 18:15 Temperature Pulse Rate 74 Respiratory Rate 20 21 Blood Pressure 116/55 L Pulse Oximetry 96 97 Oxygen Delivery Method 03/18/22 18:30 03/18/22 18:30 Temperature Pulse Rate 73 Respiratory Rate 17 Blood Pressure 108/55 L Pulse Oximetry 97 Oxygen Delivery Method <Vladimir Valverde, DO - Last Filed: 03/21/22 07:12> Orders Ordered: Discontinued Medications Sodium Chloride (Normal Saline 0.9%) 1,000 mls @ 1,000 mls/hr IV BOLUS ONE Stop: 03/18/22 14:34 Last Infusion: 03/18/22 15:48 Dose: 0 mls/hr Documented By: Admin: 03/18/22 14:16 Dose: 1,000 mls/hr Documented By: MARCOS POTASSIUM CHLORIDE IN WATER (Potassium Cl 10 Meq/100 Ml Sanjana) 10 meq in 100 mls @ 100 mls/hr IV Q1H DALILA Stop: 03/18/22 20:59 Last Admin: 03/18/22 17:33 Dose: Not Given Documented By: LAMIN Morphine Sulfate (Morphine 4 Mg/Ml Inj) 4 mg IV NOW ONE Stop: 03/18/22 14:01 Last Admin: 03/18/22 14:16 Dose: 4 mg Documented By: MARCOS Ondansetron HCl (Ondansetron 4 Mg/2 Ml Inj) 4 mg IV NOW PRN PRN Reason: Nausea And Vomiting Last Admin: 03/18/22 14:16 Dose: 4 mg Documented By: MARCOS Potassium Chloride (Potassium Chloride 20 Meq/15 Ml Udc) 40 meq PO NOW ONE Stop: 03/18/22 17:07 Last Admin: 03/18/22 17:37 Dose: 40 meq Documented By: RB Vital Signs Vital signs: Vital Signs - 8 hr 03/18/22 13:27 03/18/22 13:29 03/18/22 13:29 Temperature 99.1 F Pulse Rate 120 H 118 H Respiratory Rate 24 Blood Pressure 120/66 122/73 Pulse Oximetry 98 Oxygen Delivery Method Room Air 03/18/22 13:30 03/18/22 13:30 03/18/22 14:00 Temperature Pulse Rate 92 H Respiratory Rate Blood Pressure 120/66 116/65 Pulse Oximetry Oxygen Delivery Method 03/18/22 14:00 03/18/22 14:15 03/18/22 14:15 Temperature Pulse Rate 103 H 97 H Respiratory Rate 27 H 25 H Blood Pressure 112/56 L Pulse Oximetry 94 99 Oxygen Delivery Method 03/18/22 14:40 03/18/22 14:42 03/18/22 14:42 Temperature Pulse Rate 95 H 93 H Respiratory Rate 14 Blood Pressure 112/51 L Pulse Oximetry 94 99 Oxygen Delivery Method 03/18/22 14:45 03/18/22 14:45 03/18/22 15:00 Temperature Pulse Rate 89 Respiratory Rate 14 Blood Pressure 132/60 117/56 L Pulse Oximetry 99 Oxygen Delivery Method 03/18/22 15:00 03/18/22 15:15 03/18/22 15:15 Temperature Pulse Rate 90 86 Respiratory Rate 36 H 35 H Blood Pressure 115/55 L Pulse Oximetry 96 99 Oxygen Delivery Method 03/18/22 15:30 03/18/22 15:30 03/18/22 15:45 Temperature Pulse Rate 82 89 Respiratory Rate 19 Blood Pressure 116/57 L Pulse Oximetry 98 98 Oxygen Delivery Method 03/18/22 15:45 03/18/22 16:00 03/18/22 16:00 Temperature Pulse Rate 82 Respiratory Rate 19 Blood Pressure 116/55 L 104/52 L Pulse Oximetry 98 Oxygen Delivery Method 03/18/22 16:15 03/18/22 16:15 03/18/22 16:30 Temperature Pulse Rate 82 Respiratory Rate 18 Blood Pressure 116/59 L 124/60 Pulse Oximetry 96 Oxygen Delivery Method 03/18/22 16:30 03/18/22 16:45 03/18/22 16:45 Temperature Pulse Rate 65 80 Respiratory Rate 28 H 19 Blood Pressure 115/57 L Pulse Oximetry 97 97 Oxygen Delivery Method 03/18/22 17:00 03/18/22 17:00 03/18/22 17:15 Temperature Pulse Rate 69 72 Respiratory Rate 23 24 Blood Pressure 110/52 L Pulse Oximetry 97 96 Oxygen Delivery Method 03/18/22 17:15 03/18/22 17:30 03/18/22 17:30 Temperature Pulse Rate 83 Respiratory Rate 23 Blood Pressure 118/58 L 111/56 L Pulse Oximetry 97 Oxygen Delivery Method 03/18/22 17:45 03/18/22 17:45 03/18/22 18:00 Temperature Pulse Rate Respiratory Rate 18 Blood Pressure 120/59 L 111/58 L Pulse Oximetry 96 Oxygen Delivery Method 03/18/22 18:00 03/18/22 18:15 03/18/22 18:15 Temperature Pulse Rate 74 Respiratory Rate 20 21 Blood Pressure 116/55 L Pulse Oximetry 96 97 Oxygen Delivery Method 03/18/22 18:30 03/18/22 18:30 Temperature Pulse Rate 73 Respiratory Rate 17 Blood Pressure 108/55 L Pulse Oximetry 97 Oxygen Delivery Method MDM - Fever <Cristina Le PA-C - Last Filed: 03/18/22 19:28> Lab Data Result diagrams: 03/18/22 15:40 03/18/22 18:38 Labs: Lab Results 03/18/22 03/18/22 03/18/22 Range/Units 13:50 15:40 15:40 WBC 6.3 (4.5-11.0) X10^3/uL RBC 2.76 L (4.0-5.2) X10^6/uL Hgb 11.8 L (12.0-16.0) g/dL Hct 34.4 L (36-46) % MCV 124.3 H (80-100) fL MCH 42.5 H (26-34) PG MCHC 34.2 (30-36) % RDW 16.1 H (11.6-14.8) % Plt Count 201 (150-400) X10^3/uL Neut % (Auto) 71.7 (50-75) % Lymph % (Auto) 14.3 L (25-40) % [place] % (Auto) 13.0 (3-14) % Eos % (Auto) 0.6 L (2-4) % Baso % (Auto) 0.4 (0-2) % Neut # (Auto) 4500 (1411-5167) /uL Lymph # (Auto) 900 L (5013-8221) /uL [place] # (Auto) 800 (0-900) /uL Eos # (Auto) 0 (0-450) /uL Baso # (Auto) 0 (0-100) /uL RBC Morphology See below Macrocytosis 3+ H Stomatocytes 2+ H PT 10.8 (10.1-12.7) SECONDS INR 0.9 (0.9-1.3) APTT 27 (26-36) SECONDS Sodium (137-145) mmol/L Potassium (3.4-5.1) mmol/L Chloride (98-107) mmol/L Carbon Dioxide (22-32) mmol/L BUN (7-17) mg/dL Creatinine (0.52-1.04) mg/dL Estimated GFR (>60) mL/min BUN/Creatinine Ratio (6-22) Glucose (80-110) mg/dL Lactate (0.7-2.1) mmol/L Calcium (8.4-10.2) mg/dL Total Bilirubin (0.2-1.3) mg/dL AST (14-36) IU/L ALT (<35) IU/L Alkaline Phosphatase (38-126) U/L Total Protein (6.3-8.2) g/dL Albumin (3.5-5.0) g/dL Globulin (1.7-4.1) g/dL Albumin/Globulin Ratio (1.0-2.8) Lipase (23-300) U/L Procalcitonin (<0.5) ng/mL SARS-CoV-2 (PCR) Negative (Negative) Influenza A (RT-PCR) Flu a negative (NEGATIVE) Influenza B (RT-PCR) Flu b negative (NEGATIVE) RSV (PCR) Negative (Negative) 03/18/22 03/18/22 03/18/22 Range/Units 15:40 15:40 18:38 WBC (4.5-11.0) X10^3/uL RBC (4.0-5.2) X10^6/uL Hgb (12.0-16.0) g/dL Hct (36-46) % MCV (80-100) fL MCH (26-34) PG MCHC (30-36) % RDW (11.6-14.8) % Plt Count (150-400) X10^3/uL Neut % (Auto) (50-75) % Lymph % (Auto) (25-40) % [place] % (Auto) (3-14) % Eos % (Auto) (2-4) % Baso % (Auto) (0-2) % Neut # (Auto) (5622-2799) /uL Lymph # (Auto) (4356-3253) /uL [place] # (Auto) (0-900) /uL Eos # (Auto) (0-450) /uL Baso # (Auto) (0-100) /uL RBC Morphology Macrocytosis Stomatocytes PT (10.1-12.7) SECONDS INR (0.9-1.3) APTT (26-36) SECONDS Sodium 132 L 134 L (137-145) mmol/L Potassium 3.0 L 3.8 (3.4-5.1) mmol/L Chloride 98 101 (98-107) mmol/L Carbon Dioxide 26 25 (22-32) mmol/L BUN 4 L 4 L (7-17) mg/dL Creatinine 0.35 L 0.39 L (0.52-1.04) mg/dL Estimated GFR > 60 > 60 (>60) mL/min BUN/Creatinine Ratio 11.4 10.3 (6-22) Glucose 73 L 82 (80-110) mg/dL Lactate 1.1 (0.7-2.1) mmol/L Calcium 7.1 L 7.4 L (8.4-10.2) mg/dL Total Bilirubin 0.4 0.5 (0.2-1.3) mg/dL AST 62 H 62 H (14-36) IU/L ALT 31 32 (<35) IU/L Alkaline Phosphatase 82 D 81 (38-126) U/L Total Protein 4.7 L 4.7 L (6.3-8.2) g/dL Albumin 2.4 L 2.4 L (3.5-5.0) g/dL Globulin 2.3 2.3 (1.7-4.1) g/dL Albumin/Globulin Ratio 1.0 1.0 (1.0-2.8) Lipase 133 D (23-300) U/L Procalcitonin 0.16 (<0.5) ng/mL SARS-CoV-2 (PCR) (Negative) Influenza A (RT-PCR) (NEGATIVE) Influenza B (RT-PCR) (NEGATIVE) RSV (PCR) (Negative) Imaging Data CT scan - abdomen/pelvis: Radiologist's Impression: PROCEDURE:? CT ABDOMEN PELVIS W CON ? INDICATIONS:? Abdominal pain ? TECHNIQUE:? After the administration of intravenous contrast, axial sections acquired from the lung bases to the pubic symphysis.? Coronal and sagittal reformats were performed.? For radiation dose reduction, the following was used:? automated exposure control, adjustment of mA and/or kV according to patient size.? ? COMPARISON:? [facility], CT, CT ABDOMEN PELVIS W CON, 03/08/2022, 17:12. ? FINDINGS: Image quality:? Excellent.? ? Lung bases:? Left basilar atelectasis and a small left pleural effusion.? Heart size is normal. ? Solid organs:? Liver: The liver has no mass or intrahepatic biliary ductal dilatation. The portal vein and hepatic veins are patent.? The liver has decreased density consistent with hepatic steatosis. Biliary:? Status post cholecystectomy.? Pancreas: The pancreas has no mass or ductal dilatation. There is no surrounding inflammation. Spleen: Normal size. There are no masses. Adrenals: No hypertrophy or nodules. Kidneys: No obstructive calculus or hydronephrosis.? No solid mass. No cystic mass. ? Peritoneum and bowel:? The distal esophagus and stomach are normal.? The small bowel has a normal caliber and appearance. The terminal ileum is normal. The large bowel has a normal caliber and appearance.? Diffuse ascites is seen throughout the abdomen.? ? Nodes and vessels:? No retroperitoneal or mesenteric adenopathy by size criteria.? The aorta has atherosclerosis with no aneurysmal dilatation.? ? Miscellaneous:? No abdominal wall mass or hernia. ? PELVIS:? Genitourinary:? The bladder has no wall thickening or mass. No bladder calcifications. ? Bones:? No suspicious bony lesions.? No vertebral body compression fractures.? Remote fractures of the right superior and inferior ramus. ? IMPRESSION:? 1. Hepatomegaly and hepatic steatosis. 2. Diffuse ascites. 3. Small left pleural effusion. ? ? Dictated by: Ifeanyi Fu M.D. on 03/18/2022 at 14:48 ? ? Chest x-ray: Radiologist's Impression: PROCEDURE:? XR CHEST 1V ? INDICATIONS:? suspected sepsis ? TECHNIQUE:? One view of the chest was acquired.? ? COMPARISON:? [facility], CR, XR CHEST 1V, 07/09/2020, 14:39. ? FINDINGS:? ? Surgical changes and devices:? None.? ? Lungs and pleura:? Emphysematous changes are seen in bilateral lung becker.? No focal infiltrate.? No pleural effusions or pneumothorax.? ? Mediastinum:? Mediastinal contours appear normal.? Heart size is normal.? ? Bones and chest wall:? No suspicious bony lesions.? Overlying soft tissues appear unremarkable.? ? IMPRESSION:? COPD.? No focal infiltrate, pleural effusion or pneumothorax. ? ? Dictated by: Cuauhtemoc Tamez M.D. on 03/18/2022 at 15:13 ? ? Approved by: Cuauhtemoc Tamez M.D. on 03/18/2022 at 15:13 ? [facility] Narrative Medical decision making narrative: 66-year-old female with past medical history osteoporosis, chronic diarrhea, CAD, chronic pain, hyperlipidemia, anxiety, depression presents to the ED with several days of abdominal pain, nausea, vomiting, fever, chills. Concern for infectious colitis versus diverticulitis versus bowel obstruction versus other intra-abdominal pathology versus sepsis versus dehydration versus other. Will obtain labs, lipase, lactate, UA, EKG, chest x-ray, CT abdomen pelvis. Will give IV fluids, Zofran, morphine for symptoms. Will reassess. Labs show hypokalemia to 3.0. Potassium was repleted and repeat potassium normalized to 3.8. CT abdomen pelvis showed some hepatomegaly and hepatic steatosis, diffuse ascites which is unchanged, small left pleural effusion. Patient has no signs of a respiratory infection, pleural effusion could be transudative from the ascites. Chest x-ray did not read as a pleural effusion. Patient's pain was controlled with morphine. Recommend follow-up with ortho to address the unhealed pelvic fractures, which are likely contributing to patient's symptoms. ED return precautions were discussed with patient. Patient verbalized understanding. <Vladimir Valverde, DO - Last Filed: 03/21/22 07:12> Lab Data Labs: Lab Results 03/18/22 03/18/22 03/18/22 Range/Units 13:50 15:40 15:40 WBC 6.3 (4.5-11.0) X10^3/uL RBC 2.76 L (4.0-5.2) X10^6/uL Hgb 11.8 L (12.0-16.0) g/dL Hct 34.4 L (36-46) % MCV 124.3 H (80-100) fL MCH 42.5 H (26-34) PG MCHC 34.2 (30-36) % RDW 16.1 H (11.6-14.8) % Plt Count 201 (150-400) X10^3/uL Neut % (Auto) 71.7 (50-75) % Lymph % (Auto) 14.3 L (25-40) % [place] % (Auto) 13.0 (3-14) % Eos % (Auto) 0.6 L (2-4) % Baso % (Auto) 0.4 (0-2) % Neut # (Auto) 4500 (4594-8961) /uL Lymph # (Auto) 900 L (1246-2411) /uL [place] # (Auto) 800 (0-900) /uL Eos # (Auto) 0 (0-450) /uL Baso # (Auto) 0 (0-100) /uL RBC Morphology See below Macrocytosis 3+ H Stomatocytes 2+ H PT 10.8 (10.1-12.7) SECONDS INR 0.9 (0.9-1.3) APTT 27 (26-36) SECONDS Sodium (137-145) mmol/L Potassium (3.4-5.1) mmol/L Chloride (98-107) mmol/L Carbon Dioxide (22-32) mmol/L BUN (7-17) mg/dL Creatinine (0.52-1.04) mg/dL Estimated GFR (>60) mL/min BUN/Creatinine Ratio (6-22) Glucose (80-110) mg/dL Lactate (0.7-2.1) mmol/L Calcium (8.4-10.2) mg/dL Total Bilirubin (0.2-1.3) mg/dL AST (14-36) IU/L ALT (<35) IU/L Alkaline Phosphatase (38-126) U/L Total Protein (6.3-8.2) g/dL Albumin (3.5-5.0) g/dL Globulin (1.7-4.1) g/dL Albumin/Globulin Ratio (1.0-2.8) Lipase (23-300) U/L Procalcitonin (<0.5) ng/mL SARS-CoV-2 (PCR) Negative (Negative) Influenza A (RT-PCR) Flu a negative (NEGATIVE) Influenza B (RT-PCR) Flu b negative (NEGATIVE) RSV (PCR) Negative (Negative) 03/18/22 03/18/22 03/18/22 Range/Units 15:40 15:40 18:38 WBC (4.5-11.0) X10^3/uL RBC (4.0-5.2) X10^6/uL Hgb (12.0-16.0) g/dL Hct (36-46) % MCV (80-100) fL MCH (26-34) PG MCHC (30-36) % RDW (11.6-14.8) % Plt Count (150-400) X10^3/uL Neut % (Auto) (50-75) % Lymph % (Auto) (25-40) % [place] % (Auto) (3-14) % Eos % (Auto) (2-4) % Baso % (Auto) (0-2) % Neut # (Auto) (0933-2946) /uL Lymph # (Auto) (7480-5306) /uL [place] # (Auto) (0-900) /uL Eos # (Auto) (0-450) /uL Baso # (Auto) (0-100) /uL RBC Morphology Macrocytosis Stomatocytes PT (10.1-12.7) SECONDS INR (0.9-1.3) APTT (26-36) SECONDS Sodium 132 L 134 L (137-145) mmol/L Potassium 3.0 L 3.8 (3.4-5.1) mmol/L Chloride 98 101 (98-107) mmol/L Carbon Dioxide 26 25 (22-32) mmol/L BUN 4 L 4 L (7-17) mg/dL Creatinine 0.35 L 0.39 L (0.52-1.04) mg/dL Estimated GFR > 60 > 60 (>60) mL/min BUN/Creatinine Ratio 11.4 10.3 (6-22) Glucose 73 L 82 (80-110) mg/dL Lactate 1.1 (0.7-2.1) mmol/L Calcium 7.1 L 7.4 L (8.4-10.2) mg/dL Total Bilirubin 0.4 0.5 (0.2-1.3) mg/dL AST 62 H 62 H (14-36) IU/L ALT 31 32 (<35) IU/L Alkaline Phosphatase 82 D 81 (38-126) U/L Total Protein 4.7 L 4.7 L (6.3-8.2) g/dL Albumin 2.4 L 2.4 L (3.5-5.0) g/dL Globulin 2.3 2.3 (1.7-4.1) g/dL Albumin/Globulin Ratio 1.0 1.0 (1.0-2.8) Lipase 133 D (23-300) U/L Procalcitonin 0.16 (<0.5) ng/mL SARS-CoV-2 (PCR) (Negative) Influenza A (RT-PCR) (NEGATIVE) Influenza B (RT-PCR) (NEGATIVE) RSV (PCR) (Negative) Discharge Plan Departure Patient Disposition: Home Clinical Impression: Abdominal pain Instructions: DI for Abdominal Pain-Adult Activity Restrictions/Additional Instructions: You were evaluated in the ED today for abdominal pain. Your potassium level was low and we gave you potassium. Your potassium is now normal after rechecking. Your CT scan and workup was otherwise without acute findings. Please follow-up with your PCP as soon as possible. Please also follow-up with ortho and rheumatology as per your PCPs recommendation. Please return to the ED if your symptoms worsen, you are persistently vomiting, you experience chest pain or shortness of breath. Prescriptions: No Action ASPIRIN/ACETAMINOPHEN/CAFFEINE (Excedrin Migraine Geltab) 1 tab PO PRN Qty: 0 (DME) permanent disabled parking permit Qty: 1 0RF Dose Instruction: As directed Rx Instructions: My patient qualifies for permanent disabled parking access. ondansetron 4 mg tablet,disintegrating 4 mg PO Q4H PRN (Reason: nausea and vomiting) Qty: 60 5RF atorvastatin 40 mg tablet 40 mg PO BEDTIME Qty: 90 3RF duloxetine 20 mg capsule,delayed release(DR/EC) 20 mg PO BID Qty: 180 3RF sulfamethoxazole-trimethoprim [Bactrim DS] 800-160 mg tablet 1 tab PO BID Qty: 14 0RF potassium chloride 10 mEq capsule, extended release 10 meq PO DAILY Qty: 90 1RF gabapentin 300 mg capsule See Rx Instructions .ROUTE .COMPLEX Qty: 180 0RF Dose Instruction: TAKE 1 CAPSULE BY MOUTH EVERY 8 HOURS Rx Instructions: TAKE 1 CAPSULE BY MOUTH EVERY 8 HOURS potassium chloride 10 mEq tablet extended release 10 meq PO DAILY Qty: 90 1RF methocarbamol 500 mg tablet See Rx Instructions .ROUTE .COMPLEX Qty: 30 1RF Dose Instruction: TAKE 1 TABLET(500 MG) BY MOUTH TWICE DAILY NEEDED FOR MUSCLE SPASMS OR PAIN Rx Instructions: TAKE 1 TABLET(500 MG) BY MOUTH TWICE DAILY NEEDED FOR MUSCLE SPASMS OR PAIN lorazepam 0.5 mg tablet See Rx Instructions .ROUTE .COMPLEX Qty: 60 1RF Dose Instruction: TAKE ONE TABLET BY MOUTH TWICE DAILY NEEDED FOR ANXIETY Rx Instructions: TAKE ONE TABLET BY MOUTH TWICE DAILY NEEDED FOR ANXIETY oxycodone-acetaminophen 5-325 mg tablet 2 tab PO Q6H PRN (Reason: pain) Qty: 112 0RF Rx Instructions: Must last two weeks. ferrous gluconate 324 mg (37.5 mg iron) tablet 324 mg PO DAILY Qty: 14 0RF Rx Instructions: daily x 2 weeks then change to BID ferrous gluconate 324 mg (37.5 mg iron) tablet 324 mg PO BID Qty: 180 3RF sucralfate [Carafate] 1 gram tablet 1 g PO BID Qty: 60 1RF dicyclomine 10 mg capsule 10 mg PO TID PRN (Reason: Stomach spasms) Qty: 30 2RF ciprofloxacin HCl [Cipro] 500 mg tablet 500 mg PO BID Qty: 14 0RF cholecalciferol (vitamin D3) [Vitamin D3] 50 mcg (2,000 unit) tablet 50 mcg PO DAILY Qty: 30 0RF Referrals: Tyler Doty DO [Primary Care Provider] - Visit Report Forms: Patient Portal/API <Vladimir Valverde DO - Last Filed: 03/21/22 07:12> Cosign ED Attending Cosignature Attestation: Dr Valverde Co-Sign Statement: I was available for consultation during this patient's emergency department visit. This chart is signed by myself for administrative purposes only. I did not have direct contact with this patient during this visit. They were seen independently by the APC.
--- NOTE | 2022-03-18 13:36 | DI.RAD.S_ITS ---
PROCEDURE: XR CHEST 1V INDICATIONS: suspected sepsis TECHNIQUE: One view of the chest was acquired. COMPARISON: [facility], CR, XR CHEST 1V, 07/09/2020, 14:39. FINDINGS: Surgical changes and devices: None. Lungs and pleura: Emphysematous changes are seen in bilateral lung becker. No focal infiltrate. No pleural effusions or pneumothorax. Mediastinum: Mediastinal contours appear normal. Heart size is normal. Bones and chest wall: No suspicious bony lesions. Overlying soft tissues appear unremarkable. IMPRESSION: COPD. No focal infiltrate, pleural effusion or pneumothorax. Dictated by: Cuauhtemoc Tamez M.D. on 03/18/2022 at 15:13 Approved by: Cuauhtemoc Tamez M.D. on 03/18/2022 at 15:13
--- NOTE | 2022-03-18 14:01 | DI.CT.S_ITS ---
PROCEDURE: CT ABDOMEN PELVIS W CON INDICATIONS: Abdominal pain TECHNIQUE: After the administration of intravenous contrast, axial sections acquired from the lung bases to the pubic symphysis. Coronal and sagittal reformats were performed. For radiation dose reduction, the following was used: automated exposure control, adjustment of mA and/or kV according to patient size. COMPARISON: [facility], CT, CT ABDOMEN PELVIS W CON, 03/08/2022, 17:12. FINDINGS: Image quality: Excellent. Lung bases: Left basilar atelectasis and a small left pleural effusion. Heart size is normal. Solid organs: Liver: The liver has no mass or intrahepatic biliary ductal dilatation. The portal vein and hepatic veins are patent. The liver has decreased density consistent with hepatic steatosis. Biliary: Status post cholecystectomy. Pancreas: The pancreas has no mass or ductal dilatation. There is no surrounding inflammation. Spleen: Normal size. There are no masses. Adrenals: No hypertrophy or nodules. Kidneys: No obstructive calculus or hydronephrosis. No solid mass. No cystic mass. Peritoneum and bowel: The distal esophagus and stomach are normal. The small bowel has a normal caliber and appearance. The terminal ileum is normal. The large bowel has a normal caliber and appearance. Diffuse ascites is seen throughout the abdomen. Nodes and vessels: No retroperitoneal or mesenteric adenopathy by size criteria. The aorta has atherosclerosis with no aneurysmal dilatation. Miscellaneous: No abdominal wall mass or hernia. PELVIS: Genitourinary: The bladder has no wall thickening or mass. No bladder calcifications. Bones: No suspicious bony lesions. No vertebral body compression fractures. Remote fractures of the right superior and inferior ramus. IMPRESSION: 1. Hepatomegaly and hepatic steatosis. 2. Diffuse ascites. 3. Small left pleural effusion. Dictated by: Ifeanyi Fu M.D. on 03/18/2022 at 14:48 Approved by: Ifeanyi Fu M.D. on 03/18/2022 at 14:54
[2022-03-18] MEDS: ONDANSETRON 4 MG/2 ML INJ IV (14:16)
[2022-03-18] MEDS: SODIUM CHLORIDE 0.9% 1,000 ML 1000 ML IV (14:16)
[2022-03-18] MEDS: MORPHINE 4 MG/ML INJ IV (14:16)
[2022-03-18 16:07] LABS: Add Manual Diff / Slide Review NO; Basophils Absolute Auto 0 /uL (0-100); Basophils Percent Auto 0.4 % (0-2); Eosinophils Absolute Auto 0 /uL (0-450); Eosinophils Percent Auto 0.6 % (2-4); Hematocrit 34.4 % (36-46); Hemoglobin 11.8 g/dL (12.0-16.0); Lymphocytes Absolute Auto 900 /uL (1100-4500); Lymphocytes Percent Auto 14.3 % (25-40); Mean Corpuscular HGB Conc 34.2 % (30-36); Mean Corpuscular Hemoglobin 42.5 PG (26-34); Mean Corpuscular Volume 124.3 fL (80-100); Monocytes Absolute Auto 800 /uL (0-900); Neutrophils Absolute Auto 4500 /uL (1500-7000); Neutrophils Percent Auto 71.7 % (50-75); Platelet Count 201 X10^3/uL (150-400); Red Blood Cell Count 2.76 X10^6/uL (4.0-5.2); Red Cell Distribution Width 16.1 % (11.6-14.8); White Blood Cell Count 6.3 X10^3/uL (4.5-11.0)
[2022-03-18 16:18] LABS: INR 0.9 (0.9-1.3); Prothrombin Time 10.8 SECONDS (10.1-12.7)
[2022-03-18 16:20] LABS: PTT Partial Thromboplastin Tim 27 SECONDS (26-36)
[2022-03-18 16:23] LABS: Alanine Aminotransferase 31 IU/L (<35); Albumin 2.4 g/dL (3.5-5.0); Alkaline Phosphatase 82 U/L (38-126); Aspartate Aminotransferase 62 IU/L (14-36); BUN Creatinine Ratio 11.4 (6-22); Bilirubin Total 0.4 mg/dL (0.2-1.3); Blood Urea Nitrogen 4 mg/dL (7-17); Calcium 7.1 mg/dL (8.4-10.2); Carbon Dioxide 26 mmol/L (22-32); Chloride 98 mmol/L (98-107); Estimated Glomerular Filt Rate > 60 mL/min (>60); Globulin 2.3 g/dL (1.7-4.1); Glucose 73 mg/dL (80-110); HEMOLYSIS < 15 (0-50); Lipase 133 U/L (23-300); Sodium 132 mmol/L (137-145); Total Protein 4.7 g/dL (6.3-8.2)
[2022-03-18 16:24] LABS: Lactate (Lactic Acid) 1.1 mmol/L (0.7-2.1)
[2022-03-18 16:27] LABS: Influenza A - CEPHEID Flu A NEGATIVE (NEGATIVE); Influenza B - CEPHEID Flu B NEGATIVE (NEGATIVE); Respiratory Syncytial Virus Negative (Negative)
[2022-03-18 16:30] LABS: COVID-19 CEPHEID 4-PLEX PCR Negative (Negative)
[2022-03-18 16:40] LABS: Procalcitonin 0.16 ng/mL (<0.5)
[2022-03-18] MEDS: POTASSIUM CHLORIDE 20 MEQ/15 ML UDC 40 MEQ PO (17:37)
[2022-03-18 19:03] LABS: Alanine Aminotransferase 32 IU/L (<35); Albumin 2.4 g/dL (3.5-5.0); Alkaline Phosphatase 81 U/L (38-126); Aspartate Aminotransferase 62 IU/L (14-36); BUN Creatinine Ratio 10.3 (6-22); Bilirubin Total 0.5 mg/dL (0.2-1.3); Blood Urea Nitrogen 4 mg/dL (7-17); Calcium 7.4 mg/dL (8.4-10.2); Carbon Dioxide 25 mmol/L (22-32); Chloride 101 mmol/L (98-107); Estimated Glomerular Filt Rate > 60 mL/min (>60); Globulin 2.3 g/dL (1.7-4.1); Glucose 82 mg/dL (80-110); HEMOLYSIS < 15 (0-50); Potassium 3.8 mmol/L (3.4-5.1); Sodium 134 mmol/L (137-145); Total Protein 4.7 g/dL (6.3-8.2)
[2022-03-18 19:19] LABS: Macrocytosis 3+
[2022-03-18 19:20] LABS: Stomatocytes 2+
== END 2022-03-18 19:56 | disposition home or self-care (01) ==
PROVIDERS: Emergency Provider Student in an Organized Health Care Education/Training Program; PCP Family Medicine
DX: R10.9 Unspecified abdominal pain (principal); R11.2 Nausea with vomiting, unspecified; Z20.822 Contact with and (suspected) exposure to COVID-19
CPT/HCPCS: 0241U; 36415; 71045; 74177; 80053; 83605; 83690; 84145; 85025; 85610; 85730; 87040; 93005; 93010; 96361; 96374; 96375; 99284; J2270; J2405; Q9967

== ENCOUNTER 2022-04-04 10:32 | Observation (INO) | payer MEDICARE, MEDICAID, SELFPAY ==
[2021-05-31 13:07] VITALS: BMI 20.7
[2022-04-04] VITALS (59 sets, daily range): BP systolic 79–142; BP diastolic 41–69; PULSE 64–95; RESP 16–18; TEMP 35.6–36.9; O2SAT 89–100; BMI 24.0; BMI 23.6
--- NOTE | 2022-04-04 11:54 | DI.US.S_ITS ---
PROCEDURE: US ABDOMEN COMPLETE INDICATIONS: hx ascites, requested by pcp TECHNIQUE: Real-time scanning was performed of the abdominal and retroperitoneal organs, with image documentation. COMPARISON: [facility], US, US ABDOMEN COMPLETE, 08/17/2018, 9:29. [facility], CT, CT ABDOMEN PELVIS W CON, 03/18/2022, 14:07. FINDINGS: Liver: Is of increased echogenicity consistent with diffuse hepatic steatosis. It has a probable cirrhotic appearance. No masses. Gallbladder: Surgically absent Biliary ducts: Intrahepatic bile ducts are non-dilated. Extrahepatic bile duct caliber measures 6 mm. Normal is 6-7 mm or less in diameter, or 10 mm or less post-cholecystectomy. Pancreas: Not visualized secondary to overlying bowel gas. Spleen: Spleen is normal in size and homogeneous in echotexture. It measures 7 cm. Kidneys: On today's study, the right kidney was measured as 8.3 cm, and the left kidney was not seen. However, on the recent CT, the right kidney on coronal images is noted to measure at least 9.7 cm and the left kidney is noted to measure at least 9.2 cm. There is no hydronephrosis or renal mass. Aorta: Not well seen secondary to overlying bowel gas, unremarkable on recent CT. Iliacs: Not seen secondary to overlying it bowel gas, normal caliber on recent CT. IVC: Intrahepatic inferior vena cava is patent. Miscellaneous: Moderate ascites. IMPRESSION: 1. Probable cirrhotic liver, with diffuse hepatic steatosis. 2. Moderate ascites. 3. Remote cholecystectomy. Dictated by: Bang Demarco M.D. on 04/04/2022 at 13:23 Approved by: Bang Demarco M.D. on 04/04/2022 at 13:27
--- NOTE | 2022-04-04 11:56 | DI.RAD.S_ITS ---
PROCEDURE: XR CHEST 1V INDICATIONS: chronic pain, weakness TECHNIQUE: One view of the chest was acquired. COMPARISON: [facility], CT, CT CERVICAL SPINE WITHOUT CONTRAST, 03/24/2022, 11:00. [facility], CR, XR CHEST 1V, 03/18/2022, 14:31. FINDINGS: Surgical changes and devices: None. Lungs and pleura: Centrilobular emphysema. Lungs are clear. No pleural effusions or pneumothorax. Mediastinum: Mediastinal contours appear normal. Heart size is normal. Bones and chest wall: No suspicious bony lesions. Overlying soft tissues appear unremarkable. IMPRESSION: Centrilobular emphysema. No evidence acute pulmonary process. Dictated by: Bang Demarco M.D. on 04/04/2022 at 12:12 Approved by: Bang Demarco M.D. on 04/04/2022 at 12:14
[2022-04-04] MEDS: TET,DIPH,PERTUSS(ACELL),VAC/PF 0.5 ML SYRINGE IM (12:54)
[2022-04-04] MEDS: OXYCODONE/ACETAMINOPHEN 5/325 TABLET 2 TAB PO ×2 (12:55→19:51)
--- NOTE | 2022-04-04 13:09 | ED_ITS ---
HPI - Back Pain/Injury <Pat Haynes, DO - Last Filed: 04/10/22 10:51> General Chief Complaint: Back Pain/Injury Stated Complaint: chronic pain/numb issue Time Seen by Provider: 04/04/22 11:53 Source: patient and EMS Limitations: no limitations History of Present Illness HPI Narrative: This is a 66-year-old female with history of dyslipidemia, chronic abdominal pain, cirrhosis, osteoporosis, coronary artery disease, anxiety and depression was seen for colitis in the past. Patient presents today with complaint of multiple falls all over, particularly her abdomen. She denies loss of consciousness, she states neck and back pain, she notes she had a cut on her arm several days ago from 1 of her falls, she describes epigastric and lower abdominal pain, no shortness of breath, she states no upper chest pain, she is had cough, she says she has emphysema, no fevers or chills. Nonproductive cough, no nausea or vomiting, she states she has been having diarrhea frequently. She denies new urinary symptoms. She is significant mobility issues she states in her helps her with toileting. She states her weight has increased from 100 lb 250 lb over the last couple weeks. She does use tobacco, occasional alcohol, no illicit. She is not able to tell me clearly why she has cirrhosis although she states she is following with Gastroenterology. She denies prior cardiac stents, states she is had her gallbladder out. She is known drug community paramedics Magdaleno Bowman although she often will not return his calls/texts. Related Data Home Medications Medication Instructions Recorded Confirmed gabapentin 300 mg capsule 300 mg PO Q8H 04/04/22 04/04/22 Previous Rx's Medication Instructions Recorded permanent disabled parking permit #1 ea 11/11/18 ferrous gluconate 324 mg (37.5 mg 324 mg PO BID #180 tabs 03/17/22 iron) tablet oxycodone-acetaminophen 5 mg-325 2 tab PO Q6H PRN pain #112 tabs 04/01/22 mg tablet atorvastatin 40 mg tablet 40 mg PO BEDTIME #90 tabs 04/04/22 furosemide 40 mg tablet 40 mg PO DAILY #30 tabs 04/06/22 spironolactone 25 mg tablet 25 mg PO DAILY #30 tabs 04/06/22 Allergies Allergy/AdvReac Type Severity Reaction Status Date / Time adhesive Allergy Mild TEARS Verified 03/18/22 14:13 SKIN,USE COBAN Review of Systems <Pat Leslie Haynes DO - Last Filed: 04/10/22 10:51> Review of Systems ROS Unobtainable: All systems reviewed & are unremarkable except as noted in HPI and below Patient History <Pat Leslie Haynes DO - Last Filed: 04/10/22 10:51> Medical History Abdominal pain Anxiety (04/28/17) C. difficile colitis Chronic diarrhea Chronic pain Diarrhea Dyspepsia Elevated liver function tests Left breast lump Low back pain without sciatica (08/05/16) Mixed hyperlipidemia (04/28/17) Osteoarthritis (12/15/13) Osteoporosis (12/15/13) Osteoporosis Pain of both breasts Pancreatic cyst Surgical History History of arthroplasty of right shoulder History of cholecystectomy Family History Father No problems noted. Mother PE (pulmonary thromboembolism) Social History marital status: household members: spouse Smoking Status: Current every day smoker Tobacco: How many years used: 25 alcohol intake: never substance use type: does not use Smoking Status: Current every day smoker alcohol intake frequency: a few times a week Substance Use Type: does not use Exam <Pat Leslie Haynes DO - Last Filed: 04/10/22 10:51> Narrative Exam Narrative: GEN: Thin elderly appearing female, alert and oriented x 3, patient appears to be in mild distress. Patient wearing sunglasses despite it being rainy and snowing outside. HEENT: Atraumatic, pupils are equal round reactive to light, extraocular movements are intact, nares are clear, TMs are clear with no fluid, there is no conjunctival pallor. Throat is clear without any exudates, erythema, tonsillar enlargement or uvular deviation HEART: Regular rate and rhythm without murmur, clicks, rubs. Pulses are equal in upper and lower extremities. Patient has swelling bilateral lower e xtremities. Some mild redness bilateral lower extremity anterior tibia. LUNGS:Lungs clear to auscultation, no wheezes, rales, crackles, chest moves symmetrically, no tachypnea accessory muscle use. ABD:bowel sounds normal, soft, non-tender, no guarding, rebound, rigidity, no masses noted, no hepatosplenomegaly :No CVA tenderness BACK: Patient has intermittent cervical, thoracic and lumbar tenderness a variety of areas that changes on repeat examination. She does have ecchymosis of the right shoulder. Patient has decreased range of motion. Patient's gait is not tested. Rectal exam is deferred. Muscle strength is 5/5 in upper extremity extremities, sensation intact in all 4 extremities. DTRs are 2/4 and lower extremities. Dorsalis pedis and tibialis pulses are 2+ and lower extremities. Sensation is intact in the lower extremities. MSCL: Non-tender, no muscle atrophy, no knee bony tenderness of upper or lower extremities. Full range of motion NEURO:CN 2-12 intact, sensation normal SKIN: Patient has erythema over the sacral region and buttocks but skin appears intact, patient has large skin tear over her left biceps with ecchymosis and erythema, she has a large area of ecchymosis of the posterior right shoulder. Initial Vital Signs Initial Vital Signs: Vital Signs Pulse Rate 71 04/04/22 10:37 Pulse Oximetry 93 04/04/22 10:37 <Mary Anne Schmitz MD - Last Filed: 04/04/22 20:15> Initial Vital Signs Initial Vital Signs: Vital Signs Pulse Rate 71 04/04/22 10:37 Pulse Oximetry 93 04/04/22 10:37 Course <Pat Haynes DO - Last Filed: 04/10/22 10:51> Orders Ordered: Discontinued Medications Acetaminophen (Acetaminophen 325 Mg Tablet) 650 mg PO Q6H PRN PRN Reason: Fever/Mild Pain (1-3) Last Admin: 04/05/22 10:47 Dose: 650 mg Documented By: AKP Atorvastatin Calcium (Atorvastatin 20 Mg Tablet) 40 mg PO BEDTIME DALILA Last Admin: 04/05/22 20:51 Dose: 40 mg Documented By: Admin: 04/04/22 20:59 Dose: 40 mg Documented By: SB Diphtheria/Tetanus/Acell Pertussis (Tet,Diph,Pertuss(Acell),Vac/Pf 0.5 Ml Syringe) 0.5 ml IM .ONCE ONE Stop: 12/23/22 12:43 Last Admin: 04/04/22 12:54 Dose: 0.5 ml Documented By: MLPhyllis Enoxaparin Sodium (Enoxaparin 40 Mg/0.4 Ml Syringe) 40 mg SUBCUT DAILY [facility] Last Admin: 04/06/22 08:35 Dose: 40 mg Documented By: Admin: 04/05/22 08:07 Dose: 40 mg Documented By: AKP Furosemide (Furosemide 40 Mg Tablet) 40 mg PO DAILY [facility] Last Admin: 04/06/22 08:35 Dose: 40 mg Documented By: Admin: 04/05/22 08:07 Dose: 40 mg Documented By: AKP Piperacillin Sod/Tazobactam (Sod 4.5 gm/ Sodium Chloride) 100 mls @ 200 mls/hr IV NOW ONE Stop: 04/04/22 14:10 Last Infusion: 04/04/22 17:05 Dose: 0 mls/hr Documented By: Admin: 04/04/22 16:18 Dose: 200 mls/hr Documented By: SB Sodium Chloride (Normal Saline 0.9%) 1,000 mls @ 1,000 mls/hr IV BOLUS ONE Stop: 04/04/22 18:26 Last Infusion: 04/04/22 18:40 Dose: 0 mls/hr Documented By: Admin: 04/04/22 17:36 Dose: 1,000 mls/hr Documented By: SB Albumin Human (Albuminar) 25 gm in 100 mls @ 60 mls/hr IV NOW ONE Stop: 04/04/22 20:14 Last Infusion: 04/04/22 21:06 Dose: 0 mls/hr Documented By: Admin: 04/04/22 19:20 Dose: 60 mls/hr Documented By: SB Sodium Chloride (Normal Saline 0.9%) 1,000 mls @ 1,000 mls/hr IV BOLUS ONE Stop: 04/04/22 23:04 Last Infusion: 04/04/22 23:00 Dose: 0 mls/hr Documented By: Admin: 04/04/22 22:05 Dose: 1,000 mls/hr Documented By: SB Sodium Chloride (Normal Saline 0.9%) 1,000 mls @ 84 mls/hr IV CONT DALILA Last Admin: 04/05/22 02:00 Dose: 84 mls/hr Documented By: EMIL Influenza Virus Vaccine (Influenza Hd Vaccine 0.7 Ml Syringe) 0.7 ml IM .ONCE ONE Stop: 04/05/22 09:01 Last Admin: 04/05/22 07:56 Dose: Not Given Documented By: MINDY Magnesium Chloride (Magnesium Chloride 64 Mg Tablet) 128 mg PO NOW ONE Stop: 04/06/22 10:01 Last Admin: 04/06/22 10:38 Dose: 128 mg Documented By: NILS Metoclopramide HCl (Metoclopramide 10 Mg/2 Ml Inj) 5 mg IV Q6HR PRN PRN Reason: Nausea And Vomiting Morphine Sulfate (Morphine 4 Mg/Ml Inj) 4 mg IV NOW ONE Stop: 04/04/22 14:10 Last Admin: 04/04/22 16:04 Dose: 4 mg Documented By: ALBAN Naloxone HCl (Naloxone 0.4 Mg/Ml Vial) 0.2 mg IV Q2MIN PRN PRN Reason: Opiate Reversal Oxycodone HCl (Oxycodone Ir 5 Mg Tablet) 5 mg PO Q3H PRN PRN Reason: Pain, Moderate (4-6) Last Admin: 04/04/22 23:04 Dose: 5 mg Documented By: EMIL Oxycodone HCl (Oxycodone Ir 5 Mg Tablet) 5 mg PO Q6H PRN PRN Reason: Pain, Moderate (4-6) Last Admin: 04/06/22 08:33 Dose: 5 mg Documented By: Admin: 04/06/22 00:35 Dose: 5 mg Documented By: Admin: 04/05/22 18:03 Dose: 5 mg Documented By: Admin: 04/05/22 12:01 Dose: 5 mg Documented By: Admin: 04/05/22 05:37 Dose: 5 mg Documented By: EMIL Oxycodone HCl (Oxycodone Ir 10 Mg Tablet) 10 mg PO Q6HR PRN PRN Reason: Pain, Severe (7-10) Last Admin: 04/06/22 10:41 Dose: 10 mg Documented By: Admin: 04/06/22 03:36 Dose: 10 mg Documented By: Admin: 04/05/22 20:51 Dose: 10 mg Documented By: Admin: 04/05/22 13:50 Dose: 10 mg Documented By: Admin: 04/05/22 08:07 Dose: 10 mg Documented By: Admin: 04/05/22 02:11 Dose: 10 mg Documented By: AMH Oxycodone HCl (Oxycodone Ir 5 Mg Tablet) 5 mg PO Q3H PRN PRN Reason: Pain, Moderate (4-6) Oxycodone HCl (Oxycodone Ir 10 Mg Tablet) 10 mg PO Q3HR PRN PRN Reason: Pain, Severe (7-10) Last Admin: 04/06/22 16:31 Dose: 10 mg Documented By: Admin: 04/06/22 13:38 Dose: 10 mg Documented By: NILS Oxycodone/Acetaminophen (Oxycodone/Acetaminophen 5/325 Tablet) 2 tab PO NOW ONE Stop: 04/04/22 12:45 Last Admin: 04/04/22 12:55 Dose: 2 tab Documented By: KRISTOFER Oxycodone/Acetaminophen (Oxycodone/Acetaminophen 5/325 Tablet) 2 tab PO NOW ONE Stop: 04/04/22 19:48 Last Admin: 04/04/22 19:51 Dose: 2 tab Documented By: ALBAN Potassium Chloride (Potassium Chloride 20 Meq Tab) 40 meq PO Q6H [facility] Stop: 04/05/22 13:31 Last Admin: 04/05/22 13:50 Dose: 40 meq Documented By: Admin: 04/05/22 07:46 Dose: 40 meq Documented By: MINDY Spironolactone (Spironolactone 25 Mg Tablet) 25 mg PO DAILY [facility] Last Admin: 04/06/22 08:35 Dose: 25 mg Documented By: EM Consultations Consultation #1: Dr. Chaparro radiology kindly took patient for paracentesis for diagnostic to evaluate for SBP Consultation #2: Dr. Alvarado, hospitalist reviewed patients peritoneal fluids. Feels unlikely to be SBP, reviewed hypotensive after paracentesis already starting albumin. Vital Signs Vital signs: Vital Signs - 8 hr 04/04/22 12:30 04/04/22 12:30 04/04/22 13:00 Pulse Rate 72 Blood Pressure 117/58 L 142/67 H Pulse Oximetry 98 04/04/22 13:00 04/04/22 13:30 04/04/22 13:30 Pulse Rate 74 73 Blood Pressure 118/57 L Pulse Oximetry 98 92 04/04/22 14:00 04/04/22 14:37 04/04/22 14:37 Pulse Rate 76 80 Blood Pressure 116/58 L Pulse Oximetry 96 95 04/04/22 15:00 04/04/22 15:00 04/04/22 15:30 Pulse Rate 74 Blood Pressure 110/55 L 115/57 L Pulse Oximetry 92 04/04/22 15:30 04/04/22 16:00 04/04/22 16:00 Pulse Rate 68 76 Blood Pressure 118/54 L Pulse Oximetry 97 95 04/04/22 16:30 04/04/22 16:30 04/04/22 17:00 Pulse Rate 77 Blood Pressure 108/69 103/49 L Pulse Oximetry 96 04/04/22 17:00 04/04/22 17:02 04/04/22 17:02 Pulse Rate 73 72 Blood Pressure 84/45 L Pulse Oximetry 99 96 04/04/22 17:10 04/04/22 17:10 04/04/22 17:12 Pulse Rate 75 Blood Pressure 94/46 L 96/48 L Pulse Oximetry 93 04/04/22 17:12 04/04/22 17:16 04/04/22 17:16 Pulse Rate 79 70 Blood Pressure 91/48 L Pulse Oximetry 92 95 04/04/22 17:17 04/04/22 17:17 04/04/22 17:20 Pulse Rate 69 Blood Pressure 84/47 L 89/46 L Pulse Oximetry 96 04/04/22 17:20 04/04/22 17:22 04/04/22 17:22 Pulse Rate 68 70 Blood Pressure 90/48 L Pulse Oximetry 95 95 04/04/22 17:25 04/04/22 17:25 04/04/22 17:27 Pulse Rate 70 Blood Pressure 82/43 L 88/47 L Pulse Oximetry 96 04/04/22 17:27 04/04/22 17:30 04/04/22 17:30 Pulse Rate 69 69 Blood Pressure 96/49 L Pulse Oximetry 96 96 04/04/22 17:32 04/04/22 17:32 04/04/22 17:35 Pulse Rate 68 Blood Pressure 96/50 L 93/49 L Pulse Oximetry 96 04/04/22 17:35 04/04/22 17:37 04/04/22 17:37 Pulse Rate 68 92 H Blood Pressure 101/52 L Pulse Oximetry 96 94 04/04/22 17:40 04/04/22 17:40 04/04/22 17:49 Pulse Rate 69 77 Blood Pressure 88/45 L Pulse Oximetry 95 97 04/04/22 17:49 04/04/22 17:50 04/04/22 17:50 Pulse Rate 91 H Blood Pressure 96/50 L 105/53 L Pulse Oximetry 94 04/04/22 18:00 04/04/22 18:00 04/04/22 18:10 Pulse Rate 84 Blood Pressure 102/51 L 101/49 L Pulse Oximetry 94 04/04/22 18:10 04/04/22 18:20 04/04/22 18:20 Pulse Rate 71 95 H Blood Pressure 101/51 L Pulse Oximetry 97 95 04/04/22 18:30 04/04/22 18:30 04/04/22 18:40 Pulse Rate 77 Blood Pressure 95/45 L 103/55 L Pulse Oximetry 95 04/04/22 18:40 04/04/22 18:50 04/04/22 18:50 Pulse Rate 79 88 Blood Pressure 101/54 L Pulse Oximetry 97 95 04/04/22 19:00 04/04/22 19:12 04/04/22 19:12 Pulse Rate 84 91 H Blood Pressure 105/49 L Pulse Oximetry 93 91 04/04/22 19:30 04/04/22 19:55 04/04/22 19:55 Pulse Rate 70 81 Blood Pressure 104/51 L Pulse Oximetry 96 94 <Mary Anne Schmitz MD - Last Filed: 04/04/22 20:15> Orders Ordered: Discontinued Medications Acetaminophen (Acetaminophen 325 Mg Tablet) 650 mg PO Q6H PRN PRN Reason: Fever/Mild Pain (1-3) Last Admin: 04/05/22 10:47 Dose: 650 mg Documented By: AKP Atorvastatin Calcium (Atorvastatin 20 Mg Tablet) 40 mg PO BEDTIME [facility] Last Admin: 04/05/22 20:51 Dose: 40 mg Documented By: Admin: 04/04/22 20:59 Dose: 40 mg Documented By: SB Diphtheria/Tetanus/Acell Pertussis (Tet,Diph,Pertuss(Acell),Vac/Pf 0.5 Ml Syringe) 0.5 ml IM .ONCE ONE Stop: 04/04/22 12:43 Last Admin: 04/04/22 12:54 Dose: 0.5 ml Documented By: MLM Enoxaparin Sodium (Enoxaparin 40 Mg/0.4 Ml Syringe) 40 mg SUBCUT DAILY [facility] Last Admin: 04/06/22 08:35 Dose: 40 mg Documented By: Admin: 04/05/22 08:07 Dose: 40 mg Documented By: AKP Furosemide (Furosemide 40 Mg Tablet) 40 mg PO DAILY [facility] Last Admin: 04/06/22 08:35 Dose: 40 mg Documented By: Admin: 04/05/22 08:07 Dose: 40 mg Documented By: AKP Piperacillin Sod/Tazobactam (Sod 4.5 gm/ Sodium Chloride) 100 mls @ 200 mls/hr IV NOW ONE Stop: 04/04/22 14:10 Last Infusion: 04/04/22 17:05 Dose: 0 mls/hr Documented By: Admin: 04/04/22 16:18 Dose: 200 mls/hr Documented By: SB Sodium Chloride (Normal Saline 0.9%) 1,000 mls @ 1,000 mls/hr IV BOLUS ONE Stop: 04/04/22 18:26 Last Infusion: 04/04/22 18:40 Dose: 0 mls/hr Documented By: Admin: 04/04/22 17:36 Dose: 1,000 mls/hr Documented By: SB Albumin Human (Albuminar) 25 gm in 100 mls @ 60 mls/hr IV NOW ONE Stop: 04/04/22 20:14 Last Infusion: 04/04/22 21:06 Dose: 0 mls/hr Documented By: Admin: 04/04/22 19:20 Dose: 60 mls/hr Documented By: SB Sodium Chloride (Normal Saline 0.9%) 1,000 mls @ 1,000 mls/hr IV BOLUS ONE Stop: 04/04/22 23:04 Last Infusion: 04/04/22 23:00 Dose: 0 mls/hr Documented By: Admin: 04/04/22 22:05 Dose: 1,000 mls/hr Documented By: SB Sodium Chloride (Normal Saline 0.9%) 1,000 mls @ 84 mls/hr IV CONT [facility] Last Admin: 04/05/22 02:00 Dose: 84 mls/hr Documented By: EMIL Influenza Virus Vaccine (Influenza Hd Vaccine 0.7 Ml Syringe) 0.7 ml IM .ONCE ONE Stop: 04/05/22 09:01 Last Admin: 04/05/22 07:56 Dose: Not Given Documented By: MINDY Magnesium Chloride (Magnesium Chloride 64 Mg Tablet) 128 mg PO NOW ONE Stop: 04/06/22 10:01 Last Admin: 04/06/22 10:38 Dose: 128 mg Documented By: NILS Metoclopramide HCl (Metoclopramide 10 Mg/2 Ml Inj) 5 mg IV Q6HR PRN PRN Reason: Nausea And Vomiting Morphine Sulfate (Morphine 4 Mg/Ml Inj) 4 mg IV NOW ONE Stop: 04/04/22 14:10 Last Admin: 04/04/22 16:04 Dose: 4 mg Documented By: ALBAN Naloxone HCl (Naloxone 0.4 Mg/Ml Vial) 0.2 mg IV Q2MIN PRN PRN Reason: Opiate Reversal Oxycodone HCl (Oxycodone Ir 5 Mg Tablet) 5 mg PO Q3H PRN PRN Reason: Pain, Moderate (4-6) Last Admin: 04/04/22 23:04 Dose: 5 mg Documented By: EMIL Oxycodone HCl (Oxycodone Ir 5 Mg Tablet) 5 mg PO Q6H PRN PRN Reason: Pain, Moderate (4-6) Last Admin: 04/06/22 08:33 Dose: 5 mg Documented By: Admin: 04/06/22 00:35 Dose: 5 mg Documented By: Admin: 04/05/22 18:03 Dose: 5 mg Documented By: Admin: 04/05/22 12:01 Dose: 5 mg Documented By: Admin: 04/05/22 05:37 Dose: 5 mg Documented By: EMIL Oxycodone HCl (Oxycodone Ir 10 Mg Tablet) 10 mg PO Q6HR PRN PRN Reason: Pain, Severe (7-10) Last Admin: 04/06/22 10:41 Dose: 10 mg Documented By: Admin: 04/06/22 03:36 Dose: 10 mg Documented By: Admin: 04/05/22 20:51 Dose: 10 mg Documented By: Admin: 04/05/22 13:50 Dose: 10 mg Documented By: Admin: 04/05/22 08:07 Dose: 10 mg Documented By: Admin: 04/05/22 02:11 Dose: 10 mg Documented By: EMIL Oxycodone HCl (Oxycodone Ir 5 Mg Tablet) 5 mg PO Q3H PRN PRN Reason: Pain, Moderate (4-6) Oxycodone HCl (Oxycodone Ir 10 Mg Tablet) 10 mg PO Q3HR PRN PRN Reason: Pain, Severe (7-10) Last Admin: 04/06/22 16:31 Dose: 10 mg Documented By: Admin: 04/06/22 13:38 Dose: 10 mg Documented By: NILS Oxycodone/Acetaminophen (Oxycodone/Acetaminophen 5/325 Tablet) 2 tab PO NOW ONE Stop: 04/04/22 12:45 Last Admin: 04/04/22 12:55 Dose: 2 tab Documented By: KRISTOFER Oxycodone/Acetaminophen (Oxycodone/Acetaminophen 5/325 Tablet) 2 tab PO NOW ONE Stop: 04/04/22 19:48 Last Admin: 04/04/22 19:51 Dose: 2 tab Documented By: ALBAN Potassium Chloride (Potassium Chloride 20 Meq Tab) 40 meq PO Q6H [facility] Stop: 04/05/22 13:31 Last Admin: 04/05/22 13:50 Dose: 40 meq Documented By: Admin: 04/05/22 07:46 Dose: 40 meq Documented By: MINDY Spironolactone (Spironolactone 25 Mg Tablet) 25 mg PO DAILY [facility] Last Admin: 04/06/22 08:35 Dose: 25 mg Documented By: EM Vital Signs Vital signs: Vital Signs - 8 hr 04/04/22 12:30 04/04/22 12:30 04/04/22 13:00 Pulse Rate 72 Blood Pressure 117/58 L 142/67 H Pulse Oximetry 98 04/04/22 13:00 04/04/22 13:30 04/04/22 13:30 Pulse Rate 74 73 Blood Pressure 118/57 L Pulse Oximetry 98 92 04/04/22 14:00 04/04/22 14:37 04/04/22 14:37 Pulse Rate 76 80 Blood Pressure 116/58 L Pulse Oximetry 96 95 04/04/22 15:00 04/04/22 15:00 04/04/22 15:30 Pulse Rate 74 Blood Pressure 110/55 L 115/57 L Pulse Oximetry 92 04/04/22 15:30 04/04/22 16:00 04/04/22 16:00 Pulse Rate 68 76 Blood Pressure 118/54 L Pulse Oximetry 97 95 04/04/22 16:30 04/04/22 16:30 04/04/22 17:00 Pulse Rate 77 Blood Pressure 108/69 103/49 L Pulse Oximetry 96 04/04/22 17:00 04/04/22 17:02 04/04/22 17:02 Pulse Rate 73 72 Blood Pressure 84/45 L Pulse Oximetry 99 96 04/04/22 17:10 04/04/22 17:10 04/04/22 17:12 Pulse Rate 75 Blood Pressure 94/46 L 96/48 L Pulse Oximetry 93 04/04/22 17:12 04/04/22 17:16 04/04/22 17:16 Pulse Rate 79 70 Blood Pressure 91/48 L Pulse Oximetry 92 95 04/04/22 17:17 04/04/22 17:17 04/04/22 17:20 Pulse Rate 69 Blood Pressure 84/47 L 89/46 L Pulse Oximetry 96 04/04/22 17:20 04/04/22 17:22 04/04/22 17:22 Pulse Rate 68 70 Blood Pressure 90/48 L Pulse Oximetry 95 95 04/04/22 17:25 04/04/22 17:25 04/04/22 17:27 Pulse Rate 70 Blood Pressure 82/43 L 88/47 L Pulse Oximetry 96 04/04/22 17:27 04/04/22 17:30 04/04/22 17:30 Pulse Rate 69 69 Blood Pressure 96/49 L Pulse Oximetry 96 96 04/04/22 17:32 04/04/22 17:32 04/04/22 17:35 Pulse Rate 68 Blood Pressure 96/50 L 93/49 L Pulse Oximetry 96 04/04/22 17:35 04/04/22 17:37 04/04/22 17:37 Pulse Rate 68 92 H Blood Pressure 101/52 L Pulse Oximetry 96 94 04/04/22 17:40 04/04/22 17:40 04/04/22 17:49 Pulse Rate 69 77 Blood Pressure 88/45 L Pulse Oximetry 95 97 04/04/22 17:49 04/04/22 17:50 04/04/22 17:50 Pulse Rate 91 H Blood Pressure 96/50 L 105/53 L Pulse Oximetry 94 04/04/22 18:00 04/04/22 18:00 04/04/22 18:10 Pulse Rate 84 Blood Pressure 102/51 L 101/49 L Pulse Oximetry 94 04/04/22 18:10 04/04/22 18:20 04/04/22 18:20 Pulse Rate 71 95 H Blood Pressure 101/51 L Pulse Oximetry 97 95 04/04/22 18:30 04/04/22 18:30 04/04/22 18:40 Pulse Rate 77 Blood Pressure 95/45 L 103/55 L Pulse Oximetry 95 04/04/22 18:40 04/04/22 18:50 04/04/22 18:50 Pulse Rate 79 88 Blood Pressure 101/54 L Pulse Oximetry 97 95 04/04/22 19:00 04/04/22 19:12 04/04/22 19:12 Pulse Rate 84 91 H Blood Pressure 105/49 L Pulse Oximetry 93 91 04/04/22 19:30 04/04/22 19:55 04/04/22 19:55 Pulse Rate 70 81 Blood Pressure 104/51 L Pulse Oximetry 96 94 MDM - Back Pain/Injury <Pat Haynes, DO - Last Filed: 04/10/22 10:51> Lab Data Result diagrams: 04/06/22 04:35 04/06/22 04:35 Labs: Lab Results 04/04/22 04/04/22 04/04/22 Range/Units 12:43 12:53 12:53 WBC 6.3 (4.5-11.0) X10^3/uL RBC 2.97 L (4.0-5.2) X10^6/uL Hgb 12.1 (12.0-16.0) g/dL Hct 36.6 (36-46) % MCV 123.5 H (80-100) fL MCH 40.8 H (26-34) PG MCHC 33.0 (30-36) % RDW 15.6 H (11.6-14.8) % Plt Count 231 (150-400) X10^3/uL Neut % (Auto) 68.2 (50-75) % Lymph % (Auto) 20.0 L (25-40) % [place] % (Auto) 9.6 (3-14) % Eos % (Auto) 0.5 L (2-4) % Baso % (Auto) 1.7 (0-2) % Neut # (Auto) 4300 (4900-4913) /uL Lymph # (Auto) 1300 (9236-0429) /uL [place] # (Auto) 600 (0-900) /uL Eos # (Auto) 0 (0-450) /uL Baso # (Auto) 100 (0-100) /uL RBC Morphology See below Poikilocytosis 1+ H Macrocytosis 3+ H PT (10.1-12.7) SECONDS INR (0.9-1.3) APTT (26-36) SECONDS Sodium 136 L (137-145) mmol/L Potassium 3.5 (3.4-5.1) mmol/L Chloride 102 (98-107) mmol/L Carbon Dioxide 30 (22-32) mmol/L BUN 4 L (7-17) mg/dL Creatinine 0.41 L (0.52-1.04) mg/dL Estimated GFR > 60 (>60) mL/min BUN/Creatinine Ratio 9.8 (6-22) Glucose 86 (80-110) mg/dL Lactate (0.7-2.1) mmol/L Calcium 7.7 L (8.4-10.2) mg/dL Magnesium (1.6-2.3) mg/dL Total Bilirubin 1.0 (0.2-1.3) mg/dL AST 66 H (14-36) IU/L ALT 43 H (<35) IU/L Alkaline Phosphatase 129 H (38-126) U/L Ammonia (9-30) umol/L Total Creatine Kinase (30-135) U/L CK-MB (CK-2) CK-MB (CK-2) Rel Index Troponin I (0.01-0.034) ng/mL NT-Pro-B Natriuret Pep (<125) pg/mL Total Protein 5.2 L (6.3-8.2) g/dL Albumin 2.5 L (3.5-5.0) g/dL Globulin 2.7 (1.7-4.1) g/dL Albumin/Globulin Ratio 0.9 L (1.0-2.8) Lipase 54 (23-300) U/L Urine Color Urine Appearance Urine pH (4.5-8.0) Ur Specific [place] (1.000-1.035) Urine Protein (Negative) Urine Glucose (UA) (Negative) g/dL Urine Ketones (NEGATIVE) Urine Occult Blood (Negative) Urine Nitrate (Negative) Urine Bilirubin (NEGATIVE) Urine Urobilinogen (0.2) E.U./dL Ur Leukocyte Esterase (NEGATIVE) Urine RBC (0-5/HPF) Urine WBC (0-5/HPF) Ur Squamous Epith Cells (0-5/HPF) Urine Bacteria (None) Ur Culture Indicated? Fluid Color Fluid Appearance Fluid RBC /uL Fld Tot Nucleated Cell /uL Fluid Polynuclear WBCs % Fluid Mononuclear WBCs % Fluid Eosinophils % Fluid Other Cells % Body Fluid Clot U Opiates 300ng/mL cut (Negative) Ur Oxycodone Screen (Negative) Urine Methadone Screen (Negative) Ur Barbiturates Screen (Negative) U Tricyclic Antidepress (Negative) Ur Phencyclidine Scrn (Negative) Ur Amphetamines Screen (Negative) U Methamphetamines Scrn (Negative) Ur MDMA Scrn (Ecstasy) (Negative) U Benzodiazepines Scrn (Negative) Urine Cocaine Screen (Negative) U Marijuana (THC) Screen (Negative) Ethyl Alcohol ( - 10) mg/dL SARS-CoV-2 (PCR) Negative (Negative) Influenza A (RT-PCR) Flu a negative (NEGATIVE) Influenza B (RT-PCR) Flu b negative (NEGATIVE) RSV (PCR) Negative (Negative) 04/04/22 04/04/22 04/04/22 Range/Units 12:53 12:53 12:53 WBC (4.5-11.0) X10^3/uL RBC (4.0-5.2) X10^6/uL Hgb (12.0-16.0) g/dL Hct (36-46) % MCV (80-100) fL MCH (26-34) PG MCHC (30-36) % RDW (11.6-14.8) % Plt Count (150-400) X10^3/uL Neut % (Auto) (50-75) % Lymph % (Auto) (25-40) % [place] % (Auto) (3-14) % Eos % (Auto) (2-4) % Baso % (Auto) (0-2) % Neut # (Auto) (7383-1803) /uL Lymph # (Auto) (4672-5183) /uL [place] # (Auto) (0-900) /uL Eos # (Auto) (0-450) /uL Baso # (Auto) (0-100) /uL RBC Morphology Poikilocytosis Macrocytosis PT 11.0 (10.1-12.7) SECONDS INR 1.0 (0.9-1.3) APTT 29 (26-36) SECONDS Sodium (137-145) mmol/L Potassium (3.4-5.1) mmol/L Chloride (98-107) mmol/L Carbon Dioxide (22-32) mmol/L BUN (7-17) mg/dL Creatinine (0.52-1.04) mg/dL Estimated GFR (>60) mL/min BUN/Creatinine Ratio (6-22) Glucose (80-110) mg/dL Lactate 1.0 (0.7-2.1) mmol/L Calcium (8.4-10.2) mg/dL Magnesium (1.6-2.3) mg/dL Total Bilirubin (0.2-1.3) mg/dL AST (14-36) IU/L ALT (<35) IU/L Alkaline Phosphatase (38-126) U/L Ammonia < 9 L (9-30) umol/L Total Creatine Kinase (30-135) U/L CK-MB (CK-2) CK-MB (CK-2) Rel Index Troponin I (0.01-0.034) ng/mL NT-Pro-B Natriuret Pep (<125) pg/mL Total Protein (6.3-8.2) g/dL Albumin (3.5-5.0) g/dL Globulin (1.7-4.1) g/dL Albumin/Globulin Ratio (1.0-2.8) Lipase (23-300) U/L Urine Color Urine Appearance Urine pH (4.5-8.0) Ur Specific [place] (1.000-1.035) Urine Protein (Negative) Urine Glucose (UA) (Negative) g/dL Urine Ketones (NEGATIVE) Urine Occult Blood (Negative) Urine Nitrate (Negative) Urine Bilirubin (NEGATIVE) Urine Urobilinogen (0.2) E.U./dL Ur Leukocyte Esterase (NEGATIVE) Urine RBC (0-5/HPF) Urine WBC (0-5/HPF) Ur Squamous Epith Cells (0-5/HPF) Urine Bacteria (None) Ur Culture Indicated? Fluid Color Fluid Appearance Fluid RBC /uL Fld Tot Nucleated Cell /uL Fluid Polynuclear WBCs % Fluid Mononuclear WBCs % Fluid Eosinophils % Fluid Other Cells % Body Fluid Clot U Opiates 300ng/mL cut (Negative) Ur Oxycodone Screen (Negative) Urine Methadone Screen (Negative) Ur Barbiturates Screen (Negative) U Tricyclic Antidepress (Negative) Ur Phencyclidine Scrn (Negative) Ur Amphetamines Screen (Negative) U Methamphetamines Scrn (Negative) Ur MDMA Scrn (Ecstasy) (Negative) U Benzodiazepines Scrn (Negative) Urine Cocaine Screen (Negative) U Marijuana (THC) Screen (Negative) Ethyl Alcohol ( - 10) mg/dL SARS-CoV-2 (PCR) (Negative) Influenza A (RT-PCR) (NEGATIVE) Influenza B (RT-PCR) (NEGATIVE) RSV (PCR) (Negative) 04/04/22 04/04/22 04/04/22 Range/Units 12:53 12:53 17:00 WBC (4.5-11.0) X10^3/uL RBC (4.0-5.2) X10^6/uL Hgb (12.0-16.0) g/dL Hct (36-46) % MCV (80-100) fL MCH (26-34) PG MCHC (30-36) % RDW (11.6-14.8) % Plt Count (150-400) X10^3/uL Neut % (Auto) (50-75) % Lymph % (Auto) (25-40) % [place] % (Auto) (3-14) % Eos % (Auto) (2-4) % Baso % (Auto) (0-2) % Neut # (Auto) (5121-1195) /uL Lymph # (Auto) (7057-1223) /uL [place] # (Auto) (0-900) /uL Eos # (Auto) (0-450) /uL Baso # (Auto) (0-100) /uL RBC Morphology Poikilocytosis Macrocytosis PT (10.1-12.7) SECONDS INR (0.9-1.3) APTT (26-36) SECONDS Sodium (137-145) mmol/L Potassium (3.4-5.1) mmol/L Chloride (98-107) mmol/L Carbon Dioxide (22-32) mmol/L BUN (7-17) mg/dL Creatinine (0.52-1.04) mg/dL Estimated GFR (>60) mL/min BUN/Creatinine Ratio (6-22) Glucose (80-110) mg/dL Lactate (0.7-2.1) mmol/L Calcium (8.4-10.2) mg/dL Magnesium 2.1 (1.6-2.3) mg/dL Total Bilirubin (0.2-1.3) mg/dL AST (14-36) IU/L ALT (<35) IU/L Alkaline Phosphatase (38-126) U/L Ammonia (9-30) umol/L Total Creatine Kinase 98 (30-135) U/L CK-MB (CK-2) TNP CK-MB (CK-2) Rel Index TNP Troponin I < 0.012 (0.01-0.034) ng/mL NT-Pro-B Natriuret Pep 544 H (<125) pg/mL Total Protein (6.3-8.2) g/dL Albumin (3.5-5.0) g/dL Globulin (1.7-4.1) g/dL Albumin/Globulin Ratio (1.0-2.8) Lipase (23-300) U/L Urine Color Urine Appearance Urine pH (4.5-8.0) Ur Specific [place] (1.000-1.035) Urine Protein (Negative) Urine Glucose (UA) (Negative) g/dL Urine Ketones (NEGATIVE) Urine Occult Blood (Negative) Urine Nitrate (Negative) Urine Bilirubin (NEGATIVE) Urine Urobilinogen (0.2) E.U./dL Ur Leukocyte Esterase (NEGATIVE) Urine RBC (0-5/HPF) Urine WBC (0-5/HPF) Ur Squamous Epith Cells (0-5/HPF) Urine Bacteria (None) Ur Culture Indicated? Fluid Color Yellow Fluid Appearance Hazy Fluid RBC < 1000 /uL Fld Tot Nucleated Cell 135 /uL Fluid Polynuclear WBCs 2 % Fluid Mononuclear WBCs 86 % Fluid Eosinophils 0 % Fluid Other Cells 12 % Body Fluid Clot No clots present U Opiates 300ng/mL cut (Negative) Ur Oxycodone Screen (Negative) Urine Methadone Screen (Negative) Ur Barbiturates Screen (Negative) U Tricyclic Antidepress (Negative) Ur Phencyclidine Scrn (Negative) Ur Amphetamines Screen (Negative) U Methamphetamines Scrn (Negative) Ur MDMA Scrn (Ecstasy) (Negative) U Benzodiazepines Scrn (Negative) Urine Cocaine Screen (Negative) U Marijuana (THC) Screen (Negative) Ethyl Alcohol < 10 ( - 10) mg/dL SARS-CoV-2 (PCR) (Negative) Influenza A (RT-PCR) (NEGATIVE) Influenza B (RT-PCR) (NEGATIVE) RSV (PCR) (Negative) 04/04/22 04/04/22 Range/Units 19:08 19:08 WBC (4.5-11.0) X10^3/uL RBC (4.0-5.2) X10^6/uL Hgb (12.0-16.0) g/dL Hct (36-46) % MCV (80-100) fL MCH (26-34) PG MCHC (30-36) % RDW (11.6-14.8) % Plt Count (150-400) X10^3/uL Neut % (Auto) (50-75) % Lymph % (Auto) (25-40) % [place] % (Auto) (3-14) % Eos % (Auto) (2-4) % Baso % (Auto) (0-2) % Neut # (Auto) (6943-5893) /uL Lymph # (Auto) (5704-9079) /uL [place] # (Auto) (0-900) /uL Eos # (Auto) (0-450) /uL Baso # (Auto) (0-100) /uL RBC Morphology Poikilocytosis Macrocytosis PT (10.1-12.7) SECONDS INR (0.9-1.3) APTT (26-36) SECONDS Sodium (137-145) mmol/L Potassium (3.4-5.1) mmol/L Chloride (98-107) mmol/L Carbon Dioxide (22-32) mmol/L BUN (7-17) mg/dL Creatinine (0.52-1.04) mg/dL Estimated GFR (>60) mL/min BUN/Creatinine Ratio (6-22) Glucose (80-110) mg/dL Lactate (0.7-2.1) mmol/L Calcium (8.4-10.2) mg/dL Magnesium (1.6-2.3) mg/dL Total Bilirubin (0.2-1.3) mg/dL AST (14-36) IU/L ALT (<35) IU/L Alkaline Phosphatase (38-126) U/L Ammonia (9-30) umol/L Total Creatine Kinase (30-135) U/L CK-MB (CK-2) CK-MB (CK-2) Rel Index Troponin I (0.01-0.034) ng/mL NT-Pro-B Natriuret Pep (<125) pg/mL Total Protein (6.3-8.2) g/dL Albumin (3.5-5.0) g/dL Globulin (1.7-4.1) g/dL Albumin/Globulin Ratio (1.0-2.8) Lipase (23-300) U/L Urine Color Yellow Urine Appearance Clear Urine pH 5.5 (4.5-8.0) Ur Specific [place] <=1.005 (1.000-1.035) Urine Protein Negative (Negative) Urine Glucose (UA) Negative (Negative) g/dL Urine Ketones Trace H (NEGATIVE) Urine Occult Blood Negative (Negative) Urine Nitrate Negative (Negative) Urine Bilirubin Negative (NEGATIVE) Urine Urobilinogen 0.2 (0.2) E.U./dL Ur Leukocyte Esterase Negative (NEGATIVE) Urine RBC None seen (0-5/HPF) Urine WBC 0-1/hpf (0-5/HPF) Ur Squamous Epith Cells 1-5 /hpf (0-5/HPF) Urine Bacteria None seen (None) Ur Culture Indicated? Cult not indicated Fluid Color Fluid Appearance Fluid RBC /uL Fld Tot Nucleated Cell /uL Fluid Polynuclear WBCs % Fluid Mononuclear WBCs % Fluid Eosinophils % Fluid Other Cells % Body Fluid Clot U Opiates 300ng/mL cut Positive H (Negative) Ur Oxycodone Screen Positive H (Negative) Urine Methadone Screen Negative (Negative) Ur Barbiturates Screen Negative (Negative) U Tricyclic Antidepress Negative (Negative) Ur Phencyclidine Scrn Negative (Negative) Ur Amphetamines Screen Negative (Negative) U Methamphetamines Scrn Negative (Negative) Ur MDMA Scrn (Ecstasy) Negative (Negative) U Benzodiazepines Scrn Negative (Negative) Urine Cocaine Screen Negative (Negative) U Marijuana (THC) Screen Negative (Negative) Ethyl Alcohol ( - 10) mg/dL SARS-CoV-2 (PCR) (Negative) Influenza A (RT-PCR) (NEGATIVE) Influenza B (RT-PCR) (NEGATIVE) RSV (PCR) (Negative) ECG Data Attestation: I personally reviewed and interpreted this ECG as follows: MDM Narrative Medical decision making narrative: This is a 66-year-old male who has complaint of multiple falls recently, she states she is had diarrhea recently, on 1 of her falls several days ago she got a skin tear on her left arm this is not repairable, tetanus was updated CT imaging was obtained with her frequent falls and reported history of pelvic fracture in the past, head CT is negative, CT chest abdomen pelvis shows large ascites, trace right pleural effusion and small to moderate left pleural effusion, no other intra-abdominal process or organ involvement is appreciated, C-spine is negative as well. No lumbar, thoracic or cervical fractures are appreciated. Patient labs are overall reassuring, vitals have not particularly off, she was given initially her home oral medication and some additional IV medication for pain she does have swelling bilaterally but troponin and BNP do not suggest significant congestive heart failure or acute coronary syndrome. Patient does have abdominal pain she has an umbilical hernia but it is easily reducible, Dr. Chaparro from Radiology did take patient for paracentesis with goal of diagnostic for SBP she was covered with a dose of antibiotic while awaiting results. Results from paracentesis make SBP in an afebrile patient unlikely. Patient did drop blood pressure after paracentesis likely secondary to fluid shifts, patient had 2 L maximum removed. But she is quite small patient with BMI of 23, patient was given albumin, continued to be persistently low, signed out to Dr. Schmitz while awaiting call back from hospitalist for observation status for global weakness, chronic pain hypotension although this is likely resultant from patient's paracentesis today as she was not hypotensive until afterwards. discussed with Hospitalist service 740 pm. Will admit obs status for global weakness and chronic pain. No evidence of COVID, influenza or respiratory syncytial virus. No spontaneous bacterial peritonitis, mild LFT elevation with unremarkable CT scan, minimally elevated BNP without dramatic signs or symptoms of congestive heart failure. <Mary Anne Schmitz MD - Last Filed: 04/04/22 20:15> Lab Data Labs: Lab Results 04/04/22 04/04/22 04/04/22 Range/Units 12:43 12:53 12:53 WBC 6.3 (4.5-11.0) X10^3/uL RBC 2.97 L (4.0-5.2) X10^6/uL Hgb 12.1 (12.0-16.0) g/dL Hct 36.6 (36-46) % MCV 123.5 H (80-100) fL MCH 40.8 H (26-34) PG MCHC 33.0 (30-36) % RDW 15.6 H (11.6-14.8) % Plt Count 231 (150-400) X10^3/uL Neut % (Auto) 68.2 (50-75) % Lymph % (Auto) 20.0 L (25-40) % [place] % (Auto) 9.6 (3-14) % Eos % (Auto) 0.5 L (2-4) % Baso % (Auto) 1.7 (0-2) % Neut # (Auto) 4300 (5000-4611) /uL Lymph # (Auto) 1300 (7813-6779) /uL [place] # (Auto) 600 (0-900) /uL Eos # (Auto) 0 (0-450) /uL Baso # (Auto) 100 (0-100) /uL RBC Morphology See below Poikilocytosis 1+ H Macrocytosis 3+ H PT (10.1-12.7) SECONDS INR (0.9-1.3) APTT (26-36) SECONDS Sodium 136 L (137-145) mmol/L Potassium 3.5 (3.4-5.1) mmol/L Chloride 102 (98-107) mmol/L Carbon Dioxide 30 (22-32) mmol/L BUN 4 L (7-17) mg/dL Creatinine 0.41 L (0.52-1.04) mg/dL Estimated GFR > 60 (>60) mL/min BUN/Creatinine Ratio 9.8 (6-22) Glucose 86 (80-110) mg/dL Lactate (0.7-2.1) mmol/L Calcium 7.7 L (8.4-10.2) mg/dL Magnesium (1.6-2.3) mg/dL Total Bilirubin 1.0 (0.2-1.3) mg/dL AST 66 H (14-36) IU/L ALT 43 H (<35) IU/L Alkaline Phosphatase 129 H (38-126) U/L Ammonia (9-30) umol/L Total Creatine Kinase (30-135) U/L CK-MB (CK-2) CK-MB (CK-2) Rel Index Troponin I (0.01-0.034) ng/mL NT-Pro-B Natriuret Pep (<125) pg/mL Total Protein 5.2 L (6.3-8.2) g/dL Albumin 2.5 L (3.5-5.0) g/dL Globulin 2.7 (1.7-4.1) g/dL Albumin/Globulin Ratio 0.9 L (1.0-2.8) Lipase 54 (23-300) U/L Urine Color Urine Appearance Urine pH (4.5-8.0) Ur Specific [place] (1.000-1.035) Urine Protein (Negative) Urine Glucose (UA) (Negative) g/dL Urine Ketones (NEGATIVE) Urine Occult Blood (Negative) Urine Nitrate (Negative) Urine Bilirubin (NEGATIVE) Urine Urobilinogen (0.2) E.U./dL Ur Leukocyte Esterase (NEGATIVE) Urine RBC (0-5/HPF) Urine WBC (0-5/HPF) Ur Squamous Epith Cells (0-5/HPF) Urine Bacteria (None) Ur Culture Indicated? Fluid Color Fluid Appearance Fluid RBC /uL Fld Tot Nucleated Cell /uL Fluid Polynuclear WBCs % Fluid Mononuclear WBCs % Fluid Eosinophils % Fluid Other Cells % Body Fluid Clot U Opiates 300ng/mL cut (Negative) Ur Oxycodone Screen (Negative) Urine Methadone Screen (Negative) Ur Barbiturates Screen (Negative) U Tricyclic Antidepress (Negative) Ur Phencyclidine Scrn (Negative) Ur Amphetamines Screen (Negative) U Methamphetamines Scrn (Negative) Ur MDMA Scrn (Ecstasy) (Negative) U Benzodiazepines Scrn (Negative) Urine Cocaine Screen (Negative) U Marijuana (THC) Screen (Negative) Ethyl Alcohol ( - 10) mg/dL SARS-CoV-2 (PCR) Negative (Negative) Influenza A (RT-PCR) Flu a negative (NEGATIVE) Influenza B (RT-PCR) Flu b negative (NEGATIVE) RSV (PCR) Negative (Negative) 04/04/22 04/04/22 04/04/22 Range/Units 12:53 12:53 12:53 WBC (4.5-11.0) X10^3/uL RBC (4.0-5.2) X10^6/uL Hgb (12.0-16.0) g/dL Hct (36-46) % MCV (80-100) fL MCH (26-34) PG MCHC (30-36) % RDW (11.6-14.8) % Plt Count (150-400) X10^3/uL Neut % (Auto) (50-75) % Lymph % (Auto) (25-40) % [place] % (Auto) (3-14) % Eos % (Auto) (2-4) % Baso % (Auto) (0-2) % Neut # (Auto) (7703-7016) /uL Lymph # (Auto) (9114-4537) /uL [place] # (Auto) (0-900) /uL Eos # (Auto) (0-450) /uL Baso # (Auto) (0-100) /uL RBC Morphology Poikilocytosis Macrocytosis PT 11.0 (10.1-12.7) SECONDS INR 1.0 (0.9-1.3) APTT 29 (26-36) SECONDS Sodium (137-145) mmol/L Potassium (3.4-5.1) mmol/L Chloride (98-107) mmol/L Carbon Dioxide (22-32) mmol/L BUN (7-17) mg/dL Creatinine (0.52-1.04) mg/dL Estimated GFR (>60) mL/min BUN/Creatinine Ratio (6-22) Glucose (80-110) mg/dL Lactate 1.0 (0.7-2.1) mmol/L Calcium (8.4-10.2) mg/dL Magnesium (1.6-2.3) mg/dL Total Bilirubin (0.2-1.3) mg/dL AST (14-36) IU/L ALT (<35) IU/L Alkaline Phosphatase (38-126) U/L Ammonia < 9 L (9-30) umol/L Total Creatine Kinase (30-135) U/L CK-MB (CK-2) CK-MB (CK-2) Rel Index Troponin I (0.01-0.034) ng/mL NT-Pro-B Natriuret Pep (<125) pg/mL Total Protein (6.3-8.2) g/dL Albumin (3.5-5.0) g/dL Globulin (1.7-4.1) g/dL Albumin/Globulin Ratio (1.0-2.8) Lipase (23-300) U/L Urine Color Urine Appearance Urine pH (4.5-8.0) Ur Specific [place] (1.000-1.035) Urine Protein (Negative) Urine Glucose (UA) (Negative) g/dL Urine Ketones (NEGATIVE) Urine Occult Blood (Negative) Urine Nitrate (Negative) Urine Bilirubin (NEGATIVE) Urine Urobilinogen (0.2) E.U./dL Ur Leukocyte Esterase (NEGATIVE) Urine RBC (0-5/HPF) Urine WBC (0-5/HPF) Ur Squamous Epith Cells (0-5/HPF) Urine Bacteria (None) Ur Culture Indicated? Fluid Color Fluid Appearance Fluid RBC /uL Fld Tot Nucleated Cell /uL Fluid Polynuclear WBCs % Fluid Mononuclear WBCs % Fluid Eosinophils % Fluid Other Cells % Body Fluid Clot U Opiates 300ng/mL cut (Negative) Ur Oxycodone Screen (Negative) Urine Methadone Screen (Negative) Ur Barbiturates Screen (Negative) U Tricyclic Antidepress (Negative) Ur Phencyclidine Scrn (Negative) Ur Amphetamines Screen (Negative) U Methamphetamines Scrn (Negative) Ur MDMA Scrn (Ecstasy) (Negative) U Benzodiazepines Scrn (Negative) Urine Cocaine Screen (Negative) U Marijuana (THC) Screen (Negative) Ethyl Alcohol ( - 10) mg/dL SARS-CoV-2 (PCR) (Negative) Influenza A (RT-PCR) (NEGATIVE) Influenza B (RT-PCR) (NEGATIVE) RSV (PCR) (Negative) 12/23/22 12/23/22 12/23/22 Range/Units 12:53 12:53 17:00 WBC (4.5-11.0) X10^3/uL RBC (4.0-5.2) X10^6/uL Hgb (12.0-16.0) g/dL Hct (36-46) % MCV (80-100) fL MCH (26-34) PG MCHC (30-36) % RDW (11.6-14.8) % Plt Count (150-400) X10^3/uL Neut % (Auto) (50-75) % Lymph % (Auto) (25-40) % [place] % (Auto) (3-14) % Eos % (Auto) (2-4) % Baso % (Auto) (0-2) % Neut # (Auto) (4362-5903) /uL Lymph # (Auto) (6161-6471) /uL [place] # (Auto) (0-900) /uL Eos # (Auto) (0-450) /uL Baso # (Auto) (0-100) /uL RBC Morphology Poikilocytosis Macrocytosis PT (10.1-12.7) SECONDS INR (0.9-1.3) APTT (26-36) SECONDS Sodium (137-145) mmol/L Potassium (3.4-5.1) mmol/L Chloride (98-107) mmol/L Carbon Dioxide (22-32) mmol/L BUN (7-17) mg/dL Creatinine (0.52-1.04) mg/dL Estimated GFR (>60) mL/min BUN/Creatinine Ratio (6-22) Glucose (80-110) mg/dL Lactate (0.7-2.1) mmol/L Calcium (8.4-10.2) mg/dL Magnesium 2.1 (1.6-2.3) mg/dL Total Bilirubin (0.2-1.3) mg/dL AST (14-36) IU/L ALT (<35) IU/L Alkaline Phosphatase (38-126) U/L Ammonia (9-30) umol/L Total Creatine Kinase 98 (30-135) U/L CK-MB (CK-2) TNP CK-MB (CK-2) Rel Index TNP Troponin I < 0.012 (0.01-0.034) ng/mL NT-Pro-B Natriuret Pep 544 H (<125) pg/mL Total Protein (6.3-8.2) g/dL Albumin (3.5-5.0) g/dL Globulin (1.7-4.1) g/dL Albumin/Globulin Ratio (1.0-2.8) Lipase (23-300) U/L Urine Color Urine Appearance Urine pH (4.5-8.0) Ur Specific [place] (1.000-1.035) Urine Protein (Negative) Urine Glucose (UA) (Negative) g/dL Urine Ketones (NEGATIVE) Urine Occult Blood (Negative) Urine Nitrate (Negative) Urine Bilirubin (NEGATIVE) Urine Urobilinogen (0.2) E.U./dL Ur Leukocyte Esterase (NEGATIVE) Urine RBC (0-5/HPF) Urine WBC (0-5/HPF) Ur Squamous Epith Cells (0-5/HPF) Urine Bacteria (None) Ur Culture Indicated? Fluid Color Yellow Fluid Appearance Hazy Fluid RBC < 1000 /uL Fld Tot Nucleated Cell 135 /uL Fluid Polynuclear WBCs 2 % Fluid Mononuclear WBCs 86 % Fluid Eosinophils 0 % Fluid Other Cells 12 % Body Fluid Clot No clots present U Opiates 300ng/mL cut (Negative) Ur Oxycodone Screen (Negative) Urine Methadone Screen (Negative) Ur Barbiturates Screen (Negative) U Tricyclic Antidepress (Negative) Ur Phencyclidine Scrn (Negative) Ur Amphetamines Screen (Negative) U Methamphetamines Scrn (Negative) Ur MDMA Scrn (Ecstasy) (Negative) U Benzodiazepines Scrn (Negative) Urine Cocaine Screen (Negative) U Marijuana (THC) Screen (Negative) Ethyl Alcohol < 10 ( - 10) mg/dL SARS-CoV-2 (PCR) (Negative) Influenza A (RT-PCR) (NEGATIVE) Influenza B (RT-PCR) (NEGATIVE) RSV (PCR) (Negative) 04/04/22 04/04/22 Range/Units 19:08 19:08 WBC (4.5-11.0) X10^3/uL RBC (4.0-5.2) X10^6/uL Hgb (12.0-16.0) g/dL Hct (36-46) % MCV (80-100) fL MCH (26-34) PG MCHC (30-36) % RDW (11.6-14.8) % Plt Count (150-400) X10^3/uL Neut % (Auto) (50-75) % Lymph % (Auto) (25-40) % [place] % (Auto) (3-14) % Eos % (Auto) (2-4) % Baso % (Auto) (0-2) % Neut # (Auto) (0265-9649) /uL Lymph # (Auto) (0165-2684) /uL [place] # (Auto) (0-900) /uL Eos # (Auto) (0-450) /uL Baso # (Auto) (0-100) /uL RBC Morphology Poikilocytosis Macrocytosis PT (10.1-12.7) SECONDS INR (0.9-1.3) APTT (26-36) SECONDS Sodium (137-145) mmol/L Potassium (3.4-5.1) mmol/L Chloride (98-107) mmol/L Carbon Dioxide (22-32) mmol/L BUN (7-17) mg/dL Creatinine (0.52-1.04) mg/dL Estimated GFR (>60) mL/min BUN/Creatinine Ratio (6-22) Glucose (80-110) mg/dL Lactate (0.7-2.1) mmol/L Calcium (8.4-10.2) mg/dL Magnesium (1.6-2.3) mg/dL Total Bilirubin (0.2-1.3) mg/dL AST (14-36) IU/L ALT (<35) IU/L Alkaline Phosphatase (38-126) U/L Ammonia (9-30) umol/L Total Creatine Kinase (30-135) U/L CK-MB (CK-2) CK-MB (CK-2) Rel Index Troponin I (0.01-0.034) ng/mL NT-Pro-B Natriuret Pep (<125) pg/mL Total Protein (6.3-8.2) g/dL Albumin (3.5-5.0) g/dL Globulin (1.7-4.1) g/dL Albumin/Globulin Ratio (1.0-2.8) Lipase (23-300) U/L Urine Color Yellow Urine Appearance Clear Urine pH 5.5 (4.5-8.0) Ur Specific [place] <=1.005 (1.000-1.035) Urine Protein Negative (Negative) Urine Glucose (UA) Negative (Negative) g/dL Urine Ketones Trace H (NEGATIVE) Urine Occult Blood Negative (Negative) Urine Nitrate Negative (Negative) Urine Bilirubin Negative (NEGATIVE) Urine Urobilinogen 0.2 (0.2) E.U./dL Ur Leukocyte Esterase Negative (NEGATIVE) Urine RBC None seen (0-5/HPF) Urine WBC 0-1/hpf (0-5/HPF) Ur Squamous Epith Cells 1-5 /hpf (0-5/HPF) Urine Bacteria None seen (None) Ur Culture Indicated? Cult not indicated Fluid Color Fluid Appearance Fluid RBC /uL Fld Tot Nucleated Cell /uL Fluid Polynuclear WBCs % Fluid Mononuclear WBCs % Fluid Eosinophils % Fluid Other Cells % Body Fluid Clot U Opiates 300ng/mL cut Positive H (Negative) Ur Oxycodone Screen Positive H (Negative) Urine Methadone Screen Negative (Negative) Ur Barbiturates Screen Negative (Negative) U Tricyclic Antidepress Negative (Negative) Ur Phencyclidine Scrn Negative (Negative) Ur Amphetamines Screen Negative (Negative) U Methamphetamines Scrn Negative (Negative) Ur MDMA Scrn (Ecstasy) Negative (Negative) U Benzodiazepines Scrn Negative (Negative) Urine Cocaine Screen Negative (Negative) U Marijuana (THC) Screen Negative (Negative) Ethyl Alcohol ( - 10) mg/dL SARS-CoV-2 (PCR) (Negative) Influenza A (RT-PCR) (NEGATIVE) Influenza B (RT-PCR) (NEGATIVE) RSV (PCR) (Negative) Imaging Data Chest x-ray: Radiologist's Impression: FINDINGS:? ? Surgical changes and devices:? None.? ? Lungs and pleura:? Centrilobular emphysema.? Lungs are clear.? No pleural effusions or pneumothorax.? ? Mediastinum:? Mediastinal contours appear normal.? Heart size is normal.? ? Bones and chest wall:? No suspicious bony lesions.? Overlying soft tissues appear unremarkable.? ? IMPRESSION:? Centrilobular emphysema. No evidence acute pulmonary process. ? ? ? Dictated by: Bang Demarco M.D. on 04/04/2022 at 12:12 ? ? CT - cervical spine: Radiologist's Impression: FINDINGS:? Image quality:? Excellent.? ? Bones:? No acute fractures or dislocations.? No acute compression fractures of the vertebral bodies. Craniocervical junction is intact. C1-C2 relationship is preserved. Visualized superior ribs are intact. ? Soft tissues:? Prevertebral soft tissues are normal in thickness.? No paravertebral hematomas.? No apical pneumothoraces.? Pulmonary emphysematous changes.? Trace left pleural effusion.? ? ? IMPRESSION:? CT cervical spine without acute fracture or traumatic malalignment. ? Trace left pleural effusion. ? Pulmonary emphysematous changes. ? ? ? Dictated by: Jasvir Fields M.D. on 04/04/2022 at 14:55 ? ? CT CHEST abd pelvis: Radiologist's Impression: FINDINGS:? Image quality:? Excellent.? ? CHEST:? Lungs:? There is moderate centrilobular emphysema.? Small to moderate left pleural effusion and trace right pleural effusion is seen with adjacent bibasilar dependent atelectasis..? No acute airspace opacities.? No pneumothorax or hemothorax.? Central and peripheral airways appear patent and normal in caliber.? ? Mediastinum:? No mediastinal hematomas.? Heart size is normal.? No pericardial effusion.? [id number] atherosclerotic calcifications are seen in coronary vessels and thoracic aorta.? Thoracic aorta and pulmonary arteries demonstrate normal size and enhancement.? No mediastinal or hilar adenopathy.? Esophagus is normal in caliber.? No hiatal hernia.? ? Chest wall:? No acute rib fractures.? No subcutaneous emphysema.? No axillary or supraclavicular adenopathy.? Thyroid gland is within normal limits. ? ? ABDOMEN:? Solid organs:? There is no liver laceration.? Heterogeneous liver parenchymal density and lobulated liver contour is again noted suggestive of cirrhosis.? No discrete hepatic lesion is seen.? Gallbladder is surgically absent.? Biliary system is non- dilated.? Pancreas enhances normally, without transection.? Spleen is normal in size and enhancement, without lacerations.? No adrenal hematomas.? Both kidneys enhance normally, without hydronephrosis or lacerations.? ? Peritoneum and bowel:? Moderate to large amount of ascites fluid is again seen in abdomen and pelvis.? No gross free air.? Unenhanced bowel loops demonstrate normal wall thickness and caliber.? ? Nodes and vessels:? No retroperitoneal or mesenteric adenopathy.? Aorta and inferior vena cava are normal in size and enhancement.? Moderate atherosclerotic calci fications are noted throughout abdominal aorta and bilateral iliac arteries. ? Miscellaneous:? Small umbilical hernia is seen contain fat and small amount of ascites fluid. ? ? PELVIS:? Genitourinary:? Bladder wall thickness is normal.? ? Miscellaneous:? No inguinal hernias or adenopathy.? Generalized anasarca is seen. ? Bones:? Old fractures involving right superior and inferior pubic rami are again seen with well corticated margin.? No gross acute pelvic fracture or dislocation.? No gross hip fracture or dislocation.? No vertebral compression fractures.? ? ? IMPRESSION:? 1. Cirrhotic liver with large amount of ascites fluid in abdomen and pelvis.? No gross free air. ? 2.? Small to moderate left pleural effusion and trace right pleural effusion with adjacent bibasilar atelectasis.? No pulmonary contusion.? No pneumothorax.? Airway is patent.? Moderate centrilobular emphysema. ? 3. No mediastinal hematoma or lymphadenopathy.? Normal cardiac size.? No pericardial effusion. ? 4. No acute solid organ injury in abdomen or pelvis. ? 5. Generalized anasarca. ? 6.? No gross acute rib fracture.? No acute pelvic fracture.? Old fractures involving right superior and inferior pubic rami.? No acute compression fracture is seen in thoracic or lumbar spine.? ? Dictated by: Cuauhtemoc Tamez M.D. on 04/04/2022 at 14:47 ? ? CT scan - head: Radiologist's Impression: FINDINGS:? Image quality:? Excellent.? ? CHEST:? Lungs:? There is moderate centrilobular emphysema.? Small to moderate left pleural effusion and trace right pleural effusion is seen with adjacent bibasilar dependent atelectasis..? No acute airspace opacities.? No pneumothorax or hemothorax.? Central and peripheral airways appear patent and normal in caliber.? ? Mediastinum:? No mediastinal hematomas.? Heart size is normal.? No pericardial effusion.? [id number] atherosclerotic calcifications are seen in coronary vessels and thoracic aorta.? Thoracic aorta and pulmonary arteries demonstrate normal size and enhancement.? No mediastinal or hilar adenopathy.? Esophagus is normal in caliber.? No hiatal hernia.? ? Chest wall:? No acute rib fractures.? No subcutaneous emphysema.? No axillary or supraclavicular adenopathy.? Thyroid gland is within normal limits. ? ? ABDOMEN:? Solid organs:? There is no liver laceration.? Heterogeneous liver parenchymal density and lobulated liver contour is again noted suggestive of cirrhosis.? No discrete hepatic lesion is seen.? Gallbladder is surgically absent.? Biliary system is non- dilated.? Pancreas enhances normally, without transection.? Spleen is normal in size and enhancement, without lacerations.? No adrenal hematomas.? Both kidneys enhance normally, without hydronephrosis or lacerations.? ? Peritoneum and bowel:? Moderate to large amount of ascites fluid is again seen in abdomen and pelvis.? No gross free air.? Unenhanced bowel loops demonstrate normal wall thickness and caliber.? ? Nodes and vessels:? No retroperitoneal or mesenteric adenopathy.? Aorta and inferior vena cava are normal in size and enhancement.? Moderate atherosclerotic calcifications are noted throughout abdominal aorta and bilateral iliac arteries. ? Miscellaneous:? Small umbilical hernia is seen contain fat and small amount of ascites fluid. ? ? PELVIS:? Genitourinary:? Bladder wall thickness is normal.? ? Miscellaneous:? No inguinal hernias or adenopathy.? Generalized anasarca is seen. ? Bones:? Old fractures involving right superior and inferior pubic rami are again seen with well corticated margin.? No gross acute pelvic fracture or dislocation.? No gross hip fracture or dislocation.? No vertebral compression fractures.? ? ? IMPRESSION:? 1. Cirrhotic liver with large amount of ascites fluid in abdomen and pelvis.? No gross free air. ? 2.? Small to moderate left pleural effusion and trace right pleural effusion w ith adjacent bibasilar atelectasis.? No pulmonary contusion.? No pneumothorax.? Airway is patent.? Moderate centrilobular emphysema. ? 3. No mediastinal hematoma or lymphadenopathy.? Normal cardiac size.? No pericardial effusion. ? 4. No acute solid organ injury in abdomen or pelvis. ? 5. Generalized anasarca. ? 6.? No gross acute rib fracture.? No acute pelvic fracture.? Old fractures involving right superior and inferior pubic rami.? No acute compression fracture is seen in thoracic or lumbar spine.? ? Dictated by: Cuauhtemoc Tamez M.D. on 04/04/2022 at 14:47 ? ? US paracentesis: Radiologist's Impression: FINDINGS:? Access site:? Right lower quadrint Needle:? One-Step centesis catheter with introducer needle.? Fluid volume and description:? 2168 cc; cloudy Fluid sent for diagnostic testing:? yes; per ordering physician. Medications:? 1% lidocaine for local anaesthesia.? Complications:? None.? ? IMPRESSION:? Successful ultrasound-guided paracentesis.? ? ? Dictated by: Salomón Chaparro M.D. on 04/04/2022 at 16:41 ? ? [facility] Narrative Medical decision making narrative: This is a 66-year-old male who has complaint of multiple falls recently, she states she is had diarrhea recently, on 1 of her falls several days ago she got a skin tear on her left arm this is not repairable, tetanus was updated CT imaging was obtained with her frequent falls and reported history of pelvic fracture in the past, head CT is negative, CT chest abdomen pelvis shows large ascites, trace right pleural effusion and small to moderate left pleural effusion, no other intra-abdominal process or organ involvement is appreciated, C-spine is negative as well. No lumbar, thoracic or cervical fractures are appreciated. Patient labs are overall reassuring, vitals have not particularly off, she was given initially her home oral medication and some additional IV medication for pain she does have swelling bilaterally but troponin and BNP do not suggest significant congestive heart failure or acute coronary syndrome. Patient does have abdominal pain she has an umbilical hernia but it is easily reducible, Dr. Chaparro from Radiology did take patient for paracentesis with goal of diagnostic for SBP she was covered with a dose of antibiotic while awaiting results. discussed with Hospitalist service 740 pm. Will admit obs status for global weakness and chronic pain. No evidence of COVID, influenza or respiratory syncytial virus. No spontaneous bacterial peritonitis, mild LFT elevation with unremarkable CT scan, minimally elevated BNP without dramatic signs or symptoms of congestive heart failure. Discharge Plan Departure Patient Disposition: Admitted as Observation Clinical Impression: Ascites, Abdominal pain, Weakness Admit Date/Time: 04/04/22 20:07 Admit Provider: Layla Pan
[2022-04-04 13:13] LABS: Add Manual Diff / Slide Review NO; Basophils Absolute Auto 100 /uL (0-100); Basophils Percent Auto 1.7 % (0-2); Eosinophils Absolute Auto 0 /uL (0-450); Eosinophils Percent Auto 0.5 % (2-4); Hematocrit 36.6 % (36-46); Hemoglobin 12.1 g/dL (12.0-16.0); Lymphocytes Absolute Auto 1300 /uL (1100-4500); Mean Corpuscular Hemoglobin 40.8 PG (26-34); Mean Corpuscular Volume 123.5 fL (80-100); Monocytes Absolute Auto 600 /uL (0-900); Monocytes Percent Auto 9.6 % (3-14); Neutrophils Absolute Auto 4300 /uL (1500-7000); Neutrophils Percent Auto 68.2 % (50-75); Platelet Count 231 X10^3/uL (150-400); Red Blood Cell Count 2.97 X10^6/uL (4.0-5.2); Red Cell Distribution Width 15.6 % (11.6-14.8); White Blood Cell Count 6.3 X10^3/uL (4.5-11.0)
[2022-04-04 13:20] LABS: Alanine Aminotransferase 43 IU/L (<35); Albumin 2.5 g/dL (3.5-5.0); Albumin Globulin Ratio 0.9 (1.0-2.8); Alkaline Phosphatase 129 U/L (38-126); Ammonia (NH3) < 9 umol/L (9-30); Aspartate Aminotransferase 66 IU/L (14-36); BUN Creatinine Ratio 9.8 (6-22); Blood Urea Nitrogen 4 mg/dL (7-17); Calcium 7.7 mg/dL (8.4-10.2); Carbon Dioxide 30 mmol/L (22-32); Chloride 102 mmol/L (98-107); Estimated Glomerular Filt Rate > 60 mL/min (>60); Globulin 2.7 g/dL (1.7-4.1); Glucose 86 mg/dL (80-110); HEMOLYSIS < 15 (0-50); Lipase 54 U/L (23-300); Potassium 3.5 mmol/L (3.4-5.1); Sodium 136 mmol/L (137-145); Total Protein 5.2 g/dL (6.3-8.2)
[2022-04-04 13:33] LABS: PTT Partial Thromboplastin Tim 29 SECONDS (26-36)
[2022-04-04 13:45] LABS: Macrocytosis 3+
[2022-04-04 13:46] LABS: Poikilocytosis 1+
--- NOTE | 2022-04-04 14:09 | DI.CT.S_ITS ---
PROCEDURE: CT CERVICAL SPINE WO CON INDICATIONS: fall, prior hip fx, pain all over TECHNIQUE: Noncontrast 3 mm thick sections acquired from the skull base to the T4 level. Sagittal and coronal reformats were then constructed. For radiation dose reduction, the following was used: automated exposure control, adjustment of mA and/or kV according to patient size. COMPARISON: [facility], CT, CT CERVICAL SPINE WO CON, 07/09/2020, 14:50. FINDINGS: Image quality: Excellent. Bones: No acute fractures or dislocations. No acute compression fractures of the vertebral bodies. Craniocervical junction is intact. C1-C2 relationship is preserved. Visualized superior ribs are intact. Soft tissues: Prevertebral soft tissues are normal in thickness. No paravertebral hematomas. No apical pneumothoraces. Pulmonary emphysematous changes. Trace left pleural effusion. IMPRESSION: CT cervical spine without acute fracture or traumatic malalignment. Trace left pleural effusion. Pulmonary emphysematous changes. Dictated by: Jasvir Fields M.D. on 04/04/2022 at 14:55 Approved by: Jasvir Fields M.D. on 04/04/2022 at 14:58
--- NOTE | 2022-04-04 14:09 | DI.CT.S_ITS ---
PROCEDURE: CT CHEST ABD PEL W CON INDICATIONS: fall, prior hip fx, pain all over TECHNIQUE: After the administration of intravenous contrast, 5 mm thick sections acquired from the lung apices to the symphysis. 2.5 mm thick coronal and sagittal reformats were acquired. Additional 7 mm thick coronal maximum intensity projection (MIP) reformats acquired through the lungs. Optional 10-minute delayed imaging may be performed from the kidneys to the bladder. For radiation dose reduction, the following was used: automated exposure control, adjustment of mA and/or kV according to patient size. COMPARISON: [facility], CT, CT ABDOMEN PELVIS WITH CONTRAST, 03/24/2022, 13:29. FINDINGS: Image quality: Excellent. CHEST: Lungs: There is moderate centrilobular emphysema. Small to moderate left pleural effusion and trace right pleural effusion is seen with adjacent bibasilar dependent atelectasis.. No acute airspace opacities. No pneumothorax or hemothorax. Central and peripheral airways appear patent and normal in caliber. Mediastinum: No mediastinal hematomas. Heart size is normal. No pericardial effusion. Ltgq-[id number]-alacukiy atherosclerotic calcifications are seen in coronary vessels and thoracic aorta. Thoracic aorta and pulmonary arteries demonstrate normal size and enhancement. No mediastinal or hilar adenopathy. Esophagus is normal in caliber. No hiatal hernia. Chest wall: No acute rib fractures. No subcutaneous emphysema. No axillary or supraclavicular adenopathy. Thyroid gland is within normal limits. ABDOMEN: Solid organs: There is no liver laceration. Heterogeneous liver parenchymal density and lobulated liver contour is again noted suggestive of cirrhosis. No discrete hepatic lesion is seen. Gallbladder is surgically absent. Biliary system is non-dilated. Pancreas enhances normally, without transection. Spleen is normal in size and enhancement, without lacerations. No adrenal hematomas. Both kidneys enhance normally, without hydronephrosis or lacerations. Peritoneum and bowel: Moderate to large amount of ascites fluid is again seen in abdomen and pelvis. No gross free air. Unenhanced bowel loops demonstrate normal wall thickness and caliber. Nodes and vessels: No retroperitoneal or mesenteric adenopathy. Aorta and inferior vena cava are normal in size and enhancement. Moderate atherosclerotic calcifications are noted throughout abdominal aorta and bilateral iliac arteries. Miscellaneous: Small umbilical hernia is seen contain fat and small amount of ascites fluid. PELVIS: Genitourinary: Bladder wall thickness is normal. Miscellaneous: No inguinal hernias or adenopathy. Generalized anasarca is seen. Bones: Old fractures involving right superior and inferior pubic rami are again seen with well corticated margin. No gross acute pelvic fracture or dislocation. No gross hip fracture or dislocation. No vertebral compression fractures. IMPRESSION: 1. Cirrhotic liver with large amount of ascites fluid in abdomen and pelvis. No gross free air. 2. Small to moderate left pleural effusion and trace right pleural effusion with adjacent bibasilar atelectasis. No pulmonary contusion. No pneumothorax. Airway is patent. Moderate centrilobular emphysema. 3. No mediastinal hematoma or lymphadenopathy. Normal cardiac size. No pericardial effusion. 4. No acute solid organ injury in abdomen or pelvis. 5. Generalized anasarca. 6. No gross acute rib fracture. No acute pelvic fracture. Old fractures involving right superior and inferior pubic rami. No acute compression fracture is seen in thoracic or lumbar spine. Dictated by: Cuauhtemoc Tamez M.D. on 04/04/2022 at 14:47 Approved by: Cuauhtemoc Tamez M.D. on 04/04/2022 at 14:56
--- NOTE | 2022-04-04 14:09 | DI.US.S_ITS ---
PROCEDURE: US PARACENTESIS INDICATIONS: ASCITES TECHNIQUE: The indications, alternatives, benefits, risks, and complications of the procedure were explained to the patient. Written informed consent was obtained and placed in the chart. The abdomen and pelvis were examined sonographically, and an appropriate site was chosen for paracentesis. The skin was prepared and draped in the usual sterile fashion, and 1% lidocaine was infiltrated from the skin down through the peritoneal surface. A 19-gauge catheter-covered needle was then introduced into the peritoneal space, the catheter was advanced and the needle was withdrawn, and thereafter peritoneal fluid was withdrawn. The catheter was then removed and a dressing was applied. The fluid was discarded if the clinician did not order diagnostic testing of the fluid. COMPARISON: [facility], , US ABDOMEN COMPLETE, 04/04/2022, 13:01. FINDINGS: Access site: Right lower quadrint Needle: One-Step centesis catheter with introducer needle. Fluid volume and description: 2168 cc; cloudy Fluid sent for diagnostic testing: yes; per ordering physician. Medications: 1% lidocaine for local anaesthesia. Complications: None. IMPRESSION: Successful ultrasound-guided paracentesis. Dictated by: Salomón Chaparro M.D. on 04/04/2022 at 16:41 Approved by: Salomón Chaparro M.D. on 04/04/2022 at 16:43
--- NOTE | 2022-04-04 14:09 | PATH_ITS ---
Note [facility] Accession Number: [id number] TESTS RESULT FLAG UNITS REF RANGE LAB Clinician Provided Cytology Information No. of containers..01 Other (Miscellaneous) Source: ASCITES DIAGNOSIS: 01 ASCITES NEGATIVE FOR MALIGNANT CELLS. THIS INTERPRETATION INCLUDES EVALUATION OF A CELL BLOCK. Pathologist ICD10: R18.8 Signed out by: Gifty Hernandez MD, Pathologist NPI- [id number] Performed by: Mendoza Ma, Band Top Maker ([facility]) Gross description: 75 CC, YELLOW, CLOUDY RECEIVED: FRESH IN ORANGE CAP CONTAINER. /VDU 04/07/2022 0637 Local FLAG LEGEND: L-Low Normal,H-High Normal,LL-Alert Low,HH-Alert High <-Panic Low,>-Panic High,A-Abnormal,AA-Critical Abnormal Performed at: 01 =[facility] [address], [place] [address] Martir Gibson MD, Performed at: [facility] [address], [place], [place] [id number] MD Martir Gibson MD Phone: [phone]
--- NOTE | 2022-04-04 14:09 | DI.CT.S_ITS ---
PROCEDURE: CT HEAD/BRAIN WO CON INDICATIONS: fall, prior hip fx, pain all over TECHNIQUE: Noncontrast 4.5 mm thick angled axial sections acquired from the foramen magnum to the vertex, with coronal and sagittal reformats. For radiation dose reduction, the following was used: automated exposure control, adjustment of mA and/or kV according to patient size. COMPARISON: [facility], CT, HEAD WITHOUT CONTRAST, 08/23/2007, 15:50. FINDINGS: Image quality: Excellent. CSF spaces: Basal cisterns are patent. No extra-axial fluid collections. The ventricles are symmetric in size and shape. Brain: No intracranial bleeds or masses. There is cerebral volume loss for age, with resultant ventricular and sulcal prominence. There are periventricular and deep white matter chronic small vessel ischemic changes. There is intracranial internal carotid artery atherosclerosis. Skull and face: Calvarium and visualized facial bones appear intact, without suspicious lesions. Sinuses: Visualized sinuses and mastoids are clear. IMPRESSION: 1. CT head without acute intracranial abnormalities or acute calvarial fractures. 2. Age-related senescent changes and sequela of chronic small vessel ischemic disease. Dictated by: Jasvir Fields M.D. on 04/04/2022 at 14:47 Approved by: Jasvir Fields M.D. on 04/04/2022 at 14:55
[2022-04-04 14:12] LABS: Influenza A - CEPHEID Flu A NEGATIVE (NEGATIVE); Influenza B - CEPHEID Flu B NEGATIVE (NEGATIVE); Respiratory Syncytial Virus Negative (Negative)
[2022-04-04 14:15] LABS: COVID-19 CEPHEID 4-PLEX PCR Negative (Negative)
--- NOTE | 2022-04-04 14:40 | PC.NURSE ---
Pt reports hx of falls with most recent fall last night. Pt has bruises on her right forearm, right hand, right shoulder. Skin tear to left upper arm. Pt c/o of pain in back in cervical area and lower lumbar/sacral area. Denies blood thinners, denies SOB, denies N&V, denies chest pain. Pt c/o of significant weight gain in past several weeks and worsening tightness and swelling in her abdomen. 3+ pitting edema to bilateral feet and ankles. Pt also reports numbness to hands and feet and all over. Provider aware. Call light within reach.
[2022-04-04 15:26] LABS: Creatine Kinase 98 U/L (30-135)
[2022-04-04 15:39] LABS: NT-proBNP (BNP-Adult 18+) 544 pg/mL (<125); Troponin I < 0.012 ng/mL (0.01-0.034)
[2022-04-04] MEDS: MORPHINE 4 MG/ML INJ IV (16:04)
--- NOTE | 2022-04-04 16:04 | PC.NURSE ---
Lab at bedside to draw cultures.
[2022-04-04] MEDS: PIPERACILLIN/TAZO 4.5 GM in SODIUM CHLORIDE 0.9% 100 ML IV (16:18)
[2022-04-04 17:23] LABS: Body Fluid Tot Nucleated Cells 135 /uL
[2022-04-04 17:29] LABS: Body Fluid Appearance HAZY; Body Fluid Clotted? NO CLOTS PRESENT; Body Fluid Color YELLOW; Body Fluid Red Blood Cells < 1000 /uL
[2022-04-04] MEDS: SODIUM CHLORIDE 0.9% 1,000 ML 1000 ML IV ×2 (17:36→22:05)
[2022-04-04 17:48] LABS: Eosinophils Body Fluid 0 %; Mononuclear WBC Body Fluid 86 %; Polynuclear WBC Body Fluid 2 %
[2022-04-04 17:49] LABS: Other Cells Body Fluid 12 %
[2022-04-04 19:17] LABS: Appearance Urine UA CLEAR; Bilirubin Urine UA NEGATIVE (NEGATIVE); Color Urine UA YELLOW; Glucose Urine UA NEGATIVE (Negative); Ketones Urine UA TRACE (NEGATIVE); Leukocyte Esterase Urine UA NEGATIVE (NEGATIVE); Nitrite Urine UA NEGATIVE (Negative); Occult Blood Urine UA NEGATIVE (Negative); Protein Urine UA NEGATIVE (Negative); Specific Gravity Urine UA <=1.005 (1.000-1.035); Urobilinogen Urine UA 0.2 E.U./dL (0.2)
[2022-04-04] MEDS: ALBUMIN HUMAN 25 GM/100 ML VIAL IV (19:20)
[2022-04-04 19:22] LABS: pH Urine UA 5.5 (4.5-8.0)
[2022-04-04 19:26] LABS: Bacteria Urine None Seen; Culture Indicated Urine Cult Not Indicated; RBC Urine None Seen (0-5/HPF); Squamous Epithelial Cell Urine 1-5 /HPF (0-5/HPF); WBC Urine 0-1/HPF (0-5/HPF)
[2022-04-04 19:50] LABS: Ur Creatinine Normal (Normal); Ur Specific Gravity Normal (Normal); Urine Tetrahydrocannabinol Negative (Negative); Urine pH Normal (Normal)
[2022-04-04 19:51] LABS: UR Morphine/Opiate cutoff 300 Positive (Negative); Urine Amphetamines Negative (Negative); Urine Barbiturates Negative (Negative); Urine Benzodiazepines Negative (Negative); Urine Cocaine Negative (Negative); Urine MDMA Negative (Negative); Urine Methadone Negative (Negative); Urine Methamphetamines Negative (Negative); Urine Oxycodone Positive (Negative); Urine Phencyclidine Negative (Negative); Urine Tricyclic Antidepressant Negative (Negative)
[2022-04-04 20:54] LABS: Ethanol (ETOH) < 10 mg/dL; Magnesium 2.1 mg/dL (1.6-2.3)
[2022-04-04] MEDS: ATORVASTATIN 20 MG TABLET 40 MG PO (20:59)
[2022-04-04] MEDS: OXYCODONE IR 5 MG TABLET PO (23:04)
[2022-04-05] VITALS (13 sets, daily range): BP systolic 90–121; BP diastolic 40–77; PULSE 68–82; RESP 16–17; TEMP 35.8–36.7; O2SAT 95–99
--- NOTE | 2022-04-05 00:04 | PC.NURSE ---
Pt sent upstairs with NS running at 1000 mls/hr.
--- NOTE | 2022-04-05 01:00 | P.HP_ITS ---
History of Present Illness History of Present Illness Date Patient Seen: 04/05/22 Time Patient Seen: 01:01 Chief complaint: chronic pain/numb issue Narrative: ? Elvia Toscano is a 66-year-old female with history of chronic pain syndrome, chronic abdominal pain, cirrhosis, osteoporosis, coronary artery disease, HLD, anxiety and depression was seen for colitis in the past.? Patient presented to the ED on 04/04 with complaints of multiple falls and back pain.? She denies loss of consciousness, she states neck and back pain, she notes she had a cut on her arm several days ago from one of her falls, she describes epigastric and lower abdominal pain, denies shortness of breath, no upper chest pain, fever or chills, she is had cough, she says she has emphysema and fibromyalgia.? States her cough is nonproductive cough, no nausea or vomiting, she states she has been having diarrhea frequently.? She denies new urinary symptoms.? She is significant mobility issues she states in her helps her with toileting.? She states her weight has increased from 100 lb 250 lb over the last couple weeks.? She does use tobacco stating 2-3 cigarettes/day, drinks 2 glasses of wine combined with Gatorade, denies illicit drug use.? States she has had gallbladder stents that have perforated her gall bladder and that she is had her gallbladder out.??Review of her local medical records seem to indicate she has difficulties with follow up, and her PCP has been trying to reduce the amount of opioids she is taking. Abdominal ultrasound afford indicated moderate ascites with cirrhotic liver and diffuse hepatic study Brice. Chest x-ray indicated centrilobular emphysema with no acute pulmonary process. X-ray of the C-spine was negative for any acute injury. CT of the chest abdomen and pelvis confirmed findings on x-ray regarding moderate centrilobular emphysema, ascites with ascites fluid in the abdomen, generalized anasarca, old fractures, head CT was negative for any acute intracranial injury or fracture, she underwent paracentesis with no significant findings. She is afebrile, blood pressure 90/40, heart rate 74, respiratory rate 16, oxygen saturation of 95% on 1 L she weighs 55 kg with a BMI of 23.6. CBC is unremarkable, she does have a abnormal smear, coagulation studies within normal limits, sodium 136 creatinine 0.41 BUN 4 calcium 7.7 AST 66 ALT 43 alk- phos 129 proBNP is 544 albumin was 2.5 urine was negative for UTI opiates were positive and oxycodone was positive in her urine toxicology viral and COVID-19 PCR panels were all negative. Patient History Medical History Abdominal pain Anxiety (04/28/17) C. difficile colitis Chronic diarrhea Chronic pain Diarrhea Dyspepsia Elevated liver function tests Left breast lump Low back pain without sciatica (08/05/16) Mixed hyperlipidemia (04/28/17) Osteoarthritis (12/15/13) Osteoporosis (12/15/13) Osteoporosis Pain of both breasts Pancreatic cyst Surgical History History of arthroplasty of right shoulder History of cholecystectomy Family & Social History Family History Father No problems noted. Mother PE (pulmonary thromboembolism) Social History: household members spouse Prior Living Arrangements Apartment/Condo Safety & Behavioral: Feels Safe in Current Yes Environment Tobacco & Substance use: Tobacco type cigarettes Smoking Status Current every day smoker alcohol intake never alcohol intake frequency daily wine cocktail with Gatorade Substance Use Type opiates,painkillers Meds Home Medications and Allergies Home Medications Medication Instructions Recorded Confirmed Type permanent disabled parking permit #1 ea 11/11/18 04/04/22 Rx potassium chloride 10 mEq 10 meq PO DAILY #90 caps 01/21/22 04/04/22 Rx capsule,extended release ferrous gluconate 324 mg (37.5 mg 324 mg PO BID #180 tabs 03/17/22 04/04/22 Rx iron) tablet oxycodone-acetaminophen 5 mg-325 2 tab PO Q6H PRN pain #112 tabs 04/01/22 Rx mg tablet atorvastatin 40 mg tablet 40 mg PO BEDTIME #90 tabs 04/04/22 04/04/22 Rx gabapentin 300 mg capsule 300 mg PO Q8H 04/04/22 04/04/22 History lorazepam 0.5 mg tablet (Ativan) 0.5 mg PO BID PRN Anxiety 04/04/22 04/04/22 History methocarbamol 500 mg tablet 500 mg PO TID PRN muscle spasms 04/04/22 04/04/22 History Allergies Allergy/AdvReac Type Severity Reaction Status Date / Time adhesive Allergy Mild TEARS Verified 03/18/22 14:13 SKIN,USE COBAN Review of Systems Review of Systems ROS: Yes All systems reviewed with the patient and are negative except as otherwise documented Exam Vital Signs (past 8 hours): - 04/04/22 17:02 04/04/22 17:02 04/04/22 17:10 Temperature Pulse Rate 72 Respiratory Rate Blood Pressure 84/45 L 94/46 L Pulse Oximetry 96 Oxygen Flow Rate 04/04/22 17:10 04/04/22 17:12 04/04/22 17:12 Temperature Pulse Rate 75 79 Respiratory Rate Blood Pressure 96/48 L Pulse Oximetry 93 92 Oxygen Flow Rate 04/04/22 17:16 04/04/22 17:16 04/04/22 17:17 Temperature Pulse Rate 70 Respiratory Rate Blood Pressure 91/48 L 84/47 L Pulse Oximetry 95 Oxygen Flow Rate 04/04/22 17:17 04/04/22 17:20 04/04/22 17:20 Temperature Pulse Rate 69 68 Respiratory Rate Blood Pressure 89/46 L Pulse Oximetry 96 95 Oxygen Flow Rate 04/04/22 17:22 04/04/22 17:22 04/04/22 17:25 Temperature Pulse Rate 70 Respiratory Rate Blood Pressure 90/48 L 82/43 L Pulse Oximetry 95 Oxygen Flow Rate 04/04/22 17:25 04/04/22 17:27 04/04/22 17:27 Temperature Pulse Rate 70 69 Respiratory Rate Blood Pressure 88/47 L Pulse Oximetry 96 96 Oxygen Flow Rate 04/04/22 17:30 04/04/22 17:30 04/04/22 17:32 Temperature Pulse Rate 69 Respiratory Rate Blood Pressure 96/49 L 96/50 L Pulse Oximetry 96 Oxygen Flow Rate 04/04/22 17:32 04/04/22 17:35 04/04/22 17:35 Temperature Pulse Rate 68 68 Respiratory Rate Blood Pressure 93/49 L Pulse Oximetry 96 96 Oxygen Flow Rate 04/04/22 17:37 04/04/22 17:37 04/04/22 17:40 Temperature Pulse Rate 92 H Respiratory Rate Blood Pressure 101/52 L 88/45 L Pulse Oximetry 94 Oxygen Flow Rate 04/04/22 17:40 04/04/22 17:49 04/04/22 17:49 Temperature Pulse Rate 69 77 Respiratory Rate Blood Pressure 96/50 L Pulse Oximetry 95 97 Oxygen Flow Rate 04/04/22 17:50 04/04/22 17:50 04/04/22 18:00 Temperature Pulse Rate 91 H Respiratory Rate Blood Pressure 105/53 L 102/51 L Pulse Oximetry 94 Oxygen Flow Rate 04/04/22 18:00 04/04/22 18:10 04/04/22 18:10 Temperature Pulse Rate 84 71 Respiratory Rate Blood Pressure 101/49 L Pulse Oximetry 94 97 Oxygen Flow Rate 04/04/22 18:20 04/04/22 18:20 04/04/22 18:30 Temperature Pulse Rate 95 H Respiratory Rate Blood Pressure 101/51 L 95/45 L Pulse Oximetry 95 Oxygen Flow Rate 04/04/22 18:30 04/04/22 18:40 04/04/22 18:40 Temperature Pulse Rate 77 79 Respiratory Rate Blood Pressure 103/55 L Pulse Oximetry 95 97 Oxygen Flow Rate 04/04/22 18:50 04/04/22 18:50 04/04/22 19:00 Temperature Pulse Rate 88 84 Respiratory Rate Blood Pressure 101/54 L Pulse Oximetry 95 93 Oxygen Flow Rate 04/04/22 19:12 04/04/22 19:12 04/04/22 19:30 Temperature Pulse Rate 91 H 70 Respiratory Rate Blood Pressure 105/49 L Pulse Oximetry 91 96 Oxygen Flow Rate 04/04/22 19:55 04/04/22 19:55 04/04/22 20:00 Temperature Pulse Rate 81 Respiratory Rate Blood Pressure 104/51 L 106/52 L Pulse Oximetry 94 Oxygen Flow Rate 04/04/22 20:00 04/04/22 20:15 04/04/22 20:15 Temperature Pulse Rate 76 70 Respiratory Rate Blood Pressure 103/53 L Pulse Oximetry 95 98 Oxygen Flow Rate 04/04/22 20:30 04/04/22 20:30 04/04/22 20:45 Temperature Pulse Rate 73 70 Respiratory Rate Blood Pressure 91/47 L Pulse Oximetry 96 94 Oxygen Flow Rate 04/04/22 20:45 04/04/22 20:56 04/04/22 20:56 Temperature Pulse Rate 75 Respiratory Rate Blood Pressure 83/46 L 87/46 L Pulse Oximetry 95 Oxygen Flow Rate 04/04/22 21:00 04/04/22 21:00 04/04/22 21:10 Temperature Pulse Rate 77 Respiratory Rate Blood Pressure 87/50 L 101/54 L Pulse Oximetry 95 Oxygen Flow Rate 04/04/22 21:10 04/04/22 21:20 04/04/22 21:20 Temperature Pulse Rate 85 89 Respiratory Rate Blood Pressure 96/50 L Pulse Oximetry 93 93 Oxygen Flow Rate 04/04/22 21:30 04/04/22 21:30 04/04/22 21:40 Temperature Pulse Rate 88 Respiratory Rate Blood Pressure 96/49 L 81/44 L Pulse Oximetry 89 L Oxygen Flow Rate 04/04/22 21:40 04/04/22 21:50 04/04/22 21:50 Temperature Pulse Rate 73 71 Respiratory Rate Blood Pressure 79/43 L Pulse Oximetry 96 96 Oxygen Flow Rate 04/04/22 21:51 04/04/22 21:51 04/04/22 23:22 Temperature Pulse Rate 78 84 Respiratory Rate Blood Pressure 80/43 L 107/58 L Pulse Oximetry 96 99 Oxygen Flow Rate 1 04/04/22 22:30 04/04/22 23:30 04/04/22 23:58 Temperature 96.1 F L 96.2 F L Pulse Rate 86 84 Respiratory Rate 18 16 Blood Pressure 101/62 107/58 L 92/41 L Pulse Oximetry 95 100 Oxygen Flow Rate 04/05/22 00:30 Temperature 96.5 F L Pulse Rate 68 Respiratory Rate 16 Blood Pressure 92/47 L Pulse Oximetry 96 Oxygen Flow Rate Oxygen Delivery Method Room Air Oxygen Flow Rate 1 Narrative Exam Narrative: Gen: Alert, oriented, ill appearing 66 y.o. female, appears older than stated age HEENT: normocephalic, atraumatic, conjunctiva clear, sclera non-icteric, oral mucosa pink and moist Neck: supple, full ROM, no JVD, trachea is midline Resp: Lungs CTA, non-labored breathing CV: RRR, no murmur or rubs Abd: soft, non-tender, normoactive BTs Skin: multiple bruises on arms, torso and legs, appears dry and intact Neuro: Alert and oriented X 4 w/no focal deficits. Speech clear and coherent. Extremities: moves all 4 extremities, is ambulatory, negative Apple?s sign Psyche: anxious Objective Labs Result Diagrams: 04/04/22 12:53 04/04/22 12:53 Labs: Laboratory Results - last 24 hr 04/04/22 04/04/22 04/04/22 12:43 12:53 12:53 WBC 6.3 RBC 2.97 L Hgb 12.1 Hct 36.6 MCV 123.5 H MCH 40.8 H MCHC 33.0 RDW 15.6 H Plt Count 231 Neut % (Auto) 68.2 Lymph % (Auto) 20.0 L [place] % (Auto) 9.6 Eos % (Auto) 0.5 L Baso % (Auto) 1.7 Neut # (Auto) 4300 Lymph # (Auto) 1300 [place] # (Auto) 600 Eos # (Auto) 0 Baso # (Auto) 100 RBC Morphology See below Poikilocytosis 1+ H Macrocytosis 3+ H PT INR APTT Sodium 136 L Potassium 3.5 Chloride 102 Carbon Dioxide 30 BUN 4 L Creatinine 0.41 L Estimated GFR > 60 BUN/Creatinine Ratio 9.8 Glucose 86 Lactate Calcium 7.7 L Magnesium Total Bilirubin 1.0 AST 66 H ALT 43 H Alkaline Phosphatase 129 H Ammonia Total Creatine Kinase CK-MB (CK-2) CK-MB (CK-2) Rel Index Troponin I NT-Pro-B Natriuret Pep Total Protein 5.2 L Albumin 2.5 L Globulin 2.7 Albumin/Globulin Ratio 0.9 L Lipase 54 Urine Color Urine Appearance Urine pH Ur Specific Mccall Urine Protein Urine Glucose (UA) Urine Ketones Urine Occult Blood Urine Nitrate Urine Bilirubin Urine Urobilinogen Ur Leukocyte Esterase Urine RBC Urine WBC Ur Squamous Epith Cells Urine Bacteria Ur Culture Indicated? Fluid Color Fluid Appearance Fluid RBC Fld Tot Nucleated Cell Fluid Polynuclear WBCs Fluid Mononuclear WBCs Fluid Eosinophils Fluid Other Cells Body Fluid Clot U Opiates 300ng/mL cut Ur Oxycodone Screen Urine Methadone Screen Ur Barbiturates Screen U Tricyclic Antidepress Ur Phencyclidine Scrn Ur Amphetamines Screen U Methamphetamines Scrn Ur MDMA Scrn (Ecstasy) U Benzodiazepines Scrn Urine Cocaine Screen U Marijuana (THC) Screen Ethyl Alcohol SARS-CoV-2 (PCR) Negative Influenza A (RT-PCR) Flu a negative Influenza B (RT-PCR) Flu b negative RSV (PCR) Negative 04/04/22 04/04/22 04/04/22 12:53 12:53 12:53 WBC RBC Hgb Hct MCV MCH MCHC RDW Plt Count Neut % (Auto) Lymph % (Auto) [place] % (Auto) Eos % (Auto) Baso % (Auto) Neut # (Auto) Lymph # (Auto) [place] # (Auto) Eos # (Auto) Baso # (Auto) RBC Morphology Poikilocytosis Macrocytosis PT 11.0 INR 1.0 APTT 29 Sodium Potassium Chloride Carbon Dioxide BUN Creatinine Estimated GFR BUN/Creatinine Ratio Glucose Lactate 1.0 Calcium Magnesium Total Bilirubin AST ALT Alkaline Phosphatase Ammonia < 9 L Total Creatine Kinase CK-MB (CK-2) CK-MB (CK-2) Rel Index Troponin I NT-Pro-B Natriuret Pep Total Protein Albumin Globulin Albumin/Globulin Ratio Lipase Urine Color Urine Appearance Urine pH Ur Specific Mccall Urine Protein Urine Glucose (UA) Urine Ketones Urine Occult Blood Urine Nitrate Urine Bilirubin Urine Urobilinogen Ur Leukocyte Esterase Urine RBC Urine WBC Ur Squamous Epith Cells Urine Bacteria Ur Culture Indicated? Fluid Color Fluid Appearance Fluid RBC Fld Tot Nucleated Cell Fluid Polynuclear WBCs Fluid Mononuclear WBCs Fluid Eosinophils Fluid Other Cells Body Fluid Clot U Opiates 300ng/mL cut Ur Oxycodone Screen Urine Methadone Screen Ur Barbiturates Screen U Tricyclic Antidepress Ur Phencyclidine Scrn Ur Amphetamines Screen U Methamphetamines Scrn Ur MDMA Scrn (Ecstasy) U Benzodiazepines Scrn Urine Cocaine Screen U Marijuana (THC) Screen Ethyl Alcohol SARS-CoV-2 (PCR) Influenza A (RT-PCR) Influenza B (RT-PCR) RSV (PCR) 04/04/22 04/04/22 04/04/22 12:53 12:53 17:00 WBC RBC Hgb Hct MCV MCH MCHC RDW Plt Count Neut % (Auto) Lymph % (Auto) [place] % (Auto) Eos % (Auto) Baso % (Auto) Neut # (Auto) Lymph # (Auto) [place] # (Auto) Eos # (Auto) Baso # (Auto) RBC Morphology Poikilocytosis Macrocytosis PT INR APTT Sodium Potassium Chloride Carbon Dioxide BUN Creatinine Estimated GFR BUN/Creatinine Ratio Glucose Lactate Calcium Magnesium 2.1 Total Bilirubin AST ALT Alkaline Phosphatase Ammonia Total Creatine Kinase 98 CK-MB (CK-2) TNP CK-MB (CK-2) Rel Index TNP Troponin I < 0.012 NT-Pro-B Natriuret Pep 544 H Total Protein Albumin Globulin Albumin/Globulin Ratio Lipase Urine Color Urine Appearance Urine pH Ur Specific Mccall Urine Protein Urine Glucose (UA) Urine Ketones Urine Occult Blood Urine Nitrate Urine Bilirubin Urine Urobilinogen Ur Leukocyte Esterase Urine RBC Urine WBC Ur Squamous Epith Cells Urine Bacteria Ur Culture Indicated? Fluid Color Yellow Fluid Appearance Hazy Fluid RBC < 1000 Fld Tot Nucleated Cell 135 Fluid Polynuclear WBCs 2 Fluid Mononuclear WBCs 86 Fluid Eosinophils 0 Fluid Other Cells 12 Body Fluid Clot No clots present U Opiates 300ng/mL cut Ur Oxycodone Screen Urine Methadone Screen Ur Barbiturates Screen U Tricyclic Antidepress Ur Phencyclidine Scrn Ur Amphetamines Screen U Methamphetamines Scrn Ur MDMA Scrn (Ecstasy) U Benzodiazepines Scrn Urine Cocaine Screen U Marijuana (THC) Screen Ethyl Alcohol < 10 SARS-CoV-2 (PCR) Influenza A (RT-PCR) Influenza B (RT-PCR) RSV (PCR) 04/04/22 04/04/22 19:08 19:08 WBC RBC Hgb Hct MCV MCH MCHC RDW Plt Count Neut % (Auto) Lymph % (Auto) [place] % (Auto) Eos % (Auto) Baso % (Auto) Neut # (Auto) Lymph # (Auto) [place] # (Auto) Eos # (Auto) Baso # (Auto) RBC Morphology Poikilocytosis Macrocytosis PT INR APTT Sodium Potassium Chloride Carbon Dioxide BUN Creatinine Estimated GFR BUN/Creatinine Ratio Glucose Lactate Calcium Magnesium Total Bilirubin AST ALT Alkaline Phosphatase Ammonia Total Creatine Kinase CK-MB (CK-2) CK-MB (CK-2) Rel Index Troponin I NT-Pro-B Natriuret Pep Total Protein Albumin Globulin Albumin/Globulin Ratio Lipase Urine Color Yellow Urine Appearance Clear Urine pH 5.5 Ur Specific Mccall <=1.005 Urine Protein Negative Urine Glucose (UA) Negative Urine Ketones Trace H Urine Occult Blood Negative Urine Nitrate Negative Urine Bilirubin Negative Urine Urobilinogen 0.2 Ur Leukocyte Esterase Negative Urine RBC None seen Urine WBC 0-1/hpf Ur Squamous Epith Cells 1-5 /hpf Urine Bacteria None seen Ur Culture Indicated? Cult not indicated Fluid Color Fluid Appearance Fluid RBC Fld Tot Nucleated Cell Fluid Polynuclear WBCs Fluid Mononuclear WBCs Fluid Eosinophils Fluid Other Cells Body Fluid Clot U Opiates 300ng/mL cut Positive H Ur Oxycodone Screen Positive H Urine Methadone Screen Negative Ur Barbiturates Screen Negative U Tricyclic Antidepress Negative Ur Phencyclidine Scrn Negative Ur Amphetamines Screen Negative U Methamphetamines Scrn Negative Ur MDMA Scrn (Ecstasy) Negative U Benzodiazepines Scrn Negative Urine Cocaine Screen Negative U Marijuana (THC) Screen Negative Ethyl Alcohol SARS-CoV-2 (PCR) Influenza A (RT-PCR) Influenza B (RT-PCR) RSV (PCR) Assessment & Plan Assessment & Plan narrative: Elvia Toscano is placed into observation for further evaluation of profound weakness. Profound weakness and inability to ambulate, present on admission. * PT eval in the am * SW consult requested to mobilize her or determine safe setting for her. 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 FEN: IV fluids: gentle hydration w/NS at 85 ml/hour, diet: general, labs: CBC, C/BMP, liver enzymes, Mag, PT/INR Consultants None Dispo: Unknown at this time Code status: Full code as discussed with the patient who identifies her Hi Rdz as her surrogate and POA. [X] I have utilized all available immediate resources to obtain, update, or review of the patient's current medications VTE Deep Vein Thrombosis/Pulmonary Embolism Present on Admission: No MIPS - Admit I confirm the patient?s Advance Care Plan is present, Code status is documented, Surrogate decision maker is in patient?s record: Yes MIPS - DC The patient has current or prior documentation of left ventricular ejection fraction (LVEF) less than 40%, or moderate or severely depressed left ventricular systolic function.: No
[2022-04-05] MEDS: SODIUM CHLORIDE 0.9% 1,000 ML 84 ML IV (02:00)
[2022-04-05] MEDS: OXYCODONE IR 10 MG TABLET PO ×4 (02:11→20:51)
--- NOTE | 2022-04-05 02:51 | PC.ADMIT ---
Addendum entered by Lauren Gonzalez R.N. 04/05/22 06:49: Patient has had no UOP since admission. Bladder scan showing 239cc. Original Note: [place] [id number] Admission Note: The patient,Elvia Toscano,66 y/o, was given written information regarding hospital policies, unit procedures and contact persons. Patient's smoking status: Current every day smoker. Vital Signs - 8 hr 04/04/22 19:00 04/04/22 19:12 04/04/22 19:12 Temperature Pulse Rate 84 91 H Respiratory Rate Blood Pressure 105/49 L Pulse Oximetry 93 91 Oxygen Delivery Method Oxygen Flow Rate 04/04/22 19:30 04/04/22 19:55 04/04/22 19:55 Temperature Pulse Rate 70 81 Respiratory Rate Blood Pressure 104/51 L Pulse Oximetry 96 94 Oxygen Delivery Method Oxygen Flow Rate 04/04/22 20:00 04/04/22 20:00 04/04/22 20:15 Temperature Pulse Rate 76 Respiratory Rate Blood Pressure 106/52 L 103/53 L Pulse Oximetry 95 Oxygen Delivery Method Oxygen Flow Rate 04/04/22 20:15 04/04/22 20:30 04/04/22 20:30 Temperature Pulse Rate 70 73 Respiratory Rate Blood Pressure 91/47 L Pulse Oximetry 98 96 Oxygen Delivery Method Oxygen Flow Rate 04/04/22 20:45 04/04/22 20:45 04/04/22 20:56 Temperature Pulse Rate 70 Respiratory Rate Blood Pressure 83/46 L 87/46 L Pulse Oximetry 94 Oxygen Delivery Method Oxygen Flow Rate 04/04/22 20:56 04/04/22 21:00 04/04/22 21:00 Temperature Pulse Rate 75 77 Respiratory Rate Blood Pressure 87/50 L Pulse Oximetry 95 95 Oxygen Delivery Method Oxygen Flow Rate 04/04/22 21:10 04/04/22 21:10 04/04/22 21:20 Temperature Pulse Rate 85 Respiratory Rate Blood Pressure 101/54 L 96/50 L Pulse Oximetry 93 Oxygen Delivery Method Oxygen Flow Rate 04/04/22 21:20 04/04/22 21:30 04/04/22 21:30 Temperature Pulse Rate 89 88 Respiratory Rate Blood Pressure 96/49 L Pulse Oximetry 93 89 L Oxygen Delivery Method Oxygen Flow Rate 04/04/22 21:40 04/04/22 21:40 04/04/22 21:50 Temperature Pulse Rate 73 71 Respiratory Rate Blood Pressure 81/44 L Pulse Oximetry 96 96 Oxygen Delivery Method Oxygen Flow Rate 04/04/22 21:50 04/04/22 21:51 04/04/22 21:51 Temperature Pulse Rate 78 Respiratory Rate Blood Pressure 79/43 L 80/43 L Pulse Oximetry 96 Oxygen Delivery Method Oxygen Flow Rate 04/04/22 23:22 04/04/22 22:30 04/04/22 23:30 Temperature 96.1 F L 96.2 F L Pulse Rate 84 86 84 Respiratory Rate 18 16 Blood Pressure 107/58 L 101/62 107/58 L Pulse Oximetry 99 95 100 Oxygen Delivery Method Oxygen Flow Rate 1 04/04/22 23:58 04/05/22 00:30 04/05/22 01:37 Temperature 96.5 F L 96.7 F L Pulse Rate 68 74 Respiratory Rate 16 16 Blood Pressure 92/41 L 92/47 L 90/40 L Pulse Oximetry 96 95 Oxygen Delivery Method Oxygen Flow Rate 04/05/22 02:17 04/05/22 02:06 04/04/22 23:00 Temperature Pulse Rate Respiratory Rate Blood Pressure 102/54 L Pulse Oximetry 97 Oxygen Delivery Method Nasal Cannula Nasal Cannula Oxygen Flow Rate 1 Patient admitted to room 220 at 2230 from ER per stretcher. Is alert and oriented but extremely anxious. Breath sounds CTA with sat of 95% on oxygen at 1L/min per NC. HRR. BP was trending low in ER and had bolus infusing on admission with BP of 101/62. Denied nausea. BT present and abdomen is soft but tender. Relates she is generally incontinent of B&B so purewick is being used for urine output; denies dysuria. Is needing to be repositioned q2h but prefers to lie on left side so milton tilt function is being used to vary her position. Has extensive bruising of all extremities and upper left back along with some scattered scabbed abrasions. Skin tear to right forearm is covered with a dressing. Has an open area on left upper arm which is also covered with a dressing and a skin tear on left forearm with dressing. Bilateral feet and lower legs are pink in color. All skin is very dry and flaky. Has bruising on chin and forehead. Reports multiple falls in past week due to generalized weakness. Complains of chronic generalized pain and was medicated with oxycodone with good results. Bilateral calf SCD's were applied to bilateral lower legs but at 0200 requested they be turned off so she could sleep better. Reports she has been nonambulatory transferring only from bed to chair and chair to toilet and back. Fall risk score is high and bed alarm is activated. Oriented to call light and bed controls.
[2022-04-05] MEDS: OXYCODONE IR 5 MG TABLET PO ×3 (05:37→18:03)
[2022-04-05 05:50] LABS: INR 1.1 (0.9-1.3); Prothrombin Time 12.2 SECONDS (10.1-12.7)
[2022-04-05 05:52] LABS: Add Manual Diff / Slide Review NO; Basophils Absolute Auto 0 /uL (0-100); Basophils Percent Auto 0.7 % (0-2); Eosinophils Absolute Auto 100 /uL (0-450); Eosinophils Percent Auto 1.5 % (2-4); Hematocrit 30.7 % (36-46); Hemoglobin 10.2 g/dL (12.0-16.0); Lymphocytes Absolute Auto 1200 /uL (1100-4500); Lymphocytes Percent Auto 25.5 % (25-40); Mean Corpuscular HGB Conc 33.2 % (30-36); Mean Corpuscular Hemoglobin 41.4 PG (26-34); Mean Corpuscular Volume 124.6 fL (80-100); Monocytes Absolute Auto 500 /uL (0-900); Monocytes Percent Auto 9.9 % (3-14); Neutrophils Absolute Auto 2900 /uL (1500-7000); Neutrophils Percent Auto 62.4 % (50-75); Platelet Count 187 X10^3/uL (150-400); Red Blood Cell Count 2.46 X10^6/uL (4.0-5.2); Red Cell Distribution Width 15.1 % (11.6-14.8); White Blood Cell Count 4.7 X10^3/uL (4.5-11.0)
[2022-04-05 06:01] LABS: Alanine Aminotransferase 31 IU/L (<35); Albumin 2.1 g/dL (3.5-5.0); Albumin Globulin Ratio 0.9 (1.0-2.8); Alkaline Phosphatase 94 U/L (38-126); Aspartate Aminotransferase 57 IU/L (14-36); BUN Creatinine Ratio 9.1 (6-22); Bilirubin Total 0.6 mg/dL (0.2-1.3); Blood Urea Nitrogen 4 mg/dL (7-17); Calcium 7.2 mg/dL (8.4-10.2); Carbon Dioxide 26 mmol/L (22-32); Chloride 106 mmol/L (98-107); Estimated Glomerular Filt Rate > 60 mL/min (>60); Globulin 2.3 g/dL (1.7-4.1); Glucose 84 mg/dL (80-110); HEMOLYSIS < 15 (0-50); Potassium 3.3 mmol/L (3.4-5.1); Sodium 137 mmol/L (137-145); Total Protein 4.4 g/dL (6.3-8.2)
[2022-04-05 06:45] LABS: Target Cells 1+
[2022-04-05 06:46] LABS: Anisocytosis 1+; Macrocytosis 3+; Stomatocytes 1+
[2022-04-05] MEDS: POTASSIUM CHLORIDE 20 MEQ TAB 40 MEQ PO ×2 (07:46→13:50)
[2022-04-05] MEDS: ENOXAPARIN 40 MG/0.4 ML SYRINGE SUBCUT (08:07)
[2022-04-05] MEDS: FUROSEMIDE 40 MG TABLET PO (08:07)
[2022-04-05] MEDS: ACETAMINOPHEN 325 MG TABLET 650 MG PO (10:47)
--- NOTE | 2022-04-05 12:41 | PT-IP ANOTE ---
Checked on pt this morning and refused PT. stated that she cannot move. informed pt that PT will assist her and to try to at least sit on EOB. Pt continues to refuse and stated that she has a lot of pain and maybe after her pain meds. checked back on pt this afternoon and pt continues to refuse. stated that she just got situated and that she just had her pain meds and cannot do PT today. stated maybe tomorrow if she is still here.
--- NOTE | 2022-04-05 13:25 | PT.IIE ---
Surgical History (Last Reviewed 03/14/22 @ 16:36 by Tyler Doty DO) History of arthroplasty of right shoulder History of cholecystectomy Medical History (Last Reviewed 03/14/22 @ 16:36 by Tyler Doty DO) Abdominal pain Anxiety (04/28/17) C. difficile colitis Chronic diarrhea Chronic pain Diarrhea Dyspepsia Elevated liver function tests Left breast lump Low back pain without sciatica (08/05/16) Mixed hyperlipidemia (04/28/17) Osteoarthritis (12/15/13) Osteoporosis (12/15/13) Osteoporosis Pain of both breasts Pancreatic cyst Physical Therapy Inpatient Evaluation/Re-Eval M1 PT/OT-IP Prior Functional Status Start: 04/05/22 14:08 Freq: NEEDED Status: Active Protocol: Document 04/05/22 13:25 AB (Rec: 04/05/22 14:[facility] Medical Review Prior Functional Status Medical History Reviewed Yes Communication able to make needs known Mobility and Gait pt stated that she is modified independent with bed mobility , transfers. stated that she has not walk for years and usually stays in bed or her w/ c but able to stand pivot transfer without AD. Social History Household Members spouse Living Arrangements Apartment/Condo Number of Floors (Floors) 3 or More Floors Number of Stairs To Enter/Railing? pt stays on the main level of the house no steps to enter the apartment Home Environment Standard Height Toilet Home Equipment Manual Wheelchair Additional Social History Comment pt stated that she not take a shower and just sponge bathes M2 PT-IP Current Condition Start: 04/05/22 14:08 Freq: NEEDED Status: Active Protocol: Document 04/05/22 13:25 AB (Rec: 04/05/22 14:19 AB [email or web address]) Physical Therapy Current Condition Current Condition Evaluation Date 04/05/22 Treatment Diagnosis liver cirrhosis w/ ascites; generalized weakness Onset Date 04/04/22 M3 PT-IP Subjective Start: 04/05/22 14:08 Freq: NEEDED Status: Active Protocol: Document 04/05/22 13:25 AB (Rec: 04/05/22 14:19 AB [email or web address]) Subjective Physical Therapy Visit Type Type Initial Evaluation Visit Start Time 13:25 Visit Stop Time 13:55 Total Visit Minutes 30 Notes checked on pt x2 and refused. bilingual patient support caseworker informed PT that she just talked to the pt and now agreeable to do PT. Number of AIRCRAFT MAINTENANCE SUPERVISOR Visits 0 Therapy Pain Assessment Pain When Pain Assessed At Rest Pain Present Pain Present Pain Reported Location back Scale Used pain scale not stated Pain Management Techniques Distraction,Modification of Treatment,Re-positioning, Timing of Activity with Medications Abdomen Scale Used pain scale not stated Pain Management Techniques Distraction,Modification of Treatment,Re-positioning, Timing of Activity with Medications M4 PT-IP Mobility and Gait Start: 04/05/22 14:08 Freq: NEEDED Status: Active Protocol: Document 04/05/22 13:25 AB (Rec: 04/05/22 14:19 AB [email or web address]) PT-Bed Mobility Assessment Supine to Sit Supine to Sit Maximum Assistance,Head of Bed Elevated,Bedrails Sit to Supine Sit to Supine Standby Assistance PT-Transfer Assessment Sit to and From Stand Sit to and from Stand Contact Guard Assistance, Minimal Assistance,1 Person Assistance,Use of Upper Extremities Equipment Transfer Assistive Device Gait Belt Orthotic/Prosthetic Devices or Brace: No Transfers Transfer Destination Bed,Chair Transfer Technique Stand Pivot Transfer Ability Level of Assist Contact Guard Assistance, Minimal Assistance,1 Person Assistance,Use of Upper Extremities Comments Mobility Comments completed supine to sit max A and max cues. HOB elevated and pt used bed rail to assist. completed sit to stand CGA to min A and pivot transfer to chair CGA to min A. pt reaches over to arm rest during transfer. pt does not want to stay up on the chair and requested to go back to bed. completed sit to stand from chair CGA to min A and stand pivot transfer to bed CGA to min A. pt completed sit to supine SBA. positioned pt on the bed. call light and table placed within reach. PT-Balance Assessment Sitting Balance and Reactions Static Sitting Balance Ability Good Dynamic Sitting Balance Ability Good Standing Balance and Reactions Static Standing Balance Ability Fair Dynamic Standing Balance Ability Poor Device Used without AD M5 PT-IP Objective Assessments Start: 04/05/22 14:08 Freq: NEEDED Status: Active Protocol: Document 04/05/22 13:25 AB (Rec: 04/05/22 14:19 AB [id number]) Orientation Orientation/Cognition Level of Alertness Alert Orientation Name Language Function Ability No Deficits Noted Safety Awareness Decreased Safety Awareness Memory Description Short Term Impaired Gross Range of Motion Lower Extremity ROM Assessment Within Functional Limits Strength Lower Extremity Strength Hip 3+/5 Knee 3+/5 Muscle Tone Muscle Tone WNL Yes M6 PT-IP Treatment Start: 04/05/22 14:08 Freq: NEEDED Status: Active Protocol: Document 04/05/22 13:25 AB (Rec: 04/05/22 14:19 AB [email or web address]) Physical Therapy Treatment Education Education Provided Safety M7 PT-IP Assessment and Plan Start: 04/05/22 14:08 Freq: NEEDED Status: Active Protocol: Document 04/05/22 13:25 AB (Rec: 04/05/22 14:19 AB [email or web address]) PT Summary Assessment and Plan Potential Rehabilitation Potential Fair Status of Condition at Evaluation Evolving Summary Impairments Pain,ROM,Strength,Balance, Coordination,Sensation,Tone, Cognition,Bed Mobility, Transfers,Gait,Activity Tolerance Assessment Summary pt requiring max A for supine to sit , CGA to min A for pivot transfer without AD. pt has limited mobility at prior level and has not ambulated for years. pt stated that she usually stay in bed for sitting on her w/c . spouse at home and has been assisting pt if needed. pt may go home with assistance. Goals Bed Mobility Goal Independent Transfer Goal Independent Days to Meet Goals 5 Frequency of Treatment Frequency Of Treatment Once a Day Treatment Plan Physical Therapy Treatment Plan Bed Mobility Training,Transfer Training,Therapeutic Exercise ,Balance Retraining,Discharge Planning,Neuromuscular Re-ed, Coordination Retraining Precautions Other Precautions falls Recommendations To Nursing Amount of Assist Needed 1 Person Assist Discharge Recommendations PT Discharge Recommendations Home with 03/11 Assist Available,Home Health Transportation Needs at Discharge Private Vehicle,Wheelchair/ Cabulance
--- NOTE | 2022-04-05 14:46 | CM.DANOTE ---
Addendum entered by TESHA Koo 04/05/22 15:03: ADD: Sons Sotero and Boogie live locally, patient unsure of their contact information. sons assist with transport JOVANY Original Note: Initial DCP Assessment Note Pt is a 66 yo female, resident of [address] [place] [address]) arrives via EMS w/complaint of multiple falls, pain all over, complicated abd hx, recent colitis placed into observation for further evaluation of profound weakness; BROWNING PROCESSOR consult and PT/OT ordered PCP: Tyler Doty Payer: MCR/BHAVANI Reviewed chart, according to PT Nicole, patient has refused PT x2 today Met w/patient and her spouse Hi, introduced self. Patient immediately defensive sounding, asks why she has a pediatric social worker? Explained this BROWNING PROCESSOR is assigned because patient is on the acute care floor, patient says oh, I didn't know I was on the acute care floor Patient appears much older than stated age, rigid in bed with twinges of pain, appears to have bruising all over her UE ( hx multiple falls) Patient denies needs from this BROWNING PROCESSOR, states she has a pelvic fx that hurts. Spouse has been assisting at home, patient and spouse say they live in [facility] a friend owns the building. Later learn patient/spouse are living at [facility]. Patient denies drinking or illicit drugs. Patient refuses to consider SNF stay and admits she does not like strangers in her home, she will allow community software development engineer Magdaleno sousa [phone] to assist. Patient/spouse state Magdaleno has been assisting them sign up for HH services (?) Patient states she does not have PAYAL caregiving Strongly encouraged patient to participate in PT, this appears to be the reason for admission to observation. Patient agreeable. PT inevitably was accepted by patient and patient cleared for discharge home w/spouse. Patient uses a wheelchair at home Plan: DC home w/spouse expected, call to community software development engineer would be helpful, unsure his availability over the Holiday weekend TESHA Bonilla Discharge Planning/Care Management CM Discharge Assessment Start: 04/05/22 14:43 Freq: Status: Active Protocol: Document 04/05/22 14:43 JOVANY (Rec: 04/05/22 14:46 JOVANY [id number]) Discharge Planning Assessment Assigned Wind Turbine Installer TESHA Huffman DPOA/Assigned Designee Name Hi Berry, spouse Contact Information [phone] Advance Directives? No History Provided By Patient,Significant Other Prior Living Arrangements Apartment/Condo Household Members spouse Type of transporation used prior to Relies on Others admit Independent with ADL's No Is patient alert and oriented? Yes Needs Assistance With Bathing,Meal Prep,Toileting, Home Chores / Shopping Patient/Family Preference Home with Home Health Barriers to Discharge No Comment Home w/spouse, cleared by PT, discuss HH Discharge Plan Home Transportation Arrangement Spouse Referrals Initiated Home Health Additional Comment Need to discuss w/patient; may not be agreeable to this
[2022-04-05] MEDS: ATORVASTATIN 20 MG TABLET 40 MG PO (20:51)
[2022-04-06] MEDS: OXYCODONE IR 5 MG TABLET PO ×2 (00:35→08:33)
[2022-04-06 01:00] VITALS: BP 156/78; PULSE 88; RESP 20; TEMP 36.5; O2SAT 95
[2022-04-06] MEDS: OXYCODONE IR 10 MG TABLET PO ×4 (03:36→16:31)
[2022-04-06 04:55] LABS: Prothrombin Time 11.8 SECONDS (10.1-12.7)
[2022-04-06 05:02] LABS: Alanine Aminotransferase 36 IU/L (<35); Albumin 2.3 g/dL (3.5-5.0); Albumin Globulin Ratio 0.9 (1.0-2.8); Alkaline Phosphatase 103 U/L (38-126); Aspartate Aminotransferase 71 IU/L (14-36); BUN Creatinine Ratio 7.5 (6-22); Bilirubin Total 0.9 mg/dL (0.2-1.3); Blood Urea Nitrogen 3 mg/dL (7-17); Calcium 7.6 mg/dL (8.4-10.2); Carbon Dioxide 28 mmol/L (22-32); Chloride 102 mmol/L (98-107); Estimated Glomerular Filt Rate > 60 mL/min (>60); Globulin 2.6 g/dL (1.7-4.1); Glucose 81 mg/dL (80-110); HEMOLYSIS < 15 (0-50); Magnesium 1.7 mg/dL (1.6-2.3); Potassium 3.8 mmol/L (3.4-5.1); Sodium 136 mmol/L (137-145); Total Protein 4.9 g/dL (6.3-8.2)
[2022-04-06 05:04] LABS: Add Manual Diff / Slide Review NO; Basophils Absolute Auto 0 /uL (0-100); Basophils Percent Auto 0.6 % (0-2); Eosinophils Absolute Auto 100 /uL (0-450); Eosinophils Percent Auto 1.8 % (2-4); Hematocrit 33.7 % (36-46); Hemoglobin 11.1 g/dL (12.0-16.0); Lymphocytes Absolute Auto 900 /uL (1100-4500); Lymphocytes Percent Auto 18.4 % (25-40); Mean Corpuscular HGB Conc 32.8 % (30-36); Mean Corpuscular Hemoglobin 41.2 PG (26-34); Mean Corpuscular Volume 125.6 fL (80-100); Monocytes Absolute Auto 500 /uL (0-900); Monocytes Percent Auto 10.4 % (3-14); Neutrophils Absolute Auto 3400 /uL (1500-7000); Neutrophils Percent Auto 68.8 % (50-75); Platelet Count 162 X10^3/uL (150-400); Red Blood Cell Count 2.69 X10^6/uL (4.0-5.2); Red Cell Distribution Width 15.3 % (11.6-14.8)
[2022-04-06 05:35] LABS: Anisocytosis 1+; Macrocytosis 3+; Target Cells 1+
[2022-04-06 05:36] LABS: Stomatocytes 1+
[2022-04-06 06:00] VITALS: BP 96/49; PULSE 72; RESP 20; TEMP 36.4; O2SAT 100
[2022-04-06] MEDS: FUROSEMIDE 40 MG TABLET PO (08:35)
[2022-04-06] MEDS: SPIRONOLACTONE 25 MG TABLET PO (08:35)
[2022-04-06] MEDS: ENOXAPARIN 40 MG/0.4 ML SYRINGE SUBCUT (08:35)
[2022-04-06 08:37] VITALS: BP 112/55; PULSE 79; RESP 22; TEMP 36.6; O2SAT 98
[2022-04-06 09:25] VITALS: O2SAT 97
--- NOTE | 2022-04-06 09:42 | PT-IP ANOTE ---
Attempted to see pt for PT, pt declines PT due to pain and awaiting pain medication. Pt states she will be agreeable to PT after pain medication takes effect and TRAVEL FREIGHT AND PASSENGER AGENT agrees to check back in a couple of hours.
[2022-04-06] MEDS: MAGNESIUM CHLORIDE 64 MG TABLET 128 MG PO (10:38)
--- NOTE | 2022-04-06 11:19 | CM.DPC ---
DCP Discharge Home with HH Per MD, pt is medically stable to d/c home today with spouse back to [facility] with HH. Per PT, have worked with pt and recommending d/c with spouse assist and HH. Pt declined PT this morning due to pain but agreeable to attempting again later. SW met bedside with pt and explained role and she confirms she not sure she is feeling ready for d/c yet today as she just had lasix pill and urinating frequently. Spouse will be back bedside again around lunch time. Pt is OBS Status and would not be able to contest discharge if she still feels she is not ready for d/c. Pt is agreeable to HH and no HH preference and SW made referral to [facility] and called and confirmed they should be able to start in a reasonable timeframe for [place] area and SW faxed referral along with F2F and HH orders but d/c summ not yet available. Pt and spouse have been previously referred to Magdaleno with [employer] program and he has been following them in the community and SW left msg with Magdaleno regarding pt's admission and likely d/c back home today and new HH referral so that he can check in with them sometime after discharge. Plan: Patient to d/c today via spouse POV and new [facility] referral made and Community Media Marketing Manager established with pt and to follow in the community after d/c. TESHA Miller
--- NOTE | 2022-04-06 12:08 | PT.IPTN ---
Physical Therapy Treatment Note M2 PT-IP Current Condition Start: 04/05/22 14:08 Freq: NEEDED Status: Active Protocol: Document 04/05/22 13:25 AB (Rec: 04/05/22 14:19 AB [id number]) Physical Therapy Current Condition Current Condition Evaluation Date 04/05/22 Treatment Diagnosis liver cirrhosis w/ ascites; generalized weakness Onset Date 04/04/22 M3 PT-IP Subjective Start: 04/05/22 14:08 Freq: NEEDED Status: Active Protocol: Document 04/06/22 12:08 NBM (Rec: 04/06/22 13:08 NB [id number]) Subjective Physical Therapy Visit Type Type Treatment Note Visit Start Time 11:54 Visit Stop Time 12:08 Total Visit Minutes 14 Notes Pt sleeping upon arrival but agreeable to working with PT. Number of COMMUNITY ORGANIZATION WORKER Visits 1 Physical Therapy Visit Comments Patient Comments Pain 9/10 tolerable at rest, end of treatment pain manageable. Patient Goals Sit in chair for lunch. Therapy Pain Assessment Pain When Pain Assessed At Rest Pain Present Pain Present Pain Reported Location back Intensity 9 Scale Used Numeric (0 - 10) tolerable Pain Management Techniques Distraction,Modification of Treatment,Re-positioning, Timing of Activity with Medications M4 PT-IP Mobility and Gait Start: 04/05/22 14:08 Freq: NEEDED Status: Active Protocol: Document 04/06/22 12:08 NBM (Rec: 04/06/22 13:08 NB [id number]) PT-Bed Mobility Assessment Supine to Sit Supine to Sit Maximum Assistance,Head of Bed Elevated,Bedrails Scooting Scooting to Edge of Bed Moderate Assistance PT-Transfer Assessment Sit to and From Stand Sit to and from Stand Contact Guard Assistance, Moderate Assistance,1 Person Assistance,Use of Upper Extremities Equipment Transfer Assistive Device Gait Belt Orthotic/Prosthetic Devices or Brace: No Transfers Transfer Destination Chair Transfer Technique Stand Pivot Transfer Ability Level of Assist Contact Guard Assistance, Minimal Assistance,1 Person Assistance,Use of Upper Extremities Comments Mobility Comments Pt L sidelying upon arrival and agreeable to PT to sit in chair for lunch. Pt completed L sidelying to sitting EOB max A and max cues for handplacement w/ LE assist, HOB elevated and pt use of bed rail to assist. Pt used bedside Eli cane to assist w / scooting to EOB. Purewick catheter had been dislodged, and nursing staff notified. Nasal canula unable to reach chair and pt's SO2 94% without , ok to remove O2 per RN. Pt completed sit to stand CGA> Soraya and pivot transfer CGA> Soraya to chair ~3 ft; cushion and pillow support behind pt for upright posture and pain management to back. Reviewed seated ex's w/ pt ankle pumps, seated marching, and LAQs but not performed - pt states she does these regularly throughout the day. Pt left upright in chair eating lunch w/ call light and all needs within reach, spouse in room, and instructions not to get up out of chair on own while RN obtained chair alarm. PT-Balance Assessment Sitting Balance and Reactions Static Sitting Balance Ability Good Dynamic Sitting Balance Ability Good Standing Balance and Reactions Static Standing Balance Ability Fair Dynamic Standing Balance Ability Poor Device Used without AD M5 PT-IP Objective Assessments Start: 04/05/22 14:08 Freq: NEEDED Status: Active Protocol: Document 04/05/22 13:25 AB (Rec: 04/05/22 14:19 AB [email or web address]) Orientation Orientation/Cognition Level of Alertness Alert Orientation Name Language Function Ability No Deficits Noted Safety Awareness Decreased Safety Awareness Memory Description Short Term Impaired Gross Range of Motion Lower Extremity ROM Assessment Within Functional Limits Strength Lower Extremity Strength Hip 3+/5 Knee 3+/5 Muscle Tone Muscle Tone WNL Yes M6 PT-IP Treatment Start: 04/05/22 14:08 Freq: NEEDED Status: Active Protocol: Document 04/05/22 13:25 AB (Rec: 04/05/22 14:19 AB [email or web address]) Physical Therapy Treatment Education Education Provided Safety M7 PT-IP Assessment and Plan Start: 04/05/22 14:08 Freq: NEEDED Status: Active Protocol: Document 04/06/22 12:08 NBM (Rec: 04/06/22 13:08 NBM [id number]) PT Summary Assessment and Plan Potential Rehabilitation Potential Fair Status of Condition at Evaluation Evolving Summary Impairments Pain,ROM,Strength,Balance, Coordination,Sensation,Tone, Cognition,Bed Mobility, Transfers,Gait,Activity Tolerance Assessment Summary Pt continues to require max A 1PA for supine to sit, CGA> Soraya for pivot transfer without AD. Pt's prior level of function is to sleep upright on couch or sit in wheelchair and pt states she does not ambulate. Spouse is present at visit and resides at home and has been assisting pt as needed. Pt may go home with assistance. Goals Bed Mobility Goal Independent Transfer Goal Independent Days to Meet Goals 5 Frequency of Treatment Frequency Of Treatment Once a Day Treatment Plan Physical Therapy Treatment Plan Bed Mobility Training,Transfer Training,Therapeutic Exercise ,Balance Retraining,Discharge Planning,Neuromuscular Re-ed, Coordination Retraining Precautions Other Precautions falls Recommendations To Nursing Amount of Assist Needed 1 Person Assist Discharge Recommendations PT Discharge Recommendations Home with 03/11 Assist Available,Home Health Transportation Needs at Discharge Private Vehicle,Wheelchair/ Cabulance
--- NOTE | 2022-04-06 12:52 | PM.DS.1 ---
History of Present Illness History of Present Illness Date Patient Seen: 04/05/22 Time Patient Seen: 01:01 Chief complaint: chronic pain/numb issue Narrative: Per admitting provider: Elvia Toscano is a 66-year-old female with history of chronic pain syndrome, chronic abdominal pain, cirrhosis, osteoporosis, coronary artery disease, HLD, anxiety and depression was seen for colitis in the past.? Patient presented to the ED on 04/04 with complaints of multiple falls and back pain.? She denies loss of consciousness, she states neck and back pain, she notes she had a cut on her arm several days ago from one of her falls, she describes epigastric and lower abdominal pain, denies shortness of breath, no upper chest pain, fever or chills, she is had cough, she says she has emphysema and fibromyalgia.? States her cough is nonproductive cough, no nausea or vomiting, she states she has been having diarrhea frequently.? She denies new urinary symptoms.? She is significant mobility issues she states in her helps her with toileting.? She states her weight has increased from 100 lb 250 lb over the last couple weeks.? She does use tobacco stating 2-3 cigarettes/day, drinks 2 glasses of wine combined with Gatorade, denies illicit drug use.? States she has had gallbladder stents that have perforated her gall bladder and that she is had her gallbladder out.??Review of her local medical records seem to indicate she has difficulties with follow up, and her PCP has been trying to reduce the amount of opioids she is taking. Abdominal ultrasound afford indicated moderate ascites with cirrhotic liver and diffuse hepatic study [place]. Chest x-ray indicated centrilobular emphysema with no acute pulmonary process. X-ray of the C-spine was negative for any acute injury. CT of the chest abdomen and pelvis confirmed findings on x-ray regarding moderate centrilobular emphysema, ascites with ascites fluid in the abdomen, generalized anasarca, old fractures, head CT was negative for any acute intracranial injury or fracture, she underwent paracentesis with no significant findings. She is afebrile, blood pressure 90/40, heart rate 74, respiratory rate 16, oxygen saturation of 95% on 1 L she weighs 55 kg with a BMI of 23.6. CBC is unremarkable, she does have a abnormal smear, coagulation studies within normal limits, sodium 136 creatinine 0.41 BUN 4 calcium 7.7 AST 66 ALT 43 alk-phos 129 proBNP is 544 albumin was 2.5 urine was negative for UTI opiates were positive and oxycodone was positive in her urine toxicology viral and COVID-19 PCR panels were all negative. Discharge Providers Provider Date of admission: 04/04/22 20:07 Discharge Date: 04/06/22 Primary care physician: Tyler Doty DO Consults: 04/04/22 20:27 Consult to FAMILY DAY CARE PROVIDER - Spinning Frame Cleaner Routine Comment: Chronic pain, non compliance per PCP Consult to Physical Therapy Evaluate & Treat Comment: global weakness, need for rehab? Physician Instructions: Evaluate and Treat 04/06/22 11:26 Consult to Home Health Routine Comment: osteoorosis with hx fx, paracentesis, weakness Reason For Exam: Set up HH RN/PT/FAMILY DAY CARE PROVIDER for discharge to home Discharge provider: Oscar Alvarado MD Summary Hospital Course Discharge Diagnosis: 1. Liver cirrhosis, etiology unknown 2. Ascites s/p paracentesis 3. Chronic pain, fibromyalgia 4. Anxiety 5. Depression Hospital Course: Ms. Toscano presented to the hospital with abdominal pain. She was recently at another hospital and had a para done was discharged from the ED. In this hospital she had apar done which was negative for SBP. She was slightly hypotensive afterwards and given fluids and ablumin. She felt weak and worked with PT who cleared her home. After her blood pressures improved she was started on lasix and spironolactone and she was able to be discharged home. She had hepatitis serologies sent and should be follow up by her PCP. Exam Vital Signs (past 8 hours): Fraction of Inspired Oxygen 98 Oxygen Delivery Method Room Air Oxygen Flow Rate 0 Narrative Exam Narrative: GEN: chronically ill appearing ABD: soft, nontender EXT: 1+ edema Objective Labs Result Diagrams: 04/06/22 04:35 04/06/22 04:35 Labs: Laboratory Results - last 24 hr 04/06/22 04/06/22 04:35 04:35 Hepatitis A Total & IgM Negative Hep B Core Total Ab Negative [facility] Medical History Abdominal pain Anxiety (04/28/17) C. difficile colitis Chronic diarrhea Chronic pain Diarrhea Dyspepsia Elevated liver function tests Left breast lump Low back pain without sciatica (08/05/16) Mixed hyperlipidemia (04/28/17) Osteoarthritis (12/15/13) Osteoporosis (12/15/13) Osteoporosis Pain of both breasts Pancreatic cyst Surgical History History of arthroplasty of right shoulder History of cholecystectomy Family History Father No problems noted. Mother PE (pulmonary thromboembolism) Social History marital status: household members: spouse Smoking Status: Current every day smoker Tobacco: How many years used: 25 alcohol intake: never substance use type: does not use Discharge Plan Discharge Plan Patient Disposition: Home Provider Discharge Comment: Ms. Toscano came in with abdominal discomfort. She had a swollen belly from cirrhosis. She had fluid removed. She should limit her salt and the amount of fluid she drinks. She should take the two medications furosemide and spironolactone to help remove the fluid which is causing her belly pain and swelling. Discharge orders & Medications Prescriptions: New furosemide 40 mg Tablet 40 mg PO DAILY Qty: 30 0RF spironolactone 25 mg Tablet 25 mg PO DAILY Qty: 30 0RF Continued ferrous gluconate 324 mg (37.5 mg iron) tablet 324 mg PO BID Qty: 180 3RF oxycodone-acetaminophen 5-325 mg tablet 2 tab PO Q6H PRN (Reason: pain) Qty: 112 0RF Rx Instructions: Must last two weeks. atorvastatin 40 mg tablet 40 mg PO BEDTIME Qty: 90 0RF gabapentin 300 mg Capsule 300 mg PO Q8H Discontinued potassium chloride 10 mEq capsule, extended release 10 meq PO DAILY Qty: 90 1RF lorazepam [Ativan] 0.5 mg Tablet 0.5 mg PO BID PRN (Reason: Anxiety) methocarbamol 500 mg Tablet 500 mg PO TID PRN (Reason: muscle spasms) No Action (DME) permanent disabled parking permit Qty: 1 0RF Dose Instruction: As directed Rx Instructions: My patient qualifies for permanent disabled parking access. Follow up/Referrals: Tyler Doty DO [Primary Care Provider] - Diet/Activity/Treatments Diet: Low-sodium Diet comment: 2L fluid restriction Visit Report/Discharge Packet Instructions: Cirrhosis, DI for Cirrhosis, DI for Chronic Pain -- Adult, How to Prevent Falls, DI for Muscle Weakness, Fluid Restricted Diet Discharge Data Primary Care Provider: Tyler Doty Attending Provider: Layla Pan
[2022-04-06 15:00] VITALS: O2SAT 93
[2022-04-06 16:04] VITALS: BP 99/49; PULSE 86; RESP 18; TEMP 36.8; O2SAT 90
--- NOTE | 2022-04-06 16:13 | PC.NURSE ---
Day shift: MD scripts given to Pt and Pt's SO at approx 1600. Also info on [employer] [place] [employer].
--- NOTE | 2022-04-06 18:06 | PC.NURSE ---
Day shift: Paperwork signed and all questions answered. Pt has all personal belongings. She also has new MD scripts and was encouraged to take them as directed. Left unit via WC at approx 1800. Takne to car by this junior technical writer. Getting into the car was tolerated well. Her Friend Hi is taking her home. She was also encouraged to f/u with her PCP as soon as possible.
[2022-04-07 15:25] LABS: Hepatitis B Surface Antigen NEGATIVE s/c (NEGATIVE)
[2022-04-08 01:11] LABS: Hepatitis A Ab Total Negative (Negative); Hepatitis B Core Antibody Negative (Negative)
[2022-04-09 04:57] LABS: Hepatitis B Surf Ab Qualitativ Non Reactive (.)
== END 2022-04-06 18:08 | disposition home or self-care (01) ==
LOC: ED 20:06 → AC 20:08
PROVIDERS: Internal Medicine; Admitting Provider Nurse Practitioner Family; Emergency Provider Emergency Medicine; PCP Family Medicine; Referring Provider Emergency Medicine; Visit Provider Nurse Practitioner Family
DX: M54.9 Dorsalgia, unspecified (principal); R29.6 Repeated falls; R07.9 Chest pain, unspecified; R18.8 Other ascites; K74.60 Unspecified cirrhosis of liver; M79.7 Fibromyalgia; F41.9 Anxiety disorder, unspecified; F32.A Depression, unspecified; F17.210 Nicotine dependence, cigarettes, uncomplicated; Z20.822 Contact with and (suspected) exposure to COVID-19; M54.2 Cervicalgia; R53.1 Weakness; G89.4 Chronic pain syndrome
CPT/HCPCS: 0241U; 36415; 49083; 51701; 51798; 70450; 71045; 71260; 72125; 74177; 76700; 80053; 80305; 80320; 81001; 82140; 82550; 83605; 83690; 83735; 83880; 84484; 85025; 85610; 85730; 86704; 86706; 86708; 87040; 87070; 87075; 87116; 87205; 87206; 87340; 87522; 87801; 89051; 90471; 94760; 96361; 96365; 96366; 96367; 96372; 96375; 97162; 97530; 99284; G0378; 90715; J1650; J2270; J2543; P9041; Q9967

== ENCOUNTER → 2022-04-11 12:12 | Outpatient (CLI) | payer MEDICARE, MEDICAID, SELFPAY ==
[2022-04-04 22:45] VITALS: BMI 23.6
--- NOTE | 2022-04-11 12:14 | DI.MRI.S_ITS ---
PROCEDURE: MR LUMBAR SPINE WO CON INDICATIONS: F/u CT with ramus fx TECHNIQUE: Noncontrast sagittal T1 spin echo and T2 fast echo, sagittal STIR, and T2 fast spin echo through the lumbar spine. In cases with scoliosis, additional coronal T2 fast spin echo may be performed. COMPARISON: [facility], MR, L-SPINE WITHOUT CONTRAST, 08/08/2008, 10:41. [facility], CR, XR LUMBAR SPINE 2 OR 3 VIEWS, 03/24/2022, 11:13. [facility], MR, L-SPINE WITHOUT CONTRAST, 12/13/2013, 17:45. FINDINGS: Image quality: Excellent. Alignment and Curvature: 5 lumbar type vertebral bodies are present by plain film. Roughly 2 mm of retrolisthesis of L1 on L2 and L2 on L3. Bone Marrow: Marrow is of normal overall signal. No acute vertebral body compression fractures. Mild reactive signal throughout the endplates of the lumbar and lower thoracic spine. Spinal Cord: Conus medullaris terminates at the lower L2 level. Visualized cord demonstrates normal signal and size. Paraspinous Soft Tissues: No paravertebral masses. T12-L1: Moderate disc desiccation. Mild disc height loss and diffuse disc bulge. Mild facet and ligamentum flavum hypertrophy. Mild epidural lipomatosis. Mild canal stenosis. No foraminal stenosis. L1-L2: Mild disc height loss and desiccation. Mild diffuse disc bulge. Minimal canal stenosis. No foraminal stenosis. L2-L3: Mild disc desiccation and diffuse disc bulge. Mild epidural lipomatosis. Mild canal stenosis. Mild bilateral foraminal stenosis. L3-L4: Mild disc desiccation and diffuse disc bulge. Mild canal stenosis. Mild bilateral foraminal stenosis. L4-L5: Normal appearance. L5-S1: Moderate disc height loss and desiccation. Mild diffuse disc bulge/osteophyte. Mild bilateral facet hypertrophy. Mild canal stenosis. Mild left and moderate right foraminal stenosis. IMPRESSION: 1. Multilevel degenerative disc and facet disease, as well as ligamentum flavum hypertrophy and epidural lipomatosis. 2. Mild multilevel canal stenosis. 3. Multilevel foraminal stenoses, worst at L5-S1 on the right where there is moderate foraminal stenosis. Dictated by: Preston Gardner M.D. on 04/11/2022 at 13:57 Transcribed by: MEÑO on 04/11/2022 at 14:00 Approved by: Preston Gardner M.D. on 04/11/2022 at 16:25
--- NOTE | 2022-04-11 12:14 | DI.MRI.S_ITS ---
PROCEDURE: MR PELVIS WO CON INDICATIONS: F/u CT with ramus fx TECHNIQUE: Noncontrast coronal and sagittal T1 spin echo and STIR, and axial T1 spin echo and T2 fast spin echo with fat saturation through the bony pelvis. COMPARISON: [facility], CT, CT CHEST ABD PEL W CON, 04/04/2022, 14:20. FINDINGS: Image quality: Excellent. 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 No associated acute osseous edema is seen. Areas of [id number] signal are seen in the sacrum bilaterally with associated hypointense T1-weighted signal. A transverse component is seen at the S3-4 level. 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 No suspicious marrow replacing lesion. Degenerative changes are seen at the lumbosacral junction. Soft tissues: There is generalized loss of muscle bulk and grade 2-3 fatty infiltration of the musculature surrounding the pelvis. Mild edema is seen within the adductor musculature bilaterally as well as in the gluteus medius and minimus muscles bilaterally that could represent low-grade muscle strains. Similar edema is also noted within the iliopsoas muscles. No acute ligament or tendon tear is seen. Moderate amount of ascites is seen throughout the visualized abdomen and pelvis. Nonspecific subcutaneous soft tissue edema is present. IMPRESSION: 1. 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 2. Acute or subacute bilateral sacral fractures without significant displacement. Mild associated osseous edema is present. 3. Multifocal intramuscular edema within multiple muscles surrounding the hips bilaterally, which is suspicious for low-grade muscle strains. 4. Moderate volume of ascites within the abdomen and pelvis. Approved by: Sarbjit Vallecillo M.D. on 04/11/2022 at 15:06
== END ==
PROVIDERS: PCP Family Medicine; Referring Provider Family Medicine; Visit Provider Family Medicine
DX: S32.10XA Unspecified fracture of sacrum, initial encounter for closed fracture (principal); S32.591K Other specified fracture of right pubis, subsequent encounter for fracture with nonunion; M48.061 Spinal stenosis, lumbar region without neurogenic claudication; M48.07 Spinal stenosis, lumbosacral region; M51.36 Other intervertebral disc degeneration, lumbar region; M51.37 Other intervertebral disc degeneration, lumbosacral region; G96.191 Perineural cyst; R18.8 Other ascites; X58.XXXA Exposure to other specified factors, initial encounter; X58.XXXD Exposure to other specified factors, subsequent encounter
CPT/HCPCS: 72148; 72195

== ENCOUNTER → 2022-05-06 12:03 | Outpatient (CLI) | payer MEDICARE, MEDICAID, SELFPAY ==
[2022-04-04 22:45] VITALS: BMI 23.6
--- NOTE | 2022-05-06 | DI.MG.S_ITS ---
BILATERAL DIGITAL DIAGNOSTIC MAMMOGRAM 3D/2D: 05/06/2022 CLINICAL: Diffuse enlargement of the left breast. Comparison is made to exams dated: 08/24/2008 mammogram - [facility] and 06/13/2003 mammogram - [facility]. Both breasts are heterogeneously dense, which may obscure small masses (category c / 51-75% glandular tissue). The bilateral breasts are symmetric in size and shape without suspicious mass, architectural distortion, or suspicious calcifications. No skin or trabecular thickening. No visible axillary adenopathy. IMPRESSION: BENIGN There is no abnormality seen in the left breast to correspond with the diffuse area of clinical concern, however, clinical followup is recommended. There is no mammographic evidence of malignancy. No mammographic abnormalities to explain patient's reported diffuse left breast enlargement. Recommend clinical follow up for persistent or worsening symptoms, or development of any clinically suspicious findings. A 1 year screening mammogram is recommended. Findings and recommendations were conveyed to the patient during today's evaluation. Based on the Tyrer Cuzick model (a risk assessment model) the patient's lifetime risk is 8.0% and her 10 year risk is 3.8%. According to the ACR, ACS, and NCCN guidelines, an annual breast MRI exam along with mammogram is recommended if the patient's lifetime risk is 20% or greater. This exam was interpreted at Station ID: [id number]. NOTE: For mammograms, a report in lay terms will be sent to the patient. Approximately 15% of breast malignancies will not be visualized mammographically. In the management of a palpable breast mass, a negative mammogram must not discourage biopsy of a clinically suspicious lesion. Electronically Signed By: Jasvir Fields M.D. at/:05/09/2022 18:50:42 letter sent: Clinical Evaluation ACR BI-RADS Category 2: Benign Finding(s) 3342F
== END ==
PROVIDERS: PCP Family Medicine; Referring Provider Family Medicine; Visit Provider Family Medicine
DX: N63.20 Unspecified lump in the left breast, unspecified quadrant; N62 Hypertrophy of breast
CPT/HCPCS: 77066; G0279

== ENCOUNTER → 2022-06-26 11:30 | Outpatient (CLI) | payer MEDICARE, MEDICAID, SELFPAY ==
[2022-04-04 22:45] VITALS: BMI 23.6
--- NOTE | 2022-06-26 10:54 | DI.DEXA.S_ITS ---
Indication: postmenopausal osteoporosis; Referring Provider: JELANI CARRANZA Study: Bone densitometry was performed. Exam Date: June 26, 2022 Accession number: [id number] Bone Density: Region BMD T-score Z-score Classification AP Spine(L1-L4) 0.547 -4.5 -2.8 Osteoporosis Femoral Neck (Left) 0.359 -4.4 -2.9 Osteoporosis Total Hip (Left) 0.443 -4.1 -2.8 Osteoporosis Femoral Neck (Right) 0.398 -4.1 -2.5 Osteoporosis Total Hip (Right) 0.342 -4.9 -3.7 Osteoporosis Total Hip Mean 0.393 -4.5 -3.3 Osteoporosis World Health Organization criteria for BMD impression classify patients as: Normal (T-score at or above -1.0), Osteopenia (T-score between -1.0 and -2.5), or Osteoporosis (T-score at or below -2.5). 10-year Fracture Risk: FRAX not reported because: Some T-score for Spine Total or Hip Total or Femoral Neck at or below -2.5 Previous Exams: -- Region Exam Age BMD T-score BMD Change BMD Change Date g/cm2 vs Baseline vs Previous -- AP Spine (L1-L4) 06/26/2022 66 0.547 -4.5 -0.145 (-21.0%)# -0.145 (-21.0%)# 04/03/2021 65 0.692 -3.2 Total Hip(Left) 06/26/2022 66 0.443 -4.1 -0.032 (-6.7%)# -0.032 (-6.7%)# 04/03/2021 65 0.474 -3.8 Total Hip(Right) 06/26/2022 66 0.342 -4.9 -0.021 (-5.9%)# -0.021 (-5.9%)# 04/03/2021 65 0.364 -4.7 -- *Denotes significance at 95% confidence level, LSC for AP Spine = 0.022 g/cm2, LSC for Total Hip = 0.027 g/cm2 # Denotes dissimilar scan types or analysis methods Impression: The patient has osteoporosis, based on the Right Total Hip T-score. No significant bone loss was observed. Discussion: HIGH RISK OF FRACTURE. BONE DENSITY IS UNDESIRABLY LOW AT ONE OR MORE SKELETAL SITES, CONSISTENT WITH OSTEOPOROSIS. ALSO, BONE DENSITY IS LOWER THAN EXPECTED FOR AGE AND SEX AT ONE OR MORE SKELETAL SITES; RECOMMEND A DILIGENT SEARCH FOR SECONDARY CAUSES OF BONE LOSS. This patient's lowest T-score meets the World Health Organization's (WHO) criteria for osteoporosis at one or more sites (T-score -2.5 or below). In untreated patients, the risk of osteoporotic fracture increases approximately two-fold for each 1.0 SD decrease in T-score. Low bone density is not the only risk factor for fracture; also consider factors such as patient's age, frailty or poor health, risk of falling, risk of injury, previous osteoporotic fracture, family history of osteoporosis, cigarette smoking, low body weight, etc. Not everyone with low bone mineral density has osteoporosis; osteomalacia and other metabolic bone disorders should also be considered. Patients who have osteoporosis should be evaluated for specific diseases and conditions (secondary causes) that may cause or contribute to bone loss. The [place] Association [employer] Endocrinologists (AACE) and National Osteoporosis Foundation (NOF) recommend pharmacologic intervention for all postmenopausal women whose T-score is in this range. Also, this patient's bone mineral density is below the range considered normal for healthy age-, sex-, and race-matched controls at least one site (Z-score -2.0 or below). This warrants careful evaluation for diseases and conditions that may contribute to accelerated bone loss. The patient should follow a healthful lifestyle (good nutrition with adequate calcium and vitamin D, and appropriate weight-bearing exercise). Follow-Up: Consider a repeat BMD and Vertebral Fracture Assessment (VFA) exam in 2 years or sooner if medically necessary, to reassess this patient's status. Reported by: TODD WEBB M.D on 06/26/2022 11:10:00 AM.
== END ==
PROVIDERS: PCP Family Medicine; Referring Provider Family Medicine; Visit Provider Family Medicine
DX: M81.0 Age-related osteoporosis without current pathological fracture; G62.9 Polyneuropathy, unspecified; M19.90 Unspecified osteoarthritis, unspecified site
CPT/HCPCS: 77080

== ENCOUNTER 2022-07-20 07:58 | Emergency (ER) | payer MEDICARE, MEDICAID, SELFPAY ==
[2022-04-04 22:45] VITALS: BMI 23.6
--- NOTE | 2022-07-20 08:06 | ED_ITS ---
HPI - Extremity Injury (Lower) General Chief Complaint: Wound/Laceration Stated Complaint: rt leg injury/laceration Time Seen by Provider: 07/20/22 08:03 History of Present Illness HPI Narrative: This is a 66-year-old female history of chronic pain syndrome, cirrhosis, osteoporosis, coronary artery disease, dyslipidemia, anxiety and depression with complaint of laceration to her right leg. Patient states this morning she accidentally cut herself with her laundry basket which has a broken handle in his made a blastic. They are not sure exactly what happened but she hit the basket and has a laceration to her right calf. She states it bled a lot initially. It has since stopped with pressure from a pillowcase at home. Patient denies any other new injuries. No numbness, tingling weakness. Patient denies any allergies. Denies any anticoagulants or blood thinners. Patient s tates she is up-to-date on her tetanus in the last 5 years. She is accompanied by her today. Related Data Previous Rx's Medication Instructions Recorded permanent disabled parking permit #1 ea 11/11/18 ferrous gluconate 324 mg (37.5 mg 324 mg PO BID #180 tabs 03/17/22 iron) tablet furosemide 40 mg tablet 40 mg PO DAILY #30 tabs 04/06/22 spironolactone 25 mg tablet 25 mg PO DAILY #30 tabs 04/06/22 sucralfate 1 gram tablet (Carafate) 1 g PO BID #60 tabs 04/19/22 gabapentin 300 mg capsule See Rx Instructions .Route BID 06/24/22 #120 caps hydroxyzine HCl 25 mg tablet 25 mg PO BID PRN Anxiety and pain 07/05/22 #30 tabs lorazepam 0.5 mg tablet 0.5 mg PO BID PRN anxiety #60 tabs 07/05/22 methocarbamol 500 mg tablet 500 mg PO BID PRN mm spasm #30 tabs 07/05/22 oxycodone-acetaminophen 5 mg-325 2 tab PO Q6H PRN pain #112 tabs 07/18/22 mg tablet Allergies Allergy/AdvReac Type Severity Reaction Status Date / Time adhesive Allergy Mild TEARS Verified 06/16/22 16:35 SKIN,USE COBAN Review of Systems Review of Systems ROS Unobtainable: All systems reviewed & are unremarkable except as noted in HPI and below Patient History Medical History Anxiety (04/28/17) Ascites of liver C. difficile colitis CAD (coronary artery disease) Chronic diarrhea Low back pain without sciatica (08/05/16) Mixed hyperlipidemia (04/28/17) Osteoarthritis (12/15/13) Osteoporosis (12/15/13) Osteoporosis Pain of both breasts Pancreatic cyst Surgical History History of arthroplasty of right shoulder History of cholecystectomy Family History Father No problems noted. Mother PE (pulmonary thromboembolism) Social History marital status: household members: spouse Smoking Status: Current every day smoker Tobacco: How many years used: 25 alcohol intake: never substance use type: does not use Smoking Status: Current every day smoker alcohol intake frequency: a few times a week Substance Use Type: opiates and painkillers Exam Narrative Exam Narrative: GENERAL: Alert and oriented x three, thin female in mild distress. HEENT: Head normocephalic, atraumatic, EOMI, pupils reactive, face symmetric, moist mucous membranes NECK: Supple, full range of motion CARDIOVASCULAR: Regular rate and rhythm without murmurs, rubs or gallops. RESPIRATORY: Breath sounds equal bilaterally, no wheezes rales or rhonchi. ABDOMEN: Soft, nontender. Normoactive bowel sounds all 4 quadrants. No guarding or rebound, rigidity, no mass : No CVA tenderness EXTREMITIES: Normal range of motion, no clubbing. Neurovascularly intact. Patient has a 2 cm laceration that is > or bracket shaped into subcutaneous tissue on the right lateral calf. No active bleeding. NEUROLOGICAL: Cranial nerves II through XII grossly intact. Moving all extremities SKIN: Warm, dry, no petechiae, no rashes or lesions. Initial Vital Signs Initial Vital Signs: Vital Signs Temperature 98.3 F 07/20/22 08:09 Pulse Rate 80 07/20/22 08:09 Respiratory Rate 19 07/20/22 08:09 Blood Pressure 109/55 L 07/20/22 08:09 Pulse Oximetry 96 07/20/22 08:09 Oxygen Delivery Method Room Air 07/20/22 08:09 Procedures Laceration Repair Laceration 1: Site: upper extremity Side (If applicable): right Size (cm): 2 Description: flap and clean Depth: simple, single layer Local Anesthetic: lidocaine 2% Amount of anesthesia used (mL): 5 Pre-repair: wound explored, irrigated extensively and deep structures intact Skin layer closed with: nylon Skin layer suture size: 4-0 Number of sutures: 5 Technique: simple, interrupted Course Orders Ordered: Discontinued Medications Lidocaine HCl (Lidocaine 2% Inj Sdv 5ml) 5 ml INJ INTRA-OP ONE Stop: 07/20/22 08:12 Last Admin: 07/20/22 08:46 Dose: 5 ml Documented By: JOJO Oxycodone/Acetaminophen (Oxycodone/Acetaminophen 5/325 Tablet) 2 tab PO NOW ONE Stop: 07/20/22 08:35 Last Admin: 07/20/22 08:46 Dose: 2 tab Documented By: JOJO Vital Signs Vital signs: Vital Signs - 8 hr 07/20/22 08:09 07/20/22 08:26 07/20/22 08:30 Temperature 98.3 F Pulse Rate 80 72 75 Respiratory Rate 19 Blood Pressure 109/55 L Pulse Oximetry 96 98 97 Oxygen Delivery Method Room Air 07/20/22 08:43 07/20/22 08:43 Temperature Pulse Rate 71 Respiratory Rate 16 Blood Pressure 113/55 L Pulse Oximetry 98 Oxygen Delivery Method MDM - Extremity Injury (Lower) MDM Narrative Medical decision making narrative: This is a 66-year-old female who cut her leg on the broken handle of a plastic laundry basket. She has a bracket or < shaped avulsion laceration to the right calf. Neurovascularly intact. Bleeding had been stopped. Patient is not on any anticoagulants. Tetanus is up-to-date. Wound was cleansed, sutured, bandage was applied. Patient normally takes 10 mg of Percocet around this time a day so was given a dose of her home medication. Discussed return precautions, wound care and all questions answered. Discharge Plan Departure Patient Disposition: Home Clinical Impression: Laceration of right calf Instructions: DI for Laceration Repair Activity Restrictions/Additional Instructions: Please return to the urgent care, primary care or emergency department for suture removal in 7-10 days. There are 5 sutures total. Wound Care: Keep wound(s) clean and dry. Wash daily with soap and water only, then pat dry. Do not use over the counter products (alcohol or peroxide)on the wounds unless instructed by a physician You may use triple antibiotic ointment to the affected area twice daily. If wound condition worsens (increased/expanding redness, developing fluid blisters, or worsening pain), either contact your doctor for an urgent re- assessment , or return to the Emergency Department. Return to the Emergency Department for any new or worsening symptoms. Return if fever greater than 100.4 Fahrenheit, increased swelling, increasing pain or worsening symptoms such as increased discharge or spreading redness. Prescriptions: No Action (DME) permanent disabled parking permit Qty: 1 0RF Dose Instruction: As directed Rx Instructions: My patient qualifies for permanent disabled parking access. ferrous gluconate 324 mg (37.5 mg iron) tablet 324 mg PO BID Qty: 180 3RF sucralfate [Carafate] 1 gram tablet 1 g PO BID Qty: 60 2RF gabapentin 300 mg capsule See Rx Instructions .ROUTE BID Qty: 120 1RF Dose Instruction: TAKE 1 CAPSULE BY MOUTH EVERY 8 HOURS Rx Instructions: TAKE 2 CAPSULE BY MOUTH twice a day; methocarbamol 500 mg tablet 500 mg PO BID PRN (Reason: mm spasm) Qty: 30 0RF lorazepam 0.5 mg tablet 0.5 mg PO BID PRN (Reason: anxiety) Qty: 60 0RF hydroxyzine HCl 25 mg tablet 25 mg PO BID PRN (Reason: Anxiety and pain) Qty: 30 0RF oxycodone-acetaminophen 5-325 mg tablet 2 tab PO Q6H PRN (Reason: pain) Qty: 112 0RF Rx Instructions: Must last two weeks. furosemide 40 mg Tablet 40 mg PO DAILY Qty: 30 0RF spironolactone 25 mg Tablet 25 mg PO DAILY Qty: 30 0RF Referrals: Tyler Doty DO [Primary Care Provider] - Stand Alone Forms: Patient Portal/API
[2022-07-20 08:09] VITALS: BP 109/55; PULSE 80; RESP 19; TEMP 36.8; O2SAT 96
[2022-07-20 08:26] VITALS: PULSE 72; O2SAT 98
[2022-07-20 08:30] VITALS: PULSE 75; O2SAT 97
[2022-07-20 08:43] VITALS: BP 113/55; PULSE 71; RESP 16; O2SAT 98
[2022-07-20] MEDS: LIDOCAINE 2% INJ SDV 5ML 5 ML INJ (08:46)
[2022-07-20] MEDS: OXYCODONE/ACETAMINOPHEN 5/325 TABLET 2 TAB PO (08:46)
== END 2022-07-20 09:05 | disposition home or self-care (01) ==
PROVIDERS: Emergency Provider Emergency Medicine; PCP Family Medicine
DX: S81.811A Laceration without foreign body, right lower leg, initial encounter (principal); W26.9XXA Contact with unspecified sharp object(s), initial encounter
CPT/HCPCS: 12001; 99283

== ENCOUNTER → 2022-08-03 11:44 | Outpatient (CLI) | payer MEDICARE, MEDICAID, SELFPAY ==
[2022-04-04 22:45] VITALS: BMI 23.6
--- NOTE | 2022-08-03 11:46 | DI.MRI.S_ITS ---
PROCEDURE: MR PELVIS WO CON INDICATIONS: Other specified fracture of right pubis TECHNIQUE: Noncontrast coronal and axial T1 spin echo and STIR through the bony pelvis. COMPARISON: [facility], MR, MR PELVIS WO CON, 04/11/2022, 12:52. FINDINGS: Image quality: Diagnostic. Patient motion is noted. Bones: Patient's known chronic ununited fractures of right superior and pubic rami are unchanged in appearance. Previously described bilateral lower sacral fracture is again seen with interval decrease in the extent of surrounding edema. No new fracture or dislocation is seen. No other area of abnormal marrow edema. Osteoarthritic changes are noted throughout bony pelvis. No evidence of avascular necrosis of femoral head. Visualized lower lumbar spine shows no acute compression fracture. Soft tissues: There is interval decrease in the extent of bilateral pelvic muscle edema with small amount of residual edema involving bilateral gluteus minimus muscles and adductor muscles suggestive of residual muscle strain. No large soft tissue hematoma or discrete soft tissue mass is identified. No free pelvic fluid. Bladder wall thickness is normal. Genitourinary structures and bowel loops appear normal where visualized. IMPRESSION: 1. Interval decrease in the extent of marrow edema involving bilateral lower sacrum consistent with healing at patient's known lower sacral fracture sites. 2. Stable chronic appearing right superior and inferior pubic ramus fractures. 3. No new fracture or dislocation. Osteoarthritic changes throughout bony pelvis. No evidence of avascular necrosis of femoral heads. 4. Residual muscle strain/partial-thickness tear involving bilateral gluteus minimus muscles and adductor muscles significantly improved compared to previous study. 5. No pelvic free fluid is seen on the current study. Dictated by: Cuauhtemoc Tamez M.D. on 08/04/2022 at 9:50 Approved by: Cuauhtemoc Tamez M.D. on 08/04/2022 at 9:56
== END ==
PROVIDERS: PCP Family Medicine; Referring Provider Orthopaedic Surgery Orthopaedic Surgery of the Spine; Visit Provider Orthopaedic Surgery Orthopaedic Surgery of the Spine
DX: S32.591G Other specified fracture of right pubis, subsequent encounter for fracture with delayed healing (principal)
CPT/HCPCS: 72195

== ENCOUNTER 2022-08-31 12:55 | Observation (INO) | payer MEDICARE, MEDICAID, SELFPAY ==
[2022-04-04 22:45] VITALS: BMI 23.6
[2022-08-31] VITALS (20 sets, daily range): BP systolic 107–157; BP diastolic 53–81; PULSE 64–86; RESP 16–22; TEMP 36.5–37.4; O2SAT 93–100; BMI 18.4
--- NOTE | 2022-08-31 13:05 | DI.CT.S_ITS ---
PROCEDURE: CT HEAD/BRAIN WO CON INDICATIONS: fall with head and neck pain TECHNIQUE: Noncontrast 4.5 mm thick angled axial sections acquired from the foramen magnum to the vertex, with coronal and sagittal reformats. For radiation dose reduction, the following was used: automated exposure control, adjustment of mA and/or kV according to patient size. COMPARISON: [facility], CT, CT HEAD/BRAIN WO CON, 04/04/2022, 14:20. FINDINGS: Image quality: Excellent. CSF spaces: Basal cisterns are patent. No extra-axial fluid collections. The ventricles are symmetric in size and shape. Brain: No intracranial bleeds or masses. There is cerebral volume loss for age, with resultant ventricular and sulcal prominence. There are periventricular and deep white matter chronic small vessel ischemic changes. There is intracranial internal carotid artery atherosclerosis. Skull and face: Calvarium and visualized facial bones appear intact, without suspicious lesions. Sinuses: Visualized sinuses and mastoids are clear. IMPRESSION: No acute intracranial abnormality. Dictated by: Preston Gardner M.D. on 08/31/2022 at 12:29 Approved by: Preston Gardner M.D. on 08/31/2022 at 12:30
--- NOTE | 2022-08-31 13:05 | DI.CT.S_ITS ---
PROCEDURE: CT CERVICAL SPINE WO CON INDICATIONS: fall with head and neck pain TECHNIQUE: Noncontrast 3 mm thick sections acquired from the skull base to the T4 level. Sagittal and coronal reformats were then constructed. For radiation dose reduction, the following was used: automated exposure control, adjustment of mA and/or kV according to patient size. COMPARISON: [facility], CT, CT CERVICAL SPINE WO CON, 04/04/2022, 14:20. FINDINGS: Image quality: Excellent. Bones: No fractures or dislocations. Visualized superior ribs are intact. Soft tissues: Prevertebral soft tissues are normal in thickness. No paravertebral hematomas. No apical pneumothoraces. IMPRESSION: 1. No acute fracture. No osseous lesion. If symptoms and/or clinical suspicion for pathology persist, further assessment with MRI or bone scan may be helpful for further assessment. Dictated by: Preston Gardner M.D. on 08/31/2022 at 12:36 Approved by: Preston Gardner M.D. on 08/31/2022 at 12:37
[2022-08-31] MEDS: SODIUM CHLORIDE 0.9% 1,000 ML 1000 ML IV (13:45)
[2022-08-31 14:17] LABS: COVID19 -Nasal RAPID Negative (Negative)
--- NOTE | 2022-08-31 14:28 | PC.NURSE ---
patient has a skin tear deep to the subcutaneous tissue. It's approx 5cm x 5cm. The wound was temporarily dressed with sterile saline and gauze.
[2022-08-31 14:38] LABS: Prothrombin Time 11.7 SECONDS (10.1-12.7)
[2022-08-31 14:44] LABS: Alanine Aminotransferase 25 IU/L (<35); Albumin 2.6 g/dL (3.5-5.0); Albumin Globulin Ratio 1.2 (1.0-2.8); Alkaline Phosphatase 92 U/L (38-126); Aspartate Aminotransferase 34 IU/L (14-36); BUN Creatinine Ratio 17.9 (6-22); Bilirubin Total 1.7 mg/dL (0.2-1.3); Blood Urea Nitrogen 5 mg/dL (7-17); Carbon Dioxide 26 mmol/L (22-32); Chloride 107 mmol/L (98-107); Creatine Kinase 51 U/L (30-135); Estimated Glomerular Filt Rate > 60 mL/min (>60); Globulin 2.1 g/dL (1.7-4.1); Glucose 94 mg/dL (80-110); HEMOLYSIS < 15 (0-50); Lipase 53 U/L (23-300); Magnesium 1.8 mg/dL (1.6-2.3); Potassium 3.2 mmol/L (3.4-5.1); Sodium 134 mmol/L (137-145); Total Protein 4.7 g/dL (6.3-8.2)
[2022-08-31 14:45] LABS: Lactate (Lactic Acid) 0.8 mmol/L (0.7-2.1)
--- NOTE | 2022-08-31 14:46 | ED.WEAKNESS ---
HPI - Weakness General Chief complaint: Weakness Stated complaint: fell x4/bleeding/no balance/injuries Time Seen by Provider: 08/31/22 13:04 History of Present Illness HPI Narrative: 66-year-old female daily smoker with history of drinking. chronic pain syndrome, nonhealing pelvic fracture presents with significant other and a chief complaint of generalized weakness and multiple falls over the day. She states that she has what is referred to his a known poorly healing pelvic fracture. She thinks she may have hit her head and admits to acute on chronic neck pain. She denies any numbness or tingling but feels generally weak. She has a hard time ambulating. She denies any chest pain or trouble breathing. She denies abdominal pain, or constipation but does admit to a few episodes of diarrhea. She states that she has no obvious urinary complaints. She hurts all over and moving anything has painful. normally she has a hard time getting around but is able to transfer herself from the wheelchair to the toilet without assistance and does have some balance issues but is profoundly weak over the course of the day and has fallen 4 times. She suffered a laceration on the back of her right lower extremity. she lives at home with her and has been working on getting access to more help Related Data Home Medications Medication Instructions Recorded Confirmed gabapentin 300 mg capsule 600 mg PO BID 08/31/22 08/31/22 Previous Rx's Medication Instructions Recorded permanent disabled parking permit #1 ea 11/11/18 ferrous gluconate 324 mg (37.5 mg 324 mg PO BID #180 tabs 03/17/22 iron) tablet furosemide 40 mg tablet 40 mg PO DAILY #30 tabs 04/06/22 spironolactone 25 mg tablet 25 mg PO DAILY #30 tabs 04/06/22 sucralfate 1 gram tablet (Carafate) 1 g PO BID #60 tabs 04/19/22 hydroxyzine HCl 25 mg tablet 25 mg PO BID PRN Anxiety and pain 07/21/22 #30 tabs methocarbamol 500 mg tablet 500 mg PO BID PRN mm spasm #30 tabs 07/21/22 lorazepam 0.5 mg tablet 0.5 mg PO BID PRN anxiety #60 tabs 08/13/22 denosumab 60 mg/mL subcutaneous 60 mg SUBCUT [id number] #1 mL 08/26/22 syringe (Prolia) needle (disp) 27 gauge 27 gauge x #100 ea 08/26/22 1/2 oxycodone-acetaminophen 5 mg-325 2 tab PO Q6H PRN pain #112 tabs 08/29/22 mg tablet Allergies Allergy/AdvReac Type Severity Reaction Status Date / Time adhesive Allergy Mild TEARS Verified 08/31/22 18:32 SKIN,USE COBAN Review of Systems Review of Systems Narrative: GENERAL: see HPI. HEENT: Denies sinus pain, ear pain, sore throat, difficulty swallowing, dizziness. RESPIRATORY: Denies dyspnea, cough, wheezing, hemoptysis, sputum. CARDIOVASCULAR: Denies chest pain, palpitations, orthopnea, edema, GASTROINTESTINAL: Denies nausea, vomiting, abdominal pain, diarrhea, constipation, melena. : Denies dysuria, frequency, incontinence, hematuria, urinary retention. MUSCULOSKELETAL: see HPI SKIN: Denies rash, skin lesions, or other NEUROLOGIC: Denies weakness, headache, numbness, change in speech, confusion, seizures, incoordination. PSYCHIATRIC: No concerning psychosocial issues. 12 point review of systems is negative except for those stated above Patient History Medical History Anxiety (04/28/17) Ascites of liver C. difficile colitis CAD (coronary artery disease) Chronic diarrhea Low back pain without sciatica (08/05/16) Mixed hyperlipidemia (04/28/17) Osteoarthritis (12/15/13) Osteoporosis (12/15/13) Osteoporosis Pain of both breasts Pancreatic cyst Surgical History History of arthroplasty of right shoulder History of cholecystectomy Family History Father No problems noted. Mother PE (pulmonary thromboembolism) Social History marital status: household members: spouse Smoking Status: Current every day smoker Tobacco: How many years used: 25 alcohol intake: former substance use type: does not use Smoking Status: Current every day smoker alcohol intake frequency: a few times a week Substance Use Type: opiates and painkillers Exam Narrative Exam Narrative: GENERAL: [66] year old patient appears older than stated age, in mild distress. GCS 15, appears chronically ill. Thin HEAD: Atraumatic. Normocephalic. EYES: Pupils equal round and reactive. No HypExtraocular motions intact. No scleral icterus. No injection or drainage. ENT: Nose without bleeding, purulent drainage. Throat without erythema, tonsillar hypertrophy or exudate. Airway patent. NECK: Trachea midline. Non tender CARDIOVASCULAR: Regular rate and rhythm without murmurs, gallops, or rubs. RESPIRATORY: Clear to auscultation. Breath sounds equal bilaterally. No wheezes, rales, or rhonchi. GASTROINTESTINAL: Abdomen soft, non-tender, nondistended. EXTREMITIES: Right posterior calf with 8 cm crescent shaped laceration with subcutaneous fat exposure, no bleeding, no foreign body, no evidence of muscle or tendon involvement. Secondary superficial skin tear noted on left lateral elbow No edema or joint tenderness. BACK: Nontender without deformity or crepitance. No flank tenderness. NEURO: AOx3. SKIN: No rash or erythema of visible areas Initial Vital Signs Initial Vital Signs: Vital Signs Temperature 97.7 F 08/31/22 13:07 Pulse Rate 64 08/31/22 13:07 Respiratory Rate 16 08/31/22 13:07 Blood Pressure 150/63 H 08/31/22 13:07 Pulse Oximetry 97 08/31/22 13:07 Oxygen Delivery Method Room Air 08/31/22 13:07 Procedures Laceration Repair Laceration 1: Site: lower extremity Side (If applicable): right Size (cm): 8 Description: flap, irregular and clean Depth: simple, single layer Local Anesthetic: bupivacaine 0.5% Amount of anesthesia used (mL): 6 Pre-repair: wound explored and cleansed with chlorhexadine Skin layer closed with: nylon Skin layer suture size: 4-0 Number of sutures: 8 Technique: simple, interrupted Course Orders Ordered: Acetaminophen (Acetaminophen 325 Mg Tablet) 650 mg PO Q6H PRN PRN Reason: Fever/Mild Pain (1-3) Last Admin: 08/31/22 23:07 Dose: 650 mg Documented By: MERCEDES Enoxaparin Sodium (Enoxaparin 40 Mg/0.4 Ml Syringe) 40 mg SUBCUT DAILY DALILA Gabapentin (Gabapentin 300 Mg Capsule) 600 mg PO BID DALILA Ceftriaxone Sodium 1,000 mg/ (Sodium Chloride) 100 mls @ 200 mls/hr IV Q24H [facility] Last Infusion: 08/31/22 22:33 Dose: 0 mls/hr Documented By: Admin: 08/31/22 22:03 Dose: 200 mls/hr Documented By: MERCEDES Lorazepam (Lorazepam 0.5 Mg Tablet) 0.5 mg PO BID PRN PRN Reason: anxiety Last Admin: 08/31/22 22:03 Dose: 0.5 mg Documented By: MERCEDES Morphine Sulfate (Morphine 2 Mg/Ml Inj) 2 mg IV Q4HR PRN PRN Reason: Pain, Moderate (4-6) Last Admin: 09/01/22 06:05 Dose: 2 mg Documented By: Admin: 09/01/22 02:05 Dose: 2 mg Documented By: MERCEDES Naloxone HCl (Naloxone 0.4 Mg/Ml Vial) 0.2 mg IV Q2MIN PRN PRN Reason: Opiate Reversal Ondansetron HCl (Ondansetron 4 Mg/2 Ml Inj) 4 mg IV Q8HR PRN PRN Reason: Nausea And Vomiting Oxycodone/Acetaminophen (Oxycodone/Acetaminophen 5/325 Tablet) 2 tab PO Q6H PRN PRN Reason: pain Last Admin: 09/01/22 03:36 Dose: 2 tab Documented By: MERCEDES Discontinued Medications Bacitracin (Bacitracin Oint 0.9 Gm Pckt) 1 applic TOP NOW ONE Stop: 08/31/22 18:33 Last Admin: 08/31/22 18:41 Dose: 1 applic Documented By: FRANC Sodium Chloride (Normal Saline 0.9%) 1,000 mls @ 1,000 mls/hr IV BOLUS ONE Stop: 08/31/22 14:03 Last Infusion: 08/31/22 18:21 Dose: 0 mls/hr Documented By: Admin: 08/31/22 13:45 Dose: 1,000 mls/hr Documented By: FRANC Oxycodone/Acetaminophen (Oxycodone/Acetaminophen 5/325 Tablet) 2 tab PO NOW ONE Stop: 08/31/22 18:36 Last Admin: 08/31/22 18:41 Dose: 2 tab Documented By: FRANC Consultations Consultation #1: Dr. Anderson happy to accept patient on his service Vital Signs Vital signs: Vital Signs - 8 hr 08/31/22 13:07 08/31/22 13:46 08/31/22 14:00 Temperature 97.7 F Pulse Rate 64 69 72 Respiratory Rate 16 Blood Pressure 150/63 H Pulse Oximetry 97 99 99 Oxygen Delivery Method Room Air 08/31/22 14:30 08/31/22 14:41 08/31/22 14:41 Temperature Pulse Rate 71 74 Respiratory Rate 16 22 Blood Pressure 127/60 Pulse Oximetry 98 97 Oxygen Delivery Method 08/31/22 15:00 08/31/22 15:33 08/31/22 15:34 Temperature Pulse Rate 75 76 75 Respiratory Rate 20 Blood Pressure Pulse Oximetry 98 98 95 Oxygen Delivery Method 08/31/22 15:34 08/31/22 16:00 08/31/22 16:00 Temperature Pulse Rate 82 Respiratory Rate Blood Pressure 134/63 151/65 H Pulse Oximetry 95 Oxygen Delivery Method 08/31/22 16:30 08/31/22 16:30 08/31/22 17:00 Temperature Pulse Rate 71 75 Respiratory Rate Blood Pressure 146/65 H Pulse Oximetry 97 93 Oxygen Delivery Method 08/31/22 17:01 08/31/22 17:01 Temperature Pulse Rate 81 Respiratory Rate Blood Pressure 107/53 L Pulse Oximetry Oxygen Delivery Method MDM - Weakness Lab Data 09/01/22 04:42 09/01/22 04:42 Labs: Lab Results 08/31/22 08/31/22 08/31/22 Range/Units 13:42 14:05 14:05 WBC 9.4 (4.5-11.0) X10^3/uL RBC 2.49 L (4.0-5.2) X10^6/uL Hgb 10.9 L (12.0-16.0) g/dL Hct 31.2 L (36-46) % MCV 125.3 H (80-100) fL MCH 43.7 H (26-34) PG MCHC 34.8 (30-36) % RDW 17.4 H (11.6-14.8) % Plt Count 127 L (150-400) X10^3/uL Neut % (Auto) 83.2 H (50-75) % Lymph % (Auto) 6.5 L (25-40) % [place] % (Auto) 7.9 (3-14) % Eos % (Auto) 0.4 L (2-4) % Baso % (Auto) 2.0 (0-2) % Neut # (Auto) 7800 H (8565-1715) /uL Lymph # (Auto) 600 L (2990-6016) /uL [place] # (Auto) 700 (0-900) /uL Eos # (Auto) 0 (0-450) /uL Baso # (Auto) 200 H (0-100) /uL RBC Morphology See below Anisocytosis 2+ H Macrocytosis 4+ H Stomatocytes 3+ H PT 11.7 (10.1-12.7) SECONDS INR 1.0 (0.9-1.3) Sodium (137-145) mmol/L Potassium (3.4-5.1) mmol/L Chloride (98-107) mmol/L Carbon Dioxide (22-32) mmol/L BUN (7-17) mg/dL Creatinine (0.52-1.04) mg/dL Estimated GFR (>60) mL/min BUN/Creatinine Ratio (6-22) Glucose (80-110) mg/dL Lactate (0.7-2.1) mmol/L Calcium (8.4-10.2) mg/dL Magnesium (1.6-2.3) mg/dL Total Bilirubin (0.2-1.3) mg/dL AST (14-36) IU/L ALT (<35) IU/L Alkaline Phosphatase (38-126) U/L Total Creatine Kinase (30-135) U/L CK-MB (CK-2) CK-MB (CK-2) Rel Index Troponin I (0.01-0.034) ng/mL NT-Pro-B Natriuret Pep (<125) pg/mL Total Protein (6.3-8.2) g/dL Albumin (3.5-5.0) g/dL Globulin (1.7-4.1) g/dL Albumin/Globulin Ratio (1.0-2.8) Lipase (23-300) U/L Urine Color Urine Appearance Urine pH (4.5-8.0) Ur Specific [place] (1.000-1.035) Urine Protein (Negative) Urine Glucose (UA) (Negative) g/dL Urine Ketones (NEGATIVE) Urine Occult Blood (Negative) Urine Nitrate (Negative) Urine Bilirubin (NEGATIVE) Urine Urobilinogen (0.2) E.U./dL Ur Leukocyte Esterase (NEGATIVE) Urine RBC (0-5/HPF) Urine WBC (0-5/HPF) Ur Squamous Epith Cells (0-5/HPF) Urine Bacteria (None) Ur Culture Indicated? U Opiates 300ng/mL cut (Negative) Ur Oxycodone Screen (Negative) Urine Methadone Screen (Negative) Ur Barbiturates Screen (Negative) U Tricyclic Antidepress (Negative) Ur Phencyclidine Scrn (Negative) Ur Amphetamines Screen (Negative) U Methamphetamines Scrn (Negative) Ur MDMA Scrn (Ecstasy) (Negative) U Benzodiazepines Scrn (Negative) Urine Cocaine Screen (Negative) U Marijuana (THC) Screen (Negative) Ethyl Alcohol ( - 10) mg/dL SARS-CoV-2 (PCR) Negative (Negative) 08/31/22 08/31/22 08/31/22 Range/Units 14:05 14:05 14:05 WBC (4.5-11.0) X10^3/uL RBC (4.0-5.2) X10^6/uL Hgb (12.0-16.0) g/dL Hct (36-46) % MCV (80-100) fL MCH (26-34) PG MCHC (30-36) % RDW (11.6-14.8) % Plt Count (150-400) X10^3/uL Neut % (Auto) (50-75) % Lymph % (Auto) (25-40) % [place] % (Auto) (3-14) % Eos % (Auto) (2-4) % Baso % (Auto) (0-2) % Neut # (Auto) (5706-5856) /uL Lymph # (Auto) (5025-9305) /uL [place] # (Auto) (0-900) /uL Eos # (Auto) (0-450) /uL Baso # (Auto) (0-100) /uL RBC Morphology Anisocytosis Macrocytosis Stomatocytes PT (10.1-12.7) SECONDS INR (0.9-1.3) Sodium 134 L (137-145) mmol/L Potassium 3.2 L (3.4-5.1) mmol/L Chloride 107 (98-107) mmol/L Carbon Dioxide 26 (22-32) mmol/L BUN 5 L (7-17) mg/dL Creatinine 0.28 L (0.52-1.04) mg/dL Estimated GFR > 60 (>60) mL/min BUN/Creatinine Ratio 17.9 (6-22) Glucose 94 (80-110) mg/dL Lactate 0.8 (0.7-2.1) mmol/L Calcium 8.0 L (8.4-10.2) mg/dL Magnesium 1.8 (1.6-2.3) mg/dL Total Bilirubin 1.7 H (0.2-1.3) mg/dL AST 34 (14-36) IU/L ALT 25 (<35) IU/L Alkaline Phosphatase 92 (38-126) U/L Total Creatine Kinase 51 (30-135) U/L CK-MB (CK-2) TNP CK-MB (CK-2) Rel Index TNP Troponin I < 0.012 (0.01-0.034) ng/mL NT-Pro-B Natriuret Pep 355 H (<125) pg/mL Total Protein 4.7 L (6.3-8.2) g/dL Albumin 2.6 L (3.5-5.0) g/dL Globulin 2.1 (1.7-4.1) g/dL Albumin/Globulin Ratio 1.2 (1.0-2.8) Lipase 53 (23-300) U/L Urine Color Urine Appearance Urine pH (4.5-8.0) Ur Specific [place] (1.000-1.035) Urine Protein (Negative) Urine Glucose (UA) (Negative) g/dL Urine Ketones (NEGATIVE) Urine Occult Blood (Negative) Urine Nitrate (Negative) Urine Bilirubin (NEGATIVE) Urine Urobilinogen (0.2) E.U./dL Ur Leukocyte Esterase (NEGATIVE) Urine RBC (0-5/HPF) Urine WBC (0-5/HPF) Ur Squamous Epith Cells (0-5/HPF) Urine Bacteria (None) Ur Culture Indicated? U Opiates 300ng/mL cut (Negative) Ur Oxycodone Screen (Negative) Urine Methadone Screen (Negative) Ur Barbiturates Screen (Negative) U Tricyclic Antidepress (Negative) Ur Phencyclidine Scrn (Negative) Ur Amphetamines Screen (Negative) U Methamphetamines Scrn (Negative) Ur MDMA Scrn (Ecstasy) (Negative) U Benzodiazepines Scrn (Negative) Urine Cocaine Screen (Negative) U Marijuana (THC) Screen (Negative) Ethyl Alcohol < 10 ( - 10) mg/dL SARS-CoV-2 (PCR) (Negative) 08/31/22 08/31/22 Range/Units 15:00 15:00 WBC (4.5-11.0) X10^3/uL RBC (4.0-5.2) X10^6/uL Hgb (12.0-16.0) g/dL Hct (36-46) % MCV (80-100) fL MCH (26-34) PG MCHC (30-36) % RDW (11.6-14.8) % Plt Count (150-400) X10^3/uL Neut % (Auto) (50-75) % Lymph % (Auto) (25-40) % [place] % (Auto) (3-14) % Eos % (Auto) (2-4) % Baso % (Auto) (0-2) % Neut # (Auto) (7287-1425) /uL Lymph # (Auto) (2280-9051) /uL [place] # (Auto) (0-900) /uL Eos # (Auto) (0-450) /uL Baso # (Auto) (0-100) /uL RBC Morphology Anisocytosis Macrocytosis Stomatocytes PT (10.1-12.7) SECONDS INR (0.9-1.3) Sodium (137-145) mmol/L Potassium (3.4-5.1) mmol/L Chloride (98-107) mmol/L Carbon Dioxide (22-32) mmol/L BUN (7-17) mg/dL Creatinine (0.52-1.04) mg/dL Estimated GFR (>60) mL/min BUN/Creatinine Ratio (6-22) Glucose (80-110) mg/dL Lactate (0.7-2.1) mmol/L Calcium (8.4-10.2) mg/dL Magnesium (1.6-2.3) mg/dL Total Bilirubin (0.2-1.3) mg/dL AST (14-36) IU/L ALT (<35) IU/L Alkaline Phosphatase (38-126) U/L Total Creatine Kinase (30-135) U/L CK-MB (CK-2) CK-MB (CK-2) Rel Index Troponin I (0.01-0.034) ng/mL NT-Pro-B Natriuret Pep (<125) pg/mL Total Protein (6.3-8.2) g/dL Albumin (3.5-5.0) g/dL Globulin (1.7-4.1) g/dL Albumin/Globulin Ratio (1.0-2.8) Lipase (23-300) U/L Urine Color [place] Urine Appearance Cloudy Urine pH 6.0 (4.5-8.0) Ur Specific [place] 1.020 (1.000-1.035) Urine Protein Negative (Negative) Urine Glucose (UA) Negative (Negative) g/dL Urine Ketones Trace H (NEGATIVE) Urine Occult Blood Negative (Negative) Urine Nitrate Positive H (Negative) Urine Bilirubin Negative (NEGATIVE) Urine Urobilinogen 1.0 (0.2) E.U./dL Ur Leukocyte Esterase 1+ H (NEGATIVE) Urine RBC 1-5/hpf (0-5/HPF) Urine WBC 10-30/hpf H (0-5/HPF) Ur Squamous Epith Cells None seen (0-5/HPF) Urine Bacteria Many (>30) H (None) Ur Culture Indicated? Specimen cultured U Opiates 300ng/mL cut Negative (Negative) Ur Oxycodone Screen Positive H (Negative) Urine Methadone Screen Negative (Negative) Ur Barbiturates Screen Negative (Negative) U Tricyclic Antidepress Negative (Negative) Ur Phencyclidine Scrn Negative (Negative) Ur Amphetamines Screen Negative (Negative) U Methamphetamines Scrn Negative (Negative) Ur MDMA Scrn (Ecstasy) Negative (Negative) U Benzodiazepines Scrn Positive H (Negative) Urine Cocaine Screen Negative (Negative) U Marijuana (THC) Screen Negative (Negative) Ethyl Alcohol ( - 10) mg/dL SARS-CoV-2 (PCR) (Negative) [facility] Narrative Medical decision making narrative: 66-year-old female smoker is chronically ill and generally in a poor state of health but 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 Typically she is mobile with a wheelchair and has sufficient strength to transfer herself but over the past 24 hours or so she is become increasingly weak and has had 4 falls secondary to this weakness. It took multiple people to lift her out of a wheelchair. There are no obvious significant injuries as a consequence of her falls. Vital signs are stable she is found to have a urinary tract infection. She will require hospitalization for further evaluation and stabilization of her condition. Discharge Plan Departure Patient Disposition: Admitted as Observation Clinical Impression: Acute UTI, Weakness, Laceration of leg Admit Date/Time: 08/31/22 18:46 Admit Provider: Amol Anderson
[2022-08-31 14:53] LABS: Ethanol (ETOH) < 10 mg/dL
[2022-08-31 14:55] LABS: Add Manual Diff / Slide Review NO; Basophils Absolute Auto 200 /uL (0-100); Eosinophils Absolute Auto 0 /uL (0-450); Eosinophils Percent Auto 0.4 % (2-4); Hematocrit 31.2 % (36-46); Hemoglobin 10.9 g/dL (12.0-16.0); Lymphocytes Absolute Auto 600 /uL (1100-4500); Lymphocytes Percent Auto 6.5 % (25-40); Mean Corpuscular HGB Conc 34.8 % (30-36); Mean Corpuscular Hemoglobin 43.7 PG (26-34); Mean Corpuscular Volume 125.3 fL (80-100); Monocytes Absolute Auto 700 /uL (0-900); Monocytes Percent Auto 7.9 % (3-14); Neutrophils Absolute Auto 7800 /uL (1500-7000); Neutrophils Percent Auto 83.2 % (50-75); Platelet Count 127 X10^3/uL (150-400); Red Blood Cell Count 2.49 X10^6/uL (4.0-5.2); Red Cell Distribution Width 17.4 % (11.6-14.8); White Blood Cell Count 9.4 X10^3/uL (4.5-11.0)
[2022-08-31 14:56] LABS: NT-proBNP (BNP-Adult 18+) 355 pg/mL (<125); Troponin I < 0.012 ng/mL (0.01-0.034)
--- NOTE | 2022-08-31 15:02 | DI.CT.S_ITS ---
PROCEDURE: CT CHEST ABD PEL W CON INDICATIONS: fall with pain, weakness TECHNIQUE: After the administration of intravenous contrast, 5 mm thick sections acquired from the lung apices to the symphysis. 2.5 mm thick coronal and sagittal reformats were acquired. Additional 7 mm thick coronal maximum intensity projection (MIP) reformats acquired through the lungs. Optional 10-minute delayed imaging may be performed from the kidneys to the bladder. For radiation dose reduction, the following was used: automated exposure control, adjustment of mA and/or kV according to patient size. COMPARISON: [facility], CT, CT CHEST ABD PEL W CON, 04/04/2022, 14:20. FINDINGS: Image quality: Excellent. CHEST: Lungs: No pulmonary contusions or lacerations. Severe apically predominant emphysema. No acute airspace opacities. No pneumothorax or hemothorax. Central and peripheral airways appear patent and normal in caliber. Mediastinum: No mediastinal hematomas. Heart size is normal. Moderate calcification of the coronary vasculature. No pericardial effusion. Thoracic aorta and pulmonary arteries demonstrate normal size and enhancement. No mediastinal or hilar adenopathy. Esophagus is normal in caliber. No hiatal hernia. Chest wall: No rib fractures. No subcutaneous emphysema. No axillary or supraclavicular adenopathy. Thyroid gland is within normal limits. ABDOMEN: Solid organs: Liver is normal in size and enhancement, without lacerations. Gallbladder is surgically absent. Biliary system is non-dilated. Pneumobilia within the right and left hepatic lobes. Pancreas enhances normally, without transection. Calcifications within the pancreatic body and neck, as before. Spleen is normal in size and enhancement, without lacerations. No adrenal hematomas. Both kidneys enhance normally, without hydronephrosis or lacerations. Peritoneum and bowel: No free fluid or air. Limited evaluation of the bowel secondary to lack of oral contrast. Multiple moderately thickened small bowel loops within the left hemiabdomen. Moderate thickening of the sigmoid colon. Nodes and vessels: No retroperitoneal or mesenteric adenopathy. Aorta and inferior vena cava are normal in size and enhancement. Miscellaneous: No ventral hernias. PELVIS: Genitourinary: Head catheter within the urinary bladder. Miscellaneous: No inguinal hernias or adenopathy. Bones: Pelvic ring and hip joints appear intact. No vertebral compression fractures. IMPRESSION: 1. Thickened small and large bowel loops, which could indicate bowel injury, given the history of injury. 2. Emphysema. 3. Coronary artery disease. 4. Pneumobilia. This could represent sequelae of manipulation of the sphincter of Oddi versus infection. Dictated by: Preston Gardner M.D. on 08/31/2022 at 14:41 Approved by: Preston Gardner M.D. on 08/31/2022 at 14:44
[2022-08-31 15:08] LABS: Bilirubin Urine UA NEGATIVE (NEGATIVE); Glucose Urine UA NEGATIVE (Negative); Ketones Urine UA TRACE (NEGATIVE); Leukocyte Esterase Urine UA 1+ (NEGATIVE); Nitrite Urine UA POSITIVE (Negative); Occult Blood Urine UA NEGATIVE (Negative); Protein Urine UA NEGATIVE (Negative)
[2022-08-31 15:17] LABS: Appearance Urine UA Cloudy; Color Urine UA Amber
[2022-08-31 15:18] LABS: Bacteria Urine Many (>30); Culture Indicated Urine Specimen Cultured; RBC Urine 1-5/HPF (0-5/HPF); Squamous Epithelial Cell Urine None Seen (0-5/HPF); WBC Urine 10-30/HPF (0-5/HPF)
[2022-08-31 15:29] LABS: Ur Creatinine Normal (Normal); Ur Specific Gravity Normal (Normal); Urine pH Normal (Normal)
[2022-08-31 15:30] LABS: UR Morphine/Opiate cutoff 300 Negative (Negative); Urine Amphetamines Negative (Negative); Urine Barbiturates Negative (Negative); Urine Benzodiazepines Positive (Negative); Urine Cocaine Negative (Negative); Urine Methadone Negative (Negative); Urine Methamphetamines Negative (Negative); Urine Oxycodone Positive (Negative); Urine Phencyclidine Negative (Negative); Urine Tetrahydrocannabinol Negative (Negative); Urine Tricyclic Antidepressant Negative (Negative)
[2022-08-31 15:42] LABS: Anisocytosis 2+; Macrocytosis 4+; Stomatocytes 3+
[2022-08-31 15:46] LABS: Urine MDMA Negative (Negative)
[2022-08-31] MEDS: LIDOCAINE 1% 20 ML (17:37)
--- NOTE | 2022-08-31 18:40 | PC.NURSE ---
Medication reconciliation completed, utilized pt history as well as 08/14/22 office visit notes. Pt states no changes since that visit.
[2022-08-31] MEDS: BACITRACIN OINT 0.9 GM PCKT 1 APPLIC TOP (18:41)
[2022-08-31] MEDS: OXYCODONE/ACETAMINOPHEN 5/325 TABLET 2 TAB PO (18:41)
--- NOTE | 2022-08-31 19:58 | PM.HP.1 ---
History of Present Illness History of Present Illness Date Patient Seen: 08/31/22 Time Patient Seen: 19:30 Chief complaint: fell x4/bleeding/no balance/injuries Narrative: Ms. 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 She denies she has any significant alcohol abuse, her does say she drinks small amount daily. She is wheelchair bound, can pivot for transfer usually. She usually falls a couple times a month, today she has fallen four times. She did get a laceration in her right leg. She felt dizzy. In the ED workup was done, vitals notable for afebrile, heart rate 60s, respiratory 16, blood pressure 150s/60s, 97% room air. Labs reviewed and notable for WBC 9.4, hgb 10.9, plts 127. Na 134, k 3.2, creatinine 0.28. Bili 1.7, AST/ALT 34/25. Trop negative. UA with leuk esterase, many bacteria, and wbcs. CT c-spine showed no acute process. CT head showed no acute process. CT abdomen showed thickened small and large bowel loops, pneumobilia. She was ordered for antibiotics. The patient was accepted by the daysvaft physician for further treatmet. I discuss with the patient and who were arguing about if she would stay in the hospital. She adamantly denied interest in nursing facility placement which is consistent from before, she has denied home health previously as well. [facility] Medical History Anxiety (04/28/17) Ascites of liver C. difficile colitis CAD (coronary artery disease) Chronic diarrhea Low back pain without sciatica (08/05/16) Mixed hyperlipidemia (04/28/17) Osteoarthritis (12/15/13) Osteoporosis (12/15/13) Osteoporosis Pain of both breasts Pancreatic cyst Surgical History History of arthroplasty of right shoulder History of cholecystectomy Family History Father No problems noted. Mother PE (pulmonary thromboembolism) Social History marital status: household members: spouse Smoking Status: Current every day smoker Tobacco: How many years used: 25 alcohol intake: never substance use type: does not use Meds Home Medications and Allergies Home Medications Medication Instructions Recorded Confirmed Type permanent disabled parking permit #1 ea 11/11/18 08/31/22 Rx ferrous gluconate 324 mg (37.5 mg 324 mg PO BID #180 tabs 03/17/22 08/31/22 Rx iron) tablet furosemide 40 mg tablet 40 mg PO DAILY #30 tabs 04/06/22 08/31/22 Rx spironolactone 25 mg tablet 25 mg PO DAILY #30 tabs 04/06/22 08/31/22 Rx sucralfate 1 gram tablet (Carafate) 1 g PO BID #60 tabs 04/19/22 08/31/22 Rx hydroxyzine HCl 25 mg tablet 25 mg PO BID PRN Anxiety and pain 07/21/22 08/31/22 Rx #30 tabs methocarbamol 500 mg tablet 500 mg PO BID PRN mm spasm #30 tabs 07/21/22 08/31/22 Rx lorazepam 0.5 mg tablet 0.5 mg PO BID PRN anxiety #60 tabs 08/13/22 08/31/22 Rx denosumab 60 mg/mL subcutaneous 60 mg SUBCUT [id number] #1 mL 08/26/22 08/31/22 Rx syringe (Prolia) needle (disp) 27 gauge 27 gauge x #100 ea 08/26/22 08/31/22 Rx 1/2 oxycodone-acetaminophen 5 mg-325 2 tab PO Q6H PRN pain #112 tabs 08/29/22 08/31/22 Rx mg tablet gabapentin 300 mg capsule 600 mg PO BID 08/31/22 08/31/22 History Allergies Allergy/AdvReac Type Severity Reaction Status Date / Time adhesive Allergy Mild TEARS Verified 08/31/22 18:32 SKIN,USE COBAN Review of Systems Review of Systems Narrative: 14 systems reviewed by me and negative aside from what is noted in HPI Exam Vital Signs (past 8 hours): - 08/31/22 13:07 08/31/22 13:46 08/31/22 14:00 Temperature 97.7 F Pulse Rate 64 69 72 Respiratory Rate 16 Blood Pressure 150/63 H Pulse Oximetry 97 99 99 Oxygen Delivery Method Room Air 08/31/22 14:30 08/31/22 14:41 08/31/22 14:41 Temperature Pulse Rate 71 74 Respiratory Rate 16 22 Blood Pressure 127/60 Pulse Oximetry 98 97 Oxygen Delivery Method 08/31/22 15:00 08/31/22 15:33 08/31/22 15:34 Temperature Pulse Rate 75 76 75 Respiratory Rate 20 Blood Pressure Pulse Oximetry 98 98 95 Oxygen Delivery Method 08/31/22 15:34 08/31/22 16:00 08/31/22 16:00 Temperature Pulse Rate 82 Respiratory Rate Blood Pressure 134/63 151/65 H Pulse Oximetry 95 Oxygen Delivery Method 08/31/22 16:30 08/31/22 16:30 08/31/22 17:00 Temperature Pulse Rate 71 75 Respiratory Rate Blood Pressure 146/65 H Pulse Oximetry 97 93 Oxygen Delivery Method 08/31/22 17:01 08/31/22 17:01 08/31/22 17:30 Temperature Pulse Rate 81 80 Respiratory Rate Blood Pressure 107/53 L Pulse Oximetry Oxygen Delivery Method 08/31/22 17:31 08/31/22 17:31 08/31/22 17:49 Temperature Pulse Rate 82 86 Respiratory Rate Blood Pressure 120/81 Pulse Oximetry Oxygen Delivery Method 08/31/22 18:01 08/31/22 18:31 08/31/22 19:00 Temperature Pulse Rate Respiratory Rate Blood Pressure 157/67 H 145/61 H 124/58 L Pulse Oximetry Oxygen Delivery Method 08/31/22 19:30 Temperature Pulse Rate Respiratory Rate Blood Pressure 118/59 L Pulse Oximetry Oxygen Delivery Method Oxygen Delivery Method Room Air Narrative Exam Narrative: GEN: no acute distress, chronially ill appearing HEENT: moist mucous membranes CV: regular rate and rhythm, no murmurs PULM: clear bilaterally, no wheezes, rhonchi, rales ABD: soft, nontender, nondistended, no organomegaly EXT: many scattered bruises and lacerations on skin NEURO: awake, alert, oriented, no focal deficits Objective Labs 08/31/22 14:05 08/31/22 14:05 Labs: Laboratory Results - last 24 hr 08/31/22 08/31/22 08/31/22 13:42 14:05 14:05 WBC 9.4 RBC 2.49 L Hgb 10.9 L Hct 31.2 L MCV 125.3 H MCH 43.7 H MCHC 34.8 RDW 17.4 H Plt Count 127 L Neut % (Auto) 83.2 H Lymph % (Auto) 6.5 L [place] % (Auto) 7.9 Eos % (Auto) 0.4 L Baso % (Auto) 2.0 Neut # (Auto) 7800 H Lymph # (Auto) 600 L [place] # (Auto) 700 Eos # (Auto) 0 Baso # (Auto) 200 H RBC Morphology See below Anisocytosis 2+ H Macrocytosis 4+ H Stomatocytes 3+ H PT 11.7 INR 1.0 Sodium Potassium Chloride Carbon Dioxide BUN Creatinine Estimated GFR BUN/Creatinine Ratio Glucose Lactate Calcium Magnesium Total Bilirubin AST ALT Alkaline Phosphatase Total Creatine Kinase CK-MB (CK-2) CK-MB (CK-2) Rel Index Troponin I NT-Pro-B Natriuret Pep Total Protein Albumin Globulin Albumin/Globulin Ratio Lipase Urine Color Urine Appearance Urine pH Ur Specific [place] Urine Protein Urine Glucose (UA) Urine Ketones Urine Occult Blood Urine Nitrate Urine Bilirubin Urine Urobilinogen Ur Leukocyte Esterase Urine RBC Urine WBC Ur Squamous Epith Cells Urine Bacteria Ur Culture Indicated? U Opiates 300ng/mL cut Ur Oxycodone Screen Urine Methadone Screen Ur Barbiturates Screen U Tricyclic Antidepress Ur Phencyclidine Scrn Ur Amphetamines Screen U Methamphetamines Scrn Ur MDMA Scrn (Ecstasy) U Benzodiazepines Scrn Urine Cocaine Screen U Marijuana (THC) Screen Ethyl Alcohol SARS-CoV-2 (PCR) Negative 08/31/22 08/31/22 08/31/22 14:05 14:05 14:05 WBC RBC Hgb Hct MCV MCH MCHC RDW Plt Count Neut % (Auto) Lymph % (Auto) [place] % (Auto) Eos % (Auto) Baso % (Auto) Neut # (Auto) Lymph # (Auto) [place] # (Auto) Eos # (Auto) Baso # (Auto) RBC Morphology Anisocytosis Macrocytosis Stomatocytes PT INR Sodium 134 L Potassium 3.2 L Chloride 107 Carbon Dioxide 26 BUN 5 L Creatinine 0.28 L Estimated GFR > 60 BUN/Creatinine Ratio 17.9 Glucose 94 Lactate 0.8 Calcium 8.0 L Magnesium 1.8 Total Bilirubin 1.7 H AST 34 ALT 25 Alkaline Phosphatase 92 Total Creatine Kinase 51 CK-MB (CK-2) TNP CK-MB (CK-2) Rel Index TNP Troponin I < 0.012 NT-Pro-B Natriuret Pep 355 H Total Protein 4.7 L Albumin 2.6 L Globulin 2.1 Albumin/Globulin Ratio 1.2 Lipase 53 Urine Color Urine Appearance Urine pH Ur Specific [place] Urine Protein Urine Glucose (UA) Urine Ketones Urine Occult Blood Urine Nitrate Urine Bilirubin Urine Urobilinogen Ur Leukocyte Esterase Urine RBC Urine WBC Ur Squamous Epith Cells Urine Bacteria Ur Culture Indicated? U Opiates 300ng/mL cut Ur Oxycodone Screen Urine Methadone Screen Ur Barbiturates Screen U Tricyclic Antidepress Ur Phencyclidine Scrn Ur Amphetamines Screen U Methamphetamines Scrn Ur MDMA Scrn (Ecstasy) U Benzodiazepines Scrn Urine Cocaine Screen U Marijuana (THC) Screen Ethyl Alcohol < 10 SARS-CoV-2 (PCR) 08/31/22 08/31/22 15:00 15:00 WBC RBC Hgb Hct MCV MCH MCHC RDW Plt Count Neut % (Auto) Lymph % (Auto) [place] % (Auto) Eos % (Auto) Baso % (Auto) Neut # (Auto) Lymph # (Auto) [place] # (Auto) Eos # (Auto) Baso # (Auto) RBC Morphology Anisocytosis Macrocytosis Stomatocytes PT INR Sodium Potassium Chloride Carbon Dioxide BUN Creatinine Estimated GFR BUN/Creatinine Ratio Glucose Lactate Calcium Magnesium Total Bilirubin AST ALT Alkaline Phosphatase Total Creatine Kinase CK-MB (CK-2) CK-MB (CK-2) Rel Index Troponin I NT-Pro-B Natriuret Pep Total Protein Albumin Globulin Albumin/Globulin Ratio Lipase Urine Color Marisol Urine Appearance Cloudy Urine pH 6.0 Ur Specific [place] 1.020 Urine Protein Negative Urine Glucose (UA) Negative Urine Ketones Trace H Urine Occult Blood Negative Urine Nitrate Positive H Urine Bilirubin Negative Urine Urobilinogen 1.0 Ur Leukocyte Esterase 1+ H Urine RBC 1-5/hpf Urine WBC 10-30/hpf H Ur Squamous Epith Cells None seen Urine Bacteria Many (>30) H Ur Culture Indicated? Specimen cultured U Opiates 300ng/mL cut Negative Ur Oxycodone Screen Positive H Urine Methadone Screen Negative Ur Barbiturates Screen Negative U Tricyclic Antidepress Negative Ur Phencyclidine Scrn Negative Ur Amphetamines Screen Negative U Methamphetamines Scrn Negative Ur MDMA Scrn (Ecstasy) Negative U Benzodiazepines Scrn Positive H Urine Cocaine Screen Negative U Marijuana (THC) Screen Negative Ethyl Alcohol SARS-CoV-2 (PCR) Assessment & Plan Assessment & Plan narrative: 1. UTI -UA with positive nitrates, bacteria, wbcs -culture pending -ordered for IV ceftriaxone 2. Weakness/dizziness -has chronic axonal polyneuropathy -check orthostatics -in setting of liver disease, seems possibly alcohol related, has elevated MCV, stomatocytes, history of elevated lfts consistent with alcohol use -however she denies significant alcohol use -she is wheelchair bound and remains in bed -she currently is adamantly against snf, and has repeatedly declined home health in the past as she does not want people in her house 3. Chronic pain syndrome, anxiety, depression -chronis issues, continue home medications 4. Anemia, thrombocytopenia with cirrhosis -no indication for transfusion currently -continue to trend 5. Pneumobilia -suspect secondary to previous GI procedures -currently patient with soft abdomen -monitor closely for signs of infection I have discussed plan and obtained history from patient and . I have discussed plan of care with ED physician and bedside nurse. I have reviewed, labs, imaging, and previous medical records. CODE: Full Proxy: Hi Berry, Quality [facility] - Meds 'Current medications' to include all prescriptions, [id number] products, herbals, cannabis/cannabidiol products, and vitamin/mineral/dietary (nutritional) supplements. I have utilized all available resources to obtain, update, or review the patient?s current medications. [If Yes, STOP here]: Yes
[2022-08-31] MEDS: cefTRIAXone 1,000 MG in SODIUM CHLORIDE 0.9% 100 ML 200 MG IV (22:03)
[2022-08-31] MEDS: LORazepam 0.5 MG TABLET PO (22:03)
--- NOTE | 2022-08-31 22:27 | PC.WOUNDPHOT ---
Refer to corresponding patient physical/skin assessment for related information
[2022-08-31] MEDS: ACETAMINOPHEN 325 MG TABLET 650 MG PO (23:07)
[2022-09-01] VITALS: BP 113/53; PULSE 76; RESP 18; TEMP 36.8; O2SAT 97
[2022-09-01] MEDS: MORPHINE 2 MG/ML INJ IV ×3 (02:05→12:25)
[2022-09-01] MEDS: OXYCODONE/ACETAMINOPHEN 5/325 TABLET 2 TAB PO ×2 (03:36→09:36)
[2022-09-01 04:00] VITALS: BP 107/50; PULSE 77; RESP 19; TEMP 37.2; O2SAT 94
[2022-09-01 05:28] LABS: Basophils Absolute Auto 0 /uL (0-100); Basophils Percent Auto 0.9 % (0-2); Eosinophils Absolute Auto 100 /uL (0-450); Eosinophils Percent Auto 1.6 % (2-4); Lymphocytes Absolute Auto 1100 /uL (1100-4500); Lymphocytes Percent Auto 20.1 % (25-40); Mean Corpuscular HGB Conc 34.3 % (30-36); Mean Corpuscular Hemoglobin 43.3 PG (26-34); Mean Corpuscular Volume 126.1 fL (80-100); Monocytes Absolute Auto 600 /uL (0-900); Monocytes Percent Auto 11.2 % (3-14); Neutrophils Absolute Auto 3500 /uL (1500-7000); Neutrophils Percent Auto 66.2 % (50-75); Platelet Count 96 X10^3/uL (150-400); Red Cell Distribution Width 16.7 % (11.6-14.8); White Blood Cell Count 5.4 X10^3/uL (4.5-11.0)
[2022-09-01 05:29] LABS: Add Manual Diff / Slide Review SLIDE REVIEW
[2022-09-01 05:32] LABS: BUN Creatinine Ratio 14.7 (6-22); Blood Urea Nitrogen 5 mg/dL (7-17); Calcium 7.7 mg/dL (8.4-10.2); Carbon Dioxide 26 mmol/L (22-32); Chloride 105 mmol/L (98-107); Estimated Glomerular Filt Rate > 60 mL/min (>60); Glucose 84 mg/dL (80-110); HEMOLYSIS < 15 (0-50); Potassium 3.4 mmol/L (3.4-5.1); Sodium 132 mmol/L (137-145)
[2022-09-01 06:15] LABS: Anisocytosis 1+; Platelet Estimate Decreased on smear
[2022-09-01 06:16] LABS: Macrocytosis 3+
--- NOTE | 2022-09-01 07:01 | PC.NURSE ---
pt admitted last night through the ED; skin assessment done and pictures in the chart; pt is very tearful; she c/o frequently of generalized pain and has been medicated numerous times accordingly
[2022-09-01 08:00] VITALS: BP 106/54; PULSE 74; RESP 17; TEMP 36; O2SAT 96
[2022-09-01] MEDS: ENOXAPARIN 40 MG/0.4 ML SYRINGE SUBCUT (08:32)
[2022-09-01] MEDS: GABAPENTIN 300 MG CAPSULE 600 MG PO (08:32)
[2022-09-01 12:00] VITALS: BP 112/60; PULSE 62; RESP 15; TEMP 36.7; O2SAT 95
--- NOTE | 2022-09-01 13:20 | PT.IIE ---
Surgical History (Last Reviewed 08/31/22 @ 20:02 by Oscar Alvarado MD) History of arthroplasty of right shoulder History of cholecystectomy Medical History (Last Reviewed 08/31/22 @ 20:02 by Oscar Alvarado MD) Anxiety (04/28/17) Ascites of liver C. difficile colitis CAD (coronary artery disease) Chronic diarrhea Low back pain without sciatica (08/05/16) Mixed hyperlipidemia (04/28/17) Osteoarthritis (12/15/13) Osteoporosis (12/15/13) Osteoporosis Pain of both breasts Pancreatic cyst Physical Therapy Inpatient Evaluation/Re-Eval M1 PT/OT-IP Prior Functional Status Start: 09/01/22 08:30 Freq: NEEDED Status: Discharge Protocol: Document 09/01/22 13:32 CGR (Rec: 09/01/22 13:49 CGR [id number]) Medical Review Prior Functional Status Medical History Reviewed Yes Communication Pt is an effective verbal communicator. Mobility and Gait Pt is w/c bound at baseline. Activities of Daily Living and IADL's Pt was IND for basic ADLs, she needs assist with socks and uses a certified ophthalmic technologist to assist with donning PJ pants. Pt performs sponge baths IND but asks for assist if she thinks she needs assist. Prior Functional Level (Other details) Pt and live in a 2 bedroom motel room. Social History Household Members spouse Living Arrangements Other Number of Floors (Floors) One Floor Number of Stairs To Enter/Railing? no steps to enter the motel room Home Environment Standard Height Toilet Home Equipment Manual Wheelchair,Card Folder Employment Status Retired Additional Social History Comment Pt has a flat bed. M2 PT-IP Current Condition Start: 09/01/22 08:30 Freq: NEEDED Status: Discharge Protocol: Document 09/01/22 13:20 AW (Rec: 09/01/22 14:22 AW [id number]) Physical Therapy Current Condition Current Condition Evaluation Date 09/01/22 Treatment Diagnosis increased falls frequency, UTI Onset Date 08/30/22 M3 PT-IP Subjective Start: 09/01/22 08:30 Freq: NEEDED Status: Discharge Protocol: Document 09/01/22 13:20 AW (Rec: 09/01/22 14:22 AW [id number]) Subjective Physical Therapy Visit Type Type Initial Evaluation Visit Start Time 13:04 Visit Stop Time 13:20 Total Visit Minutes 16 Notes Co-eval with OT due to poor activity tolerance Physical Therapy Visit Comments Patient Comments Pt is willing to participate with PT Patient Goals Return home with spouse support Therapy Pain Assessment Pain When Pain Assessed During Mobility Pain Present Pain Present Pain Reported Location Generalized Intensity 10 Scale Used Numeric (0 - 10) M4 PT-IP Mobility and Gait Start: 09/01/22 08:30 Freq: NEEDED Status: Discharge Protocol: Document 09/01/22 13:20 AW (Rec: 09/01/22 15:10 AW [id number]) PT-Bed Mobility Assessment Supine to Sit Supine to Sit Standby Assistance Scooting Scooting to Edge of Bed Independent PT-Transfer Assessment Sit to and From Stand Sit to and from Stand Contact Guard Assistance,Use of Upper Extremities Equipment Transfer Assistive Device None,Gait Belt Orthotic/Prosthetic Devices or Brace: No Transfers Transfer Destination Chair Transfer Technique Stand Step Pivot Transfer Ability Level of Assist Contact Guard Assistance Comments Mobility Comments Pt was lying in bed as PT arrived. She moved well on the bed and transitioned to sitting EOB SBA with good trunk control. She stood CGA and transferred to a chair set up 90 degrees to her right sight with no more than a steadying hand. She was further able to stand from the chair SBA/CGA and maintain standing ~30 seconds before settling in to the recliner where she was left with call light and tray table in reach. Gait Assessment Comments Gait Comments Not ambulatory at baseline. Stair Climbing Assessment Comments Stair Climbing Comments No stairs at home. PT-Balance Assessment Sitting Balance and Reactions Static Sitting Balance Ability Good Dynamic Sitting Balance Ability Good Standing Balance and Reactions Static Standing Balance Ability Fair Dynamic Standing Balance Ability Fair Device Used no AD M5 PT-IP Objective Assessments Start: 09/01/22 08:30 Freq: NEEDED Status: Discharge Protocol: Document 09/01/22 13:20 AW (Rec: 09/01/22 14:25 AW [id number]) Orientation Orientation/Cognition Level of Alertness Alert Orientation Name,Month,Year,Place, Situation Language Function Ability No Deficits Noted Safety Awareness Understands Safety Issues Comments Pt is quite tearful toward end of session, stating her pain is extremely disturbing and disabling. Gross Range of Motion Upper Extremity ROM Assessment Within Functional Limits Lower Extremity ROM Assessment Within Functional Limits Strength Lower Extremity Strength Assessment Bilaterally Impaired Hip 3+/5 Knee 4/5 Ankle 4+/5 Sensation Assessment Sensation Gross Sensation Right UE Impaired,Left UE Impaired,Right LE Impaired, Left LE Impaired Light Touch Impaired Sensation Description Numbness Comments Sensation Comments Pt reports numbness in all extremities as well as random shooting pains primarily affecting her legs. M6 PT-IP Treatment Start: 09/01/22 08:30 Freq: NEEDED Status: Discharge Protocol: Document 09/01/22 13:20 AW (Rec: 09/01/22 14:25 AW [id number]) Physical Therapy Treatment Education Education Provided Safety M7 PT-IP Assessment and Plan Start: 09/01/22 08:30 Freq: NEEDED Status: Discharge Protocol: Document 09/01/22 13:20 AW (Rec: 09/01/22 15:10 AW [id number]) PT Summary Assessment and Plan Potential Rehabilitation Potential Fair Status of Condition at Evaluation Evolving Summary Impairments Pain,Strength,Balance, Transfers,Gait Assessment Summary Elvia is a 66 yo woman admitted with increasing falls frequency and UTI. PMH includes axonal polyneuropathy with chronic pain, cirrhosis, CAD, osteoporosis, depression , and anxiety. She is not ambulatory at baseline; rather , she mobilizes in a wheelchair which she can propel herself. She is typically able to transfer independently without AD. She lives with her spouse who provides assist with ADL's, meal prep, and driving. CLOF: Pt is able to complete all bed mobility without assist and to transfer with no more than CGA. Her primary limitation is pain which she rates as 10/10 . She appears to be functioning below her stated baseline and would benefit from HH PT to progress her strength and for transfer training. PT recommends pt discharge home with assist and HH PT. No acute PT needs are identified. Frequency of Treatment Frequency Of Treatment Discharge Recommendations To Nursing Amount of Assist Needed 1 Person Assist Discharge Recommendations PT Discharge Recommendations Home with Assistance,Home Health Transportation Needs at Discharge Private Vehicle
--- NOTE | 2022-09-01 13:23 | OT.IP.EVAL ---
Past Medical History (Last Reviewed 08/31/22 @ 20:02 by Oscar Alvarado MD) Anxiety (04/28/17) Ascites of liver C. difficile colitis CAD (coronary artery disease) Chronic diarrhea Low back pain without sciatica (08/05/16) Mixed hyperlipidemia (04/28/17) Osteoarthritis (12/15/13) Osteoporosis (12/15/13) Osteoporosis Pain of both breasts Pancreatic cyst Surgical History (Last Reviewed 08/31/22 @ 20:02 by Oscar Alvarado MD) History of arthroplasty of right shoulder History of cholecystectomy Occupational Therapy Inpatient Evaluation/Re-Eval M1 PT/OT-IP Prior Functional Status Start: 09/01/22 08:30 Freq: NEEDED Status: Active Protocol: Document 09/01/22 13:32 CGR (Rec: 09/01/22 13:49 CGR [id number]) Medical Review Prior Functional Status Medical History Reviewed Yes Communication Pt is an effective verbal communicator. Mobility and Gait Pt is w/c bound at baseline. Activities of Daily Living and IADL's Pt was IND for basic ADLs, she needs assist with socks and uses a supervisor beet end to assist with donning PJ pants. Pt performs sponge baths IND but asks for assist if she thinks she needs assist. Prior Functional Level (Other details) Pt and live in a 2 bedroom motel room. Social History Household Members spouse Living Arrangements Other Number of Floors (Floors) One Floor Number of Stairs To Enter/Railing? no steps to enter the motel room Home Environment Standard Height Toilet Home Equipment Manual Wheelchair,Tile And Marble Setter Employment Status Retired Additional Social History Comment Pt has a flat bed. M2 OT-IP Current Condition Start: 09/01/22 13:31 Freq: Status: Active Protocol: Document 09/01/22 13:32 CGR (Rec: 09/01/22 13:49 CGR [id number]) Occupational Therapy Current Condition Current Condition Evaluation Date 09/01/22 Treatment Diagnosis multiple falls, UTI Diagnosis Onset Date 08/31/22 M3 OT- IP Subjective and Pain Start: 09/01/22 13:31 Freq: Status: Active Protocol: Document 09/01/22 13:32 CGR (Rec: 09/01/22 13:49 CGR [id number]) OT- Subjective Occupational Therapy Visit Type Type Initial Evaluation Visit Start Time 13:04 Visit Stop Time 13:23 Total Visit Minutes 19 Notes co-eval with P.T. d/t pt unlikley to work with both disciplines seperately. OT Pain Assessment Pain When Pain Assessed At Rest Pain Present Pain Present Pain Reported Location Generalized Intensity 10 Scale Used Numeric (0 - 10) Management Techniques Modification of Treatment,Re- positioning M4 OT- IP ADL's Start: 09/01/22 13:31 Freq: Status: Active Protocol: Document 09/01/22 13:32 CGR (Rec: 09/01/22 13:49 CGR [id number]) OT ABN-Yviu-Ecvkxyf General Evaluation Self-Feeding Ability Independent Comments OT Self-Feeding Comments pt eating lunch upon first attempt to see pt. OT ADL-Grooming General Evaluation Grooming Ability Minimal Assistance Areas Needing Assistance Combing/Brushing Hair Comments OT Grooming Comments seated in chair OT ADL-Oral Care Comments Oral Care Comments pt declined OT ADL-Dressing Comments OT Dressing Comments pt declined OT ADL-Toileting Comments OT Toileting Comments pt declined OT ADL-Bathing Comments OT Bathing Comments not performed M5 OT- IP IADL's Start: 09/01/22 13:31 Freq: Status: Active Protocol: Document 09/01/22 13:32 CGR (Rec: 09/01/22 13:49 CGR [id number]) OT-Instrumental Activities of Daily Living Deficits IADL Deficits Identified No Deficits Home Safety Awareness Awareness of Need for Assistance at Home Good Awareness Ability to Problem Solve Emergency Able to Problem Solve Situations Medication Management Medication Management Caregiver Administers Money Management Money Management Caregiver Provides Assistance Meal Preparation Meal Preparation Caregiver Provides Assist Plan Rep Plan Rep Caregiver Provides Assist Driving Driving Comments Pt does not drive at baseline. M6 OT- IP Functional Cognition Start: 09/01/22 13:31 Freq: Status: Active Protocol: Document 09/01/22 13:32 CGR (Rec: 09/01/22 13:49 CGR [id number]) Cognitive Factors Limiting Selfcare Function Cognitive Ability Level of Alertness Alert Patient Orientation Name,Age,Birthday,Month,Date, Year,Day of Week,Place, Situation Attention Span Ability Capable of Focused Attention, Capable of Sustained Attention Ability to Follow Commands Able to Follow Multi-Step Commands OT- Vision and Hearing OT- Hearing Assessment OT- Hearing Assessment WFL OT- Vision Assessment Visual Acuity Glasses All The Time Visual Attentiveness WFL Occular Pursuits WFL Visual Convergence WFL M7 OT- IP Mobility and Balance Start: 09/01/22 13:31 Freq: Status: Active Protocol: Document 09/01/22 13:32 CGR (Rec: 09/01/22 13:49 CGR [id number]) OT- Bed Mobility Assessment Supine to Sit Supine to Sit Assist Standby Assistance Scooting Scooting to Edge of Bed Standby Assistance OT-Transfer Assessment Sit to and From Stand Sit to and from Stand Contact Guard Assistance Transfers Transfer Ability Contact Guard Assistance Technique Transfer Destination Bed,Chair Transfer Technique Stand Step Pivot Devices Transfer Assistive Devices Gait Belt Comments Mobility Comments Pt stood from bed and transferred to chair then stood from chair. OT- Gait Assessment Comments Gait Ability Comments not performed, pt does not ambulate at baseline. OT- Balance Assessment Sitting Balance and Reactions Static Sitting Balance Ability Normal Dynamic Sitting Balance Ability Normal M8 OT- IP Objective Assessments Start: 09/01/22 13:31 Freq: Status: Active Protocol: Document 09/01/22 13:32 CGR (Rec: 09/01/22 13:49 CGR [id number]) OT Gross Range of Motion Upper Extremity Range of Motion Assessment Within Functional Limits OT Strength Upper Extremity Strength Assessment Within Functional Limits Comments Strength Comments 4-/5 OT- Coordination Assessment Upper Extremity Finger to Nose Test Within Functional Limits Finger Tapping Test Within Functional Limits OT-Muscle Tone Assessment Muscle Tone WNL Yes OT Sensation Assessment Edema Edema Absent M9 OT- IP Assessment and Plan Start: 09/01/22 13:31 Freq: Status: Active Protocol: Document 09/01/22 13:32 CGR (Rec: 09/01/22 13:49 CGR [id number]) OT Summary Assessment and Plan Potential Rehabilitation Potential Good Analytic Complexity at Evaluation Moderate Summary OT Impairments Pain,Strength,Functional Mobility,Dressing,Activity Tolerance Progress Towards Goals Safe For Discharge Assessment Summary Pt presents as a moderate complexity evaluation s/p admit for UTI and pain. Pt presents today at her baseline for ADLs and functional mobility as she is w/c bound at baseline. No further OT needs. Frequency of Treatment Frequency Of Treatment Discharge Discharge Recommendations OT Discharge Recommendations Home with Assistance Transportation Needs at Discharge Private Vehicle
--- NOTE | 2022-09-01 13:41 | CM.DANOTE ---
Addendum entered by TESHA Higginbotham 09/01/22 14:28: CORK INSULATOR HELPER provided spouse with [facility] information pamphlet. Spouse said he would call them to provide them with his contact information. YOMI Original Note: DCP: Patient is a 66yo F here under observation after having 4 falls in one day. Patient is wheelchair bound at baseline. Patient has bruised hands/arms and reports they are from hitting her arms/hands on lopez when pushing wheel chair. CORK INSULATOR HELPER team entered room and introduced self and role. Patient appeared A/Ox4. Patient was occasionally tearful throughout assessment. Patient reports being able to transfer from wheelchair to bed and back at baseline. Patient reports eating 3 meals a day and reports eating a nutritious diet, mostly consisting of chicken and vegetables. Patient reports taking oxycodone at baseline for pain management to manage chronic pain. Patient reports living at home with spouse, Hi ([phone]). Patient reports starting up care giving services but was unable to remember the name of the agency, frequency/duration of services, or when they will open care for her. Per note, patient has denied SNF/HH in past. Patient is now open to HH services for PT/OT/nursing. Patient may benefit from SW resources for depression/potentially consider an anti-depressant. CORK INSULATOR HELPER team spoke with . He reports being in the room when PT/OT were there and reports she seems back to baseline. Spouse, Hi, is primary health care coordinator and agrees that additional care for patient would be helpful in safely providing for her needs. Patient and did not express a preference for any specific HH agency. CORK INSULATOR HELPER discussed with provider PCP follow up for depression. Insurance: 1) [facility] 2) Medicaid PCP: Dr. Tyler Doty. Bone doctor Dr. Arriaga? Plan: Home today with [facility] starting Thursday for PT/OT/nursing/SW. Transportation is spouse in POV. TESHA Higginbotham Discharge Planning/Care Management CM Discharge Assessment Start: 09/01/22 12:00 Freq: Status: Active Protocol: Document 09/01/22 12:00 (Rec: 09/01/22 12:16 [id number]) Discharge Planning Assessment Assigned Nurse Recruiter TESHA Higginbotham Advance Directives? No History Provided By Patient,Medical Record Prior Living Arrangements House Household Members spouse Type of transporation used prior to Relies on Others admit Independent with ADL's No Is patient alert and oriented? Yes Needs Assistance With Meal Prep,Home Chores / Shopping Caregiver for Another No DME Already Rented / Owned Wheelchair Comment Wheelchair bound at baseline. Patient/Family Preference Home with Home Health Comment Patient reports starting caregivers this week. Could not remember name of company. Appears open to HH. Pending PT /OT evals. Discharge Plan Home Transportation Arrangement Spouse Whiteboard Updated in Patient Room with Yes name and ext. # of Nurse Recruiter Review Status In Process Next Review Type Continued Stay Review
--- NOTE | 2022-09-02 10:59 | PM.DS.1 ---
History of Present Illness History of Present Illness Date Patient Seen: 08/31/22 Time Patient Seen: 19:30 Chief complaint: fell x4/bleeding/no balance/injuries Narrative: Ms. 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 She denies she has any significant alcohol abuse, her does say she drinks small amount daily. She is wheelchair bound, can pivot for transfer usually. She usually falls a couple times a month, today she has fallen four times. She did get a laceration in her right leg. She felt dizzy. In the ED workup was done, vitals notable for afebrile, heart rate 60s, respiratory 16, blood pressure 150s/60s, 97% room air. Labs reviewed and notable for WBC 9.4, hgb 10.9, plts 127. Na 134, k 3.2, creatinine 0.28. Bili 1.7, AST/ALT 34/25. Trop negative. UA with leuk esterase, many bacteria, and wbcs. CT c-spine showed no acute process. CT head showed no acute process. CT abdomen showed thickened small and large bowel loops, pneumobilia. She was ordered for antibiotics. The patient was accepted by the daysmdft physician for further treatmet. I discuss with the patient and who were arguing about if she would stay in the hospital. She adamantly denied interest in nursing facility placement which is consistent from before, she has denied home health previously as well. Discharge Providers Provider Date of admission: 08/31/22 18:46 Discharge Date: 09/01/22 Primary care physician: Tyler Doty DO Consults: 08/31/22 20:23 Consult to Occupational Therapy Evaluate & Treat Comment: Physician Instructions: Evaluate and treat Consult to Physical Therapy Evaluate & Treat Comment: Physician Instructions: Evaluate and Treat 09/01/22 08:58 Consult to PROFESSOR OF PSYCHIATRY - Web Site Specialist Routine Comment: needs SNF, pt says no, wants her to go 09/01/22 13:49 Consult to Home Health Routine Comment: generalized weakness, wound care, depression Reason For Exam: Starting HH services (PT/OT/RN/FAMILY WELFARE SOCIAL WORK PROFESSOR/PROFESSOR OF PSYCHIATRY) Discharge provider: Gerard Martin DO Summary Hospital Course Discharge Diagnosis: 1. Asymptomatic bacteriuria -UA with positive nitrates, bacteria, wbcs -culture positive for staph epi -ordered for IV ceftriaxone -patient denied any urinary symptoms so abx were stopped 2. Weakness/dizziness -has chronic axonal polyneuropathy -in setting of liver disease, seems possibly alcohol related, has elevated MCV, stomatocytes, history of elevated lfts consistent with alcohol use -however she denies significant alcohol use -she is wheelchair bound and remains in bed -she currently is adamantly against snf, and has repeatedly declined home health in the past as she does not want people in her house -home health arranged and patient agreed to it 3. Chronic pain syndrome, anxiety, depression -chronis issues, continue home medications 4. Anemia, thrombocytopenia with cirrhosis -no indication for transfusion currently -continue to trend 5. Pneumobilia -suspect secondary to previous GI procedures -currently patient with soft abdomen -monitor closely for signs of infection Hospital Course: Admitted overnight for weakness and falls. PT recommended HH and patient agreed. Discharged home with HH. Time Spent with Patient Time spent: Greater than 30 minutes Exam Vital Signs (past 8 hours): Oxygen Delivery Method Room Air Oxygen Flow Rate 0 Narrative Exam Narrative: GEN: no acute distress, chronially ill appearing HEENT: moist mucous membranes CV: regular rate and rhythm, no murmurs PULM: clear bilaterally, no wheezes, rhonchi, rales ABD: soft, nontender, nondistended, no organomegaly EXT: many scattered bruises and lacerations on skin NEURO: awake, alert, oriented, no focal deficits Objective Labs 09/01/22 04:42 09/01/22 04:42 REPLACED BY [facility] Medical History Anxiety (04/28/17) Ascites of liver C. difficile colitis CAD (coronary artery disease) Chronic diarrhea Low back pain without sciatica (08/05/16) Mixed hyperlipidemia (04/28/17) Osteoarthritis (12/15/13) Osteoporosis (12/15/13) Osteoporosis Pain of both breasts Pancreatic cyst Surgical History History of arthroplasty of right shoulder History of cholecystectomy Family History Father No problems noted. Mother PE (pulmonary thromboembolism) Social History marital status: household members: spouse Smoking Status: Current every day smoker Tobacco: How many years used: 25 alcohol intake: former substance use type: does not use Discharge Plan Discharge Plan Patient Disposition: Home Provider Discharge Comment: You were admitted for falls at home. Initially we thought you might have a urinary tract infection (UTI) but you aren't having symptoms and your urine is growing a bacteria that is usually a contaminant. Therefore I elected to not treat it. Discharge orders & Medications Prescriptions: Continued (DME) permanent disabled parking permit Qty: 1 0RF Dose Instruction: As directed Rx Instructions: My patient qualifies for permanent disabled parking access. ferrous gluconate 324 mg (37.5 mg iron) tablet 324 mg PO BID Qty: 180 3RF Patient Comments: Pt stopped taking 3 months ago without provider direction sucralfate [Carafate] 1 gram tablet 1 g PO BID Qty: 60 2RF hydroxyzine HCl 25 mg tablet 25 mg PO BID PRN (Reason: Anxiety and pain) Qty: 30 2RF methocarbamol 500 mg tablet 500 mg PO BID PRN (Reason: mm spasm) Qty: 30 2RF lorazepam 0.5 mg tablet 0.5 mg PO BID PRN (Reason: anxiety) Qty: 60 0RF Prolia 60 mg/mL syringe 60 mg SUBCUT [id number] Qty: 1 3RF Patient Comments: Has prescription but has not started medication (DME) needle (disp) 27 gauge 27 gauge x 1/2 needle See Rx Instructions .Route Qty: 100 0RF Rx Instructions: As directed oxycodone-acetaminophen 5-325 mg tablet 2 tab PO Q6H PRN (Reason: pain) Qty: 112 0RF Rx Instructions: Must last two weeks. furosemide 40 mg Tablet 40 mg PO DAILY Qty: 30 0RF Patient Comments: Pt stopped taking 4 months ago without provider direction spironolactone 25 mg Tablet 25 mg PO DAILY Qty: 30 0RF gabapentin 300 mg capsule 600 mg PO BID Rx Instructions: TAKE 2 CAPSULE BY MOUTH twice a day; Follow up/Referrals: Tyler Doty DO [Primary Care Provider] - 1 Week Visit Report/Discharge Packet Instructions: How to Prevent Falls Stand Alone Forms: Patient Portal/API, Stroke Signs & Symptoms Discharge Data Primary Care Provider: Tyler Doty Attending Provider: Amol Anderson Admit Date/Time: 08/31/22 18:46 Discharges patient from system. Discharge Date/Time: 09/01/22 14:44 Quality VTE Deep Vein Thrombosis/Pulmonary Embolism Present on Admission: No
== END 2022-09-01 14:44 | disposition home or self-care (01) ==
LOC: ED 17:56 → AC 18:46
PROVIDERS: Internal Medicine; Admitting Provider Internal Medicine; Emergency Provider Emergency Medicine; PCP Family Medicine; Visit Provider Internal Medicine
DX: N39.0 Urinary tract infection, site not specified (principal); R53.1 Weakness; R42 Dizziness and giddiness; W19.XXXA Unspecified fall, initial encounter; Z91.81 History of falling; G89.4 Chronic pain syndrome; F41.9 Anxiety disorder, unspecified; F32.A Depression, unspecified; D64.9 Anemia, unspecified; D69.6 Thrombocytopenia, unspecified; K74.60 Unspecified cirrhosis of liver; Z20.822 Contact with and (suspected) exposure to COVID-19
CPT/HCPCS: 12004; 36415; 70450; 71260; 72125; 74177; 80048; 80053; 80305; 80320; 81001; 82550; 83605; 83690; 83735; 83880; 84484; 85025; 85610; 87040; 87077; 87086; 87186; 87635; 96361; 96365; 96372; 96375; 96376; 97162; 97166; 99284; 99285; C9803; G0378; J0696; J1650; J2270; Q9967

== ENCOUNTER 2022-09-14 16:50 | Emergency (ER) | payer MEDICARE, MEDICAID, SELFPAY ==
[2022-08-31 19:10] VITALS: BMI 18.4
[2022-09-14 16:58] VITALS: BP 120/59; PULSE 88; RESP 19; TEMP 36.8; O2SAT 97; BMI 18.3
--- NOTE | 2022-09-14 16:59 | DI.RAD.S_ITS ---
PROCEDURE: XR KNEE RT 3V INDICATIONS: fall with knee pain TECHNIQUE: 3 views of the knee were acquired. COMPARISON: None. FINDINGS: Bones: Osseous structures are severely demineralized. No fractures or dislocations. No suspicious bony lesions. Soft tissues: No joint effusion. Diffuse vascular calcifications. IMPRESSION: No acute osseous abnormality. Dictated by: Rell Lopez D.O. on 09/14/2022 at 16:28 Approved by: Rell Lopez D.O. on 09/14/2022 at 16:29
--- NOTE | 2022-09-14 17:00 | ED.LOWEXIN ---
HPI - Extremity Injury (Lower) General Chief Complaint: Extremity Injury, Lower Stated Complaint: Knee inj Time Seen by Provider: 09/14/22 16:59 History of Present Illness HPI Narrative: 66-year-old female with prior history of axonal polyneuropathy, suspected cirrhosis, coronary artery disease, chronic pain, depression, osteoporosis presents with a chief complaint of a right knee injury suffered earlier today when she was attempting to transfer herself she fell onto the knee. She denies any head neck or back pain. She denies dizziness, weakness or lightheadedness. She has pain that is severe and preventing her from standing which improves with rest Related Data Previous Rx's Medication Instructions Recorded permanent disabled parking permit #1 ea 11/11/18 ferrous gluconate 324 mg (37.5 mg 324 mg PO BID #180 tabs 03/17/22 iron) tablet furosemide 40 mg tablet 40 mg PO DAILY #30 tabs 04/06/22 spironolactone 25 mg tablet 25 mg PO DAILY #30 tabs 04/06/22 sucralfate 1 gram tablet (Carafate) 1 g PO BID #60 tabs 04/19/22 hydroxyzine HCl 25 mg tablet 25 mg PO BID PRN Anxiety and pain 07/21/22 #30 tabs methocarbamol 500 mg tablet 500 mg PO BID PRN mm spasm #30 tabs 07/21/22 lorazepam 0.5 mg tablet 0.5 mg PO BID PRN anxiety #60 tabs 08/13/22 denosumab 60 mg/mL subcutaneous 60 mg SUBCUT [id number] #1 mL 08/26/22 syringe (Prolia) needle (disp) 27 gauge 27 gauge x #100 ea 08/26/2204/14 gabapentin 300 mg capsule 600 mg PO BID #120 caps 09/09/22 oxycodone-acetaminophen 5 mg-325 2 tab PO Q6H PRN pain #112 tabs 09/12/22 mg tablet Allergies Allergy/AdvReac Type Severity Reaction Status Date / Time adhesive Allergy Mild TEARS Verified 08/31/22 18:32 SKIN,USE COBAN Review of Systems Review of Systems Narrative: GENERAL: Denies chills, fatigue, malaise, fever, sweats. HEENT: Denies sinus pain, ear pain, sore throat, difficulty swallowing, dizziness. RESPIRATORY: Denies dyspnea, cough, wheezing, hemoptysis, sputum. CARDIOVASCULAR: Denies chest pain, palpitations, orthopnea, edema, GASTROINTESTINAL: Denies nausea, vomiting, abdominal pain, diarrhea, constipation, melena. : Denies dysuria, frequency, incontinence, hematuria, urinary retention. MUSCULOSKELETAL: See HPI SKIN: Denies rash, skin lesions, or other NEUROLOGIC: Denies weakness, headache, numbness, change in speech, confusion, seizures, incoordination. PSYCHIATRIC: No concerning psychosocial issues. 12 point review of systems is negative except for those stated above Patient History Medical History Anxiety (04/28/17) Ascites of liver C. difficile colitis CAD (coronary artery disease) Chronic diarrhea Low back pain without sciatica (08/05/16) Mixed hyperlipidemia (04/28/17) Osteoarthritis (12/15/13) Osteoporosis (12/15/13) Osteoporosis Pain of both breasts Pancreatic cyst Surgical History History of arthroplasty of right shoulder History of cholecystectomy Family History Father No problems noted. Mother PE (pulmonary thromboembolism) Social History marital status: household members: spouse Smoking Status: Current every day smoker Tobacco: How many years used: 25 alcohol intake: former substance use type: does not use Smoking Status: Current every day smoker alcohol intake frequency: 3 or more drinks per day Substance Use Type: opiates and painkillers Exam Narrative Exam Narrative: GEN: AOx3 and in mild distress, frail, thin, obviously in pain EYES: Pupils are equal, round, and reactive to light and accommodation. Extraoccular muscles are intact bilaterally. There is no subconjunctival hemorrhage or exudate. CHEST: Lungs are clear to auscultation bilaterally and free of wheezes, rales, or rhonchi. Heart rate is regular rhythm, there are no murmurs, clicks, rubs, or gallops. There is no chest wall tenderness. ABD: Abdomen is soft and nontender. There is no guarding or rebound. Bowel sounds are normal in all 4 quadrants. There is no mass or organomegaly. EXT: Right knee with minimal swelling, tenderness along medial and lateral joint lines, no obvious ligamentous instability, no pain on palpation of mid and proximal femur, hips, ankle. This is closed, isolated and neurovascularly intact. SKIN: Warm, pink, and dry. No erythema or rash Initial Vital Signs Initial Vital Signs: Vital Signs Temperature 98.2 F 09/14/22 16:58 Pulse Rate 88 09/14/22 16:58 Respiratory Rate 19 09/14/22 16:58 Blood Pressure 120/59 L 09/14/22 16:58 Pulse Oximetry 97 09/14/22 16:58 Oxygen Delivery Method Room Air 09/14/22 16:58 Course Orders Ordered: ED Orders 09/14/22 16:59 XR knee RT 3V Stat MDM - Extremity Injury (Lower) MDM Narrative Medical decision making narrative: [66] year old patient presents with knee pain after fall, denies prodromal symptoms Multiple etiologies for patient's symptoms considered including, but not limited to: [Contusion versus sprain versus fracture versus dislocation] Prior Charts reviewed in our EMR Primary Historian: patient Imaging reviewed: No acute findings Patient with knee pain after fall, unclear if it was twisting or direct impact, however imaging is reassuring and no evidence of fracture is noted, no obvious ligamentous instability, this is closed, isolated and neurovascularly intact Findings and discharge diagnosis discussed with patient/family followed by verbalization of understanding Return precautions discussed with patient/family whom verbalize understanding of diagnosis and plan Discharge Plan Departure Patient Disposition: Home Clinical Impression: Injury of knee, right Instructions: DI for Knee Pain Activity Restrictions/Additional Instructions: *You have been diagnosed with [right knee injury. As we discussed your history and physical exam are reassuring and the x-ray demonstrates no evidence of fracture or dislocation] *What to do: *Please continue to take your regular medications as directed. *Please follow up with your primary care provider in 2-3 days, call for an appointment. Let them know you were seen in the Emergency Department and that we ask that you be seen in follow up. We will electronically transmit a record of today's note if your PCP is in our system *Return to Emergency Department if you should have any new, worsening or concerning symptoms, such as [fever greater than 101 F, shaking chills, worsening pain, persistent vomiting or other bothersome symptoms] Prescriptions: No Action (DME) permanent disabled parking permit Qty: 1 0RF Dose Instruction: As directed Rx Instructions: My patient qualifies for permanent disabled parking access. ferrous gluconate 324 mg (37.5 mg iron) tablet 324 mg PO BID Qty: 180 3RF Patient Comments: Pt stopped taking 3 months ago without provider direction sucralfate [Carafate] 1 gram tablet 1 g PO BID Qty: 60 2RF hydroxyzine HCl 25 mg tablet 25 mg PO BID PRN (Reason: Anxiety and pain) Qty: 30 2RF methocarbamol 500 mg tablet 500 mg PO BID PRN (Reason: mm spasm) Qty: 30 2RF lorazepam 0.5 mg tablet 0.5 mg PO BID PRN (Reason: anxiety) Qty: 60 0RF Prolia 60 mg/mL syringe 60 mg SUBCUT [id number] Qty: 1 3RF Patient Comments: Has prescription but has not started medication (DME) needle (disp) 27 gauge 27 gauge x 1/2 needle See Rx Instructions .Route Qty: 100 0RF Rx Instructions: As directed gabapentin 300 mg capsule 600 mg PO BID Qty: 120 1RF Rx Instructions: TAKE 2 CAPSULE BY MOUTH twice a day; oxycodone-acetaminophen 5-325 mg tablet 2 tab PO Q6H PRN (Reason: pain) Qty: 112 0RF Rx Instructions: Must last two weeks. furosemide 40 mg Tablet 40 mg PO DAILY Qty: 30 0RF Patient Comments: Pt stopped taking 4 months ago without provider direction spironolactone 25 mg Tablet 25 mg PO DAILY Qty: 30 0RF Referrals: Tyler Doty DO [Primary Care Provider] - Stand Alone Forms: Patient Portal/API
--- NOTE | 2022-09-14 18:03 | PC.NURSE ---
Patient is wheelchair bound at baseline. Slid off the edge of bed onto right knee and now has increased pain. Has frequent falls, recent fall resulting in stitches to same leg that are still present.
== END 2022-09-14 18:09 | disposition home or self-care (01) ==
PROVIDERS: Emergency Provider Emergency Medicine; PCP Family Medicine
DX: S89.91XA Unspecified injury of right lower leg, initial encounter (principal); W18.30XA Fall on same level, unspecified, initial encounter
CPT/HCPCS: 73562; 99281; 99283

== ENCOUNTER → 2023-01-06 12:58 | Outpatient (CLI) | payer MEDICARE, MEDICAID, SELFPAY ==
[2022-08-31 19:10] VITALS: BMI 18.4
[2023-01-06 15:15] LABS: Rheumatoid Factor < 8.6 IU/mL (<12.0)
[2023-01-06 16:05] LABS: Folate 2.1 ng/mL (2.76-20.0); Vitamin B12 855 pg/mL (239-931)
[2023-01-07 19:58] LABS: SS A Ro Sjogrens Antibody < 0.2 AI (0.0-0.9); SS B La Sjogrens Antibody < 0.2 AI (0.0-0.9)
[2023-01-08 12:24] LABS: Albumin 2.7 g/dL (2.9-4.4); Alpha-1-Globulin 0.2 g/dL (0.0-0.4); Alpha-2-Globulin 0.5 g/dL (0.4-1.0); Gamma Globulin 1.1 g/dL (0.4-1.8); Globulin Total 2.8 g/dL (2.2-3.9); Protein, Total 5.5 g/dL (6.0-8.5)
[2023-01-09 17:09] LABS: ANA Screen, IFA Negative (.)
== END ==
PROVIDERS: PCP Family Medicine; Referring Provider Psychiatry & Neurology Neurology; Visit Provider Psychiatry & Neurology Neurology
DX: G62.9 Polyneuropathy, unspecified (principal)
CPT/HCPCS: 36415; 82607; 82746; 84155; 84165; 86038; 86235; 86430

== ENCOUNTER 2023-01-19 17:57 | Emergency (ER) | payer MEDICARE, MEDICAID, SELFPAY ==
[2022-08-31 19:10] VITALS: BMI 18.4
[2023-01-19 18:06] VITALS: BP 116/59; PULSE 82; RESP 18; TEMP 36.5; O2SAT 97; BMI 17.6
--- NOTE | 2023-01-19 19:34 | ED.WOUNDLAC ---
HPI - Wound/Laceration General Chief Complaint: Wound/Laceration Stated Complaint: Fall t-4, Arm wound Time Seen by Provider: 01/19/23 19:34 Source: patient Mode of arrival: Wheelchair Limitations: no limitations History of Present Illness HPI narrative: 67-year-old female history of cirrhosis, dyslipidemia, complex regional pain syndrome who presents with complaint of fall. Patient states she had eye surgery was having some trouble seeing and fell or slipped out of bed Thursday morning. She did hit her head but denies loss of consciousness. She is not anticoagulated. She has some abrasions around her right eye, she has skin tears on her bilateral fingers and wrists as well as abrasions on her knee. Patient states they have become more painful since Thursday so she presented for evaluation. No fevers or chills denies headache no new neck back or chest pain, no shortness of breath, she does not think she broke anything. She denies any nausea or vomiting, no acute vision changes. No passing out. She denies any new GI or urinary symptoms. Patient and family state her tetanus is up-to-date. They have been using triple antibiotic ointment to the affected areas. They notes she is had skin tears in the past but they are not usually this painful. They have not noticed any new drainage or odor. She follows with Dr. Doty as her primary care. Related Data Previous Rx's Medication Instructions Recorded permanent disabled parking permit #1 ea 11/11/18 denosumab 60 mg/mL subcutaneous 60 mg SUBCUT [id number] #1 mL 08/26/22 syringe (Prolia) needle (disp) 27 gauge 27 gauge x #100 ea 08/26/2204/14 ferrous gluconate 324 mg (37.5 mg 324 mg PO DAILY #90 tabs 10/31/22 iron) tablet hydroxyzine HCl 25 mg tablet 25 mg PO BID PRN Anxiety and pain 11/07/22 #30 tabs gabapentin 300 mg capsule 600 mg (2 x 300 mg) PO TID 30 days 01/01/23 #180 caps lorazepam 0.5 mg tablet 0.5 mg PO BID PRN anxiety #60 tabs 01/12/23 methocarbamol 500 mg tablet 500 mg PO BID PRN mm spasm #30 tabs 01/12/23 oxycodone-acetaminophen 5 mg-325 2 tab PO Q6H PRN pain #112 tabs 01/16/23 mg tablet oxycodone-acetaminophen 5 mg-325 1 tab PO Q6H PRN pain #7 tabs 01/19/23 mg tablet (Percocet) Allergies Allergy/AdvReac Type Severity Reaction Status Date / Time adhesive Allergy Mild TEARS Verified 01/19/23 18:06 SKIN,USE COBAN Review of Systems Review of Systems ROS Unobtainable: All systems reviewed & are unremarkable except as noted in HPI and below Patient History Medical History Anemia Ascites of liver Osteoporosis Pain of both breasts Pancreatic cyst C. difficile colitis Chronic diarrhea CAD (coronary artery disease) Mixed hyperlipidemia (04/28/17) Anxiety (04/28/17) Low back pain without sciatica (08/05/16) Osteoporosis (12/15/13) Osteoarthritis (12/15/13) Surgical History History of arthroplasty of right shoulder History of cholecystectomy Family History Father No problems noted. Mother PE (pulmonary thromboembolism) Social History marital status: household members: spouse Smoking Status: Current every day smoker Tobacco: How many years used: 25 alcohol intake: former substance use type: does not use Smoking Status: Current every day smoker alcohol intake frequency: 3 or more drinks per day Substance Use Type: opiates and painkillers Exam Narrative Exam Narrative: GEN: Patient is elderly appearing female who appears in mild distress. Patient is able to stand from her wheelchair during evaluation. HEAD: No evidence of trauma except as noted below, no raccoon/Kiser sign. NECK: Nontender, painless range of motion, trachea midline Negative Nexus criteria, there is no midline line tenderness, distracting injury, altered mental status, neuro deficit, recent EtOH. EYES: PERRLA, EOMI ENT: External inspection normal except for abrasions over the right brow and a small amount of and abrasion ecchymosis in the left cheek, trachea is midline, no hemotypanum, Nares are clear, no septal hematoma, no dental or oral injury, airway is normal and with normal occlusion, No bony tenderness RESP: Chest is nontender and has symmetric movement, no ecchymosis, breath sounds are normal no crackles, wheezes or rales CVS: Heart sounds are normal, no murmur noted, No JVD. ABG/GI: Nontender, soft, normal bowel sounds, no distention, no organomegaly, pelvic rock is negative NEURO: Oriented AOx3, neuro is grossly intact, sensation and motor is normal all 4 extremities moving, cranial nerves II through XII are intact, GCS is 15 PSYCH: Normal mood and affect SKIN: Patient has 2 large skin tears that are proximally 4 cm in length on bilateral wrists, she also has small skin tears on her fingers that are each less than a cm, patient has abrasion of her right knee and an abrasion with the top layer of dermis removed on the left knee. There is no warmth, erythema or drainage, no foul odor. Wounds appear clean and dry. Warm and dry, no crepitus and without decubitus BACK: No CVA tenderness, no vertebral tenderness, no step-off's, no crepitus EXT: Atraumatic, hips are nontender, no pedal edema, normal color and temperature, normal range of motion of extremities with normal tendon exam, 2+ pulses in all four extremities Initial Vital Signs Initial Vital Signs: Vital Signs Temperature 97.7 F 01/19/23 18:06 Pulse Rate 82 01/19/23 18:06 Respiratory Rate 18 01/19/23 18:06 Blood Pressure 116/59 L 01/19/23 18:06 Pulse Oximetry 97 01/19/23 18:06 Oxygen Delivery Method Room Air 01/19/23 18:[address] [address] Head Rule Patient on blood thinners: No Age greater or equal to 65 years: No GCS [place] coma scale eye opening: Spontaneous [place] coma scale verbal response: Orientated Adam coma scale motor response: Obey commands [place] coma scale total score: 15 Nexus Score for C-Spine Focal Neurologic deficit present: No Midline spinal tenderness present: No Altered level of conciousness present: No Intoxication present: No Distracting Injury Present: No Nexus Criteria for C-spine: 0 Course Orders Ordered: Discontinued Medications Bacitracin (Bacitracin Oint 0.9 Gm Pckt) 1 applic TOP NOW ONE Stop: 01/19/23 20:17 Last Admin: 01/19/23 20:25 Dose: 1 applic Documented By: MARCOS Oxycodone/Acetaminophen (Oxycodone/Apap 5/325 Prepack) 1 bottle MISC SEEINSTR ONE Stop: 01/19/23 20:17 Last Admin: 01/19/23 20:25 Dose: 1 bottle Documented By: MARCOS Vital Signs Vital signs: Vital Signs - 8 hr 01/19/23 18:06 Temperature 97.7 F Pulse Rate 82 Respiratory Rate 18 Blood Pressure 116/59 L Pulse Oximetry 97 Oxygen Delivery Method Room Air MDM - Wound/Laceration MDM Narrative Medical decision making narrative: Discussed with patient and family her wounds do not appear to be infected but to monitor closely. They do appear to be performing good wound care, wounds were dressed here, patient's tetanus is up-to-date asked for them to return if any signs of infection or worsening changes. Patient did hit her head but she is not anticoagulated, it has been several days with no acute changes with discussion with patient felt not to require head CT. Patient's exam overall is appropriate. Plan to continue with wound care and return precautions discussed with patient and family at bedside. Discharge Plan Departure Patient Disposition: Home Clinical Impression: Skin tear of right upper extremity, Skin tear of left upper extremity, Abrasion of both knees Activity Restrictions/Additional Instructions: Please follow-up with your primary care physician if your wounds are not beginning to heal over the next week. You may take 1 tablet every 6 hours as needed for pain. Prescription sent to [facility]. Wound Care: Keep wound(s) clean and dry. Wash daily with soap and water only, pat dry and recover with nonstick bandage. Do not use over the counter products (alcohol or peroxide)on the wounds unless instructed by a physician. You may use topical triple antibiotic ointment to the affected area with each dressing change. If wound condition worsens (increased/expanding redness, developing fluid blisters, or worsening pain), either contact your doctor for an urgent re-assessment , or return to the Emergency Department. Return to the Emergency Department for any new or worsening symptoms. Return if fever greater than 100.4 Fahrenheit, increased swelling, increasing pain or worsening symptoms such as increased discharge or spreading redness. Prescriptions: New oxycodone-acetaminophen [Percocet] 5-325 mg tablet 1 tab PO Q6H PRN (Reason: pain) Qty: 7 0RF No Action (DME) permanent disabled parking permit Qty: 1 0RF Dose Instruction: As directed Rx Instructions: My patient qualifies for permanent disabled parking access. Prolia 60 mg/mL syringe 60 mg SUBCUT [id number] Qty: 1 3RF Patient Comments: Has prescription but has not started medication (DME) needle (disp) 27 gauge 27 gauge x 1/2 needle See Rx Instructions .Route Qty: 100 0RF Rx Instructions: As directed hydroxyzine HCl 25 mg tablet 25 mg PO BID PRN (Reason: Anxiety and pain) Qty: 30 2RF gabapentin 300 mg capsule 600 mg PO TID 30 Days Qty: 180 1RF Rx Instructions: Take 2 capsules (600 mg) three times a day lorazepam 0.5 mg tablet 0.5 mg PO BID PRN (Reason: anxiety) Qty: 60 0RF methocarbamol 500 mg tablet 500 mg PO BID PRN (Reason: mm spasm) Qty: 30 2RF oxycodone-acetaminophen 5-325 mg tablet 2 tab PO Q6H PRN (Reason: pain) Qty: 112 0RF Rx Instructions: Must last two weeks. ferrous gluconate 324 mg (37.5 mg iron) tablet 324 mg PO DAILY Qty: 90 3RF Patient Comments: Pt stopped taking 3 months ago without provider direction Referrals: Tyler Doty DO [Primary Care Provider] - Stand Alone Forms: Patient Portal/API
[2023-01-19] MEDS: OXYCODONE/APAP 5/325 PREPACK 1 BOTTLE MISC (20:25)
[2023-01-19] MEDS: BACITRACIN OINT 0.9 GM PCKT 1 APPLIC TOP (20:25)
== END 2023-01-19 20:37 | disposition home or self-care (01) ==
PROVIDERS: Emergency Provider Emergency Medicine; PCP Family Medicine
DX: S61.512A Laceration without foreign body of left wrist, initial encounter (principal); S61.511A Laceration without foreign body of right wrist, initial encounter; S61.219A Laceration without foreign body of unspecified finger without damage to nail, initial encounter; S80.212A Abrasion, left knee, initial encounter; S80.211A Abrasion, right knee, initial encounter; W06.XXXA Fall from bed, initial encounter
CPT/HCPCS: 99282; 99283

== ENCOUNTER 2023-03-21 12:27 | Inpatient (IN) | payer MEDICARE, MEDICAID, SELFPAY ==
[2022-08-31 19:10] VITALS: BMI 18.4
[2023-03-21] VITALS (37 sets, daily range): BP systolic 77–124; BP diastolic 40–75; PULSE 70–99; RESP 16–36; TEMP 36.2–36.6; O2SAT 92–100; BMI 19.5
--- NOTE | 2023-03-21 13:00 | ED_ITS ---
HPI - Fall General Chief Complaint: Fall Stated Complaint: rolled off bed, sores all over, generalized pain Time Seen by Provider: 03/21/23 12:49 History of Present Illness HPI Narrative: Patient 67-year-old female history of cirrhosis dyslipidemia complex regional pain syndrome presents today after rule out of. 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 states he left around 945 she was in bed he came back around noon to check on her and she would rolled out of bed and was lying there. She has multiple sores all over her arms and legs. She was seen and evaluated here in January for a fall. He would a laceration on her forehead lower extremities multiple skin tears as well. She is quite thin. Live at [facility]. According to nursing notes there are multiple falls per . Patient is quite somnolent but does respond. Related Data Home Medications Medication Instructions Recorded Confirmed ferrous gluconate 324 mg (38 mg 324 mg PO BID 03/21/23 03/21/23 iron) tablet gabapentin 300 mg capsule 600 mg PO 3XD 03/21/23 03/21/23 lorazepam 0.5 mg tablet 0.5 mg PO BID PRN anxiety 03/21/23 03/21/23 methocarbamol 500 mg tablet 500 mg PO BID PRN muscle spasm 03/21/23 03/21/23 oxycodone-acetaminophen 5 mg-325 2 tab PO Q6H PRN pain 03/21/23 03/21/23 mg tablet Previous Rx's Medication Instructions Recorded permanent disabled parking permit #1 ea 11/11/18 needle (disp) 27 gauge 27 gauge x #100 ea 08/26/22 1/ ferrous gluconate 324 mg (37.5 mg 324 mg PO DAILY #90 tabs 10/31/22 iron) tablet hydroxyzine HCl 25 mg tablet 25 mg PO BID PRN Anxiety and pain 11/07/22 #30 tabs methocarbamol 500 mg tablet 500 mg PO BID PRN mm spasm #30 tabs 01/12/23 lorazepam 0.5 mg tablet 0.5 mg PO BID PRN anxiety #60 tabs 02/14/23 denosumab 60 mg/mL subcutaneous 60 mg SUBCUT C2PMCFUR #1 mL 02/24/23 syringe (Prolia) gabapentin 300 mg capsule 600 mg (2 x 300 mg) PO TID 30 days 03/02/23 #180 caps oxycodone-acetaminophen 5 mg-325 2 tab PO Q6H PRN pain #112 tabs 03/19/23 mg tablet Allergies Allergy/AdvReac Type Severity Reaction Status Date / Time adhesive Allergy Mild TEARS Verified 03/21/23 12:35 SKIN,USE COBAN Patient History Medical History Anemia Ascites of liver Osteoporosis Pain of both breasts Pancreatic cyst C. difficile colitis Chronic diarrhea CAD (coronary artery disease) Mixed hyperlipidemia (04/28/17) Anxiety (04/28/17) Low back pain without sciatica (08/05/16) Osteoporosis (12/15/13) Osteoarthritis (12/15/13) Surgical History History of arthroplasty of right shoulder History of cholecystectomy Family History Father No problems noted. Mother PE (pulmonary thromboembolism) Social History marital status: household members: spouse Smoking Status: Current every day smoker Tobacco: How many years used: 25 alcohol intake: former substance use type: does not use Smoking Status: Current every day smoker alcohol intake frequency: 3 or more drinks per day Substance Use Type: opiates and painkillers Exam Initial Vital Signs Initial Vital Signs: Vital Signs Temperature 97.1 F L 03/21/23 12:30 Pulse Rate 78 03/21/23 12:30 Respiratory Rate 17 03/21/23 12:30 Blood Pressure 107/73 03/21/23 12:30 Pulse Oximetry 96 03/21/23 12:30 Oxygen Delivery Method Room Air 03/21/23 12:30 GENERAL: Thin female HEENT: Head atraumatic pinpoint reactive, pupils reactive, face symmetric, [moist] mucous membranes CARDIOVASCULAR: Regular rate and rhythm without murmurs, rubs or gallops. RESPIRATORY: Breath sounds equal bilaterally, no wheezes rales or rhonchi. ABDOMEN: Soft, nontender. Normoactive bowel sounds all 4 quadrants. No guarding or rebound. : Haed catheter placed in ED EXTREMITIES: Normal range of motion, no clubbing or edema. Neurovascularly intact NEUROLOGICAL: Hematology Supervisor strength equal bilaterally, face symmetric responds to voice and pain SKIN: Multiple skin tears on all arms. Laceration right forehead with good skin approximation, lower extremities left leg has a fairly deep avulsion with adipose tissue exposed feet are erythematous and blanchable without streaking Course Orders Ordered: ED Orders 03/21/23 12:50 EKG-12 Lead Stat 03/21/23 13:04 CT cervical spine wo con Stat CT chest abd pel w con Stat CT head/brain wo con Stat 03/21/23 13:34 Acetaminophen Stat Ammonia (NH3) Stat Complete Blood Count AUTO DIFF Stat Comprehensive Metabolic Panel Stat ETOH [Ethanol (ETOH)] Stat Lactate (Lactic Acid) Stat NT-proBNP (BNP-Adult 18+) Stat PTT Partial Thromboplastin Saman Stat Procalcitonin Stat Prothrombin Time INR Stat Respiratory Panel (Film Array) Stat Salicylate Stat Troponin & CK Cardiac Panel Stat 03/21/23 13:48 Blood Culture Stat 03/21/23 13:56 Urinalysis and Microscopic Stat Urine Culture Stat Urine Drug Screen, Rapid Stat Discontinued Medications Sodium Chloride (Normal Saline 0.9%) 1,360.77 mls @ 453.59 mls/hr 30 ml/kg infuse over 3 hr (1360.77 ml) IV NOW ONE Stop: 03/21/23 17:33 Last Admin: 03/21/23 14:39 Dose: 453.59 mls/hr Documented By: JANEEN Ceftriaxone Sodium 1,000 mg/ (Sodium Chloride) 100 mls @ 200 mls/hr IV NOW ONE Stop: 03/21/23 14:35 Last Infusion: 03/21/23 15:27 Dose: Infused Documented By: Admin: 03/21/23 14:47 Dose: 200 mls/hr Documented By: JANEEN Vital Signs Vital signs: Vital Signs - 8 hr 03/21/23 12:30 03/21/23 12:43 03/21/23 13:00 Temperature 97.1 F L Pulse Rate 78 90 95 H Respiratory Rate 17 Blood Pressure 107/73 Pulse Oximetry 96 97 97 Oxygen Delivery Method Room Air Oxygen Flow Rate 03/21/23 13:30 03/21/23 13:37 03/21/23 13:37 Temperature Pulse Rate 91 H 91 H Respiratory Rate 25 H 27 H Blood Pressure 97/59 L Pulse Oximetry 94 92 Oxygen Delivery Method Room Air Oxygen Flow Rate 03/21/23 13:45 03/21/23 13:55 03/21/23 13:55 Temperature Pulse Rate 96 H 85 Respiratory Rate 30 H 24 Blood Pressure 103/56 L Pulse Oximetry 95 95 Oxygen Delivery Method Oxygen Flow Rate 03/21/23 14:00 03/21/23 14:00 03/21/23 14:11 Temperature Pulse Rate 99 H 77 Respiratory Rate 23 25 H Blood Pressure 103/60 77/43 L Pulse Oximetry 98 94 Oxygen Delivery Method Oxygen Flow Rate 03/21/23 14:11 03/21/23 14:14 03/21/23 14:14 Temperature Pulse Rate 85 Respiratory Rate 24 Blood Pressure 102/57 L 102/57 L Pulse Oximetry 94 Oxygen Delivery Method Oxygen Flow Rate 03/21/23 14:15 03/21/23 14:15 03/21/23 14:30 Temperature Pulse Rate 83 Respiratory Rate 25 H Blood Pressure 93/54 L 88/53 L Pulse Oximetry 95 Oxygen Delivery Method Oxygen Flow Rate 03/21/23 14:30 03/21/23 14:45 03/21/23 15:00 Temperature Pulse Rate 77 75 75 Respiratory Rate 25 H 23 24 Blood Pressure Pulse Oximetry 94 95 95 Oxygen Delivery Method Oxygen Flow Rate 03/21/23 15:15 03/21/23 15:29 03/21/23 15:29 Temperature Pulse Rate 78 75 Respiratory Rate 36 H 21 Blood Pressure 98/49 L Pulse Oximetry 93 100 Oxygen Delivery Method Oxygen Flow Rate 03/21/23 15:30 03/21/23 15:30 03/21/23 15:35 Temperature Pulse Rate 75 74 Respiratory Rate 21 22 Blood Pressure 92/54 L Pulse Oximetry 100 100 Oxygen Delivery Method Nasal Cannula Oxygen Flow Rate 2 03/21/23 15:35 03/21/23 15:40 03/21/23 15:40 Temperature Pulse Rate 70 Respiratory Rate 20 Blood Pressure 97/52 L 101/54 L Pulse Oximetry 100 Oxygen Delivery Method Oxygen Flow Rate 03/21/23 15:45 03/21/23 15:45 03/21/23 15:50 Temperature Pulse Rate 80 79 Respiratory Rate 23 32 H Blood Pressure 118/66 Pulse Oximetry 100 99 Oxygen Delivery Method Oxygen Flow Rate 03/21/23 15:50 03/21/23 15:55 03/21/23 15:55 Temperature Pulse Rate 80 Respiratory Rate 23 Blood Pressure 101/60 102/75 Pulse Oximetry 100 Oxygen Delivery Method Oxygen Flow Rate 03/21/23 16:00 03/21/23 16:00 03/21/23 16:05 Temperature Pulse Rate 75 73 Respiratory Rate 26 H 22 Blood Pressure 107/68 Pulse Oximetry 100 100 Oxygen Delivery Method Oxygen Flow Rate 03/21/23 16:05 03/21/23 16:10 03/21/23 16:10 Temperature Pulse Rate 77 Respiratory Rate 23 Blood Pressure 92/54 L 124/60 Pulse Oximetry 100 Oxygen Delivery Method Oxygen Flow Rate 03/21/23 16:15 03/21/23 16:15 03/21/23 16:20 Temperature Pulse Rate 79 79 Respiratory Rate 25 H 25 H Blood Pressure 101/49 L Pulse Oximetry 100 100 Oxygen Delivery Method Oxygen Flow Rate 03/21/23 16:20 03/21/23 16:25 03/21/23 16:25 Temperature Pulse Rate 83 Respiratory Rate 21 Blood Pressure 103/49 L 108/58 L Pulse Oximetry 100 Oxygen Delivery Method Oxygen Flow Rate 03/21/23 16:30 03/21/23 16:30 Temperature Pulse Rate 70 Respiratory Rate 20 Blood Pressure 108/54 L Pulse Oximetry 100 Oxygen Delivery Method Oxygen Flow Rate MDM - Fall Lab Data 03/21/23 13:34 03/21/23 13:34 Labs: Lab Results 03/21/23 03/21/23 03/21/23 Range/Units 13:34 13:56 15:50 WBC 6.6 (4.5-11.0) X10^3/uL RBC 2.40 L (4.0-5.2) X10^6/uL Hgb 10.4 L (12.0-16.0) g/dL Hct 30.1 L (36-46) % MCV 125.8 H (80-100) fL MCH 43.2 H (26-34) PG MCHC 34.4 (30-36) % RDW 17.0 H (11.6-14.8) % Plt Count 120 L (150-400) X10^3/uL Neut % (Auto) 76.9 H (50-75) % Lymph % (Auto) 11.5 L (25-40) % [place] % (Auto) 11.2 (3-14) % Eos % (Auto) 0.3 L (2-4) % Baso % (Auto) 0.1 (0-2) % Neut # (Auto) 5100 (1083-2694) /uL Lymph # (Auto) 800 L (3179-0306) /uL [place] # (Auto) 700 (0-900) /uL Eos # (Auto) 0 (0-450) /uL Baso # (Auto) 0 (0-100) /uL RBC Morphology See below Anisocytosis 1+ H Macrocytosis 3+ H Stomatocytes 2+ H PT 12.0 (9.4-12.5) SECONDS INR 1.0 (0.9-1.3) APTT 21 L (25.1-36.5) SECONDS Sodium 130 L (137-145) mmol/L Potassium 3.9 (3.4-5.1) mmol/L Chloride 97 L (98-107) mmol/L Carbon Dioxide 29 (22-32) mmol/L BUN 2 L (7-17) mg/dL Creatinine 0.30 L (0.52-1.04) mg/dL Estimated GFR > 60 (>60) mL/min BUN/Creatinine Ratio 6.7 (6-22) Glucose 88 (80-110) mg/dL Lactate 3.6 H 2.9 H (0.7-2.1) mmol/L Calcium 7.3 L (8.4-10.2) mg/dL Total Bilirubin 0.5 (0.2-1.3) mg/dL AST 39 H (14-36) IU/L ALT 26 (<35) IU/L Alkaline Phosphatase 83 (38-126) U/L Ammonia < 9 L (9-30) umol/L Total Creatine Kinase 44 (30-135) U/L Troponin I < 0.012 (0.01-0.034) ng/mL NT-Pro-B Natriuret Pep 254 H (<125) pg/mL Total Protein 4.6 L (6.3-8.2) g/dL Albumin 2.1 L (3.5-5.0) g/dL Globulin 2.5 (1.7-4.1) g/dL Albumin/Globulin Ratio 0.8 L (1.0-2.8) Procalcitonin 0.17 (<0.5) ng/mL Urine Color Yellow Urine Appearance Cloudy Urine pH 6.0 (4.5-8.0) Ur Specific [place] 1.020 (1.000-1.035) Urine Protein 2+ H (Negative) Urine Glucose (UA) Negative (Negative) g/dL Urine Ketones Negative (NEGATIVE) Urine Occult Blood Trace-intact (Negative) Urine Nitrate Negative (Negative) Urine Bilirubin Negative (NEGATIVE) Urine Urobilinogen 0.2 (0.2) E.U./dL Ur Leukocyte Esterase 1+ H (NEGATIVE) Urine RBC 5-10/hpf H (0-5/HPF) Urine WBC 10-30/hpf H (0-5/HPF) Ur Squamous Epith Cells 5-10 /hpf H (0-5/HPF) Urine Bacteria Many (>30) H (None) Ur Culture Indicated? Specimen cultured Salicylates < 1.0 (<20) mg/dL U Opiates 300ng/mL cut Negative (Negative) Ur Oxycodone Screen Negative (Negative) Urine Methadone Screen Negative (Negative) Acetaminophen < 10 (10-30) ug/mL Ur Barbiturates Screen Negative (Negative) U Tricyclic Antidepress Negative (Negative) Ur Phencyclidine Scrn Negative (Negative) Ur Amphetamines Screen Negative (Negative) U Methamphetamines Scrn Negative (Negative) Ur MDMA Scrn (Ecstasy) Negative (Negative) U Benzodiazepines Scrn Positive H (Negative) Urine Cocaine Screen Negative (Negative) U Marijuana (THC) Screen Negative (Negative) Ethyl Alcohol < 10 ( - 10) mg/dL Chlamy pneumoniae PCR Not detected (Not Detect) Adenovirus (PCR) Not detected (Not Detect) B.parapertussis DNA PCR Not detected (Not Detecte) Coronavirus OC43 (PCR) Not detected (Not Detect) Coronavirus HKU1 (PCR) Not detected (Not Detect) Coronavirus 229E (PCR) Not detected (Not Detect) SARS-CoV-2 (PCR) Not detected (Not Detecte) Coronavirus NL63 (PCR) Not detected (Not Detect) Human Metapneumovir PCR Not detected (Not Detect) Influenza Type A (PCR) Not detected (Not Detect) Influenza Type B (PCR) Not detected (Not Detect) M. pneumoniae (PCR) Not detected (Not Detect) Parainfluenza 1 (PCR) Not detected (Not Detect) Parainfluenza 2 (PCR) Not detected (Not Detect) Parainfluenza 3 (PCR) Not detected (Not Detect) Parainfluenza 4 (PCR) Not detected (Not Detect) RSV (PCR) Not detected (Not Detect) Entero/Rhino (PCR) Not detected (Not Detect) Imaging Data CT scan - head: Radiologist's Impression: PROCEDURE: CT HEAD/BRAIN WO CON INDICATIONS: fall TECHNIQUE: Noncontrast 4.5 mm thick angled axial sections acquired from the foramen magnum to the vertex, with coronal and sagittal reformats. For radiation dose reduction, the following was used: automated exposure control, adjustment of mA and/or kV according to patient size. COMPARISON: [facility], CT, CT HEAD/BRAIN WO CON, 08/31/2022, 13:10. FINDINGS: Image quality: Imaging is degraded by patient motion. CSF spaces: Basal cisterns are patent. No extra-axial fluid collections. Ventricles are normal in size and shape. Brain: No midline shift. No intracranial masses or hemorrhage. Fong-white matter interface is normal. Skull and face: Calvarium and visualized facial bones are intact, without suspicious lesions. Sinuses: Visualized sinuses and mastoids are clear. IMPRESSION: No acute intracranial pathology. Dictated by: Deepak Bellamy M.D. on 03/21/2023 at 12:42 CT - cervical spine: Radiologist's Impression: PROCEDURE: CT CERVICAL SPINE WO CON INDICATIONS: roll off bed bruising everywhere TECHNIQUE: Noncontrast 3 mm thick sections acquired from the skull base to the T4 level. Sagittal and coronal reformats were then constructed. For radiation dose reduction, the following was used: automated exposure control, adjustment of mA and/or kV according to patient size. COMPARISON: [facility], CT, CT CERVICAL SPINE WO CON, 08/31/2022, 13:10. FINDINGS: Image quality: Imaging is degraded by patient motion. Bones: No fractures or dislocations. Visualized superior ribs are intact. Soft tissues: Prevertebral soft tissues are normal in thickness. No paravertebral hematomas. No apical pneumothoraces. IMPRESSION: No acute fracture. Dictated by: Deepak Bellamy M.D. on 03/21/2023 at 12:44 CT scan - abdomen/pelvis: Radiologist's Impression: PROCEDURE: CT CHEST ABD PEL W CON INDICATIONS: roll off bed bruising everywhere TECHNIQUE: After the administration of intravenous contrast, 5 mm thick sections acquired from the lung apices to the symphysis. 2.5 mm thick coronal and sagittal reformats were acquired. Additional 7 mm thick coronal maximum intensity projection (MIP) reformats acquired through the lungs. Optional 10-minute delayed imaging may be performed from the kidneys to the bladder. For radiation dose reduction, the following was used: automated exposure control, adjustment of mA and/or kV according to patient size. COMPARISON: [facility], CT, CT CHEST ABD PEL W CON, 08/31/2022, 15:30. FINDINGS: Image quality: Excellent. CHEST: Lungs: No pulmonary contusions or lacerations. No acute airspace opacities. No pneumothorax or hemothorax. Central and peripheral airways appear patent and normal in caliber. Mediastinum: No mediastinal hematomas. Heart size is normal. No pericardial effusion. Thoracic aorta and pulmonary arteries demonstrate normal size and enhancement. No mediastinal or hilar adenopathy. Esophagus is normal in caliber. No hiatal hernia. Chest wall: Acute appearing left 12 rib fracture. Chronic appearing right 8th through 12th rib fractures. No subcutaneous emphysema. No axillary or supraclavicular adenopathy. Thyroid gland is diminutive. ABDOMEN: Solid organs: Diffusely enlarged liver with decreased enhancement suggestive of hepatic steatosis. Gallbladder is not visualized, likely surgically absent. Mild central pneumobilia. Biliary system is non-dilated. Pancreas enhances normally, without transection. Spleen is normal in size and enhancement, without lacerations. No adrenal hematomas. Both kidneys enhance normally, without hydronephrosis or lacerations. Peritoneum and bowel: No free fluid or air. Persistent wall thickening of the descending colon and sigmoid with multiple prominent loops of small bowel. Nodes and vessels: No retroperitoneal or mesenteric adenopathy. Aorta and inferior vena cava are normal in size and enhancement. Miscellaneous: No ventral hernias. Free fluid along the liver bilateral colic gutters and in the pelvis. PELVIS: Genitourinary: Bladder wall thickness is normal. Miscellaneous: No inguinal hernias or adenopathy. Bones: Pelvic ring and hip joints appear intact. No vertebral compression fractures. IMPRESSION: 1. Acute left 12th rib fracture. 2. Chronic appearing right rib fractures. 3. Thickening of small bowel and large bowel similar to comparison which may reflect bowel injury versus chronic inflammatory changes. 4. Hepatomegaly with increased simple appearing ascites likely suggestive of cirrhosis. 5. Pneumobilia, unchanged. Dictated by: Deepak Bellamy M.D. on 03/21/2023 at 12:46 MDM Narrative Medical decision making narrative: Patient 67-year-old female who is chronically weak fell out of bed today found down by for at most 2-3 hours. She has multiple skin tears all over her body laceration on forehead. They are currently living in a hotel. Concern for trauma. Head CT fortunately is negative CT C-spine no fracture. CT chest abdomen and pelvis confirms acute left rib fracture with chronic right-sided rib fractures. Blood work reviewed no leukocytosis anemia is stable, sodium slightly low at 130 BUN 2 creatinine 0.3 lactate is elevated 3.6, with improvement to 2.9. CPK 44 no evidence of rhabdo Concern for sepsis and infection blood pressure decreased to systolic of 70 elevated lactate, with known UTI concern for sepsis. Sepsis fluids started she responded well no need for vasopressors. Blood cultures pending Discussed case with Dr. Cisneros who accepts patient Discharge Plan Departure Patient Disposition: Admitted As Inpatient Clinical Impression: Acute UTI, Closed rib fracture, Multiple falls Admit Date/Time: 03/21/23 16:30 Admit Provider: Sunitha Cisneros
--- NOTE | 2023-03-21 13:04 | DI.CT.S_ITS ---
PROCEDURE: CT HEAD/BRAIN WO CON INDICATIONS: fall TECHNIQUE: Noncontrast 4.5 mm thick angled axial sections acquired from the foramen magnum to the vertex, with coronal and sagittal reformats. For radiation dose reduction, the following was used: automated exposure control, adjustment of mA and/or kV according to patient size. COMPARISON: [facility], CT, CT HEAD/BRAIN WO CON, 08/31/2022, 13:10. FINDINGS: Image quality: Imaging is degraded by patient motion. CSF spaces: Basal cisterns are patent. No extra-axial fluid collections. Ventricles are normal in size and shape. Brain: No midline shift. No intracranial masses or hemorrhage. Fong-white matter interface is normal. Skull and face: Calvarium and visualized facial bones are intact, without suspicious lesions. Sinuses: Visualized sinuses and mastoids are clear. IMPRESSION: No acute intracranial pathology. Dictated by: Deepak Bellamy M.D. on 03/21/2023 at 12:42 Approved by: Deepak Bellamy M.D. on 03/21/2023 at 12:44
--- NOTE | 2023-03-21 13:04 | DI.CT.S_ITS ---
PROCEDURE: CT CERVICAL SPINE WO CON INDICATIONS: roll off bed bruising everywhere TECHNIQUE: Noncontrast 3 mm thick sections acquired from the skull base to the T4 level. Sagittal and coronal reformats were then constructed. For radiation dose reduction, the following was used: automated exposure control, adjustment of mA and/or kV according to patient size. COMPARISON: [facility], CT, CT CERVICAL SPINE WO CON, 08/31/2022, 13:10. FINDINGS: Image quality: Imaging is degraded by patient motion. Bones: No fractures or dislocations. Visualized superior ribs are intact. Soft tissues: Prevertebral soft tissues are normal in thickness. No paravertebral hematomas. No apical pneumothoraces. IMPRESSION: No acute fracture. Dictated by: Deepak Bellamy M.D. on 03/21/2023 at 12:44 Approved by: Deepak Bellamy M.D. on 03/21/2023 at 12:46
--- NOTE | 2023-03-21 13:04 | DI.CT.S_ITS ---
PROCEDURE: CT CHEST ABD PEL W CON INDICATIONS: roll off bed bruising everywhere TECHNIQUE: After the administration of intravenous contrast, 5 mm thick sections acquired from the lung apices to the symphysis. 2.5 mm thick coronal and sagittal reformats were acquired. Additional 7 mm thick coronal maximum intensity projection (MIP) reformats acquired through the lungs. Optional 10-minute delayed imaging may be performed from the kidneys to the bladder. For radiation dose reduction, the following was used: automated exposure control, adjustment of mA and/or kV according to patient size. COMPARISON: [facility], CT, CT CHEST ABD PEL W CON, 08/31/2022, 15:30. FINDINGS: Image quality: Excellent. CHEST: Lungs: No pulmonary contusions or lacerations. No acute airspace opacities. No pneumothorax or hemothorax. Central and peripheral airways appear patent and normal in caliber. Mediastinum: No mediastinal hematomas. Heart size is normal. No pericardial effusion. Thoracic aorta and pulmonary arteries demonstrate normal size and enhancement. No mediastinal or hilar adenopathy. Esophagus is normal in caliber. No hiatal hernia. Chest wall: Acute appearing left 12 rib fracture. Chronic appearing right 8th through 12th rib fractures. No subcutaneous emphysema. No axillary or supraclavicular adenopathy. Thyroid gland is diminutive. ABDOMEN: Solid organs: Diffusely enlarged liver with decreased enhancement suggestive of hepatic steatosis. Gallbladder is not visualized, likely surgically absent. Mild central pneumobilia. Biliary system is non-dilated. Pancreas enhances normally, without transection. Spleen is normal in size and enhancement, without lacerations. No adrenal hematomas. Both kidneys enhance normally, without hydronephrosis or lacerations. Peritoneum and bowel: No free fluid or air. Persistent wall thickening of the descending colon and sigmoid with multiple prominent loops of small bowel. Nodes and vessels: No retroperitoneal or mesenteric adenopathy. Aorta and inferior vena cava are normal in size and enhancement. Miscellaneous: No ventral hernias. Free fluid along the liver bilateral colic gutters and in the pelvis. PELVIS: Genitourinary: Bladder wall thickness is normal. Miscellaneous: No inguinal hernias or adenopathy. Bones: Pelvic ring and hip joints appear intact. No vertebral compression fractures. IMPRESSION: 1. Acute left 12th rib fracture. 2. Chronic appearing right rib fractures. 3. Thickening of small bowel and large bowel similar to comparison which may reflect bowel injury versus chronic inflammatory changes. 4. Hepatomegaly with increased simple appearing ascites likely suggestive of cirrhosis. 5. Pneumobilia, unchanged. Dictated by: Deepak Bellamy M.D. on 03/21/2023 at 12:46 Approved by: Deepak Bellamy M.D. on 03/21/2023 at 12:59
[2023-03-21 14:01] LABS: Basophils Absolute Auto 0 /uL (0-100); Eosinophils Absolute Auto 0 /uL (0-450); Eosinophils Percent Auto 0.3 % (2-4); Monocytes Absolute Auto 700 /uL (0-900)
[2023-03-21 14:03] LABS: Acetaminophen < 10 ug/mL (10-30); Ethanol (ETOH) < 10 mg/dL; Lactate (Lactic Acid) 3.6 mmol/L (0.7-2.1); Salicylate < 1.0 mg/dL (<20)
[2023-03-21 14:04] LABS: Alanine Aminotransferase 26 IU/L (<35); Albumin 2.1 g/dL (3.5-5.0); Albumin Globulin Ratio 0.8 (1.0-2.8); Alkaline Phosphatase 83 U/L (38-126); Aspartate Aminotransferase 39 IU/L (14-36); Bilirubin Total 0.5 mg/dL (0.2-1.3); Calcium 7.3 mg/dL (8.4-10.2); Carbon Dioxide 29 mmol/L (22-32); Chloride 97 mmol/L (98-107); Creatine Kinase 44 U/L (30-135); Estimated Glomerular Filt Rate > 60 mL/min (>60); Globulin 2.5 g/dL (1.7-4.1); Glucose 88 mg/dL (80-110); HEMOLYSIS 25 (0-50); Potassium 3.9 mmol/L (3.4-5.1); Sodium 130 mmol/L (137-145); Total Protein 4.6 g/dL (6.3-8.2)
[2023-03-21 14:05] LABS: Ammonia (NH3) < 9 umol/L (9-30); BUN Creatinine Ratio 6.7 (6-22); Blood Urea Nitrogen 2 mg/dL (7-17)
[2023-03-21 14:06] LABS: PTT Partial Thromboplastin Tim 21 SECONDS (25.1-36.5)
[2023-03-21 14:09] LABS: Basophils Percent Auto 0.1 % (0-2); Hematocrit 30.1 % (36-46); Hemoglobin 10.4 g/dL (12.0-16.0); Lymphocytes Absolute Auto 800 /uL (1100-4500); Lymphocytes Percent Auto 11.5 % (25-40); Mean Corpuscular HGB Conc 34.4 % (30-36); Mean Corpuscular Hemoglobin 43.2 PG (26-34); Mean Corpuscular Volume 125.8 fL (80-100); Monocytes Percent Auto 11.2 % (3-14); Neutrophils Absolute Auto 5100 /uL (1500-7000); Neutrophils Percent Auto 76.9 % (50-75); White Blood Cell Count 6.6 X10^3/uL (4.5-11.0)
[2023-03-21 14:11] LABS: Add Manual Diff / Slide Review SLIDE REVIEW
[2023-03-21 14:12] LABS: Appearance Urine UA CLOUDY; Bilirubin Urine UA NEGATIVE (NEGATIVE); Color Urine UA YELLOW; Glucose Urine UA NEGATIVE (Negative); Ketones Urine UA NEGATIVE (NEGATIVE); Leukocyte Esterase Urine UA 1+ (NEGATIVE); Nitrite Urine UA NEGATIVE (Negative); Occult Blood Urine UA TRACE-INTACT (Negative); Protein Urine UA 2+ (Negative); Urobilinogen Urine UA 0.2 E.U./dL (0.2)
[2023-03-21 14:16] LABS: NT-proBNP (BNP-Adult 18+) 254 pg/mL (<125); Troponin I < 0.012 ng/mL (0.01-0.034)
[2023-03-21 14:19] LABS: UR Morphine/Opiate cutoff 300 Negative (Negative); Ur Creatinine Normal (Normal); Ur Specific Gravity Normal (Normal); Urine Amphetamines Negative (Negative); Urine Barbiturates Negative (Negative); Urine Benzodiazepines Positive (Negative); Urine Cocaine Negative (Negative); Urine MDMA Negative (Negative); Urine Methadone Negative (Negative); Urine Methamphetamines Negative (Negative); Urine Oxycodone Negative (Negative); Urine Phencyclidine Negative (Negative); Urine Tetrahydrocannabinol Negative (Negative); Urine Tricyclic Antidepressant Negative (Negative); Urine pH Normal (Normal)
[2023-03-21 14:20] LABS: RBC Urine 5-10/HPF (0-5/HPF)
[2023-03-21 14:21] LABS: Bacteria Urine Many (>30); Culture Indicated Urine Specimen Cultured; Squamous Epithelial Cell Urine 5-10 /HPF (0-5/HPF); WBC Urine 10-30/HPF (0-5/HPF)
[2023-03-21 14:21] LABS: Procalcitonin 0.17 ng/mL (<0.5)
[2023-03-21 14:26] LABS: Macrocytosis 3+
[2023-03-21 14:27] LABS: Anisocytosis 1+
[2023-03-21 14:28] LABS: Stomatocytes 2+
[2023-03-21 14:29] LABS: Platelet Count 120 X10^3/uL (150-400)
[2023-03-21] MEDS: SODIUM CHLORIDE 0.9% 1,360.77 ML 453.59 ML IV (14:39)
[2023-03-21] MEDS: cefTRIAXone 1,000 MG in SODIUM CHLORIDE 0.9% 100 ML 200 MG IV (14:47)
[2023-03-21 15:27] LABS: Adenovirus Not Detected (Not Detect); B. parapertussis Not Detected (Not Detecte); Bordetella pertussis Not Detected (Not Detect); Chlamydophila pneumoniae Not Detected (Not Detect); Coronavirus 229E Not Detected (Not Detect); Coronavirus HKU1 Not Detected (Not Detect); Coronavirus NL 63 Not Detected (Not Detect); Coronavirus OC43 Not Detected (Not Detect); Human Metapneumovirus Not Detected (Not Detect); Human Rhinovirus/Enterovirus Not Detected (Not Detect); Influenza A Not Detected (Not Detect); Influenza B Not Detected (Not Detect); Mycoplasma pneumoniae Not Detected (Not Detect); Parainfluenza Virus 1 Not Detected (Not Detect); Parainfluenza Virus 2 Not Detected (Not Detect); Parainfluenza Virus 3 Not Detected (Not Detect); Parainfluenza Virus 4 Not Detected (Not Detect); Respiratory Syncytial Virus Not Detected (Not Detect); SARS- CoV-2 Not Detected (Not Detecte)
[2023-03-21 15:34] LABS: Reflexed Lactate in 2 Hours Y
[2023-03-21 16:09] LABS: Lactate 2HR (Lactic Acid Rflx) 2.9 mmol/L (0.7-2.1)
--- NOTE | 2023-03-21 16:25 | PC.NURSE ---
Med rec performed based on online surescript hx with local pharmacies. Pt is unreliable historian and unable to confirm/deny what meds she is taking at this time. Family at bedside is unable to confirm/deny pt meds.
--- NOTE | 2023-03-21 20:15 | PM.HP.1 ---
History of Present Illness History of Present Illness Chief complaint: rolled off bed, sores all over, generalized pain Narrative: 67-year-old female with polyneuropathy which has led to her being wheelchair-bound, osteoporosis, chronic pain, coronary artery disease, osteoporosis who was brought in today after what sounds like a fall out of bed. The report is that she is living at the [facility] with her . He left at 9:45 a.m. this morning and she was in bed. When he came back around noon to check on her, she had rolled out of bed and was reportedly lying on the floor. She had multiple acute skin tears. had reported that she was more confused than baseline. In the emergency department, she was found to have an acute UTI. She also had lactic acidosis. She did become hypotensive in the emergency department and it was recommended she be admitted for further treatment as she met criteria for sepsis. Presently, patient is somewhat difficult to understand. She does tell me her medical history but states she was attempting to get out of bed today. She states due to her neuropathy falling is not uncommon. She is L into her wheelchair and sustained the injuries. Plan, she is complaining of pain all over. She does note she had been having some dysuria. She also complains of pain in her right ribcage with deep breaths [facility] Medical History Anemia Ascites of liver Osteoporosis Pain of both breasts Pancreatic cyst C. difficile colitis Chronic diarrhea CAD (coronary artery disease) Mixed hyperlipidemia (04/28/17) Anxiety (04/28/17) Low back pain without sciatica (08/05/16) Osteoporosis (12/15/13) Osteoarthritis (12/15/13) Surgical History History of arthroplasty of right shoulder History of cholecystectomy Family History Father No problems noted. Mother PE (pulmonary thromboembolism) Social History marital status: household members: spouse Smoking Status: Current every day smoker Tobacco: How many years used: 25 alcohol intake: former substance use type: does not use Meds Home Medications and Allergies Home Medications Medication Instructions Recorded Confirmed Type permanent disabled parking permit #1 ea 11/11/18 10/31/22 Rx needle (disp) 27 gauge 27 gauge x #100 ea 08/26/22 10/31/22 Rx 1/2 ferrous gluconate 324 mg (37.5 mg 324 mg PO DAILY #90 tabs 10/31/22 10/31/22 Rx iron) tablet hydroxyzine HCl 25 mg tablet 25 mg PO BID PRN Anxiety and pain 11/07/22 Rx #30 tabs methocarbamol 500 mg tablet 500 mg PO BID PRN mm spasm #30 tabs 01/12/23 Rx lorazepam 0.5 mg tablet 0.5 mg PO BID PRN anxiety #60 tabs 02/14/23 Rx denosumab 60 mg/mL subcutaneous 60 mg SUBCUT [id number] #1 mL 02/24/23 Rx syringe (Prolia) gabapentin 300 mg capsule 600 mg (2 x 300 mg) PO TID 30 days 03/02/23 03/21/23 Rx #180 caps oxycodone-acetaminophen 5 mg-325 2 tab PO Q6H PRN pain #112 tabs 03/19/23 Rx mg tablet ferrous gluconate 324 mg (38 mg 324 mg PO BID 03/21/23 03/21/23 History iron) tablet gabapentin 300 mg capsule 600 mg PO 3XD 03/21/23 03/21/23 History lorazepam 0.5 mg tablet 0.5 mg PO BID PRN anxiety 03/21/23 03/21/23 History methocarbamol 500 mg tablet 500 mg PO BID PRN muscle spasm 03/21/23 03/21/23 History oxycodone-acetaminophen 5 mg-325 2 tab PO Q6H PRN pain 03/21/23 03/21/23 History mg tablet Allergies Allergy/AdvReac Type Severity Reaction Status Date / Time adhesive Allergy Mild TEARS Verified 03/21/23 12:35 SKIN,USE COBAN Review of Systems Review of Systems Narrative: All other systems were reviewed negative, somewhat difficult to obtain due to her confusion. Exam Vital Signs (past 8 hours): - 03/21/23 12:30 03/21/23 12:43 03/21/23 13:00 Temperature 97.1 F L Pulse Rate 78 90 95 H Respiratory Rate 17 Blood Pressure 107/73 Pulse Oximetry 96 97 97 Oxygen Delivery Method Room Air Oxygen Flow Rate 03/21/23 13:30 03/21/23 13:37 03/21/23 13:37 Temperature Pulse Rate 91 H 91 H Respiratory Rate 25 H 27 H Blood Pressure 97/59 L Pulse Oximetry 94 92 Oxygen Delivery Method Room Air Oxygen Flow Rate 03/21/23 13:45 03/21/23 13:55 03/21/23 13:55 Temperature Pulse Rate 96 H 85 Respiratory Rate 30 H 24 Blood Pressure 103/56 L Pulse Oximetry 95 95 Oxygen Delivery Method Oxygen Flow Rate 03/21/23 14:00 03/21/23 14:00 03/21/23 14:11 Temperature Pulse Rate 99 H 77 Respiratory Rate 23 25 H Blood Pressure 103/60 77/43 L Pulse Oximetry 98 94 Oxygen Delivery Method Oxygen Flow Rate 03/21/23 14:11 03/21/23 14:14 03/21/23 14:14 Temperature Pulse Rate 85 Respiratory Rate 24 Blood Pressure 102/57 L 102/57 L Pulse Oximetry 94 Oxygen Delivery Method Oxygen Flow Rate 03/21/23 14:15 03/21/23 14:15 03/21/23 14:30 Temperature Pulse Rate 83 Respiratory Rate 25 H Blood Pressure 93/54 L 88/53 L Pulse Oximetry 95 Oxygen Delivery Method Oxygen Flow Rate 03/21/23 14:30 03/21/23 14:45 03/21/23 15:00 Temperature Pulse Rate 77 75 75 Respiratory Rate 25 H 23 24 Blood Pressure Pulse Oximetry 94 95 95 Oxygen Delivery Method Oxygen Flow Rate 03/21/23 15:15 03/21/23 15:29 03/21/23 15:29 Temperature Pulse Rate 78 75 Respiratory Rate 36 H 21 Blood Pressure 98/49 L Pulse Oximetry 93 100 Oxygen Delivery Method Oxygen Flow Rate 03/21/23 15:30 03/21/23 15:30 03/21/23 15:35 Temperature Pulse Rate 75 74 Respiratory Rate 21 22 Blood Pressure 92/54 L Pulse Oximetry 100 100 Oxygen Delivery Method Nasal Cannula Oxygen Flow Rate 2 03/21/23 15:35 03/21/23 15:40 03/21/23 15:40 Temperature Pulse Rate 70 Respiratory Rate 20 Blood Pressure 97/52 L 101/54 L Pulse Oximetry 100 Oxygen Delivery Method Oxygen Flow Rate 03/21/23 15:45 03/21/23 15:45 03/21/23 15:50 Temperature Pulse Rate 80 79 Respiratory Rate 23 32 H Blood Pressure 118/66 Pulse Oximetry 100 99 Oxygen Delivery Method Oxygen Flow Rate 03/21/23 15:50 03/21/23 15:55 03/21/23 15:55 Temperature Pulse Rate 80 Respiratory Rate 23 Blood Pressure 101/60 102/75 Pulse Oximetry 100 Oxygen Delivery Method Oxygen Flow Rate 03/21/23 16:00 03/21/23 16:00 03/21/23 16:05 Temperature Pulse Rate 75 73 Respiratory Rate 26 H 22 Blood Pressure 107/68 Pulse Oximetry 100 100 Oxygen Delivery Method Oxygen Flow Rate 03/21/23 16:05 03/21/23 16:10 03/21/23 16:10 Temperature Pulse Rate 77 Respiratory Rate 23 Blood Pressure 92/54 L 124/60 Pulse Oximetry 100 Oxygen Delivery Method Oxygen Flow Rate 03/21/23 16:15 03/21/23 16:15 03/21/23 16:20 Temperature Pulse Rate 79 79 Respiratory Rate 25 H 25 H Blood Pressure 101/49 L Pulse Oximetry 100 100 Oxygen Delivery Method Oxygen Flow Rate 03/21/23 16:20 03/21/23 16:25 03/21/23 16:25 Temperature Pulse Rate 83 Respiratory Rate 21 Blood Pressure 103/49 L 108/58 L Pulse Oximetry 100 Oxygen Delivery Method Oxygen Flow Rate 03/21/23 16:30 03/21/23 16:30 03/21/23 16:35 Temperature Pulse Rate 70 Respiratory Rate 20 Blood Pressure 108/54 L 114/46 L Pulse Oximetry 100 Oxygen Delivery Method Oxygen Flow Rate 03/21/23 16:35 03/21/23 16:40 03/21/23 16:40 Temperature Pulse Rate 81 83 Respiratory Rate 23 24 Blood Pressure 102/50 L Pulse Oximetry 100 98 Oxygen Delivery Method Oxygen Flow Rate 03/21/23 16:45 03/21/23 16:45 03/21/23 16:50 Temperature Pulse Rate 87 81 Respiratory Rate 32 H 24 Blood Pressure 114/61 Pulse Oximetry 100 100 Oxygen Delivery Method Oxygen Flow Rate 03/21/23 16:50 03/21/23 16:55 03/21/23 16:55 Temperature Pulse Rate 79 Respiratory Rate 21 Blood Pressure 96/54 L 99/49 L Pulse Oximetry 100 Oxygen Delivery Method Oxygen Flow Rate 03/21/23 17:00 03/21/23 17:00 03/21/23 17:00 Temperature 97.8 F Pulse Rate 85 84 Respiratory Rate 22 16 Blood Pressure 104/51 L 94/40 L Pulse Oximetry 100 100 Oxygen Delivery Method Oxygen Flow Rate 2 03/21/23 17:05 03/21/23 17:05 Temperature Pulse Rate 83 Respiratory Rate 20 Blood Pressure 105/64 Pulse Oximetry 100 Oxygen Delivery Method Oxygen Flow Rate Oxygen Delivery Method Nasal Cannula Oxygen Flow Rate 2 Narrative Exam Narrative: GEN: Ill-appearing elderly female, appears much older than physiologic age, Alert and oriented x2, no acute distress, significant tremors noted HEENT: Normocephalic, face symmetric, pupils equal round reactive to light, extraocular movements intact, sclerae anicteric, conjunctiva clear, nares patent, oropharynx reveals an intact soft and hard palate with moist mucous membranes NECK: Supple, no lymphadenopathy, thyroid without enlargement or nodularity, carotids no bruits CHEST: Respiratory excursions symmetric, diminished but clear to auscultation bilaterally CV: Regular rate and rhythm, no murmurs, rubs, gallops, PMI nondisplaced ABD: Soft, nontender, nondistended, bowel sounds present in all 4 quadrants, no organomegaly or masses appreciated EXTR: Warm, well perfused, no clubbing/cyanosis, venous stasis changes noted. Her feet appear chronically discolored/purplish, toenails are long and poorly kept SKIN: Warm and dry, without rash, she does have bruising noted to the bilateral lower extremities, it is reported she had skin tears to both arms and legs, but those have been dressed and covered with gauze. She does have a skin tear to the right forehead which has been cleansed and has some bruising, but no bleeding NEURO: Alert and oriented x2, otherwise nonfocal PSYCH: Mood and affect is within normal limits, judgment and insight are difficult to assess Objective Labs 03/21/23 13:34 03/21/23 13:34 Labs: Laboratory Results - last 24 hr 03/21/23 03/21/23 03/21/23 13:34 13:56 15:50 WBC 6.6 RBC 2.40 L Hgb 10.4 L Hct 30.1 L MCV 125.8 H MCH 43.2 H MCHC 34.4 RDW 17.0 H Plt Count 120 L Neut % (Auto) 76.9 H Lymph % (Auto) 11.5 L [place] % (Auto) 11.2 Eos % (Auto) 0.3 L Baso % (Auto) 0.1 Neut # (Auto) 5100 Lymph # (Auto) 800 L [place] # (Auto) 700 Eos # (Auto) 0 Baso # (Auto) 0 RBC Morphology See below Anisocytosis 1+ H Macrocytosis 3+ H Stomatocytes 2+ H PT 12.0 INR 1.0 APTT 21 L Sodium 130 L Potassium 3.9 Chloride 97 L Carbon Dioxide 29 BUN 2 L Creatinine 0.30 L Estimated GFR > 60 BUN/Creatinine Ratio 6.7 Glucose 88 Lactate 3.6 H 2.9 H Calcium 7.3 L Total Bilirubin 0.5 AST 39 H ALT 26 Alkaline Phosphatase 83 Ammonia < 9 L Total Creatine Kinase 44 Troponin I < 0.012 NT-Pro-B Natriuret Pep 254 H Total Protein 4.6 L Albumin 2.1 L Globulin 2.5 Albumin/Globulin Ratio 0.8 L Procalcitonin 0.17 Urine Color Yellow Urine Appearance Cloudy Urine pH 6.0 Ur Specific [place] 1.020 Urine Protein 2+ H Urine Glucose (UA) Negative Urine Ketones Negative Urine Occult Blood Trace-intact Urine Nitrate Negative Urine Bilirubin Negative Urine Urobilinogen 0.2 Ur Leukocyte Esterase 1+ H Urine RBC 5-10/hpf H Urine WBC 10-30/hpf H Ur Squamous Epith Cells 5-10 /hpf H Urine Bacteria Many (>30) H Ur Culture Indicated? Specimen cultured Salicylates < 1.0 U Opiates 300ng/mL cut Negative Ur Oxycodone Screen Negative Urine Methadone Screen Negative Acetaminophen < 10 Ur Barbiturates Screen Negative U Tricyclic Antidepress Negative Ur Phencyclidine Scrn Negative Ur Amphetamines Screen Negative U Methamphetamines Scrn Negative Ur MDMA Scrn (Ecstasy) Negative U Benzodiazepines Scrn Positive H Urine Cocaine Screen Negative U Marijuana (THC) Screen Negative Ethyl Alcohol < 10 Chlamy pneumoniae PCR Not detected Adenovirus (PCR) Not detected B.parapertussis DNA PCR Not detected Coronavirus OC43 (PCR) Not detected Coronavirus HKU1 (PCR) Not detected Coronavirus 229E (PCR) Not detected SARS-CoV-2 (PCR) Not detected Coronavirus NL63 (PCR) Not detected Human Metapneumovir PCR Not detected Influenza Type A (PCR) Not detected Influenza Type B (PCR) Not detected M. pneumoniae (PCR) Not detected Parainfluenza 1 (PCR) Not detected Parainfluenza 2 (PCR) Not detected Parainfluenza 3 (PCR) Not detected Parainfluenza 4 (PCR) Not detected RSV (PCR) Not detected Entero/Rhino (PCR) Not detected Assessment & Plan Assessment & Plan narrative: 1. Sepsis Patient presented to the emergency department with altered mental status, lactic acidosis with initial lactate level of 3.6 and follow-up at 2.9, mildly elevated pulse rate, and fluid responsive hypotension. Blood pressure dropped as low as 77/43 but did improve with 30 cc/kilos of IV fluids. She has also had some tachypnea with respiratory rates in the 27-30 range. Etiology appears to be UTI. Blood and urine cultures have been drawn and are pending. 2. UTI Degree of Klebsiella pneumonia UTI last year. Another specimen grew staph epidermidis in August of this year, though it was [phone] colonies/ml. Will continue empiric Rocephin for now. 3. Multi skin tears, secondary to fall Continue local wound care. 4. Generalized weakness/gait instability/debility in the setting of chronic polyneuropathy Will have PT and OT consult. Anticipate she will need a penitentiary facility for rehab. 5. Macrocytic anemia Her MCV is very high at 125. There is some report of cirrhosis in her records. Will check B12 and folate levels. This may be secondary to cirrhosis. Another consideration given how higher MCV is is a myelodysplastic process. 6. Thrombocytopenia Likely chronic based on her labs. Again, there is a report of potential cirrhosis. This is likely related 7. Hyponatremia Mild at 130. Will monitor. 8. Hypoalbuminemia Suspect a component of protein calorie malnutrition as well as underlying liver disease. Code status Full Prophylaxis Will place on Lovenox Disposition Admit to inpatient acute care. Quality VTE Deep Vein Thrombosis/Pulmonary Embolism Present on Admission: No
[2023-03-21] MEDS: SODIUM CHLORIDE 0.9% 1,000 ML 100 ML IV (20:26)
[2023-03-21] MEDS: OXYCODONE IR 5 MG TABLET PO (20:35)
[2023-03-21] MEDS: ACETAMINOPHEN 325 MG TABLET 650 MG PO (20:36)
[2023-03-21] MEDS: SENNOSIDES 8.6 MG TABLET 17.2 MG PO (20:36)
[2023-03-21 21:50] LABS: Folate 2.2 ng/mL (2.76-20.0); Vitamin B12 704 pg/mL (239-931)
[2023-03-22] VITALS (9 sets, daily range): BP systolic 80–107; BP diastolic 33–58; PULSE 73–104; RESP 16–18; TEMP 36.2–36.6; O2SAT 93–100
[2023-03-22] MEDS: OXYCODONE IR 5 MG TABLET PO ×6 (02:10→22:56)
[2023-03-22] MEDS: ACETAMINOPHEN 325 MG TABLET 650 MG PO ×3 (06:04→22:55)
[2023-03-22] MEDS: SODIUM CHLORIDE 0.9% 1,000 ML 100 ML IV ×2 (06:21→20:34)
[2023-03-22] MEDS: SODIUM CHLORIDE 0.9% 1,000 ML 1000 ML IV (08:01)
[2023-03-22] MEDS: ENOXAPARIN 40 MG/0.4 ML SYRINGE SUBCUT (10:26)
[2023-03-22] MEDS: FOLIC ACID 1 MG TABLET PO (10:26)
[2023-03-22] MEDS: MULTIVITAMIN 1 TABLET 1 TAB PO (10:26)
[2023-03-22] MEDS: THIAMINE 100 MG TABLET PO (10:27)
[2023-03-22] MEDS: cefTRIAXone 1,000 MG in SODIUM CHLORIDE 0.9% 100 ML 200 MG IV (11:24)
--- NOTE | 2023-03-22 13:16 | P.PN_ITS ---
Subjective Subjective Date Patient Seen: 03/22/23 Interval history: Pt adm with UTI, sepsis. Urine cx positive for GNR. BP improving. She complains of her chronic pain. Exam Vital Signs (past 8 hours): - 03/22/23 07:00 03/22/23 07:32 03/22/23 08:49 Temperature 97.8 F 97.2 F L Pulse Rate 84 83 87 Respiratory Rate 16 16 Blood Pressure 87/33 L 80/33 L 84/39 L Pulse Oximetry 96 99 Oxygen Flow Rate 1 03/22/23 10:55 Temperature Pulse Rate 102 H Respiratory Rate Blood Pressure 93/40 L Pulse Oximetry Oxygen Flow Rate Oxygen Delivery Method Nasal Cannula Oxygen Flow Rate 1 Narrative Exam Narrative: Gen: alert, NAD Lungs: clear CV: regular Ext: chronic erythema and skin tears LEs Objective Labs 03/21/23 13:34 03/21/23 13:34 Labs: Laboratory Results - last 24 hr 03/21/23 03/21/23 03/21/23 13:34 13:56 15:50 WBC 6.6 RBC 2.40 L Hgb 10.4 L Hct 30.1 L MCV 125.8 H MCH 43.2 H MCHC 34.4 RDW 17.0 H Plt Count 120 L Neut % (Auto) 76.9 H Lymph % (Auto) 11.5 L [place] % (Auto) 11.2 Eos % (Auto) 0.3 L Baso % (Auto) 0.1 Neut # (Auto) 5100 Lymph # (Auto) 800 L [place] # (Auto) 700 Eos # (Auto) 0 Baso # (Auto) 0 RBC Morphology See below Anisocytosis 1+ H Macrocytosis 3+ H Stomatocytes 2+ H PT 12.0 INR 1.0 APTT 21 L Sodium 130 L Potassium 3.9 Chloride 97 L Carbon Dioxide 29 BUN 2 L Creatinine 0.30 L Estimated GFR > 60 BUN/Creatinine Ratio 6.7 Glucose 88 Lactate 3.6 H 2.9 H Calcium 7.3 L Total Bilirubin 0.5 AST 39 H ALT 26 Alkaline Phosphatase 83 Ammonia < 9 L Total Creatine Kinase 44 Troponin I < 0.012 NT-Pro-B Natriuret Pep 254 H Total Protein 4.6 L Albumin 2.1 L Globulin 2.5 Albumin/Globulin Ratio 0.8 L Vitamin B12 704 Folate 2.2 L Procalcitonin 0.17 Urine Color Yellow Urine Appearance Cloudy Urine pH 6.0 Ur Specific [place] 1.020 Urine Protein 2+ H Urine Glucose (UA) Negative Urine Ketones Negative Urine Occult Blood Trace-intact Urine Nitrate Negative Urine Bilirubin Negative Urine Urobilinogen 0.2 Ur Leukocyte Esterase 1+ H Urine RBC 5-10/hpf H Urine WBC 10-30/hpf H Ur Squamous Epith Cells 5-10 /hpf H Urine Bacteria Many (>30) H Ur Culture Indicated? Specimen cultured Salicylates < 1.0 U Opiates 300ng/mL cut Negative Ur Oxycodone Screen Negative Urine Methadone Screen Negative Acetaminophen < 10 Ur Barbiturates Screen Negative U Tricyclic Antidepress Negative Ur Phencyclidine Scrn Negative Ur Amphetamines Screen Negative U Methamphetamines Scrn Negative Ur MDMA Scrn (Ecstasy) Negative U Benzodiazepines Scrn Positive H Urine Cocaine Screen Negative U Marijuana (THC) Screen Negative Ethyl Alcohol < 10 Chlamy pneumoniae PCR Not detected Adenovirus (PCR) Not detected B.parapertussis DNA PCR Not detected Coronavirus OC43 (PCR) Not detected Coronavirus HKU1 (PCR) Not detected Coronavirus 229E (PCR) Not detected SARS-CoV-2 (PCR) Not detected Coronavirus NL63 (PCR) Not detected Human Metapneumovir PCR Not detected Influenza Type A (PCR) Not detected Influenza Type B (PCR) Not detected M. pneumoniae (PCR) Not detected Parainfluenza 1 (PCR) Not detected Parainfluenza 2 (PCR) Not detected Parainfluenza 3 (PCR) Not detected Parainfluenza 4 (PCR) Not detected RSV (PCR) Not detected Entero/Rhino (PCR) Not detected PFSH Medical History Anemia Ascites of liver Osteoporosis Pain of both breasts Pancreatic cyst C. difficile colitis Chronic diarrhea CAD (coronary artery disease) Mixed hyperlipidemia (04/28/17) Anxiety (04/28/17) Low back pain without sciatica (08/05/16) Osteoporosis (12/15/13) Osteoarthritis (12/15/13) Surgical History History of arthroplasty of right shoulder History of cholecystectomy Family History Father No problems noted. Mother PE (pulmonary thromboembolism) Social History marital status: household members: spouse Smoking Status: Current every day smoker Tobacco: How many years used: 25 alcohol intake: former substance use type: does not use Assessment & Plan Assessment & Plan narrative: 1. Sepsis, resolving Patient presented to the emergency department with altered mental status, lactic acidosis with initial lactate level of 3.6 and follow-up at 2.9, mildly elevated pulse rate, and fluid responsive hypotension. Blood pressure dropped as low as 77/43 but did improve with 30 cc/kilos of IV fluids. She has also had some tachypnea with respiratory rates in the 27-30 range. Etiology appears to be UTI. Blood and urine cultures have been drawn and are pending. 2. UTI Degree of Klebsiella pneumonia UTI last year. Another specimen grew staph epidermidis in August of this year, though it was [phone] colonies/ml. Will continue empiric Rocephin for now. 3. Multi skin tears, secondary to fall Continue local wound care. 4. Generalized weakness/gait instability/debility in the setting of chronic polyneuropathy Will have PT and OT consult. Anticipate she will need a correction facility for rehab. 5. Macrocytic anemia Her MCV is very high at 125. There is some report of cirrhosis in her records. This may be secondary to cirrhosis. Another consideration given how higher MCV is is a myelodysplastic process. B12 > 700, folate slightly low reflecting acute illness, chronic malnutrition. 6. Thrombocytopenia Likely chronic based on her labs. Again, there is a report of potential cirrhosis. This is likely related 7. Hyponatremia Mild at 130. Will monitor. 8. Hypoalbuminemia Suspect a component of protein calorie malnutrition as well as underlying liver disease. Possible discgharge tomorrow pending culture results. Quality VTE Deep Vein Thrombosis/Pulmonary Embolism Present on Admission: No
--- NOTE | 2023-03-22 13:47 | PT.IIE ---
Current Diagnoses Sepsis, unspecified organism (03/21/23) Surgical History (Last Reviewed 01/19/23 @ 20:18 by Pat Haynes DO) History of arthroplasty of right shoulder History of cholecystectomy Medical History (Last Reviewed 01/19/23 @ 20:18 by Pat Haynes DO) Anemia Anxiety (04/28/17) Ascites of liver C. difficile colitis CAD (coronary artery disease) Chronic diarrhea Low back pain without sciatica (08/05/16) Mixed hyperlipidemia (04/28/17) Osteoarthritis (12/15/13) Osteoporosis (12/15/13) Osteoporosis Pain of both breasts Pancreatic cyst
--- NOTE | 2023-03-22 16:58 | CM.DANOTE ---
Brief DCP Assessment NOte Patient is a 67yo F here following frequent falls, closed rib fracture, and UTI. Pt w/c bound at baseline. PCP [facility] Payer Medicaid INSTRUCTIONAL INTERVENTIONIST reviewed EMR. Unable to meet with pt due to triaging needs. Per chart review, lives in [facility] with spouse. Increase in falls recently. Per provider in rounds, potentially SNF appropriate. Per provider note, BP improving. Cultures results pending, may be ready for dc tomorrow. Per PT, pt barely moving but wants to dc home. Per PT, unclear if rehabitable. Plan: CM team will follow tomorrow for comprehensive dcp assessment. Pending patient preference, but pt has refused SNF in past per chart. Likely home with spouse involvement. TESHA Higginbotham Discharge Planning/Care Management CM Discharge Assessment Start: 03/22/23 16:55 Freq: Status: Active Protocol: Document 03/22/23 16:56 SL (Rec: 03/22/23 16:58 [id number]) Discharge Planning Assessment Assigned Drag Out Man TESHA Lewis DPOA/Assigned Designee Name Hi Berry (Spouse) Contact Information [phone] Advance Directives? No History Provided By Medical Record Prior Living Arrangements Other Comment Lives at a motel w/spouse Household Members spouse DME Already Rented / Owned Wheelchair Comment Wheelchair bound at baseline. Discharge Plan Home Transportation Arrangement Spouse Whiteboard Updated in Patient Room with No name and ext. # of Drag Out Man Review Status In Process Next Review Type Continued Stay Review
[2023-03-22 20:41] LABS: Lactate (Lactic Acid) 0.9 mmol/L (0.7-2.1)
[2023-03-23 04:00] VITALS: BP 92/49; PULSE 87; RESP 17; TEMP 36.5; O2SAT 97
[2023-03-23] MEDS: OXYCODONE IR 5 MG TABLET PO ×7 (05:23→23:44)
[2023-03-23 06:22] LABS: Hematocrit 28.5 % (36-46); Hemoglobin 9.7 g/dL (12.0-16.0); Mean Corpuscular Hemoglobin 43.3 PG (26-34); Mean Corpuscular Volume 127.2 fL (80-100); Red Blood Cell Count 2.24 X10^6/uL (4.0-5.2); Red Cell Distribution Width 17.1 % (11.6-14.8); White Blood Cell Count 4.6 X10^3/uL (4.5-11.0)
[2023-03-23 06:23] LABS: Basophils Absolute Auto 0 /uL (0-100); Basophils Percent Auto 0.4 % (0-2); Eosinophils Absolute Auto 0 /uL (0-450); Eosinophils Percent Auto 0.7 % (2-4); Lymphocytes Absolute Auto 1100 /uL (1100-4500); Lymphocytes Percent Auto 22.7 % (25-40); Monocytes Absolute Auto 700 /uL (0-900); Monocytes Percent Auto 15.4 % (3-14); Neutrophils Absolute Auto 2800 /uL (1500-7000); Neutrophils Percent Auto 60.8 % (50-75); Platelet Count 88 X10^3/uL (150-400)
[2023-03-23 06:25] LABS: Add Manual Diff / Slide Review SLIDE REVIEW
[2023-03-23 06:31] LABS: BUN Creatinine Ratio 13.3 (6-22); Blood Urea Nitrogen 4 mg/dL (7-17); Calcium 6.6 mg/dL (8.4-10.2); Carbon Dioxide 25 mmol/L (22-32); Chloride 109 mmol/L (98-107); Estimated Glomerular Filt Rate > 60 mL/min (>60); Glucose 76 mg/dL (80-110); HEMOLYSIS < 15 (0-50); Potassium 3.5 mmol/L (3.4-5.1); Sodium 136 mmol/L (137-145)
[2023-03-23 07:15] LABS: Macrocytosis 3+
[2023-03-23 08:20] VITALS: BP 99/39; PULSE 104; RESP 16; TEMP 36.7; O2SAT 93
[2023-03-23] MEDS: ACETAMINOPHEN 325 MG TABLET 650 MG PO ×3 (08:21→22:44)
[2023-03-23] MEDS: MULTIVITAMIN 1 TABLET 1 TAB PO (08:22)
[2023-03-23] MEDS: FOLIC ACID 1 MG TABLET PO (08:22)
[2023-03-23] MEDS: THIAMINE 100 MG TABLET PO (08:24)
[2023-03-23] MEDS: ENOXAPARIN 40 MG/0.4 ML SYRINGE SUBCUT (08:25)
[2023-03-23] MEDS: cefTRIAXone 1,000 MG in SODIUM CHLORIDE 0.9% 100 ML 200 MG IV (11:11)
[2023-03-23] MEDS: SODIUM CHLORIDE 0.9% 1,000 ML 100 ML IV (11:21)
--- NOTE | 2023-03-23 12:49 | OT.IPNOTE ---
Elvia was not agreeable to OT evaluation at this time; she reported that she was waiting on her pain medications and that her whole body was hurting with a pain rating of 20 out of 10. Will attempt to complete evaluation at a later time.
--- NOTE | 2023-03-23 13:37 | PT.IIE ---
Current Diagnoses Sepsis, unspecified organism (03/21/23) Surgical History (Last Reviewed 01/19/23 @ 20:18 by Pat Haynes DO) History of arthroplasty of right shoulder History of cholecystectomy Medical History (Last Reviewed 01/19/23 @ 20:18 by Pat Haynes DO) Anemia Anxiety (04/28/17) Ascites of liver C. difficile colitis CAD (coronary artery disease) Chronic diarrhea Low back pain without sciatica (08/05/16) Mixed hyperlipidemia (04/28/17) Osteoarthritis (12/15/13) Osteoporosis (12/15/13) Osteoporosis Pain of both breasts Pancreatic cyst Physical Therapy Inpatient Evaluation/Re-Eval M1 PT/OT-IP Prior Functional Status Start: 03/23/23 13:01 Freq: NEEDED Status: Active Protocol: Document 03/22/23 13:59 KJ (Rec: 03/23/23 13:32 KJ [id number]) Medical Review Prior Functional Status Medical History Reviewed Yes Communication No prior problems Mobility and Gait Able to stand pivot transfer from bed to/from wheelchair w/ one assist, however has had frequent falls recently. Activities of Daily Living and IADL's Pt needs assistance with all ADLS. Social History Household Members spouse Living Arrangements Other Number of Stairs To Enter/Railing? n/a M2 PT-IP Current Condition Start: 03/23/23 13:01 Freq: NEEDED Status: Active Protocol: Document 03/22/23 13:59 KJ (Rec: 03/23/23 13:32 KJ [id number]) Physical Therapy Current Condition Current Condition Evaluation Date 03/22/23 Treatment Diagnosis Impaired mobility Onset Date unknown M3 PT-IP Subjective Start: 03/22/23 13:58 Freq: Status: Active Protocol: Document 03/22/23 13:59 KJ (Rec: 03/23/23 13:32 KJ [id number]) Subjective Physical Therapy Visit Type Type Initial Evaluation Visit Start Time 13:20 Visit Stop Time 13:37 Total Visit Minutes 17 Notes Evaluation limited by patient pain levels interfering with participation. Physical Therapy Visit Comments Patient Comments Pt reports chronic pain due to neuropathy which negatively impacts her ability to move her body. Patient Goals to go home Therapy Pain Assessment Pain When Pain Assessed At Rest Pain Present Pain Present Pain Reported Location Generalized Description Chronic,With Movement Pain Behaviors Facial Grimacing Pain Management Techniques Distraction M5 PT-IP Objective Assessments Start: 12/10/23 13:58 Freq: Status: Active Protocol: Document 03/22/23 13:59 KJ (Rec: 03/23/23 13:32 KJ [id number]) Orientation Orientation/Cognition Level of Alertness Alert Orientation Name,Age,Birthday,Month, Situation Language Function Ability No Deficits Noted Safety Awareness Decreased Safety Awareness Comments Pt is resistive to movement. Gross Range of Motion Upper Extremity ROM Assessment Bilaterally Impaired Impairments decreased especially in shoulders and L hand. Some contractures noted in fingers. Lower Extremity ROM Assessment Bilaterally Impaired Impairments AROM in L better than R, limited all joints Strength Upper Extremity Strength Shoulder Trace movement bilat Hand R pattern molder 1/5, L pattern molder 2/5 Lower Extremity Strength Ankle 1/5 bilat Comments Strength Comments Able to do partial straight leg raise with L, unable to lift R leg off the bed M6 PT-IP Treatment Start: 03/22/23 13:58 Freq: Status: Active Protocol: Document 03/22/23 13:59 KJ (Rec: 03/23/23 13:32 KJ [id number]) Physical Therapy Treatment Exercises Exercises Ankle Pumps,Gluteal Sets,Quad Sets Education Education Provided Safety M7 PT-IP Assessment and Plan Start: 03/22/23 13:58 Freq: Status: Active Protocol: Document 03/22/23 13:59 KJ (Rec: 03/23/23 13:32 KJ [id number]) PT Summary Assessment and Plan Potential Rehabilitation Potential Fair Status of Condition at Evaluation Stable Summary Impairments Pain,ROM,Strength,Coordination ,Bed Mobility Assessment Summary Pt resistant to movement due to pain, has had multiple falls at home with minor injuries. Goals Bed Mobility Goal Contact Guard Assistance Transfer Goal Contact Guard Assistance,Front Wheeled Walker Days to Meet Goals 5 Frequency of Treatment Frequency Of Treatment Once a Day Treatment Plan Physical Therapy Treatment Plan Bed Mobility Training,Transfer Training Recommendations To Nursing Amount of Assist Needed 1 Person Assist Discharge Recommendations PT Discharge Recommendations SNF Rehab Transportation Needs at Discharge Wheelchair/Cabulance
--- NOTE | 2023-03-23 13:37 | PT.IIE ---
Current Diagnoses Sepsis, unspecified organism (03/21/23) Surgical History (Last Reviewed 01/19/23 @ 20:18 by Pat Haynes DO) History of arthroplasty of right shoulder History of cholecystectomy Medical History (Last Reviewed 01/19/23 @ 20:18 by Pat Haynes DO) Anemia Anxiety (04/28/17) Ascites of liver C. difficile colitis CAD (coronary artery disease) Chronic diarrhea Low back pain without sciatica (08/05/16) Mixed hyperlipidemia (04/28/17) Osteoarthritis (12/15/13) Osteoporosis (12/15/13) Osteoporosis Pain of both breasts Pancreatic cyst Physical Therapy Inpatient Evaluation/Re-Eval M1 PT/OT-IP Prior Functional Status Start: 03/23/23 13:01 Freq: NEEDED Status: Active Protocol: Document 03/22/23 13:59 KJ (Rec: 03/23/23 13:32 KJ [id number]) Medical Review Prior Functional Status Medical History Reviewed Yes Communication No prior problems Mobility and Gait Able to stand pivot transfer from bed to/from wheelchair w/ one assist, however has had frequent falls recently. Activities of Daily Living and IADL's Pt needs assistance with all ADLS. Social History Household Members spouse Living Arrangements Other Number of Stairs To Enter/Railing? n/a M2 PT-IP Current Condition Start: 03/23/23 13:01 Freq: NEEDED Status: Active Protocol: Document 03/22/23 13:59 KJ (Rec: 03/23/23 13:32 KJ [id number]) Physical Therapy Current Condition Current Condition Evaluation Date 03/22/23 Treatment Diagnosis Impaired mobility Onset Date unknown M3 PT-IP Subjective Start: 03/22/23 13:58 Freq: Status: Active Protocol: Document 03/22/23 13:59 KJ (Rec: 03/23/23 13:32 KJ [id number]) Subjective Physical Therapy Visit Type Type Initial Evaluation Visit Start Time 13:20 Visit Stop Time 13:37 Total Visit Minutes 17 Notes Evaluation limited by patient pain levels interfering with participation. Physical Therapy Visit Comments Patient Comments Pt reports chronic pain due to neuropathy which negatively impacts her ability to move her body. Patient Goals to go home Therapy Pain Assessment Pain When Pain Assessed At Rest Pain Present Pain Present Pain Reported Location Generalized Description Chronic,With Movement Pain Behaviors Facial Grimacing Pain Management Techniques Distraction M5 PT-IP Objective Assessments Start: 12/10/23 13:58 Freq: Status: Active Protocol: Document 03/22/23 13:59 KJ (Rec: 03/23/23 13:32 KJ [id number]) Orientation Orientation/Cognition Level of Alertness Alert Orientation Name,Age,Birthday,Month, Situation Language Function Ability No Deficits Noted Safety Awareness Decreased Safety Awareness Comments Pt is resistive to movement. Gross Range of Motion Upper Extremity ROM Assessment Bilaterally Impaired Impairments decreased especially in shoulders and L hand. Some contractures noted in fingers. Lower Extremity ROM Assessment Bilaterally Impaired Impairments AROM in L better than R, limited all joints Strength Upper Extremity Strength Shoulder Trace movement bilat Hand R maple syrup maker 1/5, L maple syrup maker 2/5 Lower Extremity Strength Ankle 1/5 bilat Comments Strength Comments Able to do partial straight leg raise with L, unable to lift R leg off the bed M6 PT-IP Treatment Start: 03/22/23 13:58 Freq: Status: Active Protocol: Document 03/22/23 13:59 KJ (Rec: 03/23/23 13:32 KJ [id number]) Physical Therapy Treatment Exercises Exercises Ankle Pumps,Gluteal Sets,Quad Sets Education Education Provided Safety M7 PT-IP Assessment and Plan Start: 03/22/23 13:58 Freq: Status: Active Protocol: Document 03/22/23 13:59 KJ (Rec: 03/23/23 13:32 KJ [id number]) PT Summary Assessment and Plan Potential Rehabilitation Potential Fair Status of Condition at Evaluation Stable Summary Impairments Pain,ROM,Strength,Coordination ,Bed Mobility Assessment Summary Pt resistant to movement due to pain, has had multiple falls at home with minor injuries. Goals Bed Mobility Goal Contact Guard Assistance Transfer Goal Contact Guard Assistance,Front Wheeled Walker Days to Meet Goals 5 Frequency of Treatment Frequency Of Treatment Once a Day Treatment Plan Physical Therapy Treatment Plan Bed Mobility Training,Transfer Training Recommendations To Nursing Amount of Assist Needed 1 Person Assist Discharge Recommendations PT Discharge Recommendations SNF Rehab Transportation Needs at Discharge Wheelchair/Cabulance
--- NOTE | 2023-03-23 13:38 | PT.IIE ---
Current Diagnoses Sepsis, unspecified organism (03/21/23) Surgical History (Last Reviewed 01/19/23 @ 20:18 by Pat Haynes DO) History of arthroplasty of right shoulder History of cholecystectomy Medical History (Last Reviewed 01/19/23 @ 20:18 by Pat Haynes DO) Anemia Anxiety (04/28/17) Ascites of liver C. difficile colitis CAD (coronary artery disease) Chronic diarrhea Low back pain without sciatica (08/05/16) Mixed hyperlipidemia (04/28/17) Osteoarthritis (12/15/13) Osteoporosis (12/15/13) Osteoporosis Pain of both breasts Pancreatic cyst Physical Therapy Inpatient Evaluation/Re-Eval M1 PT/OT-IP Prior Functional Status Start: 03/23/23 13:01 Freq: NEEDED Status: Active Protocol: Document 03/22/23 13:59 KJ (Rec: 03/23/23 13:32 KJ [id number]) Medical Review Prior Functional Status Medical History Reviewed Yes Communication No prior problems Mobility and Gait Able to stand pivot transfer from bed to/from wheelchair w/ one assist, however has had frequent falls recently. Activities of Daily Living and IADL's Pt needs assistance with all ADLS. Social History Household Members spouse Living Arrangements Other Number of Stairs To Enter/Railing? n/a M2 PT-IP Current Condition Start: 03/23/23 13:01 Freq: NEEDED Status: Active Protocol: Document 03/22/23 13:59 KJ (Rec: 03/23/23 13:32 KJ [id number]) Physical Therapy Current Condition Current Condition Evaluation Date 03/22/23 Treatment Diagnosis Impaired mobility Onset Date unknown M3 PT-IP Subjective Start: 03/22/23 13:58 Freq: Status: Active Protocol: Document 03/22/23 13:59 KJ (Rec: 03/23/23 13:32 KJ [id number]) Subjective Physical Therapy Visit Type Type Initial Evaluation Visit Start Time 13:20 Visit Stop Time 13:37 Total Visit Minutes 17 Notes Evaluation limited by patient pain levels interfering with participation. Physical Therapy Visit Comments Patient Comments Pt reports chronic pain due to neuropathy which negatively impacts her ability to move her body. Patient Goals to go home Therapy Pain Assessment Pain When Pain Assessed At Rest Pain Present Pain Present Pain Reported Location Generalized Description Chronic,With Movement Pain Behaviors Facial Grimacing Pain Management Techniques Distraction M5 PT-IP Objective Assessments Start: 12/10/23 13:58 Freq: Status: Active Protocol: Document 03/22/23 13:59 KJ (Rec: 03/23/23 13:32 KJ [id number]) Orientation Orientation/Cognition Level of Alertness Alert Orientation Name,Age,Birthday,Month, Situation Language Function Ability No Deficits Noted Safety Awareness Decreased Safety Awareness Comments Pt is resistive to movement. Gross Range of Motion Upper Extremity ROM Assessment Bilaterally Impaired Impairments decreased especially in shoulders and L hand. Some contractures noted in fingers. Lower Extremity ROM Assessment Bilaterally Impaired Impairments AROM in L better than R, limited all joints Strength Upper Extremity Strength Shoulder Trace movement bilat Hand R field seismologist 1/5, L field seismologist 2/5 Lower Extremity Strength Ankle 1/5 bilat Comments Strength Comments Able to do partial straight leg raise with L, unable to lift R leg off the bed M6 PT-IP Treatment Start: 03/22/23 13:58 Freq: Status: Active Protocol: Document 03/22/23 13:59 KJ (Rec: 03/23/23 13:32 KJ [id number]) Physical Therapy Treatment Exercises Exercises Ankle Pumps,Gluteal Sets,Quad Sets Education Education Provided Safety M7 PT-IP Assessment and Plan Start: 03/22/23 13:58 Freq: Status: Active Protocol: Document 03/22/23 13:59 KJ (Rec: 03/23/23 13:32 KJ [id number]) PT Summary Assessment and Plan Potential Rehabilitation Potential Fair Status of Condition at Evaluation Stable Summary Impairments Pain,ROM,Strength,Coordination ,Bed Mobility Assessment Summary Pt resistant to movement due to pain, has had multiple falls at home with minor injuries. Goals Bed Mobility Goal Contact Guard Assistance Transfer Goal Contact Guard Assistance,Front Wheeled Walker Days to Meet Goals 5 Frequency of Treatment Frequency Of Treatment Once a Day Treatment Plan Physical Therapy Treatment Plan Bed Mobility Training,Transfer Training Recommendations To Nursing Amount of Assist Needed 1 Person Assist Discharge Recommendations PT Discharge Recommendations SNF Rehab Transportation Needs at Discharge Wheelchair/Cabulance
[2023-03-23] MEDS: POTASSIUM CHLORIDE 20 MEQ TAB PO (14:06)
--- NOTE | 2023-03-23 15:09 | PM.PN.1 ---
Subjective Subjective Interval history: Patient demanding to go home, even though SNF rec by PT. at bedside shaking his head saying he won't transport her home. He agrees with SNF. Exam Vital Signs (past 8 hours): - 03/23/23 08:20 Temperature 98.0 F Pulse Rate 104 H Respiratory Rate 16 Blood Pressure 99/39 L Pulse Oximetry 93 Oxygen Flow Rate 0 Oxygen Delivery Method Nasal Cannula Oxygen Flow Rate 0 Narrative Exam Narrative: Gen: alert, NAD, irritable Lungs: clear CV: regular Ext: chronic erythema and skin tears LEs Objective Labs 03/23/23 05:50 03/23/23 05:50 Labs: Laboratory Results - last 24 hr 03/22/23 03/23/23 20:15 05:50 WBC 4.6 RBC 2.24 L Hgb 9.7 L Hct 28.5 L MCV 127.2 H MCH 43.3 H MCHC 34.0 RDW 17.1 H Plt Count 88 L Neut % (Auto) 60.8 Lymph % (Auto) 22.7 L [place] % (Auto) 15.4 H Eos % (Auto) 0.7 L Baso % (Auto) 0.4 Neut # (Auto) 2800 Lymph # (Auto) 1100 [place] # (Auto) 700 Eos # (Auto) 0 Baso # (Auto) 0 RBC Morphology See below Macrocytosis 3+ H Sodium 136 L Potassium 3.5 Chloride 109 H Carbon Dioxide 25 BUN 4 L Creatinine 0.30 L Estimated GFR > 60 BUN/Creatinine Ratio 13.3 Glucose 76 L Lactate 0.9 Calcium 6.6 L PFSH Medical History Anemia Ascites of liver Osteoporosis Pain of both breasts Pancreatic cyst C. difficile colitis Chronic diarrhea CAD (coronary artery disease) Mixed hyperlipidemia (04/28/17) Anxiety (04/28/17) Low back pain without sciatica (08/05/16) Osteoporosis (12/15/13) Osteoarthritis (12/15/13) Surgical History History of arthroplasty of right shoulder History of cholecystectomy Family History Father No problems noted. Mother PE (pulmonary thromboembolism) Social History marital status: household members: spouse Smoking Status: Current every day smoker Tobacco: How many years used: 25 alcohol intake: former substance use type: does not use Assessment & Plan Assessment & Plan narrative: 1. Sepsis, resolving Patient presented to the emergency department with altered mental status, lactic acidosis with initial lactate level of 3.6 and follow-up at 2.9, mildly elevated pulse rate, and fluid responsive hypotension. Blood pressure dropped as low as 77/43 but did improve with 30 cc/kilos of IV fluids. She has also had some tachypnea with respiratory rates in the 27-30 range. Etiology appears to be UTI. Blood and urine cultures have been drawn and are pending. 2. UTI Degree of Klebsiella pneumonia UTI last year. Another specimen grew staph epidermidis in August of this year, though it was [phone] colonies/ml. Will continue empiric Rocephin for now. 3. Multi skin tears, secondary to fall Continue local wound care. 4. Generalized weakness/gait instability/debility in the setting of chronic polyneuropathy PT rec SNF but patient refusing. Wants home with HH. 5. Macrocytic anemia Her MCV is very high at 125. There is some report of cirrhosis in her records. This may be secondary to cirrhosis. Another consideration given how higher MCV is is a myelodysplastic process. B12 > 700, folate slightly low reflecting acute illness, chronic malnutrition. 6. Thrombocytopenia Likely chronic based on her labs. Again, there is a report of potential cirrhosis. This is likely related to this. 7. Hyponatremia Mild at 130. Will monitor. 8. Hypoalbuminemia Suspect a component of protein calorie malnutrition as well as underlying liver disease. Dispo: Home with HH vs SNF if can convince her on 03/24. Quality VTE Deep Vein Thrombosis/Pulmonary Embolism Present on Admission: No
[2023-03-23 15:15] VITALS: BP 107/56; PULSE 87; RESP 16; TEMP 36.6; O2SAT 97
--- NOTE | 2023-03-23 15:55 | CM.DPNOTE ---
DCP Note PT recommending SNF. Met with patient this morning to review discharge plan, patient tells this PY[employer] JAVA DEVELOPER she is in too much pain to have a conversation. Returned to room as patient, spouse and Dr Martin reviewing plan. Patient is adamant about returning home, spouse states concern and suggests SNF. Patient will not consider at this time. Plan: Patient likely to discharge home, may need BLS, assess for agreeability to HH referral. CM team will plan to follow closely for coordination of the safest discharge plan that patient is agreeable to. JOVANY
[2023-03-23] MEDS: SENNOSIDES 8.6 MG TABLET 17.2 MG PO (20:40)
[2023-03-23 22:42] VITALS: BP 103/67; PULSE 108; RESP 19; TEMP 36.3; O2SAT 97
[2023-03-24] MEDS: SODIUM CHLORIDE 0.9% 1,000 ML 100 ML IV ×2 (00:17→11:03)
[2023-03-24 02:07] VITALS: BP 120/56; PULSE 81; RESP 19; TEMP 36.2; O2SAT 98
[2023-03-24] MEDS: OXYCODONE IR 5 MG TABLET PO ×7 (02:57→23:55)
[2023-03-24 05:56] VITALS: BP 137/63; PULSE 83; RESP 19; TEMP 36.2; O2SAT 99
[2023-03-24] MEDS: ACETAMINOPHEN 325 MG TABLET 650 MG PO ×3 (05:57→19:01)
[2023-03-24 06:40] LABS: Basophils Absolute Auto 0 /uL (0-100); Basophils Percent Auto 0.5 % (0-2); Eosinophils Absolute Auto 0 /uL (0-450); Eosinophils Percent Auto 0.5 % (2-4); Hematocrit 30.1 % (36-46); Hemoglobin 10.1 g/dL (12.0-16.0); Lymphocytes Absolute Auto 1100 /uL (1100-4500); Lymphocytes Percent Auto 22.3 % (25-40); Mean Corpuscular HGB Conc 33.6 % (30-36); Mean Corpuscular Hemoglobin 43.3 PG (26-34); Mean Corpuscular Volume 128.9 fL (80-100); Monocytes Absolute Auto 800 /uL (0-900); Monocytes Percent Auto 15.5 % (3-14); Neutrophils Absolute Auto 3000 /uL (1500-7000); Neutrophils Percent Auto 61.2 % (50-75); Platelet Count 99 X10^3/uL (150-400); Red Blood Cell Count 2.33 X10^6/uL (4.0-5.2); White Blood Cell Count 4.9 X10^3/uL (4.5-11.0)
[2023-03-24 06:48] LABS: BUN Creatinine Ratio 14.8 (6-22); Blood Urea Nitrogen 4 mg/dL (7-17); Calcium 6.5 mg/dL (8.4-10.2); Carbon Dioxide 24 mmol/L (22-32); Chloride 109 mmol/L (98-107); Estimated Glomerular Filt Rate > 60 mL/min (>60); Glucose 74 mg/dL (80-110); HEMOLYSIS 40 (0-50); Potassium 3.7 mmol/L (3.4-5.1); Sodium 135 mmol/L (137-145)
[2023-03-24 06:51] LABS: Add Manual Diff / Slide Review SLIDE REVIEW
[2023-03-24 07:07] LABS: Macrocytosis 3+
[2023-03-24] MEDS: FOLIC ACID 1 MG TABLET PO (09:07)
[2023-03-24] MEDS: MULTIVITAMIN 1 TABLET 1 TAB PO (09:07)
[2023-03-24] MEDS: THIAMINE 100 MG TABLET PO (09:11)
--- NOTE | 2023-03-24 12:01 | CM.DPNOTE ---
Addendum entered by TESHA Higginbotham 03/24/23 16:43: SALES AND RETAIL MANAGEMENT RECRUITER attempted to speak with patient again. Asked to leave due to being in pain. Per consult note, rec pt follow up with wound care clinic upon d/c. YOMI Addendum entered by TESHA Higginbotham 03/24/23 15:26: Per PT, likely to rec BLS for transport. SL Addendum entered by TESHA Higginbotham 03/24/23 12:11: Kimber from [facility] returned call. Reviewing now- said pt living in [facility] shouldn't be an issue for their services. YOMI Original Note: DCP Note SALES AND RETAIL MANAGEMENT RECRUITER reviewed EMR Per previous CM note/provider, pt refusing SNF but open to HH. PT to assess for transport needs today- wheelchair van vs BLS vs POV. Current PT rec remains SNF. Per RN, family reports trying to convince pt to consider SNF. SALES AND RETAIL MANAGEMENT RECRUITER entered room and introduced self and role. Pt laying in bed and moaning and crying in pain. Pt reports being in too much pain to go over dcp at this time, get out can't you see I can't talk. SALES AND RETAIL MANAGEMENT RECRUITER updated provider and RN. RN report pt just received pain med. Per chart, pt was dc'd with [facility] during last admission in August 2022. SALES AND RETAIL MANAGEMENT RECRUITER lvm with Kimber at [facility] to review. Plan: pending transport recs from PT. Likely return to [facility] with [facility] to follow, pending acceptance, and spousal support. CM team will continue to follow closely. TESHA Higginbotham
[2023-03-24 13:00] VITALS: BP 113/48; PULSE 78; RESP 16; TEMP 36.1; O2SAT 100
--- NOTE | 2023-03-24 13:42 | PT-IP ANOTE ---
Pt reports she is having too much pain to move due to her neuropathy. She states she was laying on her side for a couple of hours before therapist arrived and was in a lot of pain. She is now laying on her back and feeling more comfortable. Pt refused to work with PT. PT will check back with pt tomorrow.
--- NOTE | 2023-03-24 16:03 | PM.CN ---
History of Present Illness Consult details Date Patient Seen: 03/24/23 Time Patient Seen: 16:00 Chief complaint: rolled off bed, sores all over, generalized pain Narrative: The patient is a 67-year-old female with polyneuropathy, osteoporosis, and coronary artery disease who was admitted to the hospital March 21 2023 after sustaining a fall from her bed. The patient has generalized weakness in is unable to ambulate without assistance and uses a wheelchair for mobility. She was brought to the hospital and found to have lactic acidosis, hypertension, and multiple skin tears and was admitted to the hospital for further evaluation and treatment. The patient is complaining of generalized pain in all of her extremities. She asked that the dressings not be removed because of severe pain associated with dressing changes therefore wound photos were evaluated during her assessment. The patient denies having any prior history of nonhealing wounds. She is not a current cigarette smoker. The patient reports a good appetite. Meds Home Medications and Allergies Home Medications Medication Instructions Recorded Confirmed Type permanent disabled parking permit #1 ea 11/11/18 10/31/22 Rx needle (disp) 27 gauge 27 gauge x #100 ea 08/26/22 10/31/22 Rx 1/2 ferrous gluconate 324 mg (37.5 mg 324 mg PO DAILY #90 tabs 10/31/22 10/31/22 Rx iron) tablet hydroxyzine HCl 25 mg tablet 25 mg PO BID PRN Anxiety and pain 11/07/22 Rx #30 tabs methocarbamol 500 mg tablet 500 mg PO BID PRN mm spasm #30 tabs 01/12/23 Rx lorazepam 0.5 mg tablet 0.5 mg PO BID PRN anxiety #60 tabs 02/14/23 Rx denosumab 60 mg/mL subcutaneous 60 mg SUBCUT [id number] #1 mL 02/24/23 Rx syringe (Prolia) gabapentin 300 mg capsule 600 mg (2 x 300 mg) PO TID 30 days 03/02/23 03/21/23 Rx #180 caps ferrous gluconate 324 mg (38 mg 324 mg PO BID 03/21/23 03/21/23 History iron) tablet gabapentin 300 mg capsule 600 mg PO 3XD 03/21/23 03/21/23 History lorazepam 0.5 mg tablet 0.5 mg PO BID PRN anxiety 03/21/23 03/21/23 History methocarbamol 500 mg tablet 500 mg PO BID PRN muscle spasm 03/21/23 03/21/23 History oxycodone-acetaminophen 5 mg-325 2 tab PO Q6H PRN pain #112 tabs 03/23/23 Rx mg tablet Allergies Allergy/AdvReac Type Severity Reaction Status Date / Time adhesive Allergy Mild TEARS Verified 03/21/23 12:35 SKIN,USE COBAN Review of Systems Constitutional Comments: The patient complaining of diffuse pain especially in her extremities as well as generalized weakness Exam Vital Signs (past 8 hours): Oxygen Delivery Method Nasal Cannula Oxygen Flow Rate 0 Narrative Exam Narrative: Thin female who is awake and alert and in no apparent distress Skin Other: Border foam dressings intact on extremities, scattered ecchymosis, no erythema. Review of wound photographs shows multiple full-thickness skin tears some of which we will require further debridement. No sign of infection. Objective Labs 03/24/23 05:30 03/24/23 05:30 Labs: Laboratory Results - last 24 hr 03/24/23 05:30 WBC 4.9 RBC 2.33 L Hgb 10.1 L Hct 30.1 L MCV 128.9 H MCH 43.3 H MCHC 33.6 RDW 17.0 H Plt Count 99 L Neut % (Auto) 61.2 Lymph % (Auto) 22.3 L [place] % (Auto) 15.5 H Eos % (Auto) 0.5 L Baso % (Auto) 0.5 Neut # (Auto) 3000 Lymph # (Auto) 1100 [place] # (Auto) 800 Eos # (Auto) 0 Baso # (Auto) 0 RBC Morphology See below Macrocytosis 3+ H Sodium 135 L Potassium 3.7 Chloride 109 H Carbon Dioxide 24 BUN 4 L Creatinine 0.27 L Estimated GFR > 60 BUN/Creatinine Ratio 14.8 Glucose 74 L Calcium 6.5 L PFSH Medical History Anemia Ascites of liver Osteoporosis Pain of both breasts Pancreatic cyst C. difficile colitis Chronic diarrhea CAD (coronary artery disease) Mixed hyperlipidemia (04/28/17) Anxiety (04/28/17) Low back pain without sciatica (08/05/16) Osteoporosis (12/15/13) Osteoarthritis (12/15/13) Surgical History History of arthroplasty of right shoulder History of cholecystectomy Family History Father No problems noted. Mother PE (pulmonary thromboembolism) Social History marital status: household members: spouse Tobacco & Substance Use Smoking Status: Current every day smoker Tobacco: How many years used: 25 alcohol intake: former substance use type: does not use Assessment & Plan Assessment and plan (1) Laceration of leg: Status: Acute (2) Laceration of arm, left, multiple sites: Status: Acute (3) ISTAP type 1 skin tear of right upper arm: Status: Acute Plan The patient with multiple full-thickness skin tears involving arms and legs. Recommend continuing daily dressing changes with Xeroform gauze, follow up at wound center after discharge for debridement and further wound care. Start protein supplementation to help promote healing. Time Spent With Patient Time with patient: 30 to 49 minutes with 50% spent counseling/coordinating care
[2023-03-24 17:00] VITALS: BP 115/70; PULSE 87; RESP 14; TEMP 35.1; O2SAT 99
--- NOTE | 2023-03-24 18:59 | PM.PN.1 ---
Subjective Subjective Interval history: Patient having lots more pain today. Skin tears on arms and legs are weeping so wound consult ordered. Refused PT. Exam Vital Signs (past 8 hours): - 03/24/23 13:00 03/24/23 17:00 Temperature 97 F L 95.1 F L Pulse Rate 78 87 Respiratory Rate 16 14 Blood Pressure 113/48 L 115/70 Pulse Oximetry 100 99 Oxygen Delivery Method Nasal Cannula Oxygen Flow Rate 0 Narrative Exam Narrative: Gen: alert, NAD, irritable Lungs: clear CV: regular Ext: chronic erythema and skin tears LEs Objective Labs 03/24/23 05:30 03/24/23 05:30 Labs: Laboratory Results - last 24 hr 03/24/23 05:30 WBC 4.9 RBC 2.33 L Hgb 10.1 L Hct 30.1 L MCV 128.9 H MCH 43.3 H MCHC 33.6 RDW 17.0 H Plt Count 99 L Neut % (Auto) 61.2 Lymph % (Auto) 22.3 L [place] % (Auto) 15.5 H Eos % (Auto) 0.5 L Baso % (Auto) 0.5 Neut # (Auto) 3000 Lymph # (Auto) 1100 [place] # (Auto) 800 Eos # (Auto) 0 Baso # (Auto) 0 RBC Morphology See below Macrocytosis 3+ H Sodium 135 L Potassium 3.7 Chloride 109 H Carbon Dioxide 24 BUN 4 L Creatinine 0.27 L Estimated GFR > 60 BUN/Creatinine Ratio 14.8 Glucose 74 L Calcium 6.5 L PFSH Medical History Anemia Ascites of liver Osteoporosis Pain of both breasts Pancreatic cyst C. difficile colitis Chronic diarrhea CAD (coronary artery disease) Mixed hyperlipidemia (04/28/17) Anxiety (04/28/17) Low back pain without sciatica (08/05/16) Osteoporosis (12/15/13) Osteoarthritis (12/15/13) Surgical History History of arthroplasty of right shoulder History of cholecystectomy Family History Father No problems noted. Mother PE (pulmonary thromboembolism) Social History marital status: household members: spouse Smoking Status: Current every day smoker Tobacco: How many years used: 25 alcohol intake: former substance use type: does not use Assessment & Plan Assessment & Plan narrative: 1. Sepsis, resolved Patient presented to the emergency department with altered mental status, lactic acidosis with initial lactate level of 3.6 and follow-up at 2.9, mildly elevated pulse rate, and fluid responsive hypotension. Blood pressure dropped as low as 77/43 but did improve with 30 cc/kilos of IV fluids. She has also had some tachypnea with respiratory rates in the 27-30 range. Etiology appears to be UTI. Blood cultures negative. Urine culture with Klebsiella. 2. UTI Had Klebsiella pneumonia UTI last year. Another specimen grew staph epidermidis in August of this year, though it was [phone] colonies/ml. Urine culture with Kleb again. Completed Rocephin x3 days. 3. Multi skin tears, secondary to fall Dr. Clark wound care assessed and provided dressing recs and suggested protein supplementation. 4. Generalized weakness/gait instability/debility in the setting of chronic polyneuropathy PT rec SNF but patient refusing. Wants home with HH. 5. Macrocytic anemia Her MCV is very high at 125. There is some report of cirrhosis in her records. This may be secondary to cirrhosis. Another consideration given how higher MCV is is a myelodysplastic process. B12 > 700, folate slightly low reflecting acute illness, chronic malnutrition. 6. Thrombocytopenia Likely chronic based on her labs. Again, there is a report of potential cirrhosis. This is likely related to this. 7. Hyponatremia Mild at 130. Will monitor. 8. Hypoalbuminemia Suspect a component of protein calorie malnutrition as well as underlying liver disease. Dispo: Home with on 03/25. Quality VTE Deep Vein Thrombosis/Pulmonary Embolism Present on Admission: No
[2023-03-24] MEDS: methocarbamoL 500 MG TABLET PO (19:44)
[2023-03-24] MEDS: LORazepam 0.5 MG TABLET PO (19:44)
[2023-03-24] MEDS: OXYCODONE IR 5 MG TABLET 10 MG PO (19:44)
[2023-03-24 19:45] VITALS: BP 125/47; PULSE 82; RESP 16; TEMP 35.9; O2SAT 96
[2023-03-24] MEDS: GABAPENTIN 300 MG CAPSULE 600 MG PO (20:13)
[2023-03-24] MEDS: SENNOSIDES 8.6 MG TABLET 17.2 MG PO (20:13)
[2023-03-25 00:07] VITALS: BP 121/57; PULSE 77; RESP 16; TEMP 36.2; O2SAT 95
[2023-03-25] MEDS: SODIUM CHLORIDE 0.9% 1,000 ML 100 ML IV (00:20)
[2023-03-25] MEDS: OXYCODONE IR 5 MG TABLET 10 MG PO ×7 (00:30→23:51)
[2023-03-25] MEDS: ACETAMINOPHEN 325 MG TABLET 650 MG PO ×3 (03:50→20:14)
[2023-03-25 05:59] LABS: Basophils Absolute Auto 0 /uL (0-100); Basophils Percent Auto 0.8 % (0-2); Eosinophils Absolute Auto 100 /uL (0-450); Eosinophils Percent Auto 1.7 % (2-4); Hematocrit 27.1 % (36-46); Lymphocytes Absolute Auto 1000 /uL (1100-4500); Lymphocytes Percent Auto 24.3 % (25-40); Mean Corpuscular HGB Conc 33.4 % (30-36); Mean Corpuscular Hemoglobin 43.1 PG (26-34); Monocytes Absolute Auto 700 /uL (0-900); Monocytes Percent Auto 16.2 % (3-14); Neutrophils Absolute Auto 2400 /uL (1500-7000); Platelet Count 126 X10^3/uL (150-400); Red Cell Distribution Width 16.7 % (11.6-14.8); White Blood Cell Count 4.2 X10^3/uL (4.5-11.0)
[2023-03-25 06:00] LABS: Add Manual Diff / Slide Review SLIDE REVIEW
[2023-03-25 06:11] LABS: Carbon Dioxide 25 mmol/L (22-32); Chloride 112 mmol/L (98-107); Estimated Glomerular Filt Rate > 60 mL/min (>60); Glucose 105 mg/dL (80-110); HEMOLYSIS < 15 (0-50); Sodium 135 mmol/L (137-145)
[2023-03-25 06:17] LABS: Macrocytosis 3+
[2023-03-25 06:24] LABS: BUN Creatinine Ratio 9.1 (6-22); Blood Urea Nitrogen 2 mg/dL (7-17)
[2023-03-25 06:26] LABS: Calcium 6.4 mg/dL (8.4-10.2)
[2023-03-25 06:33] VITALS: BP 90/42; PULSE 68; RESP 16; TEMP 36.1; O2SAT 93
[2023-03-25] MEDS: SODIUM CHLORIDE 0.9% 500 ML IV (06:44)
--- NOTE | 2023-03-25 06:50 | PC.NURSE ---
night cleaner Lab notified RN that patient had a critical low Ca level of 6.4, Dr Guzman Notified and ordered IV replacement. RN woke patient up and got VS bp was low 90/42 (60) hr 68, Pt denies any pain N/V, SOB, or light headiness. Dr Guzman ordered 500ml NS bolus. Rn administered NS 500 bolus while waiting for pharmacy to deliver Ca.
[2023-03-25] MEDS: methocarbamoL 500 MG TABLET PO ×2 (07:55→23:51)
[2023-03-25] MEDS: CALCIUM GLUCONATE 9.3 MEQ in SODIUM CHLORIDE 0.9% 50 ML 140 MEQ IV (08:32)
[2023-03-25] MEDS: GABAPENTIN 300 MG CAPSULE 600 MG PO ×3 (08:42→20:15)
[2023-03-25] MEDS: FOLIC ACID 1 MG TABLET PO (08:42)
[2023-03-25] MEDS: THIAMINE 100 MG TABLET PO (08:43)
[2023-03-25] MEDS: MULTIVITAMIN 1 TABLET 1 TAB PO (08:43)
[2023-03-25] MEDS: POTASSIUM CHLORIDE 20 MEQ TAB 40 MEQ PO (08:43)
[2023-03-25 09:00] VITALS: BP 110/45
--- NOTE | 2023-03-25 10:52 | OT.IPNOTE ---
Pt to go on hospice. D/C OT orders.
[2023-03-25] MEDS: MORPHINE 2 MG/ML INJ IV (11:17)
--- NOTE | 2023-03-25 15:52 | CM.DPNOTE ---
DCP Note Patient's preference is home w/Hospice, faxed referral to [facility] and discussed with Miranda. [facility] is quite full, start of care may be pushed to tomorrow. [facility] unable to accept this referral, although [facility] has accepted. Placed call to the wound care center, left message asking that patient be scheduled for an outpatient wound care appt. Have not heard back with confirmation at this time. Met w/patient to review discharge plan. Patient states she cannot go home today, her works until late. Patient confirms she wanst to go home w/hospice services, BLS okay for transport. Explained that patient may need HH RN through [facility] to bridge until Hospice services can open next week, patient agreeable to this. Plan: Discharge likely , home w/spouse and son to assist, delivery of hospital bed (?), [facility] for a bridge until [facility] starts care, transport via BLS due to patient's debilitated and fragile state. CM team following closely for coordination of plan. JOVANY
--- NOTE | 2023-03-25 16:15 | PT.IPTN ---
Current Diagnoses Sepsis, unspecified organism (03/21/23) Laceration without foreign body of right upper arm, initial encounter (03/21/23) Laceration without foreign body of left upper arm, initial encounter (03/21/23) Laceration without foreign body, unspecified lower leg, initial encounter (03/21/23) Physical Therapy Treatment Note M2 PT-IP Current Condition Start: 03/23/23 13:01 Freq: NEEDED Status: Active Protocol: Document 03/22/23 13:59 KJ (Rec: 03/23/23 13:32 KJ [id number]) Physical Therapy Current Condition Current Condition Evaluation Date 03/22/23 Treatment Diagnosis Impaired mobility Onset Date unknown M3 PT-IP Subjective Start: 03/22/23 13:58 Freq: Status: Active Protocol: Document 03/25/23 16:14 AB (Rec: 03/25/23 16:15 AB [id number]) Subjective Physical Therapy Visit Type Type Administrative Note Notes d/c PT. pt with go to hospice care. M7 PT-IP Assessment and Plan Start: 03/22/23 13:58 Freq: Status: Active Protocol: Document 03/25/23 16:14 AB (Rec: 03/25/23 16:15 AB [id number]) PT Summary Assessment and Plan Frequency of Treatment Frequency Of Treatment Discharge
[2023-03-25 16:35] VITALS: BP 107/42; PULSE 72; RESP 15; TEMP 35.9; O2SAT 97
--- NOTE | 2023-03-25 17:41 | P.PN_ITS ---
Subjective Subjective Interval history: Patient says she wants to go home with hospice. [employer] arranging this. She would also like to be DNR so this was changed in the chart. Exam Vital Signs (past 8 hours): - 03/25/23 16:35 Temperature 96.6 F L Pulse Rate 72 Respiratory Rate 15 Blood Pressure 107/42 L Pulse Oximetry 97 Oxygen Delivery Method Room Air Oxygen Flow Rate 0 Narrative Exam Narrative: Gen: alert, NAD, irritable Lungs: clear CV: regular Ext: chronic erythema and skin tears LEs Objective Labs 03/25/23 05:40 03/25/23 05:40 Labs: Laboratory Results - last 24 hr 03/25/23 05:40 WBC 4.2 L RBC 2.10 L Hgb 9.0 L Hct 27.1 L MCV 129.0 H MCH 43.1 H MCHC 33.4 RDW 16.7 H Plt Count 126 L Neut % (Auto) 57.0 Lymph % (Auto) 24.3 L Ness % (Auto) 16.2 H Eos % (Auto) 1.7 L Baso % (Auto) 0.8 Neut # (Auto) 2400 Lymph # (Auto) 1000 L Ness # (Auto) 700 Eos # (Auto) 100 Baso # (Auto) 0 RBC Morphology See below Macrocytosis 3+ H Sodium 135 L Potassium 3.0 L Chloride 112 H Carbon Dioxide 25 BUN 2 L Creatinine 0.22 L Estimated GFR > 60 BUN/Creatinine Ratio 9.1 Glucose 105 Calcium 6.4 L* Magnesium 2.0 PFSH Medical History Anemia Ascites of liver Osteoporosis Pain of both breasts Pancreatic cyst C. difficile colitis Chronic diarrhea CAD (coronary artery disease) Mixed hyperlipidemia (04/28/17) Anxiety (04/28/17) Low back pain without sciatica (08/05/16) Osteoporosis (12/15/13) Osteoarthritis (12/15/13) Surgical History History of arthroplasty of right shoulder History of cholecystectomy Family History Father No problems noted. Mother PE (pulmonary thromboembolism) Social History marital status: household members: spouse Smoking Status: Current every day smoker Tobacco: How many years used: 25 alcohol intake: former substance use type: does not use Assessment & Plan Assessment & Plan narrative: 1. Sepsis, resolved Patient presented to the emergency department with altered mental status, lactic acidosis with initial lactate level of 3.6 and follow-up at 2.9, mildly elevated pulse rate, and fluid responsive hypotension. Blood pressure dropped as low as 77/43 but did improve with 30 cc/kilos of IV fluids. She has also had some tachypnea with respiratory rates in the 27-30 range. Etiology appears to be UTI. Blood cultures negative. Urine culture with Klebsiella. 2. UTI Had Klebsiella pneumonia UTI last year. Another specimen grew staph epidermidis in August of this year, though it was [phone] colonies/ml. Urine culture with Kleb again. Completed Rocephin x3 days. 3. Multi skin tears, secondary to fall Dr. Clark wound care assessed and provided dressing recs and suggested protein supplementation. 4. Generalized weakness/gait instability/debility in the setting of chronic polyneuropathy PT rec SNF but patient refusing. Wants home with HH. 5. Macrocytic anemia Her MCV is very high at 125. There is some report of cirrhosis in her records. This may be secondary to cirrhosis. Another consideration given how higher MCV is is a myelodysplastic process. B12 > 700, folate slightly low reflecting acute illness, chronic malnutrition. 6. Thrombocytopenia Likely chronic based on her labs. Again, there is a report of potential cirrhosis. This is likely related to this. 7. Hyponatremia Mild at 130. Will monitor. 8. Hypoalbuminemia Suspect a component of protein calorie malnutrition as well as underlying liver disease. Dispo: Home with hospice and HH to bridge likely on 03/26. Will need BLS transport. Quality VTE Deep Vein Thrombosis/Pulmonary Embolism Present on Admission: No
[2023-03-25] MEDS: SENNOSIDES 8.6 MG TABLET 17.2 MG PO (20:15)
[2023-03-25 23:44] VITALS: BP 125/61; PULSE 77; RESP 16; TEMP 36.3; O2SAT 93
[2023-03-25] MEDS: LORazepam 0.5 MG TABLET PO (23:51)
[2023-03-26] MEDS: MORPHINE 2 MG/ML INJ IV (01:21)
[2023-03-26] MEDS: OXYCODONE IR 5 MG TABLET 10 MG PO ×4 (05:16→15:12)
[2023-03-26] MEDS: ACETAMINOPHEN 325 MG TABLET 650 MG PO ×2 (05:22→11:49)
[2023-03-26 06:14] LABS: Add Manual Diff / Slide Review NO; Basophils Absolute Auto 0 /uL (0-100); Basophils Percent Auto 0.9 % (0-2); Eosinophils Absolute Auto 100 /uL (0-450); Eosinophils Percent Auto 1.4 % (2-4); Hematocrit 28.1 % (36-46); Hemoglobin 9.3 g/dL (12.0-16.0); Lymphocytes Absolute Auto 1200 /uL (1100-4500); Lymphocytes Percent Auto 32.1 % (25-40); Mean Corpuscular HGB Conc 33.2 % (30-36); Mean Corpuscular Hemoglobin 42.9 PG (26-34); Monocytes Absolute Auto 600 /uL (0-900); Monocytes Percent Auto 15.7 % (3-14); Neutrophils Absolute Auto 1900 /uL (1500-7000); Neutrophils Percent Auto 49.9 % (50-75); Platelet Count 139 X10^3/uL (150-400); Red Blood Cell Count 2.18 X10^6/uL (4.0-5.2); Red Cell Distribution Width 16.7 % (11.6-14.8); White Blood Cell Count 3.9 X10^3/uL (4.5-11.0)
[2023-03-26 06:21] LABS: BUN Creatinine Ratio 10.7 (6-22); Blood Urea Nitrogen 3 mg/dL (7-17); Calcium 7.5 mg/dL (8.4-10.2); Carbon Dioxide 26 mmol/L (22-32); Chloride 112 mmol/L (98-107); Estimated Glomerular Filt Rate > 60 mL/min (>60); Glucose 82 mg/dL (80-110); HEMOLYSIS < 15 (0-50); Potassium 3.9 mmol/L (3.4-5.1); Sodium 136 mmol/L (137-145)
[2023-03-26 06:52] LABS: Macrocytosis 3+
[2023-03-26 08:00] VITALS: BP 112/63; PULSE 75; RESP 16; TEMP 36.2; O2SAT 95
[2023-03-26] MEDS: FOLIC ACID 1 MG TABLET PO (08:11)
[2023-03-26] MEDS: MULTIVITAMIN 1 TABLET 1 TAB PO (08:12)
[2023-03-26] MEDS: GABAPENTIN 300 MG CAPSULE 600 MG PO ×2 (08:12→14:13)
[2023-03-26] MEDS: methocarbamoL 500 MG TABLET PO (08:12)
[2023-03-26] MEDS: POTASSIUM CHLORIDE 20 MEQ TAB 40 MEQ PO (08:12)
--- NOTE | 2023-03-26 13:43 | CM.DPNOTE ---
DC Note Patient has been discharged home today and remains agreeable to home w/[facility]. [facility] expected to be a bridge service while [facility] gets patient on the schedule for [facility]asterman start of care. Placed call to Miranda at [facility] who reports she has been trying to get a hold of spouse and will be trying again this afternoon. No update available re start of care date. Placed call to spouse Hi to review discharge plan, spouse agreeable and will be awaiting patient's arrival at their room at [facility], son to assist this evening as needed. Placed call to [facility], scheduled transport for sweet pickled fruit maker at 1630, BLS medical necessity form, face sheet, DNR order placed on patient's red chart. CHIOMA Gruber updated with plan. Patient returning home w/rodriguez. No stairs through the alley according to spouse- relayed to [facility]. ESTEPHANIA Sinclair, will update [facility] that patient returning home. Plan: Discharge home w/HH services, [facility] following for eventual start of hospice services and delivery of DME, family to assist, BLS transport [facility]W
--- NOTE | 2023-03-26 16:08 | P.DS_ITS ---
History of Present Illness History of Present Illness Date Patient Seen: 03/26/23 Time Patient Seen: 16:09 Chief complaint: rolled off bed, sores all over, generalized pain Narrative: 67-year-old female with polyneuropathy which has led to her being wheelchair- bound, osteoporosis, chronic pain, coronary artery disease, osteoporosis who was brought in today after what sounds like a fall out of bed. The report is that she is living at the [facility] with her . He left at 9:45 a.m. this morning and she was in bed. When he came back around noon to check on her, she had rolled out of bed and was reportedly lying on the floor. She had multiple acute skin tears. had reported that she was more confused than baseline. In the emergency department, she was found to have an acute UTI. She also had lactic acidosis. She did become hypotensive in the emergency department and it was recommended she be admitted for further treatment as she met criteria for sepsis. Presently, patient is somewhat difficult to understand. She does tell me her medical history but states she was attempting to get out of bed today. She states due to her neuropathy falling is not uncommon. She is L into her wheelchair and sustained the injuries. Plan, she is complaining of pain all over. She does note she had been having some dysuria. She also complains of pain in her right ribcage with deep breaths Discharge Providers Provider Date of admission: 03/21/23 16:30 Discharge Date: 03/26/23 Primary care physician: Tyler Doty DO Consults: 03/21/23 19:01 Consult to Discharge Planning Routine Comment: Consult to Occupational Therapy Evaluate & Treat Comment: Physician Instructions: Evaluate and treat Consult to Physical Therapy Evaluate & Treat Comment: Physician Instructions: Evaluate and Treat 03/24/23 13:50 Consult to Wound Care Routine Comment: Consulting Provider: [facility] 03/25/23 09:36 Consult to Hospice Referral Routine Comment: Discharge provider: Amol Anderson DO Summary Hospital Course Discharge Diagnosis: 1. Sepsis, resolved 2. UTI 3. Multi skin tears, secondary to fall 4. Generalized weakness/gait instability/debility in the setting of chronic polyneuropathy 5. Macrocytic anemia 6. Thrombocytopenia 7. Hyponatremia 8. Hypoalbuminemia Hospital Course: 67-year-old female with polyneuropathy which has led to her being wheelchair- bound, osteoporosis, chronic pain, coronary artery disease, osteoporosis who was brought in after a fall. She was admitted with sepsis due to a UTI with hypotension. She was treated with ceftriaxone for 3 days. She had skin tears from her fall and was seen by wound care who recommended dressing changes, please see documentation for these recommendations. PT recommended SNF but patient was refusing. She was ultimately discharged home with home health at discharge with S transport with plan for hospice to open in a couple of days. She reiterated the idea to remain comfortable and that she did not want resuscitation if needed. Pain control was prescribed to bridge to hospice at discharge. Time Spent with Patient Time spent: Greater than 30 minutes Exam Vital Signs (past 8 hours): Oxygen Delivery Method Room Air Oxygen Flow Rate 0 Narrative Exam Narrative: Gen: alert, NAD, irritable Lungs: clear CV: regular Ext: chronic erythema and skin tears LEs Objective Labs 03/26/23 04:45 03/26/23 04:45 Labs: Laboratory Results - last 24 hr 03/26/23 04:45 WBC 3.9 L RBC 2.18 L Hgb 9.3 L Hct 28.1 L MCV 129.0 H MCH 42.9 H MCHC 33.2 RDW 16.7 H Plt Count 139 L Neut % (Auto) 49.9 L Lymph % (Auto) 32.1 [place] % (Auto) 15.7 H Eos % (Auto) 1.4 L Baso % (Auto) 0.9 Neut # (Auto) 1900 Lymph # (Auto) 1200 [place] # (Auto) 600 Eos # (Auto) 100 Baso # (Auto) 0 RBC Morphology See below Macrocytosis 3+ H Sodium 136 L Potassium 3.9 Chloride 112 H Carbon Dioxide 26 BUN 3 L Creatinine 0.28 L Estimated GFR > 60 BUN/Creatinine Ratio 10.7 Glucose 82 Calcium 7.5 L [facility] Medical History Anemia Ascites of liver Osteoporosis Pain of both breasts Pancreatic cyst C. difficile colitis Chronic diarrhea CAD (coronary artery disease) Mixed hyperlipidemia (04/28/17) Anxiety (04/28/17) Low back pain without sciatica (08/05/16) Osteoporosis (12/15/13) Osteoarthritis (12/15/13) Surgical History History of arthroplasty of right shoulder History of cholecystectomy Family History Father No problems noted. Mother PE (pulmonary thromboembolism) Social History marital status: household members: spouse Smoking Status: Current every day smoker Tobacco: How many years used: 25 alcohol intake: former substance use type: does not use Discharge Plan Discharge Plan Patient Disposition: Hospice - Home Provider Discharge Comment: You were admitted to the hospital with a UTI, improved and completed antibiotics here. Electing for discharge home with plans for hospice. Discharge orders & Medications Prescriptions: New oxycodone 5 mg Tablet 5 mg PO Q3H PRN (Reason: Pain, Moderate (4-6)) 7 Days Qty: 30 0RF Continued (DME) permanent disabled parking permit Qty: 1 0RF Dose Instruction: As directed Rx Instructions: My patient qualifies for permanent disabled parking access. (DME) needle (disp) 27 gauge 27 gauge x 1/2 needle See Rx Instructions .Route Qty: 100 0RF Rx Instructions: As directed hydroxyzine HCl 25 mg tablet 25 mg PO BID PRN (Reason: Anxiety and pain) Qty: 30 2RF methocarbamol 500 mg tablet 500 mg PO BID PRN (Reason: mm spasm) Qty: 30 2RF lorazepam 0.5 mg tablet 0.5 mg PO BID PRN (Reason: anxiety) Qty: 60 0RF Prolia 60 mg/mL syringe 60 mg SUBCUT [id number] Qty: 1 3RF Patient Comments: Has prescription but has not started medication gabapentin 300 mg capsule 600 mg PO TID 30 Days Qty: 180 1RF Rx Instructions: Take 2 capsules (600 mg) three times a day oxycodone-acetaminophen 5-325 mg tablet 2 tab PO Q6H PRN (Reason: pain) Qty: 112 0RF Rx Instructions: Must last two weeks. Do not fill until 03/09/2023 ferrous gluconate 324 mg (37.5 mg iron) tablet 324 mg PO DAILY Qty: 90 3RF Patient Comments: Pt stopped taking 3 months ago without provider direction gabapentin 300 mg capsule 600 mg PO 3XD lorazepam 0.5 mg tablet 0.5 mg PO BID PRN (Reason: anxiety) methocarbamol 500 mg tablet 500 mg PO BID PRN (Reason: muscle spasm) ferrous gluconate 324 mg (38 mg iron) tablet 324 mg PO BID Follow up/Referrals: Tyler Doty DO [Primary Care Provider] - Visit Report/Discharge Packet Instructions: How to Care for Your Head Catheter -- Female Stand Alone Forms: Patient Portal/API, Stroke Signs & Symptoms Discharge Data Primary Care Provider: Tyler Doty Quality VTE Deep Vein Thrombosis/Pulmonary Embolism Present on Admission: No
== END 2023-03-26 16:48 | disposition hospice, home (50) | DRG 871 ==
LOC: ED 12:49 → AC 16:31
PROVIDERS: Internal Medicine; Student in an Organized Health Care Education/Training Program; Admitting Provider Family Medicine; Emergency Provider Emergency Medicine; PCP Family Medicine; Referring Provider Emergency Medicine; Visit Provider Family Medicine
DX: A41.9 Sepsis, unspecified organism (principal); G93.41 Metabolic encephalopathy; N39.0 Urinary tract infection, site not specified; E87.1 Hypo-osmolality and hyponatremia; E87.20 Acidosis, unspecified; S22.32XA Fracture of one rib, left side, initial encounter for closed fracture; Z11.52 Encounter for screening for COVID-19; G62.9 Polyneuropathy, unspecified; D53.9 Nutritional anemia, unspecified; D69.6 Thrombocytopenia, unspecified; E88.09 Other disorders of plasma-protein metabolism, not elsewhere classified; Z99.3 Dependence on wheelchair; M81.0 Age-related osteoporosis without current pathological fracture; I25.10 Atherosclerotic heart disease of native coronary artery without angina pectoris; M19.90 Unspecified osteoarthritis, unspecified site; E78.2 Mixed hyperlipidemia; F41.9 Anxiety disorder, unspecified; W06.XXXA Fall from bed, initial encounter; S41.112A Laceration without foreign body of left upper arm, initial encounter; S41.111A Laceration without foreign body of right upper arm, initial encounter; S81.812A Laceration without foreign body, left lower leg, initial encounter; S81.811A Laceration without foreign body, right lower leg, initial encounter; G89.4 Chronic pain syndrome; K74.60 Unspecified cirrhosis of liver; R29.6 Repeated falls; S01.81XA Laceration without foreign body of other part of head, initial encounter; Z79.620 Long term (current) use of immunosuppressive biologic; Z91.81 History of falling; Y92.59 Other trade areas as the place of occurrence of the external cause; F17.200 Nicotine dependence, unspecified, uncomplicated
CPT/HCPCS: 36415; 70450; 71260; 72125; 74177; 80048; 80053; 80305; 80320; 80329; 81001; 82140; 82550; 82607; 82746; 83605; 83735; 83880; 84145; 84484; 85025; 85610; 85730; 87040; 87077; 87086; 87186; 87633; 96365; 97161; 99232; 99285; G0480; J0612; J0696; J1650; J2270; Q9967